=== PATIENT | male | born 1965 | race Caucasian/White ===

== ENCOUNTER 2017-05-07 01:10 | Emergency (ER) | payer BC ==
[2017-05-07 01:22] VITALS: RESP 16
[2017-05-07] MEDS ORDERED: SODIUM CHLORIDE 0.9% 1,000 ML IV STA (01:34)
[2017-05-07] MEDS ORDERED: HYDROmorphone 0.5 MG/0.5 ML SYRINGE IVP STA (01:34)
[2017-05-07] MEDS ORDERED: KETOROLAC 30 MG/ML 1 ML VIAL IVP STA (01:35)
[2017-05-07] MEDS ORDERED: ONDANSETRON 4 MG/2 ML VIAL IVP STA (01:35)
--- NOTE | 2017-05-07 01:43 | ED ---
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 Patient states that the pain started approximately a week ago however has been intermittent since then. He states that this is his third episode. States that it started approximately 4 hours ago. Patient states that the pain will come in waves, states that become so severe that it brings him to the floor. He states that when the pain is at its highest he does become nauseated however has not vomited. CT has been difficulty with urination , states that when he attempts to urinate it increases the pain. He denies any radiation of the pain to his abdomen. He denies any hematuria, dysuria, or urinary urgency. Patient denies any recent rash, fever, chills, shortness breath , chest pain, abdominal pain, diarrhea, constipation, numbness, tingling, dizziness, weakness, hematuria, dysuria, urinary urgency, urinary frequency, headache, visual changes, or any other complaints. He states he does have a chronic smoker's cough, denies any sputum production. - Related Data Previous Rx's Medication Instructions Recorded Hydrocodone/Acetaminophen [[place] 1 tab PO Q6HR PRN #20 tab 05/07/17 5-325] Ibuprofen [Motrin] 600 mg PO Q8HR PRN #30 tab 05/07/17 Tamsulosin HCl [Flomax] 0.4 mg PO DAILY #7 cap 05/07/17 Allergies Allergy/AdvReac Type Severity Reaction Status Date / Time Quinolones AdvReac Confusion Verified 05/07/17 01:23 Review of Systems ROS Statement: Those systems with pertinent positive or pertinent negative responses have been documented in the HPI. ROS Other: All systems not noted in ROS Statement are negative. Past Medical History Past Medical History: No Reported History History of Any Multi-Drug Resistant Organisms: None Reported Past Surgical History: Appendectomy, Heart Catheterization Additional Past Surgical History / Comment(s): pilonidal cyst Past Psychological History: No Psychological Hx Reported Smoking Status: Current every day smoker Past Alcohol Use History: Occasional Past Drug Use History: None Reported General Exam Limitations: no limitations General appearance: alert, in no apparent distress, other (Is a well-developed, well nourished adult male patient in no acute distress. Vital signs upon presentation are temperature 98.1F, pulse 72, respirations 16, blood pressure 129/66, pulse ox 97% on room air.) Eye exam: Present: normal appearance, PERRL, EOMI. Absent: scleral icterus, conjunctival injection, periorbital swelling ENT exam: Present: normal exam, normal oropharynx, mucous membranes moist Respiratory exam: Present: normal lung sounds bilaterally. Absent: respiratory distress, wheezes, rales, rhonchi, stridor Cardiovascular Exam: Present: regular rate, normal rhythm, normal heart sounds. Absent: systolic murmur, diastolic murmur, rubs, gallop, clicks GI/Abdominal exam: Present: soft, normal bowel sounds. Absent: distended, tenderness, guarding, rebound, rigid Back exam: Present: normal inspection, CVA tenderness (L). Absent: CVA tenderness (R) Neurological exam: Present: alert, oriented X3, CN II-XII intact Psychiatric exam: Present: normal affect, normal mood Skin exam: Present: warm, dry, intact, normal color. Absent: rash Course Vital Signs 05/07/17 05/07/17 01:17 02:35 Temperature 98.1 F 98.6 F Pulse Rate 72 63 Respiratory 16 16 Rate Blood Pressure 129/66 112/59 O2 Sat by Pulse 97 95 Oximetry Medical Decision Making - Medical Decision Making 51-year-old male patient presents to emergency department today with complaints of left flank pain. Labs reviewed and did show white blood cell count of 12.0, urinalysis showed trace protein, small amount of blood, 7 red blood cells, and few mucus. KUB x-ray of the abdomen was negative for any acute process. CT of the abdomen and pelvis did show a 5 mm stone in the proximal left ureter, and 8 mm stone in the left kidney. Also did show some left-sided hydronephrosis and proximal hydroureter. There was an incidental finding of a cyst to the liver, patient was informed of this finding and instructed to follow-up for further evaluation with his primary care physician. He was given pain medication IV fluids here in the department and is feeling somewhat better. He will be given prescriptions for Flomax, ibuprofen, and [place] for home. He is instructed to follow-up with urologist for recheck in 1-2 days. He is instructed to return here immediately for any new, worsening, or concerning symptoms. He verbalizes understanding and agrees with this plan. - Lab Data Result diagrams: 05/07/17 01:42 05/07/17 01:42 Lab Results 05/07/17 05/07/17 05/07/17 Range/Units 01:42 01:42 02:31 WBC 12.0 H (3.8-10.6) k/uL RBC 4.76 (4.30-5.90) m/uL Hgb 14.9 (13.0-17.5) gm/dL Hct 46.2 (39.0-53.0) % MCV 97.0 (80.0-100.0) fL MCH 31.2 (25.0-35.0) pg MCHC 32.2 (31.0-37.0) g/dL RDW 15.1 (11.5-15.5) % Plt Count 183 (150-450) k/uL Neutrophils % 67 % Lymphocytes % 17 % Monocytes % 7 % Eosinophils % 6 % Basophils % 1 % Neutrophils # 8.1 H (1.3-7.7) k/uL Lymphocytes # 2.1 (1.0-4.8) k/uL Monocytes # 0.9 (0-1.0) k/uL Eosinophils # 0.7 (0-0.7) k/uL Basophils # 0.1 (0-0.2) k/uL Sodium 138 (137-145) mmol/L Potassium 4.6 (3.5-5.1) mmol/L Chloride 107 (98-107) mmol/L Carbon Dioxide 22 (22-30) mmol/L Anion Gap 9 mmol/L BUN 19 (9-20) mg/dL Creatinine 1.00 (0.66-1.25) mg/dL Est GFR (MDRD) Af Amer >60 (>60 ml/min/1.73 sqM) Est GFR (MDRD) Non-Af >60 (>60 ml/min/1.73 sqM) Glucose 97 (74-99) mg/dL Calcium 9.6 (8.4-10.2) mg/dL Total Bilirubin 0.6 (0.2-1.3) mg/dL AST 23 (17-59) U/L ALT 22 (21-72) U/L Alkaline Phosphatase 78 (38-126) U/L Total Protein 7.1 (6.3-8.2) g/dL Albumin 3.9 (3.5-5.0) g/dL Amylase 63 (30-110) U/L Lipase 163 (23-300) U/L Urine Color Yellow Urine Appearance Clear (Clear) Urine pH 5.5 (5.0-8.0) Ur Specific [place] 1.020 (1.001-1.035) Urine Protein Trace H (Negative) Urine Glucose (UA) Negative (Negative) Urine Ketones Negative (Negative) Urine Blood Small H (Negative) Urine Nitrite Negative (Negative) Urine Bilirubin Negative (Negative) Urine Urobilinogen <2.0 (<2.0) mg/dL Ur Leukocyte Esterase Negative (Negative) Urine RBC 7 H (0-5) /hpf Urine WBC 3 (0-5) /hpf Urine Mucus Few H (None) /hpf - Radiology Data Radiology results: report reviewed, image reviewed CT of the abdomen and pelvis without contrast shows possible 1 cm cyst in the left lobe of the liver. Bile ducts are not dilated. Gallbladder is contracted. Spleen appears normal. There is no sign of a great mass. There is no adrenal mass. There is left-sided hydronephrosis. There is 5 mm cut was in the proximal left ureter. There is an 8 mm cognizant KIDNEY. The right kidney appears normal. There is no retroperitoneal adenopathy. There is no ascites. Bladder distends smoothly. I see no intestinal wall thickening. There are clips apparently from appendectomy. Impression by Dr. Pratt shows calculus in the proximal left ureter with left-sided hydronephrosis and proximal hydroureter. Atherosclerotic vascular disease. Multilevel spondylosis noted in the lumbar spine. There is mild L4 to 5 bony spinal stenosis with large calcified posterior disc herniation. 2 views of the abdomen show no sign of intestinal structure pneumoperitoneum. Fecal pattern is normal. There is spurring of thoracic and lumbar spine. There are no pathologic calcifications over the kidneys. Impression by Dr. Pratt shows nonacute abdomen. Disposition Clinical Impression: Kidney stone on left side Disposition: HOME SELF-CARE Condition: Good Instructions: Kidney Stones (ED), How to Strain Your Urine (ED) Additional Instructions: Increase fluids. Take medications as directed. Follow-up with urology Tuesday. Return here immediately for any new, worsening, or concerning symptoms. Prescriptions: Hydrocodone/Acetaminophen [[place] 5-325] 1 tab PO Q6HR PRN #20 tab PRN Reason: Pain Ibuprofen [Motrin] 600 mg PO Q8HR PRN #30 tab PRN Reason: Pain Tamsulosin HCl [Flomax] 0.4 mg PO DAILY #7 cap Referrals: Tio Sam III, MD [Primary Care Provider] - 1-2 days Stanley Cannon MD [STAFF PHYSICIAN] - 1-2 days Time of Disposition: 02:53
[2017-05-07 01:55] LABS: Basophils # (A) 0.1 k/uL (0-0.2); Basophils % (A) 1 %; CH 32.7; CHCM 33.9; Eosinophils # (A) 0.7 k/uL (0-0.7); Eosinophils % (A) 6 %; HCT 46.2 % (39.0-53.0); HDW 2.41; HGB 14.9 gm/dL (13.0-17.5); Luc # (Auto) 0.13; Luc % (Auto) 1; Lymphocytes # (A) 2.1 k/uL (1.0-4.8); Lymphocytes % (A) 17 %; MCH 31.2 pg (25.0-35.0); MCHC 32.2 g/dL (31.0-37.0); Mean Platelet Volume 9.2; Monocytes # (A) 0.9 k/uL (0-1.0); Monocytes % (A) 7 %; Neutrophils # (A) 8.1 k/uL (1.3-7.7); Neutrophils % (A) 67 %; RBC 4.76 m/uL (4.30-5.90); RDW 15.1 % (11.5-15.5); WBC (Perox) 11.78
--- NOTE | 2017-05-07 02:09 | XR ---
EXAMINATION TYPE: XR KUB DATE OF EXAM: 05/07/2017 COMPARISON: NONE HISTORY: Flank pain TECHNIQUE: 2 views FINDINGS: There is no sign of intestinal obstruction or pneumoperitoneum. Fecal pattern is normal. Th ere is spurring in the thoracic and lumbar spine. There are no pathologic calcifications over the kid neys. IMPRESSION: Nonacute abdomen.
[2017-05-07 02:14] LABS: Amylase 63 U/L (30-110); Anion Gap 9 mmol/L; Calcium 9.6 mg/dL (8.4-10.2); Carbon Dioxide 22 mmol/L (22-30); Chloride 107 mmol/L (98-107); Glucose 97 mg/dL (74-99); Non-African American GFR(MDRD) >60 (>60 ml/min/1.73 sqM); Sodium 138 mmol/L (137-145); Total Bilirubin 0.6 mg/dL (0.2-1.3); Total Protein 7.1 g/dL (6.3-8.2)
[2017-05-07 02:18] LABS: ALT 22 U/L (21-72); AST 23 U/L (17-59); Alkaline Phosphatase 78 U/L (38-126); Blood Urea Nitrogen 19 mg/dL (9-20); Potassium 4.6 mmol/L (3.5-5.1)
--- NOTE | 2017-05-07 02:27 | CT ---
EXAMINATION TYPE: CT abdomen pelvis wo con DATE OF EXAM: 05/07/2017 COMPARISON: NONE HISTORY: left flank pain CT DLP: 898.20 mGycm Automated exposure control for dose reduction was used. TECHNIQUE: Helical acquisition of images was performed from the lung bases through the pelvis. FINDINGS: Lung bases are clear of consolidation. There is no pleural effusion. There is a possible 1 cm cyst in the left lobe of the liver. Bile ducts are not dilated. Gallbladder is contracted. Spleen appears normal. There is no sign of pancreatic mass. There is no adrenal mass. There is left-sided hydronephrosis. There is a 5 mm calculus in the proxima l left ureter. There is a 8 mm calculus in the left kidney. The right kidney appears normal. There is no retroperitoneal adenopathy. There is no ascites. Bladder distends smoothly. I see no inte stinal wall thickening. There are clips apparently from appendectomy. IMPRESSION: CALCULUS IN THE PROXIMAL LEFT URETER WITH LEFT-SIDED HYDRONEPHROSIS AND PROXIMAL HYDROURETER. ATHEROS CLEROTIC VASCULAR DISEASE. MULTILEVEL SPONDYLOSIS NOTED IN THE LUMBAR SPINE. THERE IS MILD L4-5 BONY SPINAL STENOSIS WITH LARGE CALCIFIED POSTERIOR DISC HERNIATION.
[2017-05-07] MEDS ORDERED: TAMSULOSIN 0.4 MG CAP.ER.24H PO STA (02:36)
[2017-05-07 02:48] VITALS: BP 112/59; PULSE 63; TEMP 98.6
[2017-05-07 02:48] LABS: Appearance,Urine Clear (Clear); Bilirubin,Urine Negative (Negative); Glucose,Urine (UA) Negative (Negative); Ketones,Urine Negative (Negative); Leukocyte Esterase,Urine Negative (Negative); Mucus,Urine Few /hpf; Nitrite,Urine Negative (Negative); PH, Urine 5.5 (5.0-8.0); Particle Count 3229; Protein,Urine Trace (Negative); RBC,Urine 7 /hpf (0-5); UA Billing (MACRO vs. MICRO) MICRO; Urobilinogen,Urine <2.0 mg/dL (<2.0); WBC,Urine 3 /hpf (0-5)
[2017-05-07] MEDS ORDERED: ACET/COD 300 MG/30 MG STARTER PACK 6 TAB BTL PO STA (03:05)
== END 2017-05-07 03:08 | disposition home or self-care (01) ==
LOC: EC 01:10
DX: N20.0 Calculus of kidney (principal); N13.30 Unspecified hydronephrosis; F17.200 Nicotine dependence, unspecified, uncomplicated; Z88.1 Allergy status to other antibiotic agents; Z98.890 Other specified postprocedural states
CPT/HCPCS: 99284 ×2; 96374 ×2; 96375 ×2; 36415; 80053; 82150; 83690; 85025; 81001; 74000; 74176; J1885; J1170

== ENCOUNTER → 2017-05-30 | Outpatient (CLI) | payer BC ==
--- NOTE | 2017-05-30 14:13 | XR ---
EXAMINATION TYPE: XR KUB DATE OF EXAM: 05/30/2017 COMPARISON: 05/07/2017 HISTORY: Pain TECHNIQUE: One view abdominal series FINDINGS: The osseous structures are intact. Hypertrophic and degenerative change of the lumbar spine. The bow el gas pattern is nonspecific. Arthropathy of the hips noted. Left kidney: There are approximately 3 calcifications overlying the left kidney lower pole largest me asuring 4 mm. Right kidney: No definite renal calculi identified. Abdomen, pelvis: There is a calcification adjacent to the L3-L4 transverse process on the left measur ing approximate 5 mm and corresponds to the CT abnormality compatible with mid ureteral calculus. IMPRESSION: 1. Adjacent to L3-L4 disc interspace there is a persistent calcification measuring 5 mm. This appears to be in similar position relative to the coronal image CT scan dated 05/07/2017. 2. Left-sided nephrolithiasis as measured above.
== END | disposition home or self-care (01) ==
LOC: RADXRMAIN 13:49
PROVIDERS: ATTEND Urology
DX: N20.0 Calculus of kidney (principal)
CPT/HCPCS: 74000

== ENCOUNTER → 2018-02-18 | Outpatient (CLI) | payer BC ==
--- NOTE | 2018-02-19 14:36 | MR ---
EXAMINATION TYPE: MR cervical spine wo con DATE OF EXAM: 02/18/2018 COMPARISON: None HISTORY: Neck pain, Numbness/Tingling in arms and fingers TECHNIQUE: Multiplanar, multisequence images of the cervical spine were acquired. C2-C3: No evidence for degenerative disc disease. No disc bulge/herniation or protrusion. No Canal stenosis. Foramina are patent bilaterally. C3-C4: Mild central focal bulge is present with anterior thecal sac compression. No AP spinal canal s tenosis present. Neural foramen have mild narrowing due to uncovertebral joint hypertrophy. C4-C5: There is a central focal bulge with moderate anterior thecal sac compression. Cord contact wit hout cord deformity may be present. No spinal canal stenosis is present. Severe right and moderate le ft foraminal stenosis from uncovertebral joint hypertrophy is present. C5-C6: There is a large broad disc herniation. This is greatest in the central and right paracentral region with moderate to severe compression of the thecal sac. There is compression and deformity of t he spinal cord. AP spinal canal stenosis is present with an AP diameter of 4.9 cm. There is signal ch allison within the left aspect of the spinal cord on T2-weighted sequences uncovertebral joint hypertrop hy is present with moderate right and mild left foraminal stenosis. C6-C7: There is a subligamentous central disc herniation with mild anterior thecal sac compression. T his comes in close approximation with spinal cord. Cord contact may be present. No AP spinal canal st enosis present. Bilateral foramen have moderate narrowing due to uncovertebral joint hypertrophy. C7-T1: No evidence for degenerative disc disease. No disc bulge/herniation or protrusion. No Canal stenosis. Foramina are patent bilaterally. Disc heights appear preserved. Disc desiccation is present within the upper to mid thoracic spine. Ve rtebral body heights are preserved. Craniovertebral junction is normal. IMPRESSION: 1. Large broad central disc herniation C5-6 with more focal central and right paracentral bulging cau sing severe anterior thecal sac compression, cord contact and deformity. Signal abnormality is noted in the left aspect of the spinal cord at this level. 2. Multilevel central focal bulge is without cord contact or cord deformity appears greatest at C6-7 or possibly C4-5. A Yellow level critical message alert has been initiated for Tio Sam III, MD via the [employer] Critical Results System on 02/19/2018 2:33 PM. This message alert has been sent to Tio Solorzano II, MD via the preferences provided by the clinician for the receipt of Radiology Critical Findings. Message ID [id number].
== END | disposition home or self-care (01) ==
LOC: RADMRIMAIN 09:57
PROVIDERS: ATTEND Family Medicine
DX: M50.21 Other cervical disc displacement, high cervical region (principal); M43.9 Deforming dorsopathy, unspecified; R93.7 Abnormal findings on diagnostic imaging of other parts of musculoskeletal system
CPT/HCPCS: 72141

== ENCOUNTER → 2018-03-03 | Outpatient (CLI) | payer BC ==
[2018-03-03 17:26] LABS: Basophils # (A) 0.1 k/uL (0-0.2); Basophils % (A) 1 %; Eosinophils # (A) 0.3 k/uL (0-0.7); Eosinophils % (A) 4 %; HGB 14.4 gm/dL (13.0-17.5); Lymphocytes # (A) 2.5 k/uL (1.0-4.8); Lymphocytes % (A) 30 %; MCH 30.8 pg (25.0-35.0); MCHC 34.3 g/dL (31.0-37.0); MCV 89.8 fL (80.0-100.0); Mean Platelet Volume 6.9; Monocytes # (A) 0.6 k/uL (0-1.0); Monocytes % (A) 7 %; Neutrophils # (A) 4.8 k/uL (1.3-7.7); Neutrophils % (A) 56 %; Platelet Count 231 k/uL (150-450); RBC 4.68 m/uL (4.30-5.90); RDW 13.7 % (11.5-15.5); WBC 8.5 k/uL (3.8-10.6)
[2018-03-03 17:32] LABS: Partial Thromboplastin Time 23.5 sec (22.0-30.0); Prothrombin Time 10.2 sec (9.0-12.0)
[2018-03-03 17:46] LABS: Anion Gap 8 mmol/L; Blood Urea Nitrogen 15 mg/dL (9-20); Calcium 9.2 mg/dL (8.4-10.2); Carbon Dioxide 22 mmol/L (22-30); Chloride 109 mmol/L (98-107); Glucose 86 mg/dL (74-99); Sodium 139 mmol/L (137-145)
--- NOTE | 2018-03-03 17:59 | XR ---
EXAMINATION TYPE: XR chest 2V DATE OF EXAM: 03/03/2018 COMPARISON: NONE HISTORY: Chest pain TECHNIQUE: Frontal and lateral views of the chest are obtained. FINDINGS: Heart and mediastinum are normal. Lungs are clear. Diaphragm is normal. There is spurring in the thoracic spine. IMPRESSION: No active cardiopulmonary disease. Normal heart.
[2018-03-03 18:03] LABS: Appearance,Urine Clear (Clear); Bilirubin,Urine Negative (Negative); Blood,Urine Negative (Negative); Color,Urine Yellow; Glucose,Urine (UA) Negative (Negative); Ketones,Urine Negative (Negative); Leukocyte Esterase,Urine Negative (Negative); Nitrite,Urine Negative (Negative); PH, Urine 5.5 (5.0-8.0); Protein,Urine Negative (Negative); Specific Gravity,Urine 1.021 (1.001-1.035); Urobilinogen,Urine <2.0 mg/dL (<2.0)
== END | disposition home or self-care (01) ==
LOC: LABPAT 16:45
PROVIDERS: ATTEND Orthopaedic Surgery Orthopaedic Surgery of the Spine
DX: Z01.818 Encounter for other preprocedural examination (principal); M50.00 Cervical disc disorder with myelopathy, unspecified cervical region
CPT/HCPCS: 36415; 71046; 80048; 81003; 85025; 85610; 85730

== ENCOUNTER 2018-03-15 07:48 | Inpatient (IN) | payer BC ==
[2018-03-08 14:54] VITALS: BMI 29.7
[~2018-03-15 07:48] MED LIST: BACITRACIN 50,000 UNIT, POLYMYXIN B 500,000 UNIT in SODIUM CHLORIDE 0.9% IRRIGATIO 1,00... IRRIGATION ONE; DEXAMETHASONE SOD PHOSPHATE 10 MG/ML 1 ML VIAL IV ONE; LIDOCAINE 1% 20 ML VIAL (10MG/ML) FOR IV START INTRADERMA PRN; MIDAZOLAM 2 MG/2 ML VIAL IV PRN; ONDANSETRON 4 MG/2 ML VIAL IVP ONE; ceFAZolin IN SWFI 2 GM/20 ML SYRINGE IVP ONE; fentaNYL (PF) 50 MCG/ML 2 ML AMP IV PRN; fentaNYL (PF) 50 MCG/ML 2 ML AMP IVP PRN
[2018-03-15] MEDS ORDERED: ONDANSETRON 4 MG/2 ML VIAL ONE (08:13)
[2018-03-15] MEDS: LACTATED RINGERS 1,000 ML IV SCH ×2 (08:24→15:31)
[2018-03-15] MEDS ORDERED: SUCCINYLCHOLINE CHLORIDE 100 MG/5 ML SYR IV ONE (10:25)
[2018-03-15] MEDS ORDERED: MIDAZOLAM 2 MG/2 ML VIAL ONE (10:25)
[2018-03-15] MEDS ORDERED: GLYCOPYRROLATE 0.2 MG/ML 2 ML VIAL ONE (10:25)
[2018-03-15] MEDS ORDERED: LIDOCAINE 0.5%-EPI 1:200,000 50 ML VIAL SQ ONE ×2 (10:25)
[2018-03-15] MEDS ORDERED: fentaNYL (PF) 50 MCG/ML 2 ML AMP ONE (10:25)
[2018-03-15] MEDS ORDERED: LIDOCAINE 1% INJ 10MG/ML (20 ML MDV) ONE (10:25)
[2018-03-15] MEDS ORDERED: THROMBIN (BOVINE) 5,000 UNIT VIAL TOPICAL ONE (10:25)
[2018-03-15] MEDS ORDERED: GELATIN SPONGE,ABSORB (LARGE) 1 EACH SPONGE TOPICAL ONE (10:25)
[2018-03-15] MEDS ORDERED: ROCURONIUM BROMIDE 10 MG/ML 10 ML VIAL IV ONE (10:25)
[2018-03-15] MEDS ORDERED: PROPOFOL 10 MG/ML 20 ML VIAL IV ONE (10:25)
[2018-03-15] MEDS ORDERED: KETAMINE 10 MG/ML 20 ML VIAL ONE (10:25)
[2018-03-15] MEDS ORDERED: DEXAMETHASONE SOD PHOS (MDV) 100 MG/10 ML VIAL ONE (10:25)
[2018-03-15] MEDS ORDERED: NEOSTIGMINE 1 MG/ML 10 ML VIAL ONE (10:25)
[2018-03-15] MEDS ORDERED: LACTATED RINGERS 1,000 ML IV ONE (11:01)
[2018-03-15] MEDS ORDERED: BENZOCAINE/MENTHOL LOZENG 1 EACH LOZENGE MUCOUS MEM PRN (12:49)
[2018-03-15] MEDS ORDERED: MAGNESIUM HYDROXIDE 2,400 MG/10 ML CUP PO PRN (12:49)
[2018-03-15] MEDS ORDERED: ONDANSETRON 4 MG/2 ML VIAL IVP PRN (12:49)
--- NOTE | 2018-03-15 12:56 | P.OP ---
Date of Procedure: 03/15/18 Preoperative Diagnosis: Cervical myelomalacia Cervical myelopathy Severe cervical stenosis C5 6 with cervical stenosis C4 5 and C6 7 Herniated nucleus pulposis C4 5 C5 6 C6 7 Upper extremity radiculopathy with weakness Postoperative Diagnosis: Same Anesthesia: GETA Pathology: none sent Condition: stable Disposition: PACU Description of Procedure: BRIEF OPERATIVE NOTE Preoperative Diagnosis:Cervical myelomalacia Cervical myelopathy Severe cervical stenosis C5 6 with cervical stenosis C4 5 and C6 7 Herniated nucleus pulposis C4 5 C5 6 C6 7 Upper extremity radiculopathy with weakness Postoperative Diagnosis: same Procedure: Anterior cervical decompression discectomy and fusion C4 5 C5 6 C6 7 Placement of interbody graftC4 5 C5 6 C6 7 removal of large anterior cervical osteophyte C4 5 C5 6 and C6 7 Application of anterior cervical plate C4 5 6 and 7 Surgeon: Dr. Mcdonald Director Electrical Engineering: Howie BUSBY who is present throughout the entire the case persistence during positioning, dissection, exposure, visualization, and all crucial elements of the case as well as closure. Anesthesia: General anesthesia per Dr. Rushing Estimated blood loss: approximately 50 mL Complications: None apparent Components implanted:a 2 mL [place] anterior cervical plate system with screws and Vikos interbody allograft bone graft with 1 mL of DBX bone putty Disposition: To recovery room in good stable condition. OPERATIVE INDICATIONS The patient has had long-standing issues in their neck and upper extremities. he was having evidence of cervical myelopathy with some changes in his function is upper extremities and his gait as well. He was having weakness in his left upper extremity. Imaging showed severe cervical stenosis with evidence of myelomalacia which correlated well with his cervical myeloradiculopathy and myelopathy symptoms. The patient has been through conservative treatment. he was having worsening symptoms despite conservative management. We discussed various treatment options including surgery, and the patient wishes to proceed with surgery We discussed the risk, patient's alternatives and benefits of surgery including but not limited to, risk of bleeding risk of infection, risk of need for further surgery, risk of decreased, loss of motion, muscle function , malunion nonunion, hardware failure, nerve damage, paralysis, heart attack, and . OPERATIVE SUMMARY After discussing all the risks, patient alternatives and benefits at length, the patient elected to proceed with surgical intervention, signed informed consent, and presented for their procedure. The patient was seen and examined in the preoperative holding area and the surgical site was marked. The patient was given antibiotics and brought to the operating room. The patient was positioned on the operating room table in a supine position being careful to pad any bony prominences and pressure points. The patient was sedated and intubated by anesthesia in standard fashion. Once the airway and C- spine were stabilized the patient's arms were padded and tucked at her side, with her shoulders gently taped. The head was placed in a donut pad with the neck in good neutral alignment and position. We were careful to maintain the patient's cervical spine and good neutral alignment and position throughout. The patient was prepped and draped in a normal standard fashion. An appropriate timeout and keystone protocol performed. We were able to proceed with the surgery. The local wound area was infiltrated with local anesthetic. An incision was made transversely approximately 2-1/2 cm over the appropriate levels at C5 6 . Dissection was taken down subcutaneously to the level of the platysma which was split in line with its fibers. Dissection was taken with a carotid approach, with the trachea and esophagus medial and the carotid sheath laterally. We dissected down to the anterior surface of the vertebral bodiesfrom C4 to C7 where there were very large anterior cervical osteophytes . Intraoperative x-ray was taken which showed a marker at the appropriate level at C4 5 . With the appropriate level positively confirmed, we were able to proceed with discectomy at the appropriate levels at C4 5 and then at C5 6 and then at C6 7 . All of the operative levels were exposed appropriately. The patient had all their twitches back, and there was no evidence of recurrent laryngeal issue. The wound was copiously irrigated and suctioned dry as had been done periodically throughout the case. I had to remove very large anterior cervical osteophytes at each level of C4 5 C5 6 and C6 7. At the appropriate level/levels, starting at C4 5 and then moving C5 6 and then C6 7 I established an annulotomy with an 11 blade scalpel. A discectomy was performed with a combination of pituitary rongeurs, curettes, a high-speed bur, and Kerrison rongeurs. The posterior longitudinal ligament was taken down as were any posterior osteophytes. there were large disc herniations particularly at C5 6 which had to be removed and excised in order to gain excellent central and bilateral foraminal decompression. This gave good central and bilateral foraminal decompression. There is no evidence of any dural tear or leak. The endplates were prepared with a high-speed bur. With the endplates in good parallel position, I was able to size for the appropriate size interbody graft. The wound was irrigated and suctioned dry the graft was prepared and malleted into position. It had good alignment and position with the anterior surface flush with the anterior surface of the vertebral bodies. This was done similarly the appropriate levels first at C4 5 and C5 6 and then at C6 7. With the grafts intact, I was able to measure and contour and appropriate sized plate. The plate was positioned at the midline over the appropriate levels at C4 5 6 and 7 . Screw holes were established with a hand drill and drill guide. Screws were placed in good alignment and position with excellent bony purchase. They were seated under the locking device. The construct was checked and found to be stable. Intraoperative x-ray was taken which showed good alignment and position of the implants at the appropriate levels. There was no evidence of any dural tear or leak. Good hemostasis was maintained. The wound was copiously irrigated and suctioned dry as had been done periodically throughout the case. The platysma was closed with absorbable suture. The subcutaneous tissue was closed. The subcuticular tissue was closed with absorbable suture. The wound was cleaned and dried and dressed appropriately. A soft cervical collar was placed appropriately. The patient was woken up by anesthesia, extubated, transferred back gently to their hospital bed and brought to the recovery room in good stable condition. The patient will be admitted to the hospital for appropriate postoperative care , medical management and monitoring. We will continue to follow them closely about the postoperative course.
[2018-03-15] MEDS: HYDROmorphone 1 MG/ML 1 ML SYRINGE IVP PRN ×3 (13:12→21:20)
[2018-03-15 13:19] VITALS: RESP 16
[2018-03-15] MEDS ORDERED: HYDROmorphone 1 MG/ML 1 ML SYRINGE IVP ONE (13:33)
[2018-03-15] MEDS ORDERED: diphenhydrAMINE 50 MG/ML 1 ML VIAL IVP ONE (13:49)
--- NOTE | 2018-03-15 15:04 | XR ---
Lateral cervical spine HISTORY: Needle placement Single lateral view of the cervical spine. There is a needle present at the intervertebral disc space C4-5. Multilevel spondylosis is present. E ndotracheal tube noted incidentally, there are overlying leads. IMPRESSION: Orthopedic localization.
--- NOTE | 2018-03-15 15:07 | XR ---
Cervical spine HISTORY: Hardware placement Single lateral view of the cervical spine correlated prior exam 03/15/2018 Patient is status post anterior cervical fusion and discectomy at C4-C7. There is anatomic alignment, intervertebral spacing blocks of been placed. Endotracheal tube is present. IMPRESSION: Orthopedic follow-up.
[2018-03-15] MEDS: ceFAZolin IN SWFI 2 GM/20 ML SYRINGE IVP SCH (18:13)
[2018-03-15] MEDS: SODIUM CHLORIDE 0.9% 1,000 ML IV SCH (18:13)
[2018-03-15] MEDS: HYDROcodone/APAP 5-325MG 1 EACH TAB PO PRN (19:45)
[2018-03-16] MEDS: HYDROcodone/APAP 5-325MG 1 EACH TAB PO PRN ×3 (00:01→08:26)
[2018-03-16] MEDS: ceFAZolin IN SWFI 2 GM/20 ML SYRINGE IVP SCH (00:09)
[2018-03-16] MEDS: HYDROmorphone 1 MG/ML 1 ML SYRINGE IVP PRN ×3 (01:47→10:24)
[2018-03-16] MEDS: SODIUM CHLORIDE 0.9% 1,000 ML IV SCH ×2 (03:04→04:15)
[2018-03-16 06:19] VITALS: BP 107/58; PULSE 73; TEMP 97.6
[2018-03-16] MEDS ORDERED: SENNOSIDES-DOCUSATE SODIUM 1 EACH TAB PO SCH (09:00)
--- NOTE | 2018-03-16 09:29 | P.DS ---
Providers Date of admission: 03/15/18 07:48 Attending physician: Rommel Mcdonald Primary care physician: T[facility] Course: The patient presented on the day of admission as per his operative note. He had severe cervical stenosis with herniated disc and was having myelopathy and evidence of myelomalacia at his cervical spine. He had been having worsening symptoms despite conservative treatment. He presented for his anterior cervical discectomy with decompression and fusion as per his operative note. This morning he says he is feeling pretty good. He feels that his symptoms in his arms have changed somewhat. He has been ambulatory and tolerating a soft diet. Physical Exam The incision site is clean dry and intact. There is no erythema no drainage. There is no purulence no evidence of infection. His neck is soft and supple. There is no active drainage. Abdomen soft and nontender. Chest has good excursion with deep inspiration and expiration. The patient has active and passive range of motion intact at the upper and lower extremities. There is no acute change in neurologic status. He has good motion in his upper extremity his lower extremity. He is ambulatory on his own and stable. Hospital Course Postoperative day #1 status post anterior cervical decompression with discectomy and fusion at C4 5 C5 6 and C6 7 for his severe cervical stenosis with herniated nucleus pulposis and cervical myelopathy and myelomalacia. The patient had 3 level anterior cervical decompression and fusion and I felt that he would need close monitoring and overnight inpatient hospitalization in this regard given the severity of his issues and the multiple levels involved. He has done well postoperatively. The patient has been making good progress postoperatively. They have completed the prophylactic antibiotics without any signs or symptoms of infection. The patient has been able to advance their diet , and is tolerating diet adequately. The pain was initially controlled with IV medications and is now controlled appropriately with oral medications. The patient has been able to increase their mobilization. The patient has progressed appropriately. I think they are in good stable condition for discharge today. They will be sent home with appropriate prescriptions. I answered their questions to the best of my ability in a language that they can understand and they are agreeable with the plan. They will follow up as directed in approximately 2 weeks or sooner for a 70 problems. Patient Condition at Discharge: Good Plan - Discharge Summary Discharge Rx Participant: No New Discharge Prescriptions: New Hydrocodone/Acetaminophen [[place] 7.5-325] 1 tab PO Q4HR PRN 7 Days #42 tab PRN Reason: Severe Pain No Action Ibuprofen [Motrin] 600 mg PO Q8HR PRN #30 tab PRN Reason: Pain Discharge Medication List Ibuprofen [Motrin] 600 mg PO Q8HR PRN #30 tab 05/07/17 [Rx] Hydrocodone/Acetaminophen [[place]alph 7.5-325] 1 tab PO Q4HR PRN 7 Days #42 tab 03/16 [Rx] Patient Instructions/Handouts: *Surgery [facility] - ([facility]) Cervical Surgery Discharge Instructions Activity/Diet/Wound Care/Special Instructions: May ambulate to tolerance Avoid heavy or rigorous activity No overhead work No repetitive bending twisting or lifting Keep dressing clean. May shower with waterproof Tegaderm intact. Do not soak in a tub. On Tuesday May remove dressing and may leave the area uncovered, but leave Steri- Strips intact and allow them to fray off on their own On Tuesday the patient may shower with area uncovered. Discharge Disposition: HOME SELF-CARE
== END 2018-03-16 10:50 | disposition home or self-care (01) | DRG 472 ==
LOC: 2ORMAIN 07:48 → 5MS5E 14:21
PROVIDERS: ADMIT Orthopaedic Surgery Orthopaedic Surgery of the Spine; ATTEND Orthopaedic Surgery Orthopaedic Surgery of the Spine
PROC: 0RT30ZZ Resection of Cervical Vertebral Disc, Open Approach (ICD-10-PCS; 2018-03-15)
PROC: 0RG20K0 Fusion of 2 or more Cervical Vertebral Joints with Nonautologous Tissue Substitute, Anterior Approach, Anterior Column, Open Approach (ICD-10-PCS; principal; 2018-03-15 10:05)
DX: M48.02 Spinal stenosis, cervical region (principal); G95.89 Other specified diseases of spinal cord; M50.122 Cervical disc disorder at C5-C6 level with radiculopathy; M25.78 Osteophyte, vertebrae; R01.1 Cardiac murmur, unspecified; F17.210 Nicotine dependence, cigarettes, uncomplicated; Z88.1 Allergy status to other antibiotic agents
CPT/HCPCS: 72020; 86850; 86900; 86901

== ENCOUNTER → 2019-07-13 | Outpatient (CLI) | payer BC ==
--- NOTE | 2019-07-13 08:55 | US ---
EXAMINATION TYPE: US abdomen complete DATE OF EXAM: 07/13/2019 COMPARISON: CT 05/07/2017 CLINICAL HISTORY: R10.11 RUQ pain. EXAM MEASUREMENTS: Liver Length: 15.2 cm Gallbladder Wall: 0.2 cm CBD: 0.5 cm Spleen: 10.2 cm Right Kidney: 11.8 x 5.4 x 6.0 cm Left Kidney: 11.4 x 6.1 x 5.0 cm Pancreas: Distal body and Tail obscured by overlying bowel gas Liver: wnl Gallbladder: wnl Evidence for sonographic Garcia's sign: No CBD: wnl Spleen: wnl Right Kidney: No hydronephrosis or masses seen Left Kidney: No hydronephrosis or masses seen Upper IVC: wnl Abd Aorta: wnl The liver is homogenous. The intrahepatic portion of the IVC and proximal abdominal aorta are within normal limits. There is no evidence of cholelithiasis. Common bile duct is unremarkable. The visu alized portions of the pancreas are homogenous. The spleen is unremarkable. Kidneys are symmetric a nd free of hydronephrosis. No renal lesions are seen. IMPRESSION: No acute findings are evident. Left-sided nephrolithiasis on 2017 CT not clearly identifi ed on current study lower pole level.
== END | disposition home or self-care (01) ==
LOC: RADUSWWP 06:56
PROVIDERS: ATTEND Family Medicine
DX: R10.11 Right upper quadrant pain (principal)
CPT/HCPCS: 76700

== ENCOUNTER → 2020-10-17 | Outpatient (CLI) | payer BC ==
--- NOTE | 2020-10-17 16:51 | MR ---
EXAMINATION TYPE: MR cervical spine wo/w con DATE OF EXAM: 10/17/2020 COMPARISON: MR cervical spine 02/18/2018 HISTORY: Neck pain/numbness into shoulder, Leg pain TECHNIQUE: Multiplanar, multisequence images of the cervical spine were acquired utilizing 10 mL intravenous Subhash avist gadolinium contrast. Diffusion weighted imaging was performed. C2-C3: Some mild right-sided foraminal encroachment is present due to uncovertebral joint hypertrophy . No evident spinal stenosis or disc herniation. C3-C4: There is a posterior central disc protrusion is a anterior mass effect on the thecal sac. Bila teral foraminal encroachment is present due to uncovertebral joint hypertrophy. Findings are essentia lly stable. C4-C5: Bilateral foraminal encroachment is again noted. No evident disc herniation or spinal stenosis . C5-C6: No evident spinal stenosis or disc herniation. There is bilateral foraminal encroachment right greater than left. Heart disc extends posteriorly causing mild anterior mass effect on the thecal sa c. C6-C7: Right greater than left foraminal encroachment is present. Heart disc is present extending pos teriorly causing mild anterior mass effect on the thecal sac. No significant spinal stenosis. C7-T1: No evidence for degenerative disc disease. No disc bulge/herniation or protrusion. No Canal stenosis. Foramina are patent bilaterally. Patient shows anterior cervical fusion and discectomy change at C4-C7. There is normal alignment. Ce rvical spinal cord is again showing abnormal signal as on prior exam consistent with myelomalacia at C6. Craniovertebral junction relationships are within normal limits. No abnormal enhancement follow ing contrast administration. IMPRESSION: Myelomalacia is noted within the cord, better seen compared to prior exam. Postop changes. Degenerati ve disc disease. Improvement is present due to surgery. Persistent multilevel foraminal encroachment.
== END | disposition home or self-care (01) ==
LOC: RADMRIMAIN 06:03
PROVIDERS: ATTEND Orthopaedic Surgery Orthopaedic Surgery of the Spine
DX: M50.30 Other cervical disc degeneration, unspecified cervical region (principal); G95.89 Other specified diseases of spinal cord; Z98.890 Other specified postprocedural states; R53.1 Weakness; F17.200 Nicotine dependence, unspecified, uncomplicated; Z98.1 Arthrodesis status
CPT/HCPCS: 72156; A9585

== ENCOUNTER → 2021-08-17 | Outpatient (CLI) | payer BC ==
--- NOTE | 2021-08-17 11:50 | MR ---
EXAMINATION TYPE: MR cspine/lspine wo con DATE OF EXAM: 08/17/2021 COMPARISON: Prior cervical spine MRI 10/17/2020 HISTORY: Low back pain, cervicalgia TECHNIQUE: Multiplanar, multisequence imaging of the cervical and lumbar spine is performed without I V contrast. FINDINGS: Cervical spine MRI: Cervical cord signal is abnormal as on prior exam, myelomalacia is present at pao roximately C6 level similar to prior exam. There is no significant spinal stenosis. Anterior fusion c hanges are again noted, susceptibility artifact due to patient's anterior cervical fusion and discect callum change at C4-C7. C3-4 shows a small posterior disc bulge causing anterior mass effect on the thecal sac. Some uncovert ebral joint hypertrophy results in foraminal encroachment bilaterally similar to prior exam. Foramina l encroachment is also present at C4-5, C5-6 similar to prior exam as well as C6-7 right greater than left. Exam is essentially stable. IMPRESSION: Stable postoperative findings, degenerative disc disease, myelomalacia within the cervica l cord. Multilevel foraminal encroachment. No significant spinal stenosis. Lumbar spine MRI: Lumbar vertebral bodies show preserved height and alignment. Is multilevel spondylo sis with endplate discogenic marrow signal change. Loss of disc height signal is present at intervert ebral levels L1-2, L2-3, L3-4 and L4-5. The conus is at L1 shows an unremarkable appearance. No signi ficant spinal stenosis. L5-S1: There is marked facet arthropathy change. No evident disc herniation or foraminal encroachment on the right, circumferential extension endplate disc complex encroaches minimally on the left neura l foramen. L4-5: Facet arthropathy change with hypertrophy ligamentum flavum is noted. Circumferential disc bulg e causes anterior mass effect on the thecal sac and extends laterally to cause bilateral foraminal en croachment. Some increased signal posterior aspect of the disc may be due to annular tear. There is a focal left posterior paracentral disc protrusion which may contact the left L5 nerve root. Hypertrop hic changes of the facets may encroach upon the lateral recesses. L3-4: Differential posterior disc bulge causes anterior mass effect on the thecal sac. No significant foraminal encroachment. There is facet arthropathy change present. L2-3: Right posterior paracentral disc bulge causes anterolateral mass effect on the thecal sac. Reve rsal extension endplate disc complex encroaches upon the right neural foramen. L1-2: Left posterior paracentral disc bulge causes anterolateral mass effect on the thecal sac. There is facet arthropathy change causing some posterior lateral mass effect on the thecal sac from the ri ght. No significant foraminal encroachment. IMPRESSION: Negative MRI of the lumbar spine. Multilevel degenerative disc disease and facet arthrop athy. Multilevel foraminal encroachment.
== END | disposition home or self-care (01) ==
LOC: RADMRIMAIN 06:04
PROVIDERS: ATTEND Orthopaedic Surgery Orthopaedic Surgery of the Spine
DX: M51.36 Other intervertebral disc degeneration, lumbar region (principal); M47.816 Spondylosis without myelopathy or radiculopathy, lumbar region; M50.323 Other cervical disc degeneration at C6-C7 level; G95.89 Other specified diseases of spinal cord
CPT/HCPCS: 72141; 72148

== ENCOUNTER → 2021-08-27 | Outpatient (CLI) | payer BC ==
--- NOTE | 2021-08-27 14:53 | P.CON ---
Consult Note - . Consult date: 08/27/21 Assessment/Plan:: HISTORY OF PRESENT ILLNESS: 55 year old male with at side as a referral from Dr. Mcdonald with lower back pain due to lumbar degenerative disc disease, spondylosis, disc bulges, neural foraminal stenoses, facet arthropathy and left L5 nerve root encroachment presents today for an evaluation. Patient states his lower back pain a 7 out of 10 in intensity, dull achy and sore in character, with radiation of soreness to his hips bilaterally and accompanying weakness in the right lower extremity. Patient states pain is provoked with standing for periods of 15 minutes or more, bending and lifting. Patient states pain is relieved with injections of the lumbar spine that he had at Dr. Mcdonald's office, heat, repositioning and rest. Patient states he has been told he is not a lumbar surgical and chiropractic treatments candidate. Past Medical History: No Reported History Past Surgical History: Appendectomy, Heart Catheterization, Pilonidal cist, Cervical discectomy of C4-C5, C5-C6, C6-C7 with fusion Smoking Status: Current every day smoker, occassional ETOH use, no illicit drug use. All: Ciprofloxacin, Quinolones Meds: See list REVIEW OF ORGAN SYSTEMS: CONSTITUTIONAL: No fevers or chills. No recent weight loss. HEENT: No visual acuity loss, eye pain, difficulties with hearing. No nosebleeds. No difficulty swallowing. RESPIRATORY: Denies any troubles with breathing or dyspnea on exertion. CARDIOVASCULAR: Denies any chest pain, palpitations, or recent heart attacks. GASTROINTESTINAL: Denies fatty food intolerance. Has change in bowel habits and gas bloat. GENITOURINARY: Denies any blood in urine. Has increased urinary frequency. NEUROLOGICAL: + numbness and tingling along the distal extremities. No seizure disorders or headaches. MUSCULOSKELETAL: + back pain SKIN: No skin cancer. No rash. PSYCHIATRIC: Denies current depression or suicidal thoughts. ENDOCRINE: Denies current thyroid disorders. Denies any blood sugar glucose intolerance. HEME/LYMPHATIC: Denies any lumps and bumps around the neck. History of deep venous thrombosis. ALLERGY/IMMUNOLOGY: No immunoglobulin therapy. No immune deficiencies. BREAST: Denies current breast lumps, pain or nipple discharge. Physical Examinations : Constitutional : Cooperative , not in acute distress . HEENT: Neck supple. No Lymphadenopathy. Normal thyroid size . Eyes no ptosis , no icterus, no photophobia . Hearing intact. Normal oropharynx. No Thrush. Respiratory : Chest clear to auscultations bilaterally. No wheezing. No rhonchi. Cardiovascular : Regular rate and rhythm , S1 / S2. No S3 . No S4. Gastrointestinal : Abdomen soft. No tenderness. Bowel sounds x 4. No organomegaly . Genitourinary : Deferred. Neurologic : Cranial nerve II to XII intact. No focal neurological deficits. Psychiatric : alert & oriented x 3. Matching mood & appropriate affect. Judgment & insight intact. Lymphatic No Lymphadenopathy. Musculoskeletal : Cervical Spine Motor strength in the deltoid and biceps: Normal right side. Normal Left side Motor strength biceps and the wrist extensors: Normal right side . Normal left side Motor strength in the triceps muscle: Normal right side. Normal left side Deep tendon reflexes: Normal at the biceps. Normal at Brachioradialis. Normal at triceps Cervical facet loading test: positive bilaterally Spurling test: positive bilaterally Neck distraction test: positive bilaterally Shivam sign: positive bilaterally Lumbar spine Motor strength lower extremities ,thigh and legs 5/5 Right side , 5/5 Left side Deep tendon reflexes : Normal Knee Jerk. Normal Ankle Jerk Moderate vertebral body tenderness to palpation over the L4 and L5 Lumbar facet Loading Test: positive Right / positive Left over the L4 to L5 and L5 to S1 Range of motion of the lumbar spine Flexion 30 degrees, extension 10 degrees Straight Leg Raise test: Left/ Right positive at 30 degrees Vicki test: positive right / positive left. Severe tenderness over the Sacroiliac joint on the Right / Left sides Gaenslen test: positive bilaterally Seated flexion test: positive bilaterally. Imaging: MRI of the lumbar spine 08/17/2021: Multilevel spondylosis , degenerative disc disease, multilevel disc bulges, facet arthropathy and especially a left posterior paracentral disc protrusion which encroaches the left L5 nerve root Assessment/ Plan : Recommendation of LESI of the L4-L5 Discussed repeat procedures to obtain sufficient pain relief Risks, benefits of procedure discussed and patient verbalized understanding Denies aspirin or anticoagulant use I have spent greater than 50 minutes on patient care today. Dr Sanders was available by phone for the evaluation of this patient. The time was used to review the medical records including relevant urine studies and Prescription history (MAPs), review of the available imaging, evaluation and examination of the patient, coordination of care with the medical staff and if applicable referring physicians, as well as creation of the medical record PQRS Measure Charge Sheet PQRS Narrative: Smoking Status Current every day smoker Home Medications: Ambulatory Orders Ibuprofen [Motrin] 600 mg PO Q8HR PRN #30 tab 05/07/17 Hydrocodone/Acetaminophen [[place] 7.5-325] 1 tab PO Q4HR PRN 7 Days #42 tab 03/16/18
[2021-08-27 15:09] VITALS: BP 117/79; PULSE 67; RESP 18; TEMP 98.2
== END ==
LOC: PNWHC3 13:35
PROVIDERS: ATTEND Physician Assistant Medical
DX: M51.36 Other intervertebral disc degeneration, lumbar region (principal); M47.816 Spondylosis without myelopathy or radiculopathy, lumbar region; M48.061 Spinal stenosis, lumbar region without neurogenic claudication; F17.200 Nicotine dependence, unspecified, uncomplicated; Z88.1 Allergy status to other antibiotic agents
CPT/HCPCS: 99211

== ENCOUNTER 2021-09-22 09:50 | Day surgery (SDC) | payer BC ==
[2021-09-21 10:24] VITALS: BMI 31.1
[2021-09-22] MEDS ORDERED: LACTATED RINGERS 1,000 ML IV SCH (10:03)
[2021-09-22] MEDS ORDERED: LIDOCAINE 1% (10MG/ML) FOR IV START INTRADERMA PRN (10:03)
[2021-09-22 10:15] VITALS: TEMP 97.2
[2021-09-22] MEDS ORDERED: TRIAMCINOLONE ACETONIDE 40 MG/ML 1 ML VIAL ONE (10:38)
[2021-09-22] MEDS ORDERED: MIDAZOLAM 2 MG/2 ML VIAL ONE (10:38)
[2021-09-22] MEDS ORDERED: fentaNYL (PF) 50 MCG/ML 2 ML AMP ONE (10:38)
[2021-09-22] MEDS ORDERED: IOPAMIDOL M200 10 ML VIAL ONE (10:38)
[2021-09-22 11:03] VITALS: RESP 18
[2021-09-22] MEDS ORDERED: IV FLUID CONTINUATION 1,000 ML IV ONE (11:12)
[2021-09-22 11:14] VITALS: BP 109/70; PULSE 62
--- NOTE | 2021-09-22 11:44 | FL ---
EXAMINATION TYPE: FL guided pain mgmt statistic DATE OF EXAM: 09/22/2021 CLINICAL HISTORY: LESI TECHNIQUE: Fluoroscopy. COMPARISON: MRI dated 08/17/2021 FINDINGS: Fluoroscopic guidance was provided during procedure performed by Dr. Acuna. A total of 5 seconds of fluoroscopic time was utilized during the procedure and 2 spot images were acquired. IMPRESSION: As Above.
--- NOTE | 2021-09-22 12:07 | P.PCN ---
Date of Procedure: 09/22/21 Description of Procedure: PREOPERATIVE DIAGNOSIS: 1-lumbar radiculopathy 2-Lumbar spondylosis with Facet arthropathy without myelopathy POSTOPERATIVE DIAGNOSIS: Lumbar radiculopathy 2-Lumbar spondylosis with Facet arthropathy without myelopathy PROCEDURE 1. Lumbar epidural steroid injection under fluoroscopic guidance at the L4-L5 level. 2. Lumbar epidurogram. ANESTHESIA: Local with 1% lidocaine 3 ml and IV sedation with Versed 2 mg ,and fentanyl 100 Mcg EBL: Minimal PROCEDURE INDICATION: The patient with low back pain and radiculitis symptoms unresponsive to conservative treatment. Fluoroscopy was used to optimize visualization of the needle placement and to maximize safety. PROCEDURE DESCRIPTION / TECHNIQUE: The patient was seen and identified in the preoperative area. Risks, benefits, complications including but not limited to infections ,bleeding , epidural shayy chris, allergic reaction to the medications ,nerve damage and not complete pain releife , and alternatives were discussed with the patient. The patient agreed to proceed with the procedure and signed the consent. IV was started, and vital signs were stable. Patient was taken to the OR and time out was completed. The patient was placed in the prone position on procedure table and a pillow was placed under the abdomen to reduce lumbar lordosis. The lumbosacral area was prepped and draped in the usual sterile fashion.ere closely monitored during the procedure. Conscious sedation was used during the procedure to decrease patients anxiety. Vital signs was monitored during the entire procedure. Using anterior-posterior fluoroscopy, the L4-L5 nterlaminar space was identified and the skin over this site was marked and then infiltrated with 1% lidocaine subcutaneously. Subsequently, a 20-gauge Tuohy epidural needle was inserted and advanced toward the epidural space using the ``Loss of resistance technique and guided by AP and lateral fluoroscopy. The correct needle position in the epidural space was verified with the injection of 2 mL of the water soluble contrast dye Omnipaque 180 contrast and observing an excellent epidurogram with the epidural spread of the dye, after negative aspiration for blood and CSF and in the absence of paresthesias. Again after negative aspiration, a 6 ml mixture containing 40mg Kenalog and 4 ml of preservative free Normal Saline was injected and a washout of epidurogram was seen. Needle was withdrawn intact, skin was cleansed, and bandages were applied. COMPLICATIONS: None DISPOSITION / PLANS: The patient was placed in a supine position and transferred to the recovery area in a stable condition for observation. There was no evidence of lower extremity motor or sensory deficit after the procedure. Patient was discharged from the recovery room after meeting discharge criteria. Home discharge instructions were given to the patient by the staff. The patient was reexamined prior to discharge. The patient will schedule a follow up in the clinic in 2-4 weeks.
== END 2021-09-22 11:32 | disposition home or self-care (01) ==
LOC: ORPAIN 09:50
PROVIDERS: ATTEND Anesthesiology
DX: M47.26 Other spondylosis with radiculopathy, lumbar region (principal); Z88.1 Allergy status to other antibiotic agents
CPT/HCPCS: 62323; J2250; J3301; J3010; Q9966; 99152

== ENCOUNTER → 2021-10-08 | Outpatient (CLI) | payer BC ==
[2021-10-08 14:16] VITALS: BP 145/83; PULSE 63; RESP 18; TEMP 98
--- NOTE | 2021-10-08 14:59 | P.PN ---
Subjective Progress Note Date: 10/08/21 Principal diagnosis: A 56 yr old male with a history of severe and chronic low back pain secondary to lumbar degenerative disc diseases and lumbar spondylosis with facet arthropathy presents today for evaluation status post LESI L4-L5 #1. Patient states he experienced 70% pain relief for 2 days status post procedure. Pain waxes and wanes in intensity throughout the day but is currently 5 out of 10, dull, achy in the lower aspect of his lumbar spine with radiation of sharp pain down the lower extremities. Pain is provoked by bending or lifting. Pain is alleviated with medications, injections, alternating ice and heat, repositioning, home stretching regimen and rest. Interventional pain procedures completed include LESI L4-5 #1 Patient denies any side effects of the medication(s), denies excessive drowsiness or sleepiness, denies suicidal ideation and reports that the current pain medication is helping to control the pain and improve activities of daily living. Patient denies any motor or sensory deficits. Patient denies any fever or night sweats, denies any change in the bowel movements or urination. Physical Examination: -Constitutional: Cooperative. Not in acute distress . -HEENT: Neck is supple. No lymphadenopathy. No thyromegaly. Normal thyroid size. Eyes: No ptosis , no icterus, no photophobia. ENT: No auditory deficits. Normal oropharynx. No Thrush. - Respiratory: Chest clear to auscultations bilaterally. No wheezing. No rhonchi. - Cardiovascular: Regular rate and rhythm. S1 / S2 , no S3 , no S4. - Gastrointestinal: Abdomen soft no tenderness. Bowel sounds positive in all four quadrants. No organomegaly. - Genitourinary: Deferred. - Neurologic: Cranial nerve II to XII intact. No focal neurological deficits. - Psychatric: Alert & oriented x 3. Matching mood & appropriate affect. Brigid gment and insight intact. - Lymphatic: No Lymphadenopathy. - Musculoskeletal: Cervical spine: Muscle bulk/ tone/ strength in the bilateral upper extremities normal. Facet loading test cervical area positive. Lumbar spine: Motor bulk/ tone/ strength lower extremities , thigh and legs : 5/5 Deep tendon reflexes : Normal Knee Jerk. Normal Ankle Jerk . Vertebral body tenderness to palpation over L4, L5 Lumbar Facet Loading Test positive Straight Leg Raise: positive at 30 degrees right side/ left side Gaenslen's Test positive Sacral spine : Severe tenderness over the Sacroiliac joint: right side / left side Range of motion: Flexion of the lumbar spine <60 degrees Range of motion: Extension of the lumbar spine <20 degrees Gaenslen's Test positive Vicki test: positive right side / left side Assessment and plan: Chronic low back pain secondary to lumbar degenerative disc disease , lumbar spondylosis with facet arthropathy without myelopathy Recommendation of L TFESI L4-L5. Risks, benefits of procedure discussed and pt verbalized understanding. Denies anticoagulant use. Denies medical history of diabetes. Diagnoses, prognosis and treatment options including but not limited to physical therapy, surgical interventions, interventional therapies and medication management including narcotics and adjuvant medication were discussed. All patient questions answered MAPS reviewed and it was appropriate. I have spent 31 minutes on patient care today. Dr Sanders was available by phone for the evaluation of this patient. The time was used to review the medical records including relevant urine studies and Prescription history (MAPs), review of the available imaging, evaluation and examination of the patient, coordination of care with the medical staff and if applicable referring physicians, as well as creation of the medical record Objective - Vital Signs Vital signs: Vital Signs Temp 98.0 F 10/08/21 14:11 Pulse 63 10/08/21 14:11 Resp 18 10/08/21 14:11 BP 145/83 10/08/21 14:11 Pulse Ox 97 10/08/21 14:11 PQRS Measure Charge Sheet Mode of Arrival: Ambulatory - Pain Location Lower Back Non-Pharmacological Interventions: Heat, Home Exercise, Ice, Inactivity, Position/Reposition, Stretching Pharmacological Interventions: Epidural, PRN Medication PQRS Narrative: Smoking Status Current every day smoker Blood Pressure 145/83 Pain Intensity [Lower Back] 8 Scale Used Numeric (1 - 10) Hx Alcohol Use (MH) No Home Medications: Ambulatory Orders Hydrocodone/Acetaminophen [[place] 7.5-325] 1 tab PO Q4HR PRN 7 Days #42 tab 03/16/18
== END ==
LOC: PNWHC3 13:33
PROVIDERS: ATTEND Specialist
DX: M51.36 Other intervertebral disc degeneration, lumbar region (principal); M47.816 Spondylosis without myelopathy or radiculopathy, lumbar region; G89.29 Other chronic pain; Z88.1 Allergy status to other antibiotic agents; Z88.8 Allergy status to other drugs, medicaments and biological substances; F17.200 Nicotine dependence, unspecified, uncomplicated
CPT/HCPCS: 99202

== ENCOUNTER 2021-11-05 10:55 | Day surgery (SDC) | payer BC ==
[2021-11-04 10:44] VITALS: BMI 31.1
[~2021-11-05 10:55] MED LIST changes: -BACITRACIN 50,000 UNIT, POLYMYXIN B 500,000 UNIT in SODIUM CHLORIDE 0.9% IRRIGATIO 1,00... IRRIGATION ONE; -DEXAMETHASONE SOD PHOSPHATE 10 MG/ML 1 ML VIAL IV ONE; +LACTATED RINGERS 1,000 ML IV SCH; +LIDOCAINE 1% (10MG/ML) FOR IV START INTRADERMA PRN; -LIDOCAINE 1% 20 ML VIAL (10MG/ML) FOR IV START INTRADERMA PRN; -MIDAZOLAM 2 MG/2 ML VIAL IV PRN; -ONDANSETRON 4 MG/2 ML VIAL IVP ONE; -ceFAZolin IN SWFI 2 GM/20 ML SYRINGE IVP ONE; -fentaNYL (PF) 50 MCG/ML 2 ML AMP IV PRN; -fentaNYL (PF) 50 MCG/ML 2 ML AMP IVP PRN
[2021-11-05 11:15] VITALS: TEMP 98.2
[2021-11-05] MEDS ORDERED: IOPAMIDOL M200 10 ML VIAL ONE (12:10)
[2021-11-05] MEDS ORDERED: MIDAZOLAM 2 MG/2 ML VIAL ONE (12:10)
[2021-11-05] MEDS ORDERED: fentaNYL (PF) 50 MCG/ML 2 ML AMP ONE (12:10)
[2021-11-05] MEDS ORDERED: methylPREDNISolone ACETATE 40 MG/ML 1 ML VIAL ONE (12:10)
[2021-11-05] MEDS ORDERED: IV FLUID CONTINUATION 950 ML IV ONE (12:34)
--- NOTE | 2021-11-05 12:34 | P.PCN ---
Date of Procedure: 11/05/21 Procedure(s) Performed: PREOPERATIVE DIAGNOSIS:1- Lumbar radiculopathy . 2-lumbar spondylosis with lumbar facet arthropathy. 3-lumbar degenerative disc disease POSTOPERATIVE DIAGNOSIS: Same as preoperative diagnoses. PROCEDURE 1. Transforaminal epidural steroid injection under fluoroscopic guidance at left L3-4 level. (Fluoroscopy images stored on file in the radiology Department ) 2. Lumbar epidurogram . ANESTHESIA: Local with 1% lidocaine 3 ml , moderate sedation with intravenous Versed 2 mg and fentanyle 100 micrograms. EBL: Minimal PROCEDURE INDICATION: The patient with low back pain and radiculopathy symptoms unresponsive to conservative treatment. PROCEDURE DESCRIPTION / TECHNIQUE: The patient was seen and identified in the preoperative area. Risks, benefits, complications, and alternatives were discussed with the patient. The patient agreed to proceed with the procedure and signed the consent. IV was started, and vital signs were stable. Patient was taken to the OR and time out was completed. The patient was placed in the prone position on procedure table and a pillow was placed under the abdomen to reduce lumbar lordosis. The lumbosacral area was prepped and draped in the usual sterile fashion. Critical pause was taken. Vital signs were closely monitored during the procedure. Conscious sedation was used during the procedure to decrease patient s anxiety. Using oblique fluoroscopy, the chin of the ``Prate[place] dog at Left L3-4 level was identified, and the skin and deeper tissues just below was localized with 1% lidocaine. Subsequently, a 22-gauge 5-inch spinal needle was advanced under a tunneled view fluoroscopic guidance just underneath the chin of the ``[place] dog at the left L3-4 Under lateral fluoroscopy, the needle was then advanced to the posterior border of the interforaminal space. After negative aspiration of CSF and blood and with no paresthesias, 1 mL Isovue 200 contrast dye was injected excellent epidurogram and outlining of the nerve root Subsequently, 3 mL of block solution containing 80 mg Depo-Medrol and 2 mL of 0.9% normal saline PF was injected. Needle was removed . At the end of the procedure, skin was cleansed, and bandages were applied. COMPLICATIONS:none DISPOSITION / PLANS: The patient was placed in a supine position and transferred to the recovery area in a stable condition for observation. There was no evidence of lower extremity motor or sensory deficit after the procedure. Patient was discharged from the recovery room after meeting discharge criteria. Home discharge instructions were given to the patient by the staff. The patient was reexamined prior to discharge.
--- NOTE | 2021-11-05 12:46 | FL ---
EXAMINATION TYPE: FL guided pain mgmt statistic DATE OF EXAM: 11/05/2021 HISTORY: Fluoroscopy time 6 seconds of fluoroscopy provided. IMPRESSION: 1. Fluoroscopy time.
[2021-11-05 12:59] VITALS: BP 100/64; PULSE 58; RESP 16
== END 2021-11-05 13:10 | disposition home or self-care (01) ==
LOC: ORPAIN 10:55
PROVIDERS: ATTEND Specialist
DX: M47.26 Other spondylosis with radiculopathy, lumbar region (principal); M51.16 Intervertebral disc disorders with radiculopathy, lumbar region
CPT/HCPCS: 64483; J2250; J1030; J3010; Q9966; 99152

== ENCOUNTER → 2021-12-22 | Outpatient (CLI) | payer BC | END | disposition home or self-care (01) | LOC: LABWHC1 09:44 | PROVIDERS: ATTEND Physician Assistant Medical | DX: Z53.9 Procedure and treatment not carried out, unspecified reason (principal) ==

== ENCOUNTER → 2021-12-22 | Outpatient (CLI) | payer BC ==
--- NOTE | 2021-12-22 10:22 | XR ---
EXAMINATION TYPE: XR chest 2V DATE OF EXAM: 12/22/2021 COMPARISON: 03/03/2018 TECHNIQUE: PA and lateral views submitted. HISTORY: Presurgery FINDINGS: The lungs are clear and there is no pneumothorax, pleural effusion, or focal pneumonia. Postsurgica l changes overlying the cervical spine. Arthropathy of the shoulders. No overt failure. Heart size no rmal. Hypertrophic degenerative changes. IMPRESSION: 1. No acute process. Mild hyperinflation correlate for asthma or COPD.
[2021-12-22 12:15] LABS: INR 0.9 (<1.2); Partial Thromboplastin Time 23.3 sec (22.0-30.0); Prothrombin Time 10.2 sec (9.0-12.0)
[2021-12-22 18:41] LABS: Basophils # (A) 0.12 X 10*3/uL (0.00-0.10); Basophils % (A) 1.4 %; Eosinophils # (A) 0.27 X 10*3/uL (0.04-0.35); Eosinophils % (A) 3.1 %; Immature Grans, Automated 0.3 %; Lymphocytes # (A) 2.05 X 10*3/uL (0.90-5.00); Lymphocytes % (A) 23.6 %; MCH 29.6 pg (27.0-32.0); MCHC 32.6 g/dL (32.0-37.0); MCV 90.9 fL (80.0-97.0); Mean Platelet Volume 10.1 fL (9.5-12.2); Monocytes # (A) 0.91 X 10*3/uL (0.20-1.00); Monocytes % (A) 10.5 %; NRBC Per 100 WBC 0 /100 WBCS (0.0-0.0); Neutrophils # (A) 5.29 X 10*3/uL (1.80-7.70); Neutrophils % (A) 61.1 %; Platelet Count 245 X 10*3/uL (140-440); RBC 5.06 X 10*6/uL (4.40-5.60); RDW 13.9 % (11.5-14.5); WBC 8.67 X 10*3/uL (4.50-10.00)
[2021-12-22 18:44] LABS: LDL Cholesterol,Calculated 135.3 mg/dL (0.0-131.0)
[2021-12-22 19:47] LABS: Appearance,Urine Clear (Clear); Bilirubin,Urine Negative (Negative); Blood,Urine Negative (Negative); Color,Urine Dark Yellow (Yellow); Ketones,Urine Negative (Negative); Nitrite,Urine Negative (Negative); PH, Urine 5.5 (5.0-8.0); Specific Gravity,Urine 1.023 (1.001-1.030); Urobilinogen,Urine 0.2 (0.2,1.0)
== END | disposition home or self-care (01) ==
LOC: LABPAT 09:47
PROVIDERS: ATTEND Orthopaedic Surgery Orthopaedic Surgery of the Spine
DX: Z01.812 Encounter for preprocedural laboratory examination (principal); M48.061 Spinal stenosis, lumbar region without neurogenic claudication; R91.8 Other nonspecific abnormal finding of lung field
CPT/HCPCS: 71046; 80061; 81003; 84153; 85025; 85610; 85730

== ENCOUNTER 2021-12-30 09:24 | Observation (INO) | payer BC ==
[2021-12-25 13:48] VITALS: BMI 30.5
[~2021-12-30 09:24] MED LIST changes: -LACTATED RINGERS 1,000 ML IV SCH; +ONDANSETRON 4 MG/2 ML VIAL IVP ONE; +ceFAZolin 1,000 MG in SODIUM CHLORIDE 0.9% IRRIGATIO 1,000 ML IRRIGATION PRN
[2021-12-30] MEDS: LACTATED RINGERS 1,000 ML IV SCH ×4 (09:50→21:53)
[2021-12-30] MEDS ORDERED: HEPARIN SODIUM,PORCINE 10,000 UNIT/ML 1 ML VIAL ONE (10:18)
[2021-12-30] MEDS ORDERED: SODIUM CHLORIDE 0.9% IRRIG 1,000 ML BTL IRRIGATION ONE (10:18)
[2021-12-30] MEDS ORDERED: fentaNYL (PF) 50 MCG/ML 2 ML AMP ONE (10:18)
[2021-12-30] MEDS ORDERED: GLYCOPYRROLATE 0.2 MG/ML 2 ML VIAL ONE (10:18)
[2021-12-30] MEDS ORDERED: PROPOFOL 10 MG/ML 20 ML VIAL IV ONE (10:18)
[2021-12-30] MEDS ORDERED: NEOSTIGMINE 1 MG/ML 10 ML VIAL ONE (10:18)
[2021-12-30] MEDS ORDERED: HYDROmorphone (PF) 1 MG/ML ONE (10:18)
[2021-12-30] MEDS ORDERED: LIDOCAINE 2% INJ 20 MG/ML (2 ML VIAL) ONE (10:18)
[2021-12-30] MEDS ORDERED: SUCCINYLCHOLINE CHLORIDE VIAL 200 MG/10 ML VIAL IV ONE (10:18)
[2021-12-30] MEDS ORDERED: ROCURONIUM 10 MG/ML (5 ML VIAL) IV ONE (10:18)
[2021-12-30] MEDS ORDERED: MIDAZOLAM 2 MG/2 ML VIAL ONE (10:18)
[2021-12-30] MEDS ORDERED: GELATIN SPONGE,ABSORB (LARGE) 1 EACH SPONGE TOPICAL ONE (10:21)
[2021-12-30] MEDS ORDERED: LIDOCAINE 0.5%-EPI 1:200,000 50 ML VIAL SQ ONE (10:21)
[2021-12-30] MEDS ORDERED: THROMBIN (BOVINE) 5,000 UNIT VIAL TOPICAL ONE (10:21)
[2021-12-30] MEDS ORDERED: LACTATED RINGERS 1,000 ML IV ONE ×2 (12:33→16:05)
[2021-12-30] MEDS ORDERED: ceFAZolin 1,000 MG in SODIUM CHLORIDE 0.9% 1,000 ML IRRIGATION ONE (14:11)
[2021-12-30] MEDS ORDERED: BENZOCAINE/MENTHOL LOZENG 1 EACH LOZENGE MUCOUS MEM PRN (16:13)
[2021-12-30] MEDS ORDERED: MAGNESIUM HYDROXIDE 2,400 MG/10 ML CUP PO PRN (16:13)
[2021-12-30] MEDS ORDERED: HYDROcodone/APAP 5-325MG 1 EACH TAB PO PRN (16:13)
[2021-12-30] MEDS ORDERED: ONDANSETRON 4 MG/2 ML VIAL IVP PRN (16:14)
--- NOTE | 2021-12-30 16:22 | XR ---
EXAMINATION TYPE: XR lumbar spine 2 or 3V, FL guidance operating room DATE OF EXAM: 12/30/2021 COMPARISON: NONE HISTORY: Lumbar fusion Fluoroscopy support supplied to the referring clinician. See dictated report from orthopedic surgery , single intraoperative C-arm image documents the procedure, 40 seconds fluoroscopy time supplied
--- NOTE | 2021-12-30 16:23 | P.OP ---
Date of Procedure: 12/30/21 Preoperative Diagnosis: Spinal stenosis L2-3 and L3 4 L4 5, degenerative disc disease, facet arthrosis, low back pain, lower extremity radiculopathy, lower extremity weakness Postoperative Diagnosis: Same Anesthesia: GETA Pathology: none sent Condition: stable Disposition: PACU Description of Procedure: DESCRIPTION OF PROCEDURE(S): BRIEF OPERATIVE NOTE Preoperative Diagnosis: Spinal stenosis L2-3 and L3 4 L4 5, degenerative disc disease, facet arthrosis, low back pain, lower extremity radiculopathy, lower extremity weakness Postoperative Diagnosis: Same Procedure: Laminectomy and decompression L2-3 and L3 [address] navigation aided Minimally invasive Posterior lateral decompression and facet fusion L2-3 and L3 4 L4 5 Minimally invasive Transforaminal lumbar interbody fusion for a 360 fusion L2-3 L3 4 L4 5 Discectomy for decompression L2-3 L3 4 L4 5 Placement of interbody graft L2-3 and L3 4 L4 5 Use of computer navigation for fusion L2 to L5 Local autogenous bone grafting Aspiration of bone marrow from the vertebral body pedicle at L2 on the right Use of bone graft extenders Surgeon: Dr. Mcdonald [employer] Operator: Howie BUSBY who is present throughout the entire the case persistence during positioning, dissection, exposure, visualization, and all crucial elements of the case as well as closure. Anesthesia: General anesthesia per Dr. Rushing Estimated blood loss: Approximately 600 mL with 266 given back through [employer] Complications: None apparent Components implanted: K2M minimally invasive [place] pedicle screw system withscrews measuring 6.5 mm in diameter two rods, 3 Mora interbody cages with 10 mL of osteo amp bio4 bone graft substitute and 30 mL of the BX bone fibers to supplement the local autogenous bone graft and bone marrow aspirate Disposition: To recovery room in good stable condition. OPERATIVE INDICATIONS The patient has had severe issues at their lower extremity in her lower back over the past several years with significant worsening over the past several months. Over the past few months the patient had pain at their back and their lower extremities. The patient is having severe radicular symptoms at their lower extremity with weakness. The patient is having significant pain in their back. They are unable to obtain any comfort. We did aggressive conservative treatment with medications therapy and interventional pain management however thery were not having any relief. The patient has been through conservative treatment. The patient's images correlated well with his low back and lower extremity symptoms. He had evidence of significant stenosis L2-3 L3 4 and L4 5 with lower extremity radiculopathy. We discussed various treatment options including surgery, and the patient wishes to proceed with surgery We discussed the risk, patient's alternatives and benefits of surgery including but not limited to, risk of bleeding risk of infection, risk of need for further surgery, risk of decreased, loss of motion, muscle function, malunion nonunion, hardware failure, nerve damage, paralysis, heart attack, blindness and . They understood issues with the current pandemic and the possibility of exposure. OPERATIVE SUMMARY After discussing all the risks, patient alternatives and benefits at length, the patient elected to proceed with surgical intervention, signed informed consent, and presented for their procedure. The patient was seen and examined in the preoperative holding area and the surgical site was marked. The patient was given antibiotics and brought to the operating room. The patient was sedated and intubated by anesthesia in standard fashion. The patient was positioned on to the operating room table in a prone position on the appropriate frame which was well-padded and well molded. We were careful to pad any bony prominences and pressure points. We were careful to maintain the patient's cervical spine and good neutral alignment and position throughout. The patient was prepped and draped in a normal standard fashion. An appropriate timeout and keystone protocol performed. We were able to proceed with the surgery. The local wound area was infiltrated with local anesthetic. Over the right iliac crest I was able to make small stab incisions and establish a guidepin screw fixation to the iliac crest 2. I was able place the computer referencing device over the guidepins to establish an appropriate reference point for the Ziem CT navigation. We then were able to place patient in an appropriate drape and do a navigation spin for visualization and 3-D reconstruction of the lumbar spine. I was able utilize C-arm guidance and navigation to establish appropriate position over the pedicles bilaterally at the appropriate levels from L2 to L5. With the appropriate levels confirmed was able to make small incisions over the appropriate pedicle sites bilaterally. Utilizing the computer navigation device I was able to establish bony landmarks at the right iliac crest for a bony reference point for the navigation device. I was able to establish a Jamshidi needle over the lateral aspect of the pedicle and advanced the trocar into the pedicle being careful not to breech superiorly inferiorly medially or laterally using computer navigation device. Position was confirmed regularly with AP and lateral images on C-arm and with the computer navigation device at the appropriate levels bilaterally. I was able to establish the trocar into the pedicle appropriately into the posterior aspect of the vertebral body bilaterally at the appropriate levels at L2 L3 L4 and L5. This was done at each of the pedicle positions and each of the vertebrae. At the superior vertebrae on the right of L2 I was able to take approximately 25 mL of bone aspiration for use later in the case to supplement the allograft and autograft bone. I was able place the guidewire into the trocar and into the vertebral body appropriately under C-arm guidance. Dissection was taken down over the wire to the appropriate starting position for the screw placed. The appropriate length screw was chosen, threaded over the guidewire and screwed appropriately into the pedicle and vertebral body under C-arm guidance in excellent alignment and position with good bony purchase. This is done at each of the screw sites at the appropriate levels from L2 to L5.. With the screws intact I extended the incision to connect the screw hole sites on the most symptomatic side on the left. I dissected down to establish access over the pars and lamina to the base of the spinous process. I was able to exp ose the facet joint. The capsule the facet was taken down and showed some facet arthrosis at the joint. I was able to use a combination of curettes and Kerrison rongeurs and a high-speed drill to take down the facet joint and do a facetectomy. I was able get excellent foraminal decompression and central decompression with undermining across midline to perform a laminectomy centrally and contralaterally. As able get good central decompression. The ligamentum flavum was taken down to further decompress centrally and at bilateral neural foramen. I was able to expose the disc space and visualize the traversing nerve root. Note was made of some disc protrusion and disc herniation that was abutting the traversing nerve root at the level causing further compression of the nerve root. At each level there is also posterior osteophytic spurring causing further compression at the neural foramen which was also taken down. I was able to establish a annulotomy at the appropriate level protecting soft tissue and neural structures. Note was made of some disc desiccation at the disc. I performed a complete discectomy with accommodation of curettes and rasps and scrapers. I was able get good endplate preparation at the disc space. I sized for the appropriate size interbody spacer protecting the soft tissue and neural structures. The wound was copiously irrigated and suctioned dry. There is no evidence of any dural tear or leak. I was able to pack the disc space with local autogenous bone graft as well as a small amount of bone graft which was also placed into the interbody cage itself. Protecting the soft tissue structures and neural structures I was able place the interbody cage in good alignment and good position with good fit and fill at the interbody space. Position was confirmed with C-arm guidance. This was done at each level starting at L4 5 and then moving L3 4 and then L2-3. He had significant disc degeneration and disc loss at each level and good improvement and decompression after the procedure with stabilization with the interbody device. Good hemostasis maintained. There is no evidence of any dural tear or leak. The wound was irrigated and suctioned dry. With the hardware intact, intraoperative C-arm imaging was again taken which showed good alignment and position of the hardware at the appropriate levels. We were then able to measure, contour and place the rods and appropriate hardware bilaterally from L2 to L5. I was able to place capcrews, tighten them down, and torque them with the torque screwdriver appropriately. With this i ntact I was able to place the local autogenous bone graft with additional bone graft enhancer as necessary into the posterior lateral gutters over the decorticated transverse processes and facet joints on the contralateral side. The remainder of the bone graft was placed over the facet joint on the contralateral side after taking down the facet joint capsule. With the bone graft intact, a stable construct, and good decompression at the appropriate levels, we were able to proceed with closure. Good hemostasis was maintained. There is no evidence of dural tear or leak. The fascia was closed for a watertight closure. he subcuticular tissue was closed with absorbable suture. The wound was cleaned and dried and dressed with the appropriate dressing. The drapes were broken down. The patient was gently rolled back onto their hospital bed being careful to maintain their cervical spine and good neutral alignment and position. They were woken up by anesthesia, extubated, and brought to the recovery room in good stable condition. The patient will be admitted to the hospital for appropriate postoperative care, medical management and monitoring. We will continue to follow them closely about the postoperative course.
[2021-12-30] MEDS: HYDROmorphone 0.5 MG/0.5 ML SYRINGE IVP PRN ×4 (16:49→23:34)
[2021-12-30] MEDS: SODIUM CHLORIDE 0.9% 1,000 ML IV SCH (18:04)
[2021-12-30] MEDS: HYDROmorphone 1 MG/ML 1 ML SYRINGE IVP PRN (19:21)
[2021-12-30] MEDS: diazePAM 5 MG TAB PO PRN (23:34)
[2021-12-31] MEDS: HYDROcodone/APAP 7.5-325MG 1 EACH TAB PO PRN ×2 (01:06→04:36)
[2021-12-31] MEDS: CYCLOBENZAPRINE 10 MG TAB PO PRN ×3 (02:39→23:38)
[2021-12-31] MEDS: HYDROmorphone 0.5 MG/0.5 ML SYRINGE IVP PRN (03:05)
[2021-12-31] MEDS: SODIUM CHLORIDE 0.9% 1,000 ML IV SCH ×2 (04:11→18:16)
[2021-12-31] MEDS: diazePAM 5 MG TAB PO PRN ×3 (04:36→19:38)
[2021-12-31] MEDS ORDERED: traMADol 50 MG TAB PO PRN (05:47)
[2021-12-31] MEDS: HYDROmorphone 1 MG/ML 1 ML SYRINGE IVP PRN (07:12)
[2021-12-31] MEDS ORDERED: HYDROmorphone 1 MG/ML 1 ML SYRINGE IVP PRN (08:22)
--- NOTE | 2021-12-31 08:25 | P.PN ---
Progress Note - Text Progress Note Date: 12/31/21 Postoperative day #1 Patient is seen and examined today at bedside. The patient had a rough night with controlling of his pain. He is cemented spasmus is low back. He is not having any new numbness tingling his lower extremities and says that his legs feel better than they did but his back pain is significant. He has been able to eat and drink a little bit he has been voiding freely he has been up out of bed already. He denies any chest pain or shortness of breath Physical Exam Afebrile with stable vital signs Abdomen is soft nontender. Chest has good excursion deep and space expiration The incision site is clean dry and intact. No erythema there is no purulence. There is some small spotting on the dressing but it appears to be stable and clean Extremities have not had neurologic change from prior to surgery. He has sustained dorsal flexion plantarflexion and EHL intact. Calves and thighs were soft nontender without evidence of DVT. Assessment/Plan Postoperative day #1 status post minimally invasive decompression fusion L2-3 L3 4 L4 5 for his spinal stenosis with disc degeneration and lower extremity radiculopathy Patient is progressing a bit slowly from the surgery in terms of his initial pain control. He is not having a neurologic deficits or functional changes. He is voiding freely. His main issue is his pain control and I think there is significant spasm in his low back as well. I think this will resolve this the days pass with appropriate conservative care and pain management. We will continue to increase the patient's mobilization with therapy. We will continue pain control with oral or IV medications. We'll continue to follow patient closely.
[2021-12-31] MEDS: SENNOSIDES-DOCUSATE SODIUM 1 EACH TAB PO SCH (08:32)
[2021-12-31] MEDS: HYDROcodone/APAP 10-325MG 1 EACH TAB PO PRN ×4 (08:56→23:38)
[2021-12-31 10:20] LABS: Basophils # (A) 0.1 k/uL (0-0.2); Basophils % (A) 0 %; Eosinophils # (A) 0.1 k/uL (0-0.7); Eosinophils % (A) 0 %; HCT 41.9 % (39.0-53.0); HGB 13.7 gm/dL (13.0-17.5); Lymphocytes # (A) 1.2 k/uL (1.0-4.8); Lymphocytes % (A) 9 %; MCH 30.2 pg (25.0-35.0); MCHC 32.7 g/dL (31.0-37.0); MCV 92.6 fL (80.0-100.0); Mean Platelet Volume 7.6; Monocytes # (A) 0.9 k/uL (0-1.0); Monocytes % (A) 7 %; Neutrophils # (A) 11.3 k/uL (1.3-7.7); Neutrophils % (A) 83 %; Platelet Count 197 k/uL (150-450); RBC 4.53 m/uL (4.30-5.90); RDW 13.4 % (11.5-15.5); WBC 13.6 k/uL (3.8-10.6)
[2021-12-31 10:31] LABS: African American GFR (CKD) >90 (>60 ml/min/1.73 sqM); Anion Gap 9 mmol/L; Blood Urea Nitrogen 11 mg/dL (9-20); Calcium 8.4 mg/dL (8.4-10.2); Carbon Dioxide 24 mmol/L (22-30); Chloride 101 mmol/L (98-107); Glucose 103 mg/dL (74-99); Non-African American GFR(CKD) 88 (>60 ml/min/1.73 sqM); Potassium 4.3 mmol/L (3.5-5.1); Sodium 134 mmol/L (137-145)
[2022-01-01] MEDS: diazePAM 5 MG TAB PO PRN ×2 (03:43→12:02)
[2022-01-01] MEDS: HYDROcodone/APAP 10-325MG 1 EACH TAB PO PRN ×3 (03:43→12:02)
[2022-01-01 04:47] VITALS: BP 112/68; PULSE 84; RESP 18; TEMP 98.4
[2022-01-01] MEDS: CYCLOBENZAPRINE 10 MG TAB PO PRN (08:03)
[2022-01-01] MEDS: SENNOSIDES-DOCUSATE SODIUM 1 EACH TAB PO SCH (08:03)
[2022-01-01] MEDS: SODIUM CHLORIDE 0.9% 1,000 ML IV SCH (08:21)
--- NOTE | 2022-01-01 09:11 | P.DS ---
Providers Date of admission: 12/31/21 05:07 Expected date of discharge: 01/01/22 Attending physician: Rommel Mcdonald Primary care physician: Suzanne Go - Discharge Diagnosis(es) (1) Lumbar stenosis with neurogenic claudication Current Visit: Yes Status: Acute (2) Lumbar degenerative disc disease Current Visit: Yes Status: Acute (3) Lumbar facet arthropathy Current Visit: Yes Status: Acute (4) Lumbar back pain with radiculopathy affecting lower extremity Current Visit: Yes Status: Acute (5) Lower extremity weakness Current Visit: Yes Status: Acute (6) Status post lumbar spinal fusion Current Visit: Yes Status: Acute (7) Nervousness Current Visit: Yes Status: Acute (8) Unsteady gait Current Visit: Yes Status: Acute (9) History of cervical spinal arthrodesis Current Visit: Yes Status: Acute (10) Cervical myelopathy Current Visit: No Status: Acute Hospital Course: This is a pleasant 56-year-old male who presented with L2-L3, L3-4, and L4-5 spinal stenosis, degenerative disc disease, and facet arthrosis with low back pain with left lower extremity weakness and radiculopathy who failed outpatient conservative therapy. He was admitted for an L2-L3, L3-4, and L4-5 minimally invasive posterior lateral decompression and fusion with transforaminal lumbar interbody fusion. Initially he was having significant difficulty with pain control postoperatively. They felt this was due to the Dilaudid. His oral medications have been adjusted with oral Lockwood 10 mg/325 mg, Valium 5 mg, and cyclobenzaprine 10 mg and the patient's pain has been much better controlled since that time. He is no longer receiving IV medications. He has continued to improve since yesterday. He has been able to ambulate to the restroom with assistance and independently with the assistance of a walker. Patient states he does have a walker at home. He also has an elevated toilet seat and a bed with rails. Patient feels he has improved and his pain is well enough controlled he is ready for discharge today. Condition on day of discharge stable. Patient will be discharged home. Patient was cleared preoperatively for surgery by Dr. Suzanne Go. Patient currently denies any nausea, vomiting, fever, or chills. Patient is eating and voiding freely without difficulty. Patient will shower this morning with dressings intact. Patient's dressings will be removed with nonstick Telfa and Tegaderm reapplied prior to discharge home. Patient may shower with Tegaderm dressings intact. Patient may remove Tegaderm dressing in 3 days and may shower without a dressing intact at that time. Patient should refrain from driving until at least after their first follow-up appointment in the office. Patient should avoid excessive bending, lifting, and twisting; no lifting greater than 10 pounds. Patient has not had a bowel movement since his admission to the hospital but he is not experiencing any abdominal pain. His abdomen soft nontender with palpation. He is not having abdominal distention. He does admit to some heartburn which has been well-controlled with Pepcid. MAPS has been reviewed today, 01/01/2022, with an Overall Overdose Risk Score of 200. An "Opiod Start Talking" Form has been signed and placed in the patient's chart. A prescription has been written for [place] 10 mg/325 mg 1 tab every 4 hours as needed for pain, dispense #42. We did discuss he should discontinue other previously prescribed narcotic medications while taking Lockwood 10 mg/25 mg. He should avoid anti-inflammatory medications over the next 6 weeks postoperatively. He is also given prescriptions for Valium 5 mg 1 tab 4 times a day, as needed muscle spasm, dispensed #60, cyclobenzaprine 10 mg 1 tab 3 times a day as needed for muscle spasm, dispensed #60, Senokot 1 tab twice a day as needed for constipation, dispensed #60, and Pepcid 20 mg 1 tab twice a day, dispensed #24. Patient's other medical diagnoses include to cervical myelopathy, history of anterior cervical decompression and fusion, unsteady gait and nervousness. Physical Exam on day of discharge: Patient is awake, alert, and oriented 3 Vital signs stable Good chest excursion with deep inspiration and expiration Abdomen soft nontender No signs or symptoms of DVT; no calf pain Extensor hallucis longus, plantarflexion, and dorsiflexion positive sustained bilateral lower extremities Incision is dry and intact; no erythema, purulence, or signs of infection Optifoam dressing intact with some dried blood over the lumbar incision site Patient is able to roll over in bed independently Procedures: L2-L3, L3-4, and L4-5 minimally invasive posterior lateral decompression and fusion with transforaminal lumbar interbody fusion Patient Condition at Discharge: Stable Plan - Discharge Summary Discharge Rx Participant: No New Discharge Prescriptions: New HYDROcodone/APAP 10-325MG [Lockwood 10] 1 each PO Q4H PRN #42 tab PRN Reason: Pain Cyclobenzaprine [Flexeril] 10 mg PO TID PRN #60 tab PRN Reason: Muscle Spasm Famotidine [Pepcid] 20 mg PO BID #24 tablet Sennosides-Docusate Sodium [Senokot-S] 1 tab PO BID PRN #60 tablet PRN Reason: Constipation diazePAM [Valium] 5 mg PO QID PRN #60 tab PRN Reason: Muscle Spasm No Action Hydrocodone/Acetaminophen [Lockwood 7.5-325] 1 tab PO Q4HR PRN 7 Days #42 tab PRN Reason: Severe Pain Ibuprofen 200 mg PO Q8H PRN PRN Reason: Mild Pain Discharge Medication List Hydrocodone/Acetaminophen [Lockwood 7.5-325] 1 tab PO Q4HR PRN 7 Days #42 tab 03/16/18 [Rx] Ibuprofen 200 mg PO Q8H PRN 12/30/21 [History] Cyclobenzaprine [Flexeril] 10 mg PO TID PRN #60 tab 01/01/22 [Rx] Famotidine [Pepcid] 20 mg PO BID #24 tablet 01/01/22 [Rx] HYDROcodone/APAP 10-325MG [Lockwood 10] 1 each PO Q4H PRN #42 tab 01/01/22 [Rx] Sennosides-Docusate Sodium [Senokot-S] 1 tab PO BID PRN #60 tablet 01/01/22 [Rx] diazePAM [Valium] 5 mg PO QID PRN #60 tab 01/01/22 [Rx] Follow up Appointment(s)/Referral(s): Howie Orr, JELENA [PHYSICIAN PLUG W[employer]ER] - 2 Weeks (Patient may follow-up with Howie Orr PA-C or Dr. Dane Mcdonald at [facility] in 2-3 weeks following discharge. ) Activity/Diet/Wound Care/Special Instructions: 1. Patient may shower with Tegaderm dressing intact. 2. Patient may remove Tegaderm dressing in 3 days and shower without a dressing at that time. 3. Patient should refrain from driving until at least after their first follow- up appointment in the office. 4. Patient should avoid excessive bending, twisting, lifting; avoid overhead lifting; no lifting greater than 10 pounds 5. Take medications as prescribed 6. Patient should avoid anti-inflammatory medications over the next 6 weeks postoperatively 7. Patient is encouraged to utilize a walker to aid in ambulation as needed 8. Do not soak in tub Discharge Disposition: HOME SELF-CARE
== END 2022-01-01 12:15 | disposition home or self-care (01) ==
LOC: OR 09:24 → 5NMEDONC 17:11 → OR 12-31 05:07 → 5NMEDONC 12-31 05:07
PROVIDERS: ADMIT Orthopaedic Surgery Orthopaedic Surgery of the Spine; ATTEND Orthopaedic Surgery Orthopaedic Surgery of the Spine
DX: M48.062 Spinal stenosis, lumbar region with neurogenic claudication (principal); M51.16 Intervertebral disc disorders with radiculopathy, lumbar region; M47.26 Other spondylosis with radiculopathy, lumbar region; R45.0 Nervousness; R26.81 Unsteadiness on feet; Z98.1 Arthrodesis status; F17.210 Nicotine dependence, cigarettes, uncomplicated; Z79.891 Long term (current) use of opiate analgesic; Z98.890 Other specified postprocedural states; Z88.1 Allergy status to other antibiotic agents
CPT/HCPCS: 97163; 86891; 86900; 86901; 80048; 85025; 86850; 72100; 22612; 22614 ×2; 63047; 63048 ×2; 20937; G0378 ×2; P9022; C1713; C1762; J2250; J0330; J1644; J2710; J0690 ×3; J2405 ×2; J3010; J1170 ×4; J2704; J2001

== ENCOUNTER → 2022-05-18 | Outpatient (CLI) | payer BC ==
--- NOTE | 2022-05-19 08:48 | US ---
EXAMINATION TYPE: US arterial LE single level DATE OF EXAM: 05/18/2022 10:56 AM CLINICAL HISTORY: M79.671 pain in R foot, M79.672 pain in L foot. Bilateral feet pain. Smoker. No HT N. Not diabetic. Doppler Waveforms: Right: Monophasic to multiphasic Left: Biphasic to multiphasic Ankle-Brachial Indices: Right: 1.0 Left: 1.0 Toe Brachial Indices: Right: 0.9 Left: 0.9 IMPRESSION: Normal FAYE and TBI values.
== END | disposition home or self-care (01) ==
LOC: RADUSWWP 10:18
PROVIDERS: ATTEND Family Medicine
DX: M79.671 Pain in right foot (principal); M79.672 Pain in left foot
CPT/HCPCS: 93922

== ENCOUNTER → 2022-12-20 | Outpatient (CLI) | payer BC ==
--- NOTE | 2022-12-20 20:46 | MR ---
EXAMINATION TYPE: MR lumbar spine wo/w con DATE OF EXAM: 12/20/2022 7:50 PM COMPARISON: 08/17/2021. CLINICAL INDICATION: Male, 57 years old with history of M54.50,M54.16; PHH, Low back pain that radiat es into left and right buttocks. History of surgery. TECHNIQUE: Multi planar, multi sequence imaging was performed utilizing: T1-weighted, T2-weighted, a nd turbo inversion recovery imaging of the lumbar spine. IV Contrast: 11.5 cc Gadavist. FINDINGS: Limited evaluation secondary to metallic susceptibility artifact from L2 to L5. Alignment: The lumbar vertebral bodies have preserved heights and alignment. Cord: The conus medullaris and the distal spinal cord appear unremarkable with regards to their signa l intensity and morphology. Limited postcontrast imaging does not demonstrate evidence for abnormal enhancement. Bones/Discs: Postsurgical changes extending from L2 to L5 which limits evaluation secondary to suscep tibility artifact. Discectomy changes at L2-L3 L3-L4 and L4-L5. No abnormal postcontrast enhancement. Limited postcontrast imaging does not demonstrate evidence for abnormal enhancement. T12-L1: No evidence of significant spinal canal stenosis or neural foraminal stenosis. Limited evaluation at this level level secondary to metallic susceptibility artifact. L1-L2: Limited evaluation at this level level secondary to metallic susceptibility artifact.Disc bulg e and facet joint arthropathy result in moderate spinal canal and mild bilateral neural foraminal hoda nosis. L2-L3: Limited evaluation at this level level secondary to metallic susceptibility artifact. No evide nce of significant spinal canal stenosis. Facet joint arthropathy mild bilateral neural foraminal hoda nosis. L3-L4: Limited evaluation at this level level secondary to metallic susceptibility artifact. No evide nce of significant spinal canal stenosis. Facet joint arthropathy mild to moderate bilateral neural f oraminal stenosis. L4-L5: Limited evaluation at this level level secondary to metallic susceptibility artifact. Disc bul ge and facet joint arthropathy result in moderate spinal canal and moderate to severe bilateral neura l foraminal stenosis. L5-S1: The disc is rounded posterior morphology without significant spinal canal stenosis. Facet join t arthropathy with mild right and moderate left neural foraminal stenosis. No significant spinal canal or neural foraminal stenosis in the remainder of the visualized levels. Other findings: None. IMPRESSION: 1. Postsurgical changes with patent spinal canal there is moderate spinal canal stenosis at L4-L5. 2. There is neural foraminal stenosis worse at L3-L4 and L4-L5 bilaterally with at least moderate to severe L4-L5 bilaterally which is similar to prior 08/17/2021.
== END | disposition home or self-care (01) ==
LOC: RADMRIMAIN 18:32
PROVIDERS: ATTEND Orthopaedic Surgery Orthopaedic Surgery of the Spine
DX: M48.061 Spinal stenosis, lumbar region without neurogenic claudication (principal); M51.16 Intervertebral disc disorders with radiculopathy, lumbar region; E66.9 Obesity, unspecified; F17.218 Nicotine dependence, cigarettes, with other nicotine-induced disorders; R53.1 Weakness; Z68.29 Body mass index [BMI] 29.0-29.9, adult
CPT/HCPCS: 72158; A9585

== ENCOUNTER → 2023-01-06 | Outpatient (CLI) | payer BC ==
[2023-01-06 07:57] VITALS: BP 153/90; PULSE 74; RESP 15; TEMP 97.9
--- NOTE | 2023-01-06 14:58 | P.PAINPG ---
PQRS Measure Charge Sheet Comment: A 57 yr old male with a history of severe and chronic LBP secondary to lumbar DDD and spondylosis with facet arthropathy without myelopathy presents today for evaluation s/p BL hip pain, L> R. Pain level is provoked at 8/10 in intensity, constant, localized in the lumbar spine, dull in character w shooting towards the BL hips. Pain is provoked by walking for periods of 15 min or more, or sleeping. Pain is alleviated with PT semi weekly since lumbar fusion 1 1/2 yrs ago, use of a cane for ambulatory assistance, heat, medications, topical, reclining, repositioning and rest. Interventional pain procedures completed include BRODERICK L3-L4, x1, L4-L5 x1 Patient is currently on [place], Ibu, Flexeril Patient denies any side effects of the medication(s), denies excessive drowsiness or sleepiness, denies suicidal ideation and reports that the current pain medication is helping to control the pain and improve activities of daily living. Patient denies any motor or sensory deficits. Patient denies any fever or night sweats, denies any change in the bowel movements or urination. Physical Examination: -Constitutional: Cooperative. Not in acute distress . - Neurologic: Cranial nerve II to XII intact. No focal neurological deficits. - Psychatric: Alert & oriented x 3. Matching mood & appropriate affect. Judgment and insight intact. - Musculoskeletal: Cervical spine: Muscle bulk/ tone/ strength in the bilateral upper extremities normal Vertebral body tenderness to palpation over Spurling test positive Distraction test positive Facet loading test positive TTP Thoracic spine Muscle bulk / tone/ strength in the bilateral paraspinal muscles normal Vertebral body tender to palpation over Facet loading test positive TTP Lumbar spine: Motor bulk/ tone/ strength lower extremities , thigh and legs : 5/5 Deep tendon reflexes : Normal Knee Jerk. Normal Ankle Jerk . Vertebral body tenderness to palpation over L5 Day Test positive Lumbar Facet Loading Test positive Straight Leg Raise: positive at 30 degrees right side/ left side Gaenslen's Test positive Sacral spine : Severe tenderness over the Sacroiliac joint: right side / left side Range of motion: Flexion of the lumbar spine <60 degrees Range of motion: Extension of the lumbar spine <20 degrees Gaenslen's Test positive right side / left side Vicki test: positive right side / left side Thigh Thrust Test positive right side / left side Sacral Thrust Test positive right side / left side Assessment and plan: Chronic LBP secondary to lumbar DDD, spondylosis with facet arthropathy without myelopathy Recommendation of Caudal BRODERICK w Lysis. May need a series of injections for optimal pain relief. Risks, benefits of procedure discussed and pt verbalized understanding. Admits to anticoagulant use or medical history of diabetes. Protocol for discontinuation/ continuation of medications hannah procedure discussed. Minimal anesthesia provided, if clinically indicated, consisting of Versed and Fentanyl. All questions answered. I have spent less than 30 minutes on patient care today. Dr Sanders was available by phone for the evaluation of this patient. The time was used to review the medical records including relevant urine studies and Prescription history (MAPs), review of the available imaging, evaluation and examination of the patient, coordination of care with the medical staff and if applicable referring physicians, as well as creation of the medical record PQRS Narrative: Smoking Status Current every day smoker Hx Alcohol Use (MH) No Home Medications: Ambulatory Orders Hydrocodone/Acetaminophen [[place] 7.5-325] 1 tab PO Q4HR PRN 7 Days #42 tab 03/16/18 Ibuprofen 200 mg PO Q8H PRN 12/30/21 Cyclobenzaprine [Flexeril] 10 mg PO TID PRN #60 tab 01/01/22 Famotidine [Pepcid] 20 mg PO BID #24 tablet 01/01/22 HYDROcodone/APAP 10-325MG [[place] 10] 1 each PO Q4H PRN #42 tab 01/01/22 Sennosides-Docusate Sodium [Senokot-S] 1 tab PO BID PRN #60 tablet 01/01/22 diazePAM [Valium] 5 mg PO QID PRN #60 tab 01/01/22 Controlled Substance Measures - Controlled Substance Measures Is patient prescribed a controlled substance at discharge?: No
== END ==
LOC: PNWHC3 07:26
PROVIDERS: ATTEND Specialist
DX: M51.36 Other intervertebral disc degeneration, lumbar region (principal); M47.816 Spondylosis without myelopathy or radiculopathy, lumbar region; M48.061 Spinal stenosis, lumbar region without neurogenic claudication; G89.29 Other chronic pain; F17.200 Nicotine dependence, unspecified, uncomplicated; Z88.1 Allergy status to other antibiotic agents; Z88.8 Allergy status to other drugs, medicaments and biological substances
CPT/HCPCS: 99211

== ENCOUNTER 2023-01-25 11:11 | Day surgery (SDC) | payer BC ==
[2023-01-19 15:54] VITALS: BMI 33.9
[~2023-01-25 11:11] MED LIST changes: +LACTATED RINGERS 1,000 ML IV SCH; -LIDOCAINE 1% (10MG/ML) FOR IV START INTRADERMA PRN; -ONDANSETRON 4 MG/2 ML VIAL IVP ONE; -ceFAZolin 1,000 MG in SODIUM CHLORIDE 0.9% IRRIGATIO 1,000 ML IRRIGATION PRN
[2023-01-25 11:55] VITALS: TEMP 96.6
[2023-01-25] MEDS ORDERED: TRIAMCINOLONE ACETONIDE 40 MG/ML 1 ML VIAL ONE (12:11)
[2023-01-25] MEDS ORDERED: IOPAMIDOL M200 10 ML VIAL ONE (12:11)
[2023-01-25] MEDS ORDERED: ROPIVACAINE 5 MG/ML 20 ML AMPULE ONE (12:11)
--- NOTE | 2023-01-25 12:22 | P.PCN ---
Date of Procedure: 01/25/23 Surgeon: Savanna Guillen Pathology: none sent Condition: stable Disposition: PACU Description of Procedure: PREOP DIAGNOSIS: Lumbar postlaminectomy syndrome. POSTOP DIAGNOSIS: Lumbar postlaminectomy syndrome. PROCEDURE: Caudal epidural steroid injection with epidurolysis and epidurogram under fluoroscopic guidance ANESTHESIA: Local only with 1% lidocaine EBL: Minimal. PROCEDURE INDICATION: The patient with post-laminectomy syndrome with low back pain and radiculopathy radiating down in both legs, here for a caudal epidural steroid injection with epidurolysis. PROCEDURE DESCRIPTION: The patient was seen in the preoperative holding area consent was obtained then he was brought into the procedure room and placed in prone position. Skin was prepped with ChloraPrep and draped in a sterile dell r. Lidocaine 1% was used to numb the skin up at the target point that was chosen as follows: The lateral view of fluoroscopy was used to identify the sacral hiatus and then after localizing the skin with lidocaine 1% I used 18- gauge epidural needle with a plastic sheath to go through the sacral hiatus and into the sacral canal and then injected 1 mL of Omnipaque for verification of needle tip position. After that the metal core of the needle was taken out and the plastic sheath was kept in the sacral canal. Then Racz catheter was introduced through the plastic sheath and into the epidural space at the sacral canal using the AP view of fluoroscopy up to L5-S1 level then I injected 2 MLS of Omnipaque which showed spread in the epidural space and after few back and forth movements of the Racz catheter I injected 40 mg of Kenalog +2 MLS of Ropivacaine 0.5% +5 MLS of preservative-free normal saline to a total volume of 8 MLS in the epidural space. Patient tolerated procedure well. A copy of the needle placement x-ray was saved to the C-arm machine. COMPLICATIONS: None. DISPOSITION / PLANS: The patient was placed in a supine position and transferred to the recovery area in a stable condition for observation and was discharged from the recovery room after meeting discharge criteria. Home discharge instructions given to the patient by the staff. The patient was reexamined prior to discharge. The patient will schedule a follow up in the clinic in 2-4 weeks.
[2023-01-25 12:46] VITALS: BP 133/81; PULSE 65; RESP 20
--- NOTE | 2023-01-25 13:17 | FL ---
EXAMINATION TYPE: FL guided pain mgmt statistic DATE OF EXAM: 01/25/2023 HISTORY: Fluoroscopy time Total dose area product (DAP) in uGy*m?, mGy*cm? (or similar): 0.14420. IMPRESSION: 1. Fluoroscopy time.
== END 2023-01-25 13:00 ==
LOC: ORPAIN 11:11
PROVIDERS: ATTEND Anesthesiology
DX: M96.1 Postlaminectomy syndrome, not elsewhere classified (principal); M54.16 Radiculopathy, lumbar region; Z79.1 Long term (current) use of non-steroidal anti-inflammatories (NSAID)
CPT/HCPCS: 62264; J3301; Q9966; J2795

== ENCOUNTER → 2023-02-16 | Outpatient (CLI) | payer BC ==
[2023-02-16 08:05] VITALS: BP 114/77; PULSE 86; RESP 15; TEMP 98.2
--- NOTE | 2023-02-16 14:19 | P.PAINPG ---
PQRS Measure Charge Sheet Comment: A 57 yr old male with a history of severe and chronic LBP secondary to lumbar DDD and spondylosis with facet arthropathy without myelopathy presents today for evaluation s/p Caudal BRODERICK w Lysis. Pt states he experienced 80 % pain relief x 2-3 wks s/p procedure. Pain level is provoked at 8/10 in intensity, constant, localized in the lumbar spine, dull in character w shooting towards the LLE. Pain is provoked by walking for periods of 15 min or more, or sleeping. Pain is alleviated with PT semi weekly since lumbar fusion 1 1/2 yrs ago, use of a cane for ambulatory assistance, heat, medications, topical, reclining, repositioning and rest. Oswestry axial pain score of 33. Interventional pain procedures completed include BRODERICK L3-L4, x1, L4-L5 x1, Caudal BRODERICK w Lysis x1 Patient is currently on [place], Ibu, Flexeril Patient denies any side effects of the medication(s), denies excessive drowsiness or sleepiness, denies suicidal ideation and reports that the current pain medication is helping to control the pain and improve activities of daily living. Patient denies any motor or sensory deficits. Patient denies any fever or night sweats, denies any change in the bowel movements or urination. Physical Examination: -Constitutional: Cooperative. Not in acute distress . - Neurologic: Cranial nerve II to XII intact. No focal neurological deficits. - Psychatric: Alert & oriented x 3. Matching mood & appropriate affect. Judgment and insight intact. - Musculoskeletal: Cervical spine: Muscle bulk/ tone/ strength in the bilateral upper extremities normal Vertebral body tenderness to palpation over Spurling test positive Distraction test positive Facet loading test positive TTP Thoracic spine Muscle bulk / tone/ strength in the bilateral paraspinal muscles normal Vertebral body tender to palpation over Facet loading test positive TTP Lumbar spine: Motor bulk/ tone/ strength lower extremities , thigh and legs : 5/5 Deep tendon reflexes : Normal Knee Jerk. Normal Ankle Jerk . Vertebral body tenderness to palpation Taut bands w twitch response over BL L1-S1 Day Test positive Lumbar Facet Loading Test positive Straight Leg Raise: positive at 30 degrees right side/ left side Gaenslen's Test positive Sacral spine : Severe tenderness over the Sacroiliac joint: right side / left side Range of motion: Flexion of the lumbar spine <60 degrees Range of motion: Extension of the lumbar spine <20 degrees Gaenslen's Test positive right side / left side Vicki test: positive right side / left side Thigh Thrust Test positive right side / left side Sacral Thrust Test positive right side / left side Assessment and plan: Chronic LBP secondary to lumbar DDD, spondylosis with facet arthropathy without myelopathy Recommendation of Lumbar TPIs L1-S1 BL. May need a series of injections for optimal pain relief. Risks, benefits of procedure discussed and pt verbalized understanding. Admits to anticoagulant use or medical history of diabetes. Protocol for discontinuation/ continuation of medications hannah procedure discussed. Minimal anesthesia provided, if clinically indicated, consisting of Versed and Fentanyl. All questions answered. I have spent less than 30 minutes on patient care today. Dr Sanders was available by phone for the evaluation of this patient. The time was used to rev iew the medical records including relevant urine studies and Prescription history (MAPs), review of the available imaging, evaluation and examination of the patient, coordination of care with the medical staff and if applicable referring physicians, as well as creation of the medical record PQRS Narrative: Smoking Status Current every day smoker Hx Alcohol Use (MH) No Home Medications: Ambulatory Orders Famotidine [Pepcid] 20 mg PO BID #24 tablet 01/01/22 Sennosides-Docusate Sodium [Senokot-S] 1 tab PO BID PRN #60 tablet 01/01/22 Cyclobenzaprine [Flexeril] 10 mg PO BID 01/19/23 HYDROcodone/APAP 10-325MG [[place] 10] 1 each PO TID 01/19/23 Ibuprofen [Motrin] 600 mg PO DIRECTED PRN 01/19/23 Multivit-Min/FA/Lycopen/Lutein [Centrum Silver Men Tablet] 1 each PO DAILY 01/19/23 diazePAM [Valium] 5 mg PO BID 01/19/23 Controlled Substance Measures - Controlled Substance Measures Is patient prescribed a controlled substance at discharge?: No
== END ==
LOC: PNWHC3 07:38
PROVIDERS: ATTEND Specialist
DX: M51.37 Other intervertebral disc degeneration, lumbosacral region (principal); M47.817 Spondylosis without myelopathy or radiculopathy, lumbosacral region; G89.29 Other chronic pain; F17.200 Nicotine dependence, unspecified, uncomplicated; Z88.8 Allergy status to other drugs, medicaments and biological substances; Z88.1 Allergy status to other antibiotic agents
CPT/HCPCS: 99211

== ENCOUNTER 2023-03-08 09:15 | Day surgery (SDC) | payer BC ==
[2023-03-08 10:43] VITALS: TEMP 97
[2023-03-08] MEDS ORDERED: ROPIVACAINE 5 MG/ML 20 ML AMPULE ONE (11:04)
[2023-03-08] MEDS ORDERED: TRIAMCINOLONE ACETONIDE 40 MG/ML 1 ML VIAL ONE (11:04)
--- NOTE | 2023-03-08 11:11 | P.PCN ---
Date of Procedure: 03/08/23 Description of Procedure: Pre and postop diagnosis: Myofascial pain syndrome Procedure: Trigger point injections X 6 Muscle group X Bilateral lumbar paraspinal muscles, and iliocostal lumborum muscle, and left side gluteus moe. Surgeon: Dania Estrada Anesthesia: None Complications: None Estimated blood loss: None Specimen removed: None Procedure indications: Patient had a history of myofascial pain syndrome. Patient tried conservative therapy. Came here for intervention procedure for better pain relief. Procedure description: Patient was seen and identified in the holding area risk benefits competitions alternative discussed with the patient. Patient agreed to proceed for the procedure signed the consent. Patient taken to the procedure area. Timeout was completed. A total number of 6-trigger point area was marked with a sterile marker. After ChloraPrep used to clean the area. Critical pause was taken. Using 25-gauge 1-1/2 inch needle entered in each market site 2 mL of block solution injected at each level. The block solution containing 12 ml of 0.5% preservative-free ropivacaine with Kenlog 40 MG. Needle removed intact skin cleaned and Band-Aid applied. Patient tolerated the procedure well. Disposition: Patient discharge home after meeting the discharge criteria from the recovery. Patient scheduled to follow up with the pain clinic in 4 weeks for follow-up visit.
[2023-03-08 11:25] VITALS: BP 114/71; PULSE 67; RESP 17
== END 2023-03-08 11:41 | disposition home or self-care (01) ==
LOC: ORPAIN 09:15
DX: M79.18 Myalgia, other site (principal); F17.210 Nicotine dependence, cigarettes, uncomplicated; Z98.1 Arthrodesis status; Z90.49 Acquired absence of other specified parts of digestive tract; Z98.890 Other specified postprocedural states; Z79.899 Other long term (current) drug therapy
CPT/HCPCS: 20553; J3301; J2795

== ENCOUNTER → 2023-03-31 | Outpatient (CLI) | payer BC ==
[2023-03-31 16:04] VITALS: BP 121/72; PULSE 78; RESP 16
--- NOTE | 2023-03-31 16:06 | P.PAINPG ---
PQRS Measure Charge Sheet Comment: A 57 yr old male with a history of severe and chronic LBP secondary to lumbar DDD and spondylosis with facet arthropathy without myelopathy presents today for evaluation s/p Lumbar TPIs. Pt states he experienced 50 % pain relief x 1 wks s/p procedure. Pain level is provoked at 9/10 in intensity, constant, localized in the lumbar spine, dull in character w shooting towards the LLE. Pain is provoked by walking for periods of 15 min or more, or sleeping. Pain is alleviated with PT semi weekly since lumbar fusion 1 1/2 yrs ago, use of a cane for ambulatory assistance, heat, medications, topical, reclining, repositioning and rest. Oswestry axial pain score of 30. Interventional pain procedures completed include BRODERICK L3-L4, x1, L4-L5 x1, Caudal BRODERICK w Lysis x1, Lumbar TPIs Patient is currently on Valium , [place], Ibu, Flexeril Patient denies any side effects of the medication(s), denies excessive drows iness or sleepiness, denies suicidal ideation and reports that the current pain medication is helping to control the pain and improve activities of daily living. Patient denies any motor or sensory deficits. Patient denies any fever or night sweats, denies any change in the bowel movements or urination. Physical Examination: -Constitutional: Cooperative. Not in acute distress . - Neurologic: Cranial nerve II to XII intact. No focal neurological deficits. - Psychatric: Alert & oriented x 3. Matching mood & appropriate affect. Judgment and insight intact. - Musculoskeletal: Cervical spine: Muscle bulk/ tone/ strength in the bilateral upper extremities normal Vertebral body tenderness to palpation over Spurling test positive Distraction test positive Facet loading test positive TTP Thoracic spine Muscle bulk / tone/ strength in the bilateral paraspinal muscles normal Vertebral body tender to palpation over Facet loading test positive TTP Lumbar spine: Motor bulk/ tone/ strength lower extremities , thigh and legs : 5/5 Deep tendon reflexes : Normal Knee Jerk. Normal Ankle Jerk . Vertebral body tenderness to palpation L5 Taut bands w twitch response Day Test positive Lumbar Facet Loading Test positive Straight Leg Raise: positive at 30 degrees right side> left side Gaenslen's Test positive Sacral spine : Severe tenderness over the Sacroiliac joint: right side / left side Range of motion: Flexion of the lumbar spine <60 degrees Range of motion: Extension of the lumbar spine <20 degrees Gaenslen's Test positive right side / left side Vicki test: positive right side / left side Thigh Thrust Test positive right side / left side Sacral Thrust Test positive right side / left side Assessment and plan: Chronic LBP secondary to lumbar DDD, spondylosis with facet arthropathy without myelopathy Recommendation of BL TFESI L5-S1. May need a series of injections for optimal pain relief. Risks, benefits of procedure discussed and pt verbalized understanding. Admits to anticoagulant use or medical history of diabetes. Protocol for discontinuation/ continuation of medications hannah procedure discussed. Minimal anesthesia provided, if clinically indicated, consisting of Versed and Fentanyl. All questions answered. I have spent less than 30 minutes on patient care today. Dr Sanders was available by phone for the evaluation of this patient. The time was used to review the medical records including relevant urine studies and Prescription history (MAPs), review of the available imaging, evaluation and examination of the patient, coordination of care with the medical staff and if applicable referring physicians, as well as creation of the medical record PQRS Narrative: Smoking Status Current every day smoker Hx Alcohol Use (MH) No Home Medications: Ambulatory Orders Famotidine [Pepcid] 20 mg PO BID #24 tablet 01/01/22 Sennosides-Docusate Sodium [Senokot-S] 1 tab PO BID PRN #60 tablet 01/01/22 Cyclobenzaprine [Flexeril] 10 mg PO BID 01/19/23 HYDROcodone/APAP 10-325MG [[place] 10] 1 each PO TID 01/19/23 Ibuprofen [Motrin] 600 mg PO DIRECTED PRN 01/19/23 Multivit-Min/FA/Lycopen/Lutein [Centrum Silver Men Tablet] 1 each PO DAILY 01/19/23 diazePAM [Valium] 5 mg PO BID 01/19/23 Controlled Substance Measures - Controlled Substance Measures Is patient prescribed a controlled substance at discharge?: No
== END ==
LOC: PNWHC3 10:57
PROVIDERS: ATTEND Specialist
DX: M51.36 Other intervertebral disc degeneration, lumbar region (principal); M47.816 Spondylosis without myelopathy or radiculopathy, lumbar region; G89.29 Other chronic pain; F17.200 Nicotine dependence, unspecified, uncomplicated; Z88.1 Allergy status to other antibiotic agents; Z88.8 Allergy status to other drugs, medicaments and biological substances
CPT/HCPCS: 99211

== ENCOUNTER → 2023-05-11 | Outpatient (CLI) | payer BC ==
[2023-05-11 11:44] VITALS: BP 115/77; PULSE 69; RESP 16; TEMP 98
--- NOTE | 2023-05-11 15:18 | P.PAINPG ---
PQRS Measure Charge Sheet Comment: A 57 yr old male with a history of severe and chronic LBP secondary to lumbar DDD and spondylosis with facet arthropathy without myelopathy presents today for evaluation. Pt states he experienced 80 % pain relief x 2 mo s/p BL Lumbar TPIs procedure from Feb 2023. Pain level is provoked at 9/10 in intensity, constant, localized in the lumbar spine, dull in character w shooting towards the LLE. Pain is provoked by walking for periods of 15 min or more (whereas he could walk for 30min while having pain relief from Caudal BRODERICK w lysis), or sleeping. Pain is alleviated with PT semi weekly since lumbar fusion 1 1/2 yrs ago, use of a cane for ambulatory assistance, heat, medications, topical, reclining, re positioning and rest. Oswestry axial pain score of 33. Interventional pain procedures completed include BRODERICK L3-L4, x1, L4-L5 x1, Caudal BRODERICK w Lysis x1 (Jan 2023), Lumbar TPIs Patient is currently on Valium , [place], Ibu, Flexeril Patient denies any side effects of the medication(s), denies excessive drowsiness or sleepiness, denies suicidal ideation and reports that the current pain medication is helping to control the pain and improve activities of daily living. Patient denies any motor or sensory deficits. Patient denies any fever or night sweats, denies any change in the bowel movements or urination. Physical Examination: -Constitutional: Cooperative. Not in acute distress . - Neurologic: Cranial nerve II to XII intact. No focal neurological deficits. - Psychatric: Alert & oriented x 3. Matching mood & appropriate affect. Judgment and insight intact. - Musculoskeletal: Cervical spine: Muscle bulk/ tone/ strength in the bilateral upper extremities normal Vertebral body tenderness to palpation over Spurling test positive Distraction test positive Facet loading test positive TTP Thoracic spine Muscle bulk / tone/ strength in the bilateral paraspinal muscles normal Vertebral body tender to palpation over Facet loading test positive TTP Lumbar spine: Motor bulk/ tone/ strength lower extremities , thigh and legs : 5/5 Deep tendon reflexes : Normal Knee Jerk. Normal Ankle Jerk . Vertebral body tenderness to palpation L5 Taut bands w twitch response over BL L1-S1 Day Test positive Lumbar Facet Loading Test positive Straight Leg Raise: positive at 30 degrees right side> left side Gaenslen's Test positive Sacral spine : Severe tenderness over the Sacroiliac joint: right side / left side Range of motion: Flexion of the lumbar spine <60 degrees Range of motion: Extension of the lumbar spine <20 degrees Gaenslen's Test positive right side / left side Vicki test: positive right side / left side Thigh Thrust Test positive right side / left side Sacral Thrust Test positive right side / left side Assessment and plan: Chronic LBP secondary to lumbar DDD, spondylosis with facet arthropathy without myelopathy Recommendation of BL TPIs L1-S1. May need a series of injections for optimal pain relief. Risks, benefits of procedure discussed and pt verbalized understanding. Admits to anticoagulant use or medical history of diabetes. Protocol for discontinuation/ continuation of medications hannah procedure discussed. Minimal anesthesia provided, if clinically indicated, consisting of Versed and Fentanyl. All questions answered. I have spent less than 30 minutes on patient care today. Dr Sanders was available by phone for the evaluation of this patient. The time was used to review the medical records including relevant urine studies and Prescription history (MAPs), review of the available imaging, evaluation and examination of the patient, coordination of care with the medical staff and if applicable referring physicians, as well as creation of the medical record PQRS Narrative: Smoking Status Current every day smoker Hx Alcohol Use (MH) No Home Medications: Ambulatory Orders Famotidine [Pepcid] 20 mg PO BID #24 tablet 01/01/22 Sennosides-Docusate Sodium [Senokot-S] 1 tab PO BID PRN #60 tablet 01/01/22 Cyclobenzaprine [Flexeril] 10 mg PO BID 01/19/23 HYDROcodone/APAP 10-325MG [[place] 10] 1 each PO TID 01/19/23 Ibuprofen [Motrin] 600 mg PO DIRECTED PRN 01/19/23 Mv-Min/Folic/K1/Lycopen/Lutein [Centrum Silver Men Tablet] 1 each PO DAILY 01/19/23 diazePAM [Valium] 5 mg PO BID 01/19/23 Controlled Substance Measures - Controlled Substance Measures Is patient prescribed a controlled substance at discharge?: No
== END ==
LOC: PNWHC3 10:08
PROVIDERS: ATTEND Specialist
DX: M51.37 Other intervertebral disc degeneration, lumbosacral region (principal); M47.817 Spondylosis without myelopathy or radiculopathy, lumbosacral region; G89.29 Other chronic pain; F17.200 Nicotine dependence, unspecified, uncomplicated; Z88.1 Allergy status to other antibiotic agents; Z88.8 Allergy status to other drugs, medicaments and biological substances
CPT/HCPCS: 99211

== ENCOUNTER 2023-05-26 11:34 | Day surgery (SDC) | payer BC ==
[2023-05-26 12:00] VITALS: TEMP 96.4
[2023-05-26] MEDS ORDERED: ROPIVACAINE 5MG/ML 20ML VIAL ONE (12:17)
[2023-05-26] MEDS ORDERED: methylPREDNISolone ACETATE 40 MG/ML 1 ML VIAL ONE (12:17)
--- NOTE | 2023-05-26 12:26 | P.PCN ---
Date of Procedure: 05/26/23 Procedure(s) Performed: Procedure= trigger point injections lumbar paraspinal muscles bilaterally , 3 on the right side from L1 to S1, and 4 on the left side from L1 to S1 Preoperative diagnosis= 1-myofascial pain syndrome lumbar paraspinal muscles 2-lumbar degenerative disc disease 3-lumbar facet arthropathy Postoperative diagnosis=Same as preop Diagnosis . Complication = none Condition= stable Anesthesia=none Indication for the procedure= patient complaining of low back pain , examination was positive for multiple trigger point in the lumbar paraspinal muscles bilaterally and patient diagnosed with myofascial pain syndrome and is here to have trigger point injections Description of the procedure= procedure risk and benefits discussed with the patient, including but not limited, risk of infection and bleeding, and ALLERGIC reaction to the medication and not complete pain relief and patient agreed with the preceding patient taken to the operating room, placed in sitting position or standard monitors applied to the patient then after induction of anesthesia back prepped with chlorhexidine 3 times , then under sterile technique each of the trigger point that was marked in the preop holding area 3 on the right side lumbar paraspinal muscles and 4 on the left side lumbar paraspinal muscles each one of them injected with the 2 mL of the mixture of ropivacaine 0.5% 14 ML mixed with 40 mg of Depo-Medrol and 2 mL of the mixture injected at each trigger point after negative aspiration, using 25-gauge needle, injection done after negative aspiration under was no paresthesia during the injection patient tolerated the procedure well without any complications and he will follow up in the pain clinic in a few weeks
[2023-05-26 13:12] VITALS: BP 114/78; PULSE 77; RESP 20
== END 2023-05-26 12:40 | disposition home or self-care (01) ==
LOC: ORPAIN 11:34
PROVIDERS: ATTEND Specialist
DX: M51.36 Other intervertebral disc degeneration, lumbar region (principal); M79.18 Myalgia, other site; M47.816 Spondylosis without myelopathy or radiculopathy, lumbar region; Z88.1 Allergy status to other antibiotic agents
CPT/HCPCS: 20553; J1030; J2795

== ENCOUNTER → 2023-06-22 | Outpatient (CLI) | payer BC ==
--- NOTE | 2023-06-22 08:05 | P.PAINPG ---
PQRS Measure Charge Sheet Comment: A 57 yr old male with a history of severe and chronic LBP secondary to lumbar DDD and spondylosis with facet arthropathy without myelopathy presents today for evaluation s/p BL TPIs L1-S1. Pt states he experienced 75 % pain relief x 1 wk s/p BL Lumbar TPIs procedure. Pain level is provoked at 6/10 in intensity, constant, localized in the lumbar spine, predominantly axial, dull in character w occasional shooting towards the BL hips. Pain is provoked by walking for periods of 15 min or more (whereas he could walk for 30min while having pain relief from Caudal BRODERICK w lysis), or sleeping. Pain is alleviated with PT semi weekly since lumbar fusion 1 1/2 yrs ago, use of a cane for ambulatory assistance, heat, medications, topical, reclining, repositioning and rest. Oswestry axial pain score of 32. Interventional pain procedures completed include BRODERICK L3-L4, x1, L4-L5 x1, Caudal BRODERICK w Lysis x1 (Jan 2023), Lumbar TPIs x2 Patient is currently on Valium , [place], Ibu, Flexeril Patient denies any side effects of the medication(s), denies excessive drowsiness or sleepiness, denies suicidal ideation and reports that the current pain medication is helping to control the pain and improve activities of daily living. Patient denies any motor or sensory deficits. Patient denies any fever or night sweats, denies any change in the bowel movements or urination. Physical Examination: -Constitutional: Cooperative. Not in acute distress . - Neurologic: Cranial nerve II to XII intact. No focal neurological de ficits. - Psychatric: Alert & oriented x 3. Matching mood & appropriate affect. Judgment and insight intact. - Musculoskeletal: Cervical spine: Muscle bulk/ tone/ strength in the bilateral upper extremities normal Vertebral body tenderness to palpation over Spurling test positive Distraction test positive Facet loading test positive TTP Thoracic spine Muscle bulk / tone/ strength in the bilateral paraspinal muscles normal Vertebral body tender to palpation over Facet loading test positive TTP Lumbar spine: Motor bulk/ tone/ strength lower extremities , thigh and legs : 5/5 Deep tendon reflexes : Normal Knee Jerk. Normal Ankle Jerk . Vertebral body tenderness to palpation L5 Taut bands w twitch response Day Test positive Lumbar Facet Loading Test positive Straight Leg Raise: positive at 30 degrees right side> left side Gaenslen's Test positive Sacral spine : Severe tenderness over the Sacroiliac joint: right side / left side Range of motion: Flexion of the lumbar spine <60 degrees Range of motion: Extension of the lumbar spine <20 degrees Gaenslen's Test positive right side / left side Vicki test: positive right side < left side Thigh Thrust Test positive right side / left side Sacral Thrust Test positive right side / left side Assessment and plan: Chronic LBP secondary to lumbar DDD, spondylosis with facet arthropathy without myelopathy, BL Sacroiliitis Recommendation of BL SI injection. May need a series of injections for optimal pain relief. Risks, benefits of procedure discussed and pt verbalized understanding. Admits to anticoagulant use or medical history of diabetes. Protocol for discontinuation/ continuation of medications hannah procedure discussed. Minimal anesthesia provided, if clinically indicated, consisting of Versed and Fentanyl. All questions answered. I have spent less than 30 minutes on patient care today. Dr Sanders was available by phone for the evaluation of this patient. The time was used to review the medical records including relevant urine studies and Prescription history (MAPs), review of the available imaging, evaluation and examination of the patient, coordination of care with the medical staff and if applicable referring physicians, as well as creation of the medical record PQRS Narrative: Smoking Status Current every day smoker Hx Alcohol Use (MH) No Home Medications: Ambulatory Orders Sennosides-Docusate Sodium [Senokot-S] 1 tab PO BID PRN #60 tablet 01/01/22 Cyclobenzaprine [Flexeril] 10 mg PO BID 01/19/23 Ibuprofen [Motrin] 600 mg PO DIRECTED PRN 01/19/23 Mv-Min/Folic/K1/Lycopen/Lutein [Centrum Silver Men Tablet] 1 each PO QAM 01/19/23 diazePAM [Valium] 5 mg PO BID 01/19/23 Famotidine [Pepcid] 20 mg PO HS 05/24/23 HYDROcodone/APAP 5-325MG [[place] 5-325] 2 tab PO TID 05/24/23 Omeprazole [PriLOSEC] 40 mg PO QAM 05/24/23 Controlled Substance Measures - Controlled Substance Measures Is patient prescribed a controlled substance at discharge?: No
[2023-06-22 08:20] VITALS: BP 132/72; PULSE 72; RESP 15; TEMP 98.5
== END ==
LOC: PNWHC3 07:34
PROVIDERS: ATTEND Specialist
DX: M47.816 Spondylosis without myelopathy or radiculopathy, lumbar region (principal); M51.36 Other intervertebral disc degeneration, lumbar region; F17.200 Nicotine dependence, unspecified, uncomplicated; Z88.5 Allergy status to narcotic agent; Z91.018 Allergy to other foods; Z88.3 Allergy status to other anti-infective agents
CPT/HCPCS: 99211

== ENCOUNTER 2023-06-30 12:15 | Day surgery (SDC) | payer BC ==
[2023-06-30 13:01] VITALS: TEMP 97
[2023-06-30] MEDS ORDERED: methylPREDNISolone ACETATE 80 MG/ML 1 ML VIAL ONE (13:16)
[2023-06-30] MEDS ORDERED: ROPIVACAINE 5MG/ML 20ML VIAL ONE (13:16)
[2023-06-30] MEDS ORDERED: IOPAMIDOL M200 10 ML VIAL ONE (13:16)
--- NOTE | 2023-06-30 13:25 | P.PCN ---
Date of Procedure: 06/30/23 Procedure(s) Performed: Procedure= bilateral sacroiliac joints steroid injection under fluoroscopy guidance (fluoroscopy image stored on file in the radiology Department ) Preoperative diagnosis= 1-sacroiliitis 2-lumbar degenerative disc disease 3- lumbar facet arthropathy Postoperative diagnosis=Same as preop Diagnosis . Complication = none Condition= stable Anesthesia= local anesthesia with ropivacaine 0.5% 4 ml only Indication for the procedure= patient complaining of low back pain , examination was positive for severe tenderness over the sacroiliac joints bilaterally and patient diagnosed with sacroiliitis, for this reason he was good candidate for sacroiliac joint steroid injection. Description of the procedure= procedure risk and benefits discussed with the patient, including but not limited, risk of infection and bleeding, and ALLERGIC reaction to the medication and not complete pain relief and patient agreed with the preceding patient taken to the operating room, placed in prone position or standard monitors applied to the patient then after induction of anesthesia back prepped with chlorhexidine 3 times , Then under strict sterile technique, first I did the right sacroiliac joint the which was identified under fluoroscopy guidance been local infiltration of the skin and subcu interstitial with lidocaine 1% then 22-gauge Quincke Needle advanced slowly under fluoroscopy and placed in the right sacroiliac joint needle placement confirmed with AP and oblique and lateral view, then after that Isovue 200 one mL injected which confirmed the correct needle placement with the appropriate arthrogram of the sacroiliac joint, and after appropriate needle placement confirmed and after negative aspiration, or heme , then Ropivacaine 0.5% 2 mL, and 40 mg of Depo-Medrol mixed together and injected in the right sacroiliac joint after negative aspiration patient tolerated the procedure well without any complication. Then the left sacroiliac joint steroid injection done under strict sterile technique local infiltration of the skin and subcu interstitial at the location of the left sacroiliac joint then a 22-gauge Quincke Needle advanced slowly under fluoroscopy time placed in the left sacroiliac joint, needle placement confirmed with AP and oblique and lateral view then after appropriate needle placement confirmed, with the AP and oblique and lateral then after negative aspiration Isovue 200 1 mL injected showed arthropathy of the left sacroiliac joint, and after negative aspiration 0.5% Ropivacaine 2 mL and 40 mg of Depo- Medrol injected in the left sacroiliac joint after negative aspiration patient tolerated the procedure well that any complications and she will follow up in clinic 3 weeks
[2023-06-30 13:52] VITALS: BP 147/92; PULSE 65; RESP 15
--- NOTE | 2023-06-30 13:52 | FL ---
Intraoperative/procedural fluoroscopic services were provided. Total fluoroscopy time is 18.4 seconds with a total of 5 submitted images to PACS. Please see the operative/procedural note for further det ails. DAP: 0.00734 mGym2
== END 2023-06-30 13:50 | disposition home or self-care (01) ==
LOC: ORPAIN 12:15
PROVIDERS: ATTEND Specialist
DX: M51.36 Other intervertebral disc degeneration, lumbar region (principal); M46.1 Sacroiliitis, not elsewhere classified; Z79.1 Long term (current) use of non-steroidal anti-inflammatories (NSAID); Z88.1 Allergy status to other antibiotic agents; Z88.6 Allergy status to analgesic agent
CPT/HCPCS: 27096; J1040; Q9966; J2795

== ENCOUNTER → 2023-08-29 | Outpatient (CLI) | payer BC ==
[2023-08-29 11:01] LABS: Partial Thromboplastin Time 23.9 sec (22.0-30.0); Prothrombin Time 10.9 sec (10.0-12.5)
[2023-08-29 16:10] LABS: HCT 48.4 % (39.6-50.0); HGB 16.1 g/dL (13.0-17.0); MCH 29.2 pg (27.0-32.0); MCHC 33.3 g/dL (32.0-37.0); MCV 87.7 FL (80.0-97.0); Mean Platelet Volume 10.3 FL (9.5-12.2); NRBC Per 100 WBC 0 X 10*3/uL (0.00-0.01); Platelet Count 303 X 10*3/uL (140-440); RBC 5.52 X 10*6/uL (4.40-5.60); RDW 13.6 % (11.5-14.5); WBC 10.31 X 10*3/uL (4.50-10.00)
[2023-08-29 16:16] LABS: ALT 21 U/L (10-49); AST 14 U/L (14-35); Albumin 4.6 g/dL (3.8-4.9); Albumin/Globulin Ratio 1.39 Ratio (1.60-3.17); Alkaline Phosphatase 113 U/L (41-126); BUN/Creat Ratio 12.67 Ratio (12.00-20.00); Blood Urea Nitrogen 11.4 mg/dL (9.0-27.0); Calcium 9.8 mg/dL (8.7-10.3); Carbon Dioxide 21.4 mmol/L (21.6-31.8); Chloride 104 mmol/L (96-109); Globulin 3.3 g/dL (1.6-3.3); Glucose 113 mg/dL (70-110); Potassium 4.2 mmol/L (3.5-5.5); Sodium 139 mmol/L (135-145); Total Bilirubin 0.5 mg/dL (0.3-1.2); Total Protein 7.9 g/dL (6.2-8.2)
== END | disposition home or self-care (01) ==
LOC: LABPAT 09:50
PROVIDERS: ATTEND Orthopaedic Surgery
DX: Z01.812 Encounter for preprocedural laboratory examination (principal); Z22.322 Carrier or suspected carrier of Methicillin resistant Staphylococcus aureus; M16.11 Unilateral primary osteoarthritis, right hip; I49.8 Other specified cardiac arrhythmias; R94.31 Abnormal electrocardiogram [ECG] [EKG]
CPT/HCPCS: 36415; 80053; 85027; 85610; 85730; 86850; 86900; 86901; 87070; 93005

== ENCOUNTER 2023-09-06 05:34 | Day surgery (SDC) | payer BC ==
[~2023-09-06 05:34] MED LIST changes: -LACTATED RINGERS 1,000 ML IV SCH; +TRANEXAMIC 1,000 MG/100ML-NACL 1,000 MG in SALINE 1 100ML.BAG IVPB PRN
[2023-09-06] MEDS ORDERED: LIDOCAINE 1% (10MG/ML) FOR IV START INTRADERMA PRN (05:44)
[2023-09-06] MEDS: ACETAMINOPHEN TAB 500 MG TAB PO PRN (06:39)
[2023-09-06] MEDS: GABAPENTIN 300 MG CAP PO PRN (06:39)
[2023-09-06] MEDS: ONDANSETRON 4 MG/2 ML VIAL IVP ONE (06:39)
[2023-09-06] MEDS: LACTATED RINGERS 1,000 ML IV SCH (06:39)
[2023-09-06] MEDS: DEXAMETHASONE SOD PHOSPHATE 4 MG/ML 1 ML VIAL IV ONE (06:40)
[2023-09-06] MEDS: MELOXICAM 7.5 MG TAB PO PRN (06:40)
[2023-09-06] MEDS: MIDAZOLAM 2 MG/2 ML VIAL IVP ONE (06:55)
[2023-09-06] MEDS: fentaNYL (PF) 50 MCG/ML 2 ML AMP IVP ONE (06:55)
[2023-09-06] MEDS ORDERED: MIDAZOLAM 2 MG/2 ML VIAL ONE (06:59)
[2023-09-06] MEDS ORDERED: LIDOCAINE 1% INJ 10MG/ML (20 ML MDV) ONE (06:59)
[2023-09-06] MEDS ORDERED: ROPIVACAINE 5 MG/ML 30 ML VIAL ONE (06:59)
[2023-09-06] MEDS ORDERED: TRANEXAMIC 1,000 MG/100ML-NACL PREMIX BAG ONE (06:59)
[2023-09-06] MEDS ORDERED: PROPOFOL 10 MG/ML 20 ML VIAL IV ONE (06:59)
[2023-09-06] MEDS ORDERED: PHENYLEPHRINE 10 MG/ML VIAL ONE (06:59)
[2023-09-06] MEDS: ceFAZolin 1,000 MG in SODIUM CHLORIDE 0.9% 1,000 ML IRRIGATION ONE (07:04)
[2023-09-06] MEDS: ROPIVACAINE 5 MG/ML 30 ML VIAL MISCELLANE ONE ×3 (07:06→08:14)
--- NOTE | 2023-09-06 08:15 | P.OP ---
Date of Procedure: 09/06/23 Preoperative Diagnosis: Severe osteoarthritis right hip Postoperative Diagnosis: Severe osteoarthritis right hip Procedure(s) Performed: Right total hip arthroplasty with a direct anterior approach Implants: [employer] Polarstem standard size 5 with a collar [employer] R3, 3 hole hemispherical acetabular shell, 56 mm [employer] Reflection 6.5 mm cancellus screw, 20 mm, 25mm [employer] R3, XLPE 20 acetabular liner [employer] Oxinium femoral head 36 mm, +8 All components were press-fit. The articulation is Oxinium on polyethylene. Anesthesia: spinal Surgeon: Obdulio Biswas Cable Armorer #1: Celestina Vargas Estimated Blood Loss (ml): 300 Pathology: none sent Condition: stable Disposition: PACU Indications for Procedure: After failure of conservative treatment we discussed the surgical and no nsurgical treatment options at length. Patient wishes to proceed with a total hip arthroplasty with a direct anterior approach. Complications specific to this procedure were discussed at length, including but not limited to infection, leg length discrepancy, dislocation, nerve injury, and fracture. Covid-19 was also discussed at length with the patient, and they are aware of the current policies and procedures. The patient was given the option of delaying surgery, but they elect to proceed knowing these risks. Patient is aware of all these complications and informed consent was obtained Operative Findings: The operative findings are consistent with severe osteoarthritis of the right hip Description of Procedure: The patient was seen and evaluated in the preoperative area and the consent was reviewed. The operative site was marked with a skin marker. The patient verified the procedure and operative site. A CHRISTINE block was placed by anesthesia in the preoperative area. The patient was then brought to the operating room and given preoperative antibiotics intravenously. 1 g of Tranexamic acid was also given intravenously. A spinal anesthetic was administered by the anesthesia department. The patient was then placed on the [place] table with the bony prominences well-padded. The hip area was then prepped with a ChloraPrep solution and draped in the usual sterile fashion. A universal timeout was then performed, which confirmed the patient's name, surgical site, ALLERGIES, and procedure being performed on the consent. Next the incision site was located at 1 cm distal and 4 cm lateral to the anterior superior iliac spine. The skin and subcutaneous tissues were sharply incised. Incision was carefully dissected down to the fascia overlying the tensor fascia abraham muscle. This fascia was then incised in line with the muscle fibers. Care was taken to stay laterally in order to avoid injuring the lateral femoral cutaneous nerve. Next, using blunt finger dissection, the tensor fascia abraham muscle was dissected off its investing fascia. The muscle was then carefully retracted laterally with a cobra retractor over the lateral neck of the femur. Next, the circumflex vessels were identified and cauterized using the Aquamantis device. The anterior hip capsule was then exposed. The capsule was then opened and an inverted T fashion. The retractors were then placed intracapsularly. The retractors were maintained intracapsular throughout the procedure. The proximal femur was then visualized. Fluoroscopic x-rays were then taken in order to evaluate the preoperative leg lengths. A small amount of traction was placed on the leg. The femoral neck was then osteotomized at the appropriate level above the lesser trochanter. A small wedge of bone was then removed from the remaining femoral head. Next, using a corkscrew the femoral head was removed from the acetabulum. On gross visual inspection, the femoral head had complete loss of articular cartilage and multiple periarticular osteophytes. The femoral head was then measured. Attention was then turned to the acetabulum. The acetabulum was exposed and any remaining labrum was excised. Sequential reaming of the acetabulum was performed using fluoroscopic guidance until there was a good bed of bleeding cancellus bone. When the appropriate size was reached, a trial was then placed. The position and fit of the trial was checked with fluoroscopy. The trial was then removed. Then, using fluoroscopic guidance, the final implant was impacted at 20 of anteversion and 40 of abduction, and fully seated in the acetabulum. 2 screws were then placed in the acetabulum. Again fluoroscopy was used to check position of the screws. Next, the liner was then impacted, with a 20 elevated liner located in the anterior superior quadrant. Component locking was confirmed. Attention was then directed to the femur. With the aid of the [place] table, the femur was externally rotated to approximately 130, extended, and adducted under the opposite leg. A side hook was then placed under the proximal femur, and the side hook elevator was used to elevate the proximal femur while releasing the capsule. Retractors were then placed. A capsular release was performed, as well as a release of the conjoined tendon, which afforded excellent visualization of the proximal femur. Next, a box osteotome was used to lateralize the proximal femur. A hand leather trimmer was then used to locate the femoral canal. Sequential broaching was then performed with appropriate size which afforded excellent fixation in the proximal femur. A trial was then placed with appropriate head and neck, and the hip was gently reduced with the aid of the [place] table. Fluoroscopy was then used to check position of the components, as well as to evaluate the leg lengths and offset. The leg lengths and offset were measured as closely as possible to ensure stability of the hip. The hip was then gently dislocated and the trials were then removed. Final implants were then impacted and the hip was again reduced. Final fluoroscopic x-rays confirmed that the components were in anatomic position. The leg lengths and offset were measured and were found to coincide with the trial measurements. The hip was also taken through range of motion, and found to be stable. The hip was then copiously irrigated with antibiotic solution with pulsatile lavage. The hip was then irrigated with Irrisept solution. The soft tissues were then injected with a ropivacaine solution. A second dose of 1 g of Tranexamic acid was also given intravenously. The fascia was then closed with 2-0 strata fix suture. The subcutaneous tissue was closed with 3-0 Vicryl. The subcuticular tissue was closed with 3-0 strata fix suture. The skin was then closed with Exofin skin glue. After the glue and dried, and Optifoam silver impregnated dressing was applied. The patient was then transferred to the recovery room in stable condition. The social worker assistant QI Norris was required due to the complexity of surgery, and the need for skilled surgical supply assistant for positioning, draping, exposure, retraction, and closure of the wound.
[2023-09-06] MEDS: LACTATED RINGERS 1,000 ML IV ONE (08:22)
[2023-09-06] MEDS ORDERED: HYDROmorphone 0.5 MG/0.5 ML SYRINGE IVP PRN (08:40)
[2023-09-06] MEDS ORDERED: ONDANSETRON 4 MG/2 ML VIAL IVP PRN (08:40)
[2023-09-06] MEDS ORDERED: MAGNESIUM HYDROXIDE 2,400 MG/30 ML CUP PO PRN (08:40)
[2023-09-06] MEDS ORDERED: NALOXONE 0.4 MG/ML 1 ML VIAL IV PRN (08:40)
[2023-09-06] MEDS ORDERED: HYDROcodone/APAP 7.5-325MG 1 EACH TAB PO PRN ×2 (08:41)
--- NOTE | 2023-09-06 08:42 | XR ---
EXAMINATION TYPE: XR Hip Limited RT DATE OF EXAM: 09/06/2023 COMPARISON: NONE HISTORY: Right hip surgery TECHNIQUE: 5 views submitted. FINDINGS: There is postsurgical change compatible hip replacement surgery. IMPRESSION: 1. Postoperative change.
--- NOTE | 2023-09-06 08:42 | FL ---
EXAMINATION TYPE: FL guidance operating room DATE OF EXAM: 09/06/2023 HISTORY: Fluoroscopy time Total dose area product (DAP) in uGy*m?, mGy*cm? (or similar): 3.0208 IMPRESSION: 1. Fluoroscopy time.
[2023-09-06] MEDS ORDERED: HYDROcodone/APAP 5-325MG 1 EACH TAB PO PRN (08:45)
[2023-09-06] MEDS: HYDROmorphone 0.5 MG/0.5 ML SYRINGE IVP PRN ×2 (08:55→16:33)
--- NOTE | 2023-09-06 09:27 | XR ---
EXAMINATION TYPE: XR Hip Limited RT DATE OF EXAM: 09/06/2023 COMPARISON: NONE HISTORY: post op hip Right TECHNIQUE: One view submitted. FINDINGS: There is postsurgical change compatible hip replacement surgery. IMPRESSION: 1. Postoperative change.
--- NOTE | 2023-09-06 12:00 | P.ANPRN ---
Procedure Note - Anesthesia - Nerve Block Performed Right Kal Single Time Out Performed: Yes ([id number]) Date of Procedure: 09/06/23 Procedure Start Time: 06:55 Procedure Stop Time: 06:59 Location of Patient: PreOp Indication: Acute Post-Operative Pain, Requested by Surgeon Specifically requested for management of pain by DrJulio: Obdulio Biswas Sedation Type: Sedate with meaningful contact maintained Preparation: Sterile Prep Position: Supine Catheter: None Needle Types: Pajunk Needle Gauge: 21 Ultrasound used to visualize needle placement: Yes Ultrasound used to observe medication spread: Yes Injectate: 0.5% Ropivacaine (see comment for volume) (30cc) Blood Aspirated: No Pain Paresthesia on Injection Noted: No Resistance on Injection: Normal Image Stored and Saved: Yes Events: Uneventful and Well Tolerated
[2023-09-06] MEDS: HYDROcodone/APAP 5-325MG 1 EACH TAB PO PRN (13:52)
[2023-09-06] MEDS: droPERidol 5 MG/2 ML VIAL IVP ONE (13:55)
[2023-09-06] MEDS: SODIUM CHLORIDE 0.9% 1,000 ML IV SCH (13:56)
[2023-09-06] MEDS: SENNOSIDES-DOCUSATE SODIUM 1 EACH TAB PO SCH (20:07)
[2023-09-06] MEDS: ASPIRIN 325 MG TAB PO SCH (20:07)
[2023-09-06] MEDS: HYDROmorphone 1 MG/ML 1 ML SYRINGE IVP PRN (22:21)
--- NOTE | 2023-09-07 00:02 | P.CONS ---
History of Present Illness - Reason for Consult Consult date: 09/06/23 Medical management - Chief Complaint Right total hip arthroplasty - History of Present Illness Patient is a 58-year-old male with known history of GERD, osteoarthritis, history of renal stones, chronic back pain and neck pain, history of multiple orthopedic procedures, anxiety and currently everyday smoker and occasional marijuana use was admitted to hospital for elective right total hip arthr oplasty. Patient does have severe osteoarthritis and failed outpatient conservative treatments. Currently denies any complaints of nausea or vomiting. No headache or dizziness or lightheadedness. No fever no chills. No chest pain or shortness of breath. No leg swelling. On admission blood pressure was 140/79 pulse 77 respiration 16 and pulse ox 96% on room air. Laboratory data is not available at this time. Review of Systems Constitutional: Patient denies any fever or chills . no Generalized weakness. Abdomen: Patient denied any nausea or vomiting or abd. pain Cardiovascular: Patient denies any chest pain or short of breath no palpitations. Respiratory: patient denied any cough . no sputum production. No shortness of breath Neurologic: Patient denied any numbness or tingling or headache. Musculoskeletal: Patient denies any complaints of joint swelling or deformity. Skin: Negative Psychiatric: Negative Endocrine: No heat or cold intolerance. No recent weight gain. Genitourinary: No dysuria or hematuria. All other 14 point ROS negative except the above Past Medical History Past Medical History: GERD/Reflux, Osteoarthritis (OA), Pneumonia Additional Past Medical History / Comment(s): HEART MURMUR. , SEIZURES R/T ABX- 2007. , HX KIDNEY STONES,. 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 , BACK & NECK PAIN, pneumonia Nov2022 History of Any Multi-Drug Resistant Organisms: None Reported Past Surgical History: Appendectomy, Back Surgery, Heart Catheterization Additional Past Surgical History / Comment(s): Pain clinic procedures, pilonidal cyst, Laminectomy with decompression lumbar fusion with hardware (12/2021)., 2018 anterior cervical fusion with dissection., lithotripsy Past Anesthesia/Blood Transfusion Reactions: Previous Problems w/ Anesthesia Additional Past Anesthesia/Blood Transfusion Reaction / Comm: combative when he wakes up Past Psychological History: Anxiety Additional Psychological History / Comment(s): valium is effective Smoking Status: Current every day smoker Past Alcohol Use History: None Reported Additional Past Alcohol Use History / Comment(s): smokes 1 ppd, started smoking age 19. Past Drug Use History: Marijuana Additional Drug Use History / Comment(s): Occasional edible marijuana for sleep. - Past Family History Father Family Medical History: Cancer, GERD/Reflux Medications and Allergies Home Medications Medication Instructions Recorded Confirmed Type Cyclobenzaprine [Flexeril] 10 mg PO HS PRN 01/19/23 09/06/23 History Ibuprofen [Motrin] 600 mg PO DIRECTED PRN 01/19/23 09/06/23 History Mv-Min/Folic/K1/Lycopen/Lutein 1 each PO QAM 01/19/23 09/06/23 History [Centrum Silver Men Tablet] diazePAM [Valium] 5 mg PO BID PRN 01/19/23 09/06/23 History Famotidine [Pepcid] 20 mg PO HS 05/24/23 09/06/23 History HYDROcodone/APAP 5-325MG [[place] 1 - 2 tab PO Q6H PRN 05/24/23 09/06/23 History 5-325] Omeprazole [PriLOSEC] 40 mg PO QAM 05/24/23 09/06/23 History Aspirin 325 mg PO BID #60 tab 09/06/23 Rx Sennosides [Senokot] 2 tab PO DAILY PRN #60 tablet 09/06/23 Rx Allergies Allergy/AdvReac Type Severity Reaction Status Date / Time ciprofloxacin [From Cipro] Allergy Severe BRAIN STEM Verified 09/06/23 06:02 SEIZURES Quinolones Allergy Severe Seizures Verified 09/06/23 06:02 moxifloxacin [From Avelox] AdvReac Severe Seizures Verified 09/06/23 06:02 fluoroquinolones Allergy Severe seizures Uncoded 09/06/23 06:02 Physical Exam Vitals: Vital Signs Temp Pulse Resp BP Pulse Ox 09/06/23 20:01 97.9 F 81 16 115/77 94 L 09/06/23 13:12 97.3 F L 74 17 127/82 96 09/06/23 12:44 97.3 F L 74 18 127/82 96 09/06/23 12:40 74 16 139/76 96 09/06/23 11:58 75 16 126/78 96 09/06/23 11:28 73 16 136/70 98 09/06/23 10:58 72 18 139/72 98 09/06/23 10:28 68 16 124/75 97 09/06/23 09:58 64 16 132/71 99 09/06/23 09:38 66 16 119/70 99 09/06/23 09:08 68 16 119/73 99 09/06/23 08:48 67 18 105/66 94 L 09/06/23 08:33 97.4 F L 67 18 130/74 97 09/06/23 06:59 78 16 130/74 97 09/06/23 06:30 97.0 F L 77 16 140/79 96 Intake and Output 09/06/23 09/06/23 09/06/23 06:59 14:59 22:59 Intake Total 100 1601 Output Total 300 Balance 100 1301 Intake: IV 100 1601 Output: Estimated Blood Loss 300 Other: # Voids 1 Weight 99.79 kg 99.79 kg PHYSICAL EXAMINATION: Patient is lying in the bed comfortably, no acute distress, awake alert and oriented.. HEENT: Normocephalic. Neck is supple. Pupils reactive. Nostrils clear. Oral cavity is moist. Neck reveals no JVD, carotid bruits, or thyromegaly. CHEST EXAMINATION: Trachea is central. Symmetrical expansion. Lung connelly clear to auscultation and percussion. CARDIAC: Normal S1, S2 with no gallops. No murmurs ABDOMEN: Soft. Bowel sounds present. Nontender. No organomegaly. No abdominal bruits. Extremities: reveal no edema. No clubbing or cyanosis Neurologically awake, alert, oriented x3 with well-coordinated movements. No focal deficits noted Skin: No rash or skin lesions. Psychiatric: Coperative. Nonsuicidal, Musculoskeletal: No joint swelling or deformity. Right hip surgical site intact.. Assessment and Plan Assessment: Status post right total hip arthroplasty with direct anterior approach. Postoperative day 0 Evaded blood pressure likely due to pain controlled now. Osteoarthritis Chronic neck pain and back pain and prior history of multiple orthopedic procedures. Anxiety Current everyday smoker Occasional marijuana use History of renal stones GI and DVT prophylaxis as per primary team Plan: Patient will be continued on current pain management, bowel regimen and en courage incentive spirometry. Will continue to monitor blood pressure. Follow-up CBC and BMP tomorrow. Smoking patient has been counseled. Continue with home medications and further recommendations based on the clinical course. Thank you for your consult. Time with Patient: Greater than 30
[2023-09-07 07:48] VITALS: BP 99/67; PULSE 78; RESP 18; TEMP 98.8
--- NOTE | 2023-09-07 10:13 | P.DS ---
Providers Expected date of discharge: 09/07/23 Attending physician: Obduloi Biswas Consults: 09/06/23 08:40 Consult Physician Routine Consulting Provider: Mahad Belle Consult Reason/Comments: medical management Do you want consulting provider notified?: Yes Primary care physician: Suzanne Go - Discharge Diagnosis(es) (1) Osteoarthritis of right hip Current Visit: Yes Status: Acute (2) S/P total right hip arthroplasty Current Visit: Yes Status: Acute Hospital Course: This is a 58-year-old male with known history of degenerative arthritis of the right hip. The patient presented for evaluation as an outpatient. After discussion and consideration patient elects to proceed with total hip arthroplasty. The patient is seen preoperatively by Dr. Biswas and medically cleared for surgery by their primary care physician. Patient is admitted to [facility] on 09/06/2023 for total hip arthroplasty. The procedure is performed without complication or sequelae. The patient is doing well postoperatively. Labs and vital signs are stable on day of discharge. On day of discharge patient's hip incision is healing well. There is minimal erythema. There is no drainage noted at this time. There is minimal soft tissue swelling to the hip and thigh. Patient has full foot and ankle motion without difficulty or pain. Calf is soft and nontender to palpation. Neurovascular status to the right lower extremity is intact. Patient is discha rged home in good condition. Patient receives pain medication from a different physician and will use this for postoperative pain management. Please see med rec for accurate list of home medications. Plan - Discharge Summary Discharge Rx Participant: Yes New Discharge Prescriptions: New Aspirin 325 mg PO BID #60 tab Sennosides [Senokot] 2 tab PO DAILY PRN #60 tablet PRN Reason: Constipation Ketorolac [Toradol] 10 mg PO Q6HR #12 tab No Action diazePAM [Valium] 5 mg PO BID PRN PRN Reason: Anxiety Omeprazole [PriLOSEC] 40 mg PO QAM Famotidine [Pepcid] 20 mg PO HS Cyclobenzaprine [Flexeril] 10 mg PO HS PRN PRN Reason: Muscle Spasm Ibuprofen [Motrin] 600 mg PO DIRECTED PRN PRN Reason: Pain Mv-Min/Folic/K1/Lycopen/Lutein [Centrum Silver Men Tablet] 1 each PO QAM HYDROcodone/APAP 5-325MG [[place] 5-325] 1 - 2 tab PO Q6H PRN PRN Reason: Pain Discharge Medication List Cyclobenzaprine [Flexeril] 10 mg PO HS PRN 01/19/23 [History] Ibuprofen [Motrin] 600 mg PO DIRECTED PRN 01/19/23 [History] Mv-Min/Folic/K1/Lycopen/Lutein [Centrum Silver Men Tablet] 1 each PO QAM 01/19/23 [History] diazePAM [Valium] 5 mg PO BID PRN 01/19/23 [History] Famotidine [Pepcid] 20 mg PO HS 05/24/23 [History] HYDROcodone/APAP 5-325MG [[place] 5-325] 1 - 2 tab PO Q6H PRN 05/24/23 [History] Omeprazole [PriLOSEC] 40 mg PO QAM 05/24/23 [History] Aspirin 325 mg PO BID #60 tab 09/06/23 [Rx] Sennosides [Senokot] 2 tab PO DAILY PRN #60 tablet 09/06/23 [Rx] Ketorolac [Toradol] 10 mg PO Q6HR #12 tab 09/07/23 [Rx] Follow up Appointment(s)/Referral(s): Suzanne Go MD [Primary Care Provider] - 09/12/23 2:00 pm [facility] [[facility]STA[facility]] - 1-2 Days ([facility] will call you to schedule your in home physical therapy visits. ) Obdulio Biswas DO [Doctor of Osteopathic Medicine] - 09/19/23 2:15 pm (With [facility]) Activity/Diet/Wound Care/Special Instructions: Weightbearing as tolerated with walker. Leave dressing intact. Dressing may be removed by home care nurse or by patient in 7 days. Then change dressing twice daily until follow up. May shower with initial dressing intact and after removal. If dressing become saturated, please remove. Please take aspirin 325mg twice daily for 30 days to prevent blood clots. Recommend use of compression stockings daily until follow up to help prevent swelling and blood clots. May remove at night before sleeping. Please follow-up with [facility] in 2 weeks and call with any questions or concerns, . Discharge Disposition: HOME WITH HOME HEALTH SERVICES
[2023-09-07] MEDS: KETOROLAC 15 MG/ML 1 ML VIAL IVP PRN (10:37)
[2023-09-07 11:00] LABS: Basophils # (A) 0.09 X 10*3/uL (0.00-0.10); Basophils % (A) 0.7 %; Eosinophils # (A) 0.17 X 10*3/uL (0.04-0.35); Eosinophils % (A) 1.3 %; HCT 39.1 % (39.6-50.0); HGB 13.1 g/dL (13.0-17.0); Lymphocytes # (A) 3.48 X 10*3/uL (0.90-5.00); Lymphocytes % (A) 27.6 %; MCH 29.4 pg (27.0-32.0); MCHC 33.5 g/dL (32.0-37.0); MCV 87.7 FL (80.0-97.0); Monocytes # (A) 1.28 X 10*3/uL (0.20-1.00); Monocytes % (A) 10.2 %; NRBC Per 100 WBC 0 X 10*3/uL (0.00-0.01); Neutrophils # (A) 7.55 X 10*3/uL (1.80-7.70); Neutrophils % (A) 59.9 %; Platelet Count 259 X 10*3/uL (140-440); RBC 4.46 X 10*6/uL (4.40-5.60); RDW 13.6 % (11.5-14.5); WBC 12.61 X 10*3/uL (4.50-10.00)
[2023-09-07 11:21] LABS: BUN/Creat Ratio 10.62 Ratio (12.00-20.00); Blood Urea Nitrogen 8.5 mg/dL (9.0-27.0); Carbon Dioxide 22.5 mmol/L (21.6-31.8); Chloride 101 mmol/L (96-109); Glucose 105 mg/dL (70-110); Potassium 3.8 mmol/L (3.5-5.5); Sodium 136 mmol/L (135-145)
--- NOTE | 2023-09-07 21:59 | P.PN ---
Subjective Progress Note Date: 09/07/23 Patient is a 58-year-old male with known history of GERD, osteoarthritis, history of renal stones, chronic back pain and neck pain, history of multiple orthopedic procedures, anxiety and currently everyday smoker and occasional marijuana use was admitted to hospital for elective right total hip arthroplas ty. Patient does have severe osteoarthritis and failed outpatient conservative treatments. Currently denies any complaints of nausea or vomiting. No headache or dizziness or lightheadedness. No fever no chills. No chest pain or shortness of breath. No leg swelling. On admission blood pressure was 140/79 pulse 77 respiration 16 and pulse ox 96% on room air. Laboratory data is not available at this time. 09/07/2023 Patient is resting in the bed. Awake alert and oriented x 3. Currently on room air. Right hip pain is controlled with medications. No complaints of headache or dizziness. No fever no chills. No other acute overnight issues. Laboratory data WBC 12.6 hemoglobin 13.1 and platelets 259 BUN 8.5 and creatinine 0.89 calcium 9.0. Patient is being discharged home today. Discharge medication reconciliation was done. Current medications reviewed. Objective - Vital Signs Vital signs: Vital Signs Temp 98.8 F 09/07/23 07:08 Pulse 78 09/07/23 07:08 Resp 18 09/07/23 07:08 BP 99/67 09/07/23 07:08 Pulse Ox 94 L 09/07/23 07:08 FiO2 Intake & Output 09/07/23 09/07/23 09/08/23 06:59 18:59 06:59 Other: Voiding Method Toilet # Voids 4 - Exam PHYSICAL EXAMINATION: Patient is lying in the bed comfortably, no acute distress, awake alert and oriented.. HEENT: Normocephalic. Neck is supple. Pupils reactive. Nostrils clear. Oral cavity is moist. Neck reveals no JVD, carotid bruits, or thyromegaly. CHEST EXAMINATION: Trachea is central. Symmetrical expansion. Lung connelly clear to auscultation and percussion. CARDIAC: Normal S1, S2 with no gallops. No murmurs ABDOMEN: Soft. Bowel sounds present. Nontender. No organomegaly. No abdominal bruits. Extremities: reveal no edema. No clubbing or cyanosis Neurologically awake, alert, oriented x3 with well-coordinated movements. No focal deficits noted Skin: No rash or skin lesions. Psychiatric: Coperative. Nonsuicidal, Musculoskeletal: No joint swelling or deformity. Right hip surgical site intact.. - Labs CBC & Chem 7: 09/07/23 05:33 09/07/23 05:33 Labs: Abnormal Lab Results - Last 24 Hours (Table) 09/07/23 09/07/23 Range/Units 05:33 05:33 WBC 12.61 H (4.50-10.00) X 10*3/uL Hct 39.1 L (39.6-50.0) % Monocytes # 1.28 H (0.20-1.00) X 10*3/uL Anion Gap 12.50 H (4.00-12.00) mmol/L BUN 8.5 L (9.0-27.0) mg/dL BUN/Creatinine Ratio 10.62 L (12.00-20.00) Ratio Assessment and Plan Assessment: Status post right total hip arthroplasty with direct anterior approach. Postoperative day 1 Evaded blood pressure likely due to pain controlled now. Osteoarthritis Chronic neck pain and back pain and prior history of multiple orthopedic procedures. Anxiety Current everyday smoker Occasional marijuana use History of renal stones GI and DVT prophylaxis as per primary team Plan: Patient will be continued on pain medications as per orthopedic surgery recommendations. Anticoagulation with aspirin twice daily. Continued on home medications and PPI. Patient was advised to follow-up with primary care physician next 3 to 5 days and orthopedic surgery. Patient is being discharged home today. Discharge medication reconciliation was done.
== END 2023-09-07 12:07 | disposition home health service (06) ==
LOC: OR 05:34 → 4SSUR 08:33 → EDSTATUS 09:10 → OR 09-07 12:07
PROVIDERS: ATTEND Orthopaedic Surgery
DX: M16.11 Unilateral primary osteoarthritis, right hip (principal); G89.18 Other acute postprocedural pain; F32.A Depression, unspecified; E78.5 Hyperlipidemia, unspecified; K30 Functional dyspepsia; F17.290 Nicotine dependence, other tobacco product, uncomplicated; F10.90 Alcohol use, unspecified, uncomplicated; Z88.1 Allergy status to other antibiotic agents; Z88.8 Allergy status to other drugs, medicaments and biological substances; Z91.048 Other nonmedicinal substance allergy status; Z83.3 Family history of diabetes mellitus; Z79.899 Other long term (current) drug therapy; Z98.890 Other specified postprocedural states
CPT/HCPCS: 97161; 97166; 64447; 80048; 85025; 73501; 27130; C1776; J2250; J1100; J0690 ×2; J2405; J3010; J1170 ×3; J2795; J1885

== ENCOUNTER 2023-10-29 20:15 | Inpatient (IN) | payer BC ==
--- NOTE | 2023-10-29 20:51 | ED ---
General Adult HPI - General Source: patient, RN notes reviewed Mode of arrival: wheelchair Limitations: no limitations <Sloane Mann - Last Filed: 10/29/23 20:49> <Ze Salazar - Last Filed: 10/30/23 00:38> - General Chief complaint: Weakness Stated complaint: post op complications fever Time Seen by Provider: 10/29/23 20:28 - History of Present Illness Initial comments: Quick notethis is a 58-year-old male presents emergency department chief complaint of weakness and possible right hip infection. Patient states that he went to his primary care provider earlier this week where he was given steroids outpatient due to possible infection from total hip replacement that was completed in August. And is reporting generalized weakness and fatigue. (Sloane Mann) Dictation was produced using [employer] dictation software. please excuse any grammatical, word or spelling errors. Chief Complaint: 58-year-old male with past medical history of appendectomy back surgery heart cath GERD pneumonia presents emergency department for several days of fevers History of Present Illness: Patient is a 58-year-old male presents to the emergency department for few days of fever. He had his hip replaced approximately a month and a half ago. He was seen by his general practitioner for 5 days ago and was put on Augmentin for concerns of possible wound infection. Patient Nuys any hip pain. Denies any pain whatsoever. Denies any cough sore throat. Family member at the bedside states that his voice sounds a little different. He has been having temperatures of 102 at home. Last had some Motrin approximately 2:30 PM. Denies any diarrhea. No burning on urination. No cough no chest pain. The ROS documented in this emergency department record has been reviewed and confirmed by me. Those systems with pertinent positive or negative responses have been documented in the HPI. All other systems are other negative and/or noncontributory. (Ze Salazar) - Related Data Home Medications Medication Instructions Recorded Confirmed Cyclobenzaprine [Flexeril] 10 mg PO HS PRN 01/19/23 09/06/23 Mv-Min/Folic/K1/Lycopen/Lutein 1 each PO QAM 01/19/23 09/06/23 [Centrum Silver Men Tablet] diazePAM [Valium] 5 mg PO BID PRN 01/19/23 09/06/23 Famotidine [Pepcid] 20 mg PO HS 05/24/23 09/06/23 HYDROcodone/APAP 5-325MG [[place] 1 - 2 tab PO Q6H PRN 05/24/23 09/06/23 5-325] Omeprazole [PriLOSEC] 40 mg PO QAM 05/24/23 09/06/23 Previous Rx's Medication Instructions Recorded Aspirin 325 mg PO BID #60 tab 09/06/23 Sennosides [Senokot] 2 tab PO DAILY PRN #60 tablet 09/06/23 Ketorolac [Toradol] 10 mg PO Q6HR #12 tab 09/07/23 Allergies Allergy/AdvReac Type Severity Reaction Status Date / Time ciprofloxacin [From Cipro] Allergy Severe BRAIN STEM Verified 10/29/23 20:40 SEIZURES Quinolones Allergy Severe Seizures Verified 10/29/23 20:40 moxifloxacin [From Avelox] AdvReac Severe Seizures Verified 10/29/23 20:40 fluoroquinolones Allergy Severe seizures Uncoded 10/29/23 20:40 Review of Systems ROS Other: All systems not noted in ROS Statement are negative. <Sloane Mann - Last Filed: 10/29/23 20:49> ROS Other: All systems not noted in ROS Statement are negative. <Ze Salazar - Last Filed: 10/30/23 00:38> ROS Statement: Those systems with pertinent positive or pertinent negative responses have been documented in the HPI. Past Medical History Past Medical History: GERD/Reflux, Pneumonia Additional Past Medical History / Comment(s): HEART MURMUR. , SEIZURES R/T ABX- 2007. , HX KIDNEY STONES,. NUMBNESS/TINGLING ARMS, HANDS COLD., CONSTIPATION. , BACK & NECK PAIN. History of Any Multi-Drug Resistant Organisms: None Reported Past Surgical History: Appendectomy, Back Surgery, Heart Catheterization, Orthopedic Surgery Additional Past Surgical History / Comment(s): Pain clinic procedures, pilonidal cyst, Laminectomy with decompression lumbar fusion with hardware (12/2021)., 2018 anterior cervical fusion with dissection., lithotripsy, total hip Past Anesthesia/Blood Transfusion Reactions: Previous Problems w/ Anesthesia Additional Past Anesthesia/Blood Transfusion Reaction / Comment(s): combative when he wakes up Past Psychological History: Anxiety Smoking Status: Current every day smoker Past Alcohol Use History: None Reported Past Drug Use History: Marijuana - Past Family History Father Family Medical History: Cancer, GERD/Reflux <Sloane Mann - Last Filed: 10/29/23 20:49> General Exam Limitations: no limitations <Sloane Mann - Last Filed: 10/29/23 20:49> <Ze Salazar - Last Filed: 10/30/23 00:38> - General Exam Comments Initial Comments: Visual Physical Exam Vital signs reviewed General: Well-appearing, nontoxic, no acute distress. Head: Normocephalic, atraumatic Eyes: PERRLA, EOMI ENT: Airway patent Chest: Nonlabored breathing Skin: No visual rash, normal skin tone Neuro: Alert and oriented 3 Musculoskeletal: No gross abnormalities (Sloane Mann) PHYSICAL EXAM: General Impression: Alert and oriented x3, not in acute distress HEENT: Normocephalic atraumatic, extra-ocular movements intact, pupils equal and reactive to light bilaterally, dry mucous membranes. Cardiovascular: Heart regular rate and rhythm Chest: Able to complete full sentences, no retractions, no tachypnea Abdomen: abdomen soft, non-tender, non-distended, no organomegaly Musculoskeletal: Pulses present and equal in all extremities, no peripheral edema Motor: no focal deficits noted Neurological: CN II-XII grossly intact, no focal motor or sensory deficits noted Skin: Intact with no visualized rashes Psych: Normal affect and mood (Ze Salazar) Course Vital Signs 10/29/23 10/29/23 10/30/23 20:32 22:48 00:07 Temperature 97.9 F Pulse Rate 88 83 88 Respiratory 18 18 18 Rate Blood Pressure 99/67 111/70 115/74 O2 Sat by Pulse 94 L 93 L 95 Oximetry EKG Findings - EKG Comments: EKG Findings:: My EKG interpretation: Ventricular rate 84, sinus rhythm,. 146, cures 95, QTc 425. No DC prolongation, no QTC prolongation, no ST or T-wave changes noted. Overall, this EKG is unremarkable <Ze Salazar - Last Filed: 10/30/23 00:38> Medical Decision Making <Sloane Mann - Last Filed: 10/29/23 20:49> - Lab Data Result diagrams: 10/29/23 21:55 10/29/23 21:55 <Ze Salazar - Last Filed: 10/30/23 00:38> - Medical Decision Making I completed the quick note portion of this chart signed Sloane Mann PA-C (Sloane Mann) Was pt. sent in by a medical professional or institution ([facility], APPEALS SPECIALIST, urgent care, hospital, or fdc...) When possible be specific @ -No Did you speak to anyone other than the patient for history (EMS, parent, family, police, friend...)? What history was obtained from this source @ -No Did you review nursing and triage notes (agree or disagree)? Why? @ -I reviewed and agree with nursing and triage notes Were old charts reviewed (outside hosp., previous admission, EMS record, old EKG, old radiological studies, urgent care reports/EKG's, fdc records)? Report findings @ -No old charts were reviewed Differential Diagnosis (chest pain, altered mental status, abdominal pain women, abdominal pain men, vaginal bleeding, musculoskeletal, weakness, fever, dyspnea, syncope, headache, dizziness, GI bleed, back pain, seizure, CVA, palpatations, mental health)? @ -Differential Fever: Pneumonia, viral URI, endocarditis, myocarditis, pericarditis, otitis, sinusitis , peritonsillar Abscess, retropharyngeal Abscess, epiglottitis, peritonitis, appendicitis, Shell cystitis, diverticulitis, hepatitis, colitis, UTI, PID, TOA, pyelonephritis, prostatitis, epididymitis, meningitis, encephalitis, pulmonary embolism, CVA, thyroid storm, pancreatitis, adrenal crisis, cavernous sinus thrombosis, this is not meant to be an all-inclusive list. EKG interpreted by me (3pts min.). @ -See above X-rays interpreted by me (1pt min.). @ -Hip x-ray is nonacute CT interpreted by me (1pt min.). @ -None done U/S interpreted by me (1pt. min.). @ -None done What testing was considered but not performed or refused? (CT, X-rays, U/S, labs)? Why? @ -None What meds were considered but not given or refused? Why? @ -None Did you discuss the management of the patient with other professionals (professionals i.e. , PA, APPEALS SPECIALIST, lab, RT, psych nurse, social media content specialist, rn medical inpatient services, teacher, state highway police officer, medical case worker)? Give summary @ -Case discussed with hospitalist for admission Was smoking cessation discussed for >3mins.? @ -No Was critical care preformed (if so, how long)? @ -No Were there social determinants of health that impacted care today? How? (Homelessness, low income, unemployed, alcoholism, drug addiction, transportation, low edu. Level, literacy, decrease access to med. care, detention, rehab)? @ -No Was there de-escalation of care discussed even if they declined (Discuss DNR or withdrawal of care, Hospice)? DNR status @ -No What co-morbidities impacted this encounter? (DM, HTN, Smoking, COPD, CAD, Cancer, CVA, ARF, Chemo, Hep., AIDS, mental health diagnosis, sleep apnea, morbid obesity)? @ -None Was patient admitted / discharged? Hospital course, mention meds given and route, prescriptions, significant lab abnormalities, going to OR and other pertinent info. @ -58-year-old male presents emergency department with fever and lethargy. Vital signs upon arrival shows borderline blood pressure of 99/67. Vital signs otherwise unremarkable. Patient given IV fluids with improvement of his blood pressure. Laboratory evaluation obtained. No thrombocytopenia at 85. Coag panel is negative. Acute kidney injury with creatinine 2.9 and BUN of 70. Elevated renal markers and elevated total bilirubin. Viral testing negative. CT of the abdomen pelvis shows new lymphadenopathy of the abdomen, periaortic iliac chain and inguinal nodes. Pending blood cultures. Patient be admitted with consultation to nephrology and hematology. Undiagnosed new problem with uncertain prognosis? @ -No Drug Therapy requiring intensive monitoring for toxicity (Heparin, Nitro, Insulin, Cardizem)? @ -No Were any procedures done? @ -No Diagnosis/symptom? Acute, or Chronic, or Acute on Chronic? Uncomplicated (without systemic symptoms) or Complicated (systemic symptoms)? @ -Fever Side effects of treatment? @ -No Exacerbation, Progression, or Severe Exacerbation? @ -No Poses a threat to life or bodily function? How? (Chest pain, [place], [place], pneumonia, PE, COPD, DKA, ARF, appy, cholecystitis, CVA, Diverticulitis, Homicidal, Suicidal, threat to staff... and all critical care pts) @ -yes (Ze Salazar) - Lab Data Lab Results 10/29/23 10/29/23 10/29/23 Range/Units 20:22 21:55 21:55 WBC 5.0 (3.8-10.6) k/uL RBC 4.93 (4.30-5.90) m/uL Hgb 14.1 (13.0-17.5) gm/dL Hct 43.3 (39.0-53.0) % MCV 87.9 (80.0-100.0) fL MCH 28.6 (25.0-35.0) pg MCHC 32.5 (31.0-37.0) g/dL RDW 14.9 (11.5-15.5) % Plt Count 85 L (150-450) k/uL MPV 9.6 Neutrophils % (Manual) 85 % Lymphocytes % (Manual) 11 % Monocytes % (Manual) 4 % Neutrophils # (Manual) 4.25 (1.3-7.7) k/uL Lymphocytes # (Manual) 0.55 L (1.0-4.8) k/uL Monocytes # (Manual) 0.20 (0-1.0) k/uL Metamyelocytes # (Man) (0) k/uL Nucleated RBCs 0 (0-0) /100 WBC Manual Slide Review Performed Poikilocytosis (manual Present PT 11.0 (10.0-12.5) sec INR 1.0 (<1.2) APTT 30.9 H (22.0-30.0) sec Sodium (137-145) mmol/L Potassium (3.5-5.1) mmol/L Chloride (98-107) mmol/L Carbon Dioxide (22-30) mmol/L Anion Gap mmol/L BUN (9-20) mg/dL Creatinine (0.66-1.25) mg/dL Est GFR (CKD-EPI)AfAm (>60 ml/min/1.73 sqM) Est GFR (CKD-EPI)NonAf (>60 ml/min/1.73 sqM) Glucose (74-99) mg/dL Plasma Lactic Acid Tom (0.7-2.0) mmol/L Calcium (8.4-10.2) mg/dL Magnesium (1.6-2.3) mg/dL Total Bilirubin (0.2-1.3) mg/dL AST (17-59) U/L ALT (4-49) U/L Alkaline Phosphatase (38-126) U/L Troponin I (0.000-0.034) ng/mL Total Protein (6.3-8.2) g/dL Albumin (3.5-5.0) g/dL Influenza Type A (PCR) Not Detected (Not Detectd) Influenza Type B (PCR) Not Detected (Not Detectd) RSV (PCR) Not Detected (Not Detectd) SARS-CoV-2 (PCR) Not Detected (Not Detectd) 10/29/23 10/29/23 10/29/23 Range/Units 21:55 21:55 21:55 WBC (3.8-10.6) k/uL RBC (4.30-5.90) m/uL Hgb (13.0-17.5) gm/dL Hct (39.0-53.0) % MCV (80.0-100.0) fL MCH (25.0-35.0) pg MCHC (31.0-37.0) g/dL RDW (11.5-15.5) % Plt Count (150-450) k/uL MPV Neutrophils % (Manual) % Lymphocytes % (Manual) % Monocytes % (Manual) % Neutrophils # (Manual) (1.3-7.7) k/uL Lymphocytes # (Manual) (1.0-4.8) k/uL Monocytes # (Manual) (0-1.0) k/uL Metamyelocytes # (Man) (0) k/uL Nucleated RBCs (0-0) /100 WBC Manual Slide Review Poikilocytosis (manual PT (10.0-12.5) sec INR (<1.2) APTT (22.0-30.0) sec Sodium 135 L (137-145) mmol/L Potassium 4.6 (3.5-5.1) mmol/L Chloride 107 (98-107) mmol/L Carbon Dioxide 16 L (22-30) mmol/L Anion Gap 12 mmol/L BUN 70 H (9-20) mg/dL Creatinine 2.90 H (0.66-1.25) mg/dL Est GFR (CKD-EPI)AfAm 26 (>60 ml/min/1.73 sqM) Est GFR (CKD-EPI)NonAf 23 (>60 ml/min/1.73 sqM) Glucose 111 H (74-99) mg/dL Plasma Lactic Acid Tom 1.9 (0.7-2.0) mmol/L Calcium 7.0 L (8.4-10.2) mg/dL Magnesium 2.0 (1.6-2.3) mg/dL Total Bilirubin 4.2 H (0.2-1.3) mg/dL AST 393 H (17-59) U/L ALT 146 H (4-49) U/L Alkaline Phosphatase 563 H (38-126) U/L Troponin I 0.022 (0.000-0.034) ng/mL Total Protein 7.2 (6.3-8.2) g/dL Albumin 3.2 L (3.5-5.0) g/dL Influenza Type A (PCR) (Not Detectd) Influenza Type B (PCR) (Not Detectd) RSV (PCR) (Not Detectd) SARS-CoV-2 (PCR) (Not Detectd) Disposition <Sloane Mann - Last Filed: 10/29/23 20:49> Decision Time: 00:38 <Ze Salazar - Last Filed: 10/30/23 00:38> Clinical Impression: Fever Disposition: ADMITTED IP TO THIS HOSP Condition: Fair Referrals: Suzanne Go MD [Primary Care Provider] - 1-2 days
--- NOTE | 2023-10-29 21:39 | XR ---
EXAMINATION TYPE: XR Hip Complete RT DATE OF EXAM: 10/29/2023 9:03 PM CLINICAL INDICATION:Male, 58 years old with history of replacement, purulence around incision site, p ain; [facility] COMPARISON: 09/06/2023. TECHNIQUE: XR Hip Complete RT; hip was examined in the frontal and lateral projections and a AP pelvi s. FINDINGS: Post arthroplasty changes, hardware is intact, alignment is appropriate. No evidence of fra cture. No subcutaneous cutaneous gas visualized. No evidence for osseous erosion. No evidence of any acute osseous pathology or joint dislocation. IMPRESSION: Hip arthroplasty with hardware intact and in appropriate alignment. No acute fracture. No evidence fo r osseous erosion.
[2023-10-29 22:43] LABS: Partial Thromboplastin Time 30.9 sec (22.0-30.0)
[2023-10-29] MEDS: SODIUM CHLORIDE 0.9% 1,000 ML IV STA (22:47)
[2023-10-29 22:49] LABS: HCT 43.3 % (39.0-53.0); HGB 14.1 gm/dL (13.0-17.5); MCH 28.6 pg (25.0-35.0); MCHC 32.5 g/dL (31.0-37.0); MCV 87.9 fL (80.0-100.0); Mean Platelet Volume 9.6; RBC 4.93 m/uL (4.30-5.90); RDW 14.9 % (11.5-15.5)
[2023-10-29 22:59] LABS: ALT 146 U/L (4-49); AST 393 U/L (17-59); African American GFR (CKD) 26 (>60 ml/min/1.73 sqM); Albumin 3.2 g/dL (3.5-5.0); Alkaline Phosphatase 563 U/L (38-126); Anion Gap 12 mmol/L; Blood Urea Nitrogen 70 mg/dL (9-20); Carbon Dioxide 16 mmol/L (22-30); Chloride 107 mmol/L (98-107); Glucose 111 mg/dL (74-99); Non-African American GFR(CKD) 23 (>60 ml/min/1.73 sqM); Potassium 4.6 mmol/L (3.5-5.1); Sodium 135 mmol/L (137-145); Total Bilirubin 4.2 mg/dL (0.2-1.3); Total Protein 7.2 g/dL (6.3-8.2)
[2023-10-29 23:33] LABS: Lymphocytes # (M) 0.55 k/uL (1.0-4.8); Neutrophils # (M) 4.25 k/uL (1.3-7.7); Neutrophils % (M) 85 %; Nucleated Red Blood Cells 0 /100 WBC (0-0); Poikilocytosis (M) Present; Total Cells Counted 100
[2023-10-29 23:34] LABS: Platelet Count 85 k/uL (150-450)
[2023-10-30] MEDS ORDERED: NALOXONE 0.4 MG/ML 1 ML VIAL IV PRN (00:30)
[2023-10-30] MEDS ORDERED: ACETAMINOPHEN TAB 325 MG TAB PO PRN (00:30)
--- NOTE | 2023-10-30 00:31 | CT ---
EXAM: CT Abdomen and Pelvis Without Intravenous Contrast CLINICAL HISTORY: fever, elevated liver enzymes TECHNIQUE: Axial computed tomography images of the abdomen and pelvis without intravenous contrast. CTDI is 14.9 mGy and DLP is 978.7 mGy-cm. This CT exam was performed using one or more of the following dose reduction techniques: automated exposure control, adjustment of the mA and/or kV according to patient size, and/or use of iterative reconstruction technique. COMPARISON: May 07, 2017. FINDINGS: ABDOMEN: Liver: Unremarkable. Gallbladder and bile ducts: Unremarkable. No calcified stones. No ductal dilation. Pancreas: Unremarkable. No ductal dilation. Spleen: New splenomegaly with spleen measuring up to 14.5 cm in length. Adrenals: Unremarkable. No mass. Kidneys and ureters: Unremarkable. No obstructing stones. No hydronephrosis. Stomach and bowel: Unremarkable. No obstruction. No mucosal thickening. PELVIS: Appendix: No findings to suggest acute appendicitis. Bladder: Unremarkable. No stones. ABDOMEN and PELVIS: Intraperitoneal space: Unremarkable. No free air. No significant fluid collection. Bones/joints: No acute findings. Soft tissues: Unremarkable. Vasculature: Unremarkable. No abdominal aortic aneurysm. Lymph nodes: Numerous mildly prominent upper abdominal and periaortic lymph nodes. Newly enlarged external iliac lymph nodes, the largest measuring up to 2.4 cm in diameter. Mildly enlarged bilateral inguinal lymph nodes. IMPRESSION: New splenomegaly. New mild upper abdominal, periaortic, iliac chain and inguinal lymphadenopathy.
[2023-10-30] MEDS: SODIUM CHLORIDE 0.9% 1,000 ML IV SCH (01:03)
[2023-10-30 01:50] LABS: Amorphous Sediment,Urine Rare /hpf; Appearance,Urine Turbid (Clear); Bacteria,Urine Moderate /hpf; Bilirubin,Urine 1+ (Negative); Blood,Urine Small (Negative); Color,Urine Dark Yellow; Glucose,Urine (UA) Negative (Negative); Granular Casts,Urine 22 /lpf (0); Hyaline Casts,Urine 2 /lpf (0-2); Ketones,Urine Negative (Negative); Leukocyte Esterase,Urine Negative (Negative); Mucus,Urine Rare /hpf; Nitrite,Urine Negative (Negative); PH, Urine 5.5 (5.0-8.0); Protein,Urine 1+ (Negative); RBC,Urine 2 /hpf (0-5); Specific Gravity,Urine 1.023 (1.001-1.035); WBC,Urine 16 /hpf (0-5)
[2023-10-30] MEDS: cefTRIAXone IN SWFI 1,000 MG/10 ML SYRINGE IVP STA (04:28)
--- NOTE | 2023-10-30 05:32 | CT ---
EXAM: CT Head Without Intravenous Contrast CLINICAL HISTORY: Altered mental status. TECHNIQUE: Axial computed tomography images of the head/brain without intravenous contrast. CTDI is 49.2 mGy and DLP is 1242.4 mGy-cm. This CT exam was performed using one or more of the following dose reduction techniques: automated exposure control, adjustment of the mA and/or kV according to patient size, and/or use of iterative reconstruction technique. COMPARISON: No relevant prior studies available. FINDINGS: Brain: Unremarkable. No acute intracranial hemorrhage, edema or abnormal mass-effect. Ventricles: Unremarkable. No ventriculomegaly. Bones/joints: Unremarkable. No acute fracture. Soft tissues: Unremarkable. Sinuses: Unremarkable as visualized. No acute sinusitis. Mastoid air cells: Unremarkable as visualized. No mastoid effusion. IMPRESSION: Negative and bilateral head/brain CT.
[2023-10-30 09:31] LABS: African American GFR (CKD) 33 (>60 ml/min/1.73 sqM); Anion Gap 14 mmol/L; Blood Urea Nitrogen 63 mg/dL (9-20); Carbon Dioxide 15 mmol/L (22-30); Chloride 107 mmol/L (98-107); Glucose 83 mg/dL (74-99); Magnesium 2.1 mg/dL (1.6-2.3); Non-African American GFR(CKD) 29 (>60 ml/min/1.73 sqM); Potassium 4.2 mmol/L (3.5-5.1); Sodium 136 mmol/L (137-145)
[2023-10-30 09:56] LABS: Calcium 6.4 mg/dL (8.4-10.2)
--- NOTE | 2023-10-30 10:45 | P.NPCON ---
History of Present Illness - Reason for Consult acute renal failure - History of Present Illness Reason for consultation: Acute kidney injury History of present illness: Patient is a 58-year-old male seen in renal consultation for acute kidney injury. Patient was seen and examined in the emergency room. Patient's creatinine on admission was 2.9 and is down to 2.41 today. Patient states he had right hip surgery done August 2023. Patient came to the hospital due to generalized weakness and concern for infection at the right hip surgery site. Patient was recently given antibiotics outpatient for the hip infection. Patient denies any pain. No fever or chills. Denies vomiting or diarrhea. Or al intake has been fair. Patient states he has been taking nonsteroidals for the last 2 to 3 months almost on a daily basis for pain. He denies history of diabetes. Denies history of coronary artery disease. Denies family history of renal disease. No hydronephrosis noted on CAT scan. He is currently receiving IV fluids. Denies gross hematuria or dysuria. Vital signs are stable. General: No acute distress. HEENT: Head exam is unremarkable. LUNGS: No audible rhonchi or wheezes. HEART: Rate and Rhythm are regular. ABDOMEN: Nontender. EXTREMITITES: No edema. Past Medical History Past Medical History: GERD/Reflux, Pneumonia Additional Past Medical History / Comment(s): HEART MURMUR. , SEIZURES R/T ABX- 2007. , HX KIDNEY STONES,. NUMBNESS/TINGLING ARMS, HANDS COLD., CONSTIPATION. , BACK & NECK PAIN. History of Any Multi-Drug Resistant Organisms: None Reported Past Surgical History: Appendectomy, Back Surgery, Heart Catheterization, Orthopedic Surgery Additional Past Surgical History / Comment(s): Pain clinic procedures, pilonidal cyst, Laminectomy with decompression lumbar fusion with hardware (12/2021)., 2018 anterior cervical fusion with dissection., lithotripsy, total hip Past Anesthesia/Blood Transfusion Reactions: Previous Problems w/ Anesthesia Additional Past Anesthesia/Blood Transfusion Reaction / Comment(s): combative when he wakes up Past Psychological History: Anxiety Smoking Status: Current every day smoker Past Alcohol Use History: None Reported Past Drug Use History: Marijuana - Past Family History Father Family Medical History: Cancer, GERD/Reflux Medications and Allergies Home Medications Medication Instructions Recorded Confirmed Type Cyclobenzaprine [Flexeril] 10 mg PO HS PRN 01/19/23 09/06/23 History Mv-Min/Folic/K1/Lycopen/Lutein 1 each PO QAM 01/19/23 09/06/23 History [Centrum Silver Men Tablet] diazePAM [Valium] 5 mg PO BID PRN 01/19/23 09/06/23 History Famotidine [Pepcid] 20 mg PO HS 05/24/23 09/06/23 History HYDROcodone/APAP 5-325MG [[place] 1 - 2 tab PO Q6H PRN 05/24/23 09/06/23 History 5-325] Omeprazole [PriLOSEC] 40 mg PO QAM 05/24/23 09/06/23 History Aspirin 325 mg PO BID #60 tab 09/06/23 Rx Sennosides [Senokot] 2 tab PO DAILY PRN #60 tablet 09/06/23 Rx Ketorolac [Toradol] 10 mg PO Q6HR #12 tab 09/07/23 Rx Allergies Allergy/AdvReac Type Severity Reaction Status Date / Time ciprofloxacin [From Cipro] Allergy Severe BRAIN STEM Verified 10/29/23 20:40 SEIZURES Quinolones Allergy Severe Seizures Verified 10/29/23 20:40 moxifloxacin [From Avelox] AdvReac Severe Seizures Verified 10/29/23 20:40 fluoroquinolones Allergy Severe seizures Uncoded 10/29/23 20:40 Physical Exam Vitals: Vital Signs Temp Pulse Resp BP Pulse Ox 10/30/23 07:57 89 18 106/75 93 L 10/30/23 06:13 86 18 125/76 99 10/30/23 04:20 79 18 101/75 94 L 10/30/23 02:19 88 20 117/81 94 L 10/30/23 00:07 88 18 115/74 95 10/29/23 22:48 83 18 111/70 93 L 10/29/23 20:32 97.9 F 88 18 99/67 94 L Intake and Output 10/29/23 10/30/23 10/30/23 22:59 06:59 14:59 Other: Weight 99.79 kg Results - Lab Results Most recent lab results Calcium 6.4 mg/dL (8.4-10.2) L* 10/30/23 07:57 Magnesium 2.1 mg/dL (1.6-2.3) 10/30/23 07:57 10/29/23 21:55 10/30/23 07:57 Assessment and Plan Plan: Assessment: 1. Acute kidney injury secondary to ATN secondary to hypovolemia and nonsteroidals. Creatinine 2.9 on admission and is 2.41 today. Baseline creatinine near 0.8 dated September 07, 2023. No hydronephrosis noted on CAT scan. 2. Lymphadenopathy noted on CAT scan. Oncology consulted. 3. Metabolic acidosis secondary to acute kidney injury and IV fluids. 4. Hypocalcemia secondary to acute kidney injury. 5. Status post right hip arthroplasty August 2023 with concern for infection at the surgical site. Plan: Change IV fluids to isotonic sodium bicarb drip to be run at 100 cc an hour. Avoid nephrotoxins. Continue to monitor renal function and urine output. Encouraged oral intake. Follow-up cultures. Replace calcium. Check PTH and vitamin D level. Thank you for the consultation. I will continue to follow the patient with you during his hospital stay.
[2023-10-30] MEDS: CALCIUM GLUCONATE IN NACL 2 GM in SALINE 1 100ML.BAG IVPB ONE (11:14)
[2023-10-30 11:35] LABS: Glucose,Whole Blood 88 mg/dL (70-110)
[2023-10-30] MEDS: DEXTROSE 5% IN WATER 1,000 ML with SODIUM BICARB (1 MEQ/ML) 150 ML IV SCH (12:14)
[2023-10-30] MEDS: SODIUM CHLORIDE 0.9% 500 ML 500 ML IV ONE (14:38)
[2023-10-30] MEDS: DEXAMETHASONE SOD PHOSPHATE 10 MG/ML 1 ML VIAL IVP STA (14:38)
[2023-10-30] MEDS: diphenhydrAMINE 25 MG CAP PO STA (14:39)
[2023-10-30] MEDS: AMPICILLIN-SULBACTAM 3 GM in SODIUM CHLORIDE 0.9% 100 ML IVPB SCH (19:02)
[2023-10-30] MEDS: FAMOTIDINE 20 MG TAB PO SCH (21:54)
--- NOTE | 2023-10-30 22:01 | P.HPIM ---
History of Present Illness H&P Date: 10/30/23 Chief Complaint: Fever Patient is a 58-year-old male with a past medical history of patient right total hip arthroplasty on 09/06/2023, chronic neck pain and back pain with prior history of multiple orthopedic procedures, osteoarthritis, currently everyday smoker and occasional marijuana use and prior history of renal stones presents to ER with complaints of fever. Patient has been having fever for the past 1 week as per his at bedside. Patient is somewhat poor historian. Patient was seen by his physician about 5 days ago and was started on antibiotics for possible right hip surgical wound infection due to redness and scab. No purulent drainage was noted. Patient continues to have fevers at home. Denies any cough or sputum production. No sore throat. No nausea or vomiting. Denies any abdominal pain otherwise. He has been having fevers went up to 102 F at home. He has been taking Dailey 2 tablets 4 times daily and also Tylenol 650 mg every 6 hourly. Patient is also taking Motrin at home. Denies any dysuria or hematuria. X-ray of the hip showed hip arthroplasty with hardware intact and in appropriate alignment. No acute fracture. No osseous erosion noted. EKG showed sinus rhythm. CT of the abdomen pelvis was done due to fever and elevated liver enzymes. Showed new splenomegaly. New mild upper abdominal, periaortic, iliac chain and inguinal lymphadenopathy. Gallbladder and bile ducts unremarkable. No calcified stones. No ductal dilation. CT head showed negative study. Laboratory data showed WBC 5.0 hemoglobin 14.1 and platelets 85 Sodium 135 potassium 4.6 chloride 107 bicarb is 16 BUN 17 creatinine 2.9 and blood sugar 111 and calcium 7.0 total bili 4.2, AST 393, ALT 146, alk phos 563 and albumin 3.2 Urinalysis showed 1+ protein small blood negative nitrite negative leukocyte esterase and WBC 16. Influenza A, B, RSV and COVID-19 PCR not detected. Patient was given a dose of ceftriaxone in the ER. Patient developed a rash over his legs and lower abdomen today afternoon and was given a dose of IV dexamethasone and Benadryl. Patient also developed hypotension. He was transferred to telemetry unit. Review of Systems Constitutional: Patient was complaining of fever and chills at home. General ized weakness and fatigue. Abdomen: Complains of nausea no vomiting vomiting. Denies any abdominal pain. No diarrhea. Cardiovascular: Patient denies any chest pain or short of breath no palpitatio ns. Respiratory: patient denied any cough is from production. No shortness of breath Neurologic: Patient denied any numbness or tingling headache. Musculoskeletal: Patient denies any complaints of joint swelling or deformity. Denied hip pain or worsening back pain Complete review of systems could not be obtained from the patient except as above. Past Medical History Past Medical History: GERD/Reflux, Pneumonia Additional Past Medical History / Comment(s): HEART MURMUR. , SEIZURES R/T ABX- 2007. , HX KIDNEY STONES,. NUMBNESS/TINGLING ARMS, HANDS COLD., CONSTIPATION. , BACK & NECK PAIN. History of Any Multi-Drug Resistant Organisms: None Reported Past Surgical History: Appendectomy, Back Surgery, Heart Catheterization, Orthopedic Surgery Additional Past Surgical History / Comment(s): Pain clinic procedures, pilonidal cyst, Laminectomy with decompression lumbar fusion with hardware (12/2021)., 2018 anterior cervical fusion with dissection., lithotripsy, total hip Past Anesthesia/Blood Transfusion Reactions: Previous Problems w/ Anesthesia Additional Past Anesthesia/Blood Transfusion Reaction / Comment(s): combative when he wakes up Past Psychological History: Anxiety Smoking Status: Current every day smoker Past Alcohol Use History: None Reported Past Drug Use History: Marijuana - Past Family History Father Family Medical History: Cancer, GERD/Reflux Medications and Allergies Home Medications Medication Instructions Recorded Confirmed Type Cyclobenzaprine [Flexeril] 10 mg PO HS 01/19/23 10/30/23 History diazePAM [Valium] 10 mg PO HS 01/19/23 10/30/23 History Famotidine [Pepcid] 20 mg PO HS 05/24/23 10/30/23 History HYDROcodone/APAP 5-325MG [Dailey 2 tab PO QID 05/24/23 10/30/23 History 5-325] Omeprazole [PriLOSEC] 40 mg PO DAILY 05/24/23 10/30/23 History Amoxic-Pot Clav 500-125 mg 1 tab PO Q12HR 10/30/23 10/30/23 History [Augmentin 500-125 mg] Ibuprofen [Motrin] 600 mg PO TID PRN 10/30/23 10/30/23 History Sennosides [Senokot] 17.2 tab PO BID 10/30/23 10/30/23 History predniSONE See Taper PO DIRECTED 10/30/23 10/30/23 History Allergies Allergy/AdvReac Type Severity Reaction Status Date / Time ciprofloxacin [From Cipro] Allergy Severe BRAIN STEM Verified 10/30/23 10:53 SEIZURES Quinolones Allergy Severe Seizures Verified 10/30/23 10:53 moxifloxacin [From Avelox] AdvReac Severe Seizures Verified 10/30/23 10:53 fluoroquinolones Allergy Severe seizures Uncoded 10/29/23 20:40 Physical Exam Vitals: Vital Signs Temp Pulse Pulse Resp BP BP Pulse Ox 10/30/23 13:43 98.4 F 85 18 77/46 94 L 10/30/23 11:10 98.8 F 18 110/75 95 10/30/23 10:56 97.6 F 93 16 142/94 95 10/30/23 07:57 89 18 106/75 93 L 10/30/23 06:13 86 18 125/76 99 10/30/23 04:20 79 18 101/75 94 L 10/30/23 02:19 88 20 117/81 94 L 10/30/23 00:07 88 18 115/74 95 10/29/23 22:48 83 18 111/70 93 L 10/29/23 20:32 97.9 F 88 18 99/67 94 L Intake and Output 10/29/23 10/30/23 10/30/23 22:59 06:59 14:59 Other: Weight 99.79 kg 99.79 kg PHYSICAL EXAMINATION: Patient is lying in the bed, no acute distress, patient is lethargic and drowsy and weak... HEENT: Normocephalic. Neck is supple. Pupils reactive. Nostrils clear. Oral cavity is moist. Neck reveals no JVD, carotid bruits, or thyromegaly. CHEST EXAMINATION: Trachea is central. Symmetrical expansion. Bibasilar diminished sounds. No wheezing or rhonchi.. CARDIAC: Normal S1, S2 with no gallops. No murmurs ABDOMEN: Soft. Bowel sounds present. Right upper quadrant tenderness. No guarding or rigidity. No organomegaly. No abdominal bruits. Extremities: reveal no edema. No clubbing or cyanosis Neurologically awake, alert, oriented x 2-3 able to move all extremities. No gross focal deficits noted Skin: No rash or skin lesions. Right hip surgical site intact and healing well. No drainage noted. Psychiatric: Coperative. Nonsuicidal, anxious. Musculoskeletal: No joint swelling or deformity. Normal range of motion. Results CBC & Chem 7: 10/29/23 21:55 10/30/23 07:57 Labs: Abnormal Lab Results - Last 24 Hours (Table) 10/29/23 10/29/23 10/29/23 Range/Units 21:55 21:55 21:55 Plt Count 85 L (150-450) k/uL Lymphocytes # (Manual) 0.55 L (1.0-4.8) k/uL APTT 30.9 H (22.0-30.0) sec Sodium 135 L (137-145) mmol/L Carbon Dioxide 16 L (22-30) mmol/L BUN 70 H (9-20) mg/dL Creatinine 2.90 H (0.66-1.25) mg/dL Glucose 111 H (74-99) mg/dL Calcium 7.0 L (8.4-10.2) mg/dL Total Bilirubin 4.2 H (0.2-1.3) mg/dL AST 393 H (17-59) U/L ALT 146 H (4-49) U/L Alkaline Phosphatase 563 H (38-126) U/L Albumin 3.2 L (3.5-5.0) g/dL Urine Protein (Negative) Urine Blood (Negative) Urine Bilirubin (Negative) Urine WBC (0-5) /hpf Amorphous Sediment (None) /hpf Urine Bacteria (None) /hpf Urine Mucus (None) /hpf 10/30/23 10/30/23 Range/Units 00:17 07:57 Plt Count (150-450) k/uL Lymphocytes # (Manual) (1.0-4.8) k/uL APTT (22.0-30.0) sec Sodium 136 L (137-145) mmol/L Carbon Dioxide 15 L (22-30) mmol/L BUN 63 H (9-20) mg/dL Creatinine 2.41 H (0.66-1.25) mg/dL Glucose (74-99) mg/dL Calcium 6.4 L* (8.4-10.2) mg/dL Total Bilirubin (0.2-1.3) mg/dL AST (17-59) U/L ALT (4-49) U/L Alkaline Phosphatase (38-126) U/L Albumin (3.5-5.0) g/dL Urine Protein 1+ H (Negative) Urine Blood Small H (Negative) Urine Bilirubin 1+ H (Negative) Urine WBC 16 H (0-5) /hpf Amorphous Sediment Rare H (None) /hpf Urine Bacteria Moderate H (None) /hpf Urine Mucus Rare H (None) /hpf Thrombosis Risk Factor Assmnt - DVT/VTE Prophylaxis DVT/VTE Prophylaxis: Mechanical Prophylaxis ordered Assessment and Plan Assessment: Fever exact etiology unknown at this time. Patient was recently started on Augmentin for right hip surgical site infection. Also right upper quadrant tenderness with elevated bilirubin level and fever. Acute cholangitis is also in consideration. Elevated liver enzymes and hyperbilirubinemia. Acetaminophen overdose and rule out obstructive etiology. New onset splenomegaly Acute kidney injury secondary to ATN due to hypovolemia and NSAID use. Creatinine 2.9 on admission. Baseline 0.8 Upper abdominal, periaortic and iliac chain and inguinal lymphadenopathy as per CT abdomen pelvis. Likely reactive. Non-anion gap metabolic acidosis secondary to CANDE Hypocalcemia Metabolic encephalopathy History of recent right total hip arthroplasty on 09/06/2023 GERD History of renal stones Chronic back pain and neck pain with multiple orthopedic surgeries in the past Anxiety Currently everyday smoker Occasional marijuana use DVT prophylax with SCDs due to thrombocytopenia GI prophylaxis with PPI Plan: Patient will be continued on bicarb drip and follow-up renal function closely. Continue with antibiotics Unasyn and follow-up blood cultures. Patient was given a dose of IV dexamethasone and Benadryl due to lower extremity rash. Also given IV fluid bolus. Continue to monitor blood pressure closely. Patient will be transferred to telemetry unit Follow-up CBC and CMP tomorrow. Acetaminophen level hepatitis panel, ultrasound right upper quadrant and UDS was ordered. Follow-up urine cultures. Nephrology and oncology is on board. ID was consulted as well. Continue to follow closely. Prognosis guarded. Discussed with his at bedside in detail. Time with Patient: Greater than 30
--- NOTE | 2023-10-31 00:29 | P.CONS ---
History of Present Illness - Reason for Consult Consult date: 10/30/23 Lymphadenopathy, low platelets - History of Present Illness The patient is a 58-year-old white male, admitted to the hospital with generalized weakness and malaise over the past few days. The patient has also been having fevers at home, up to 102. He has a history of right hip replacement done in 09/10. Apparently he was placed on Augmentin a few days ago by his PCP due to concerns for infection related to the prosthesis. On admission his creatinine was 2.91, with baseline being normal. Platelets were 85 with baseline also being normal. During this admission the patient was noted to have some confusion. CT of the head was negative. CT abdomen pelvis showed new adenopathy in the upper abdomen, retroperitoneum, and iliac lesions, largest around 2.4 cm. There was also splenomegaly noted although size of the spleen has not been mentioned. This is compared to a previous CT scan done in 2017. Consult was therefore placed for further evaluation and recommendations. The pt was still lethargic with diminshed recall at the time of exam. A significant amount of history was provided by a family member present at the bedside There is a h/o significant ETOH use previously, but the pt quit about 2 yrs ago. He is a current smoker Review of Systems Constitutional: Reports fatigue, Reports malaise, Reports weakness Eyes: denies blurred vision, denies pain Ears: deny: decreased hearing, ear discharge, earache, tinnitus Ears, nose, mouth and throat: Denies headache, Denies sore throat Cardiovascular: Denies chest pain, Denies shortness of breath Respiratory: Denies cough Gastrointestinal: Denies abdominal pain, Denies diarrhea, Denies nausea, Denies vomiting Genitourinary: Reports as per HPI Musculoskeletal: Reports as per HPI, Reports low back pain Musculoskeletal: right: hip stiffness Integumentary: Denies pruritus, Denies rash Neurological: Reports confusion Psychiatric: Reports confusion Endocrine: Reports fatigue Hematologic/Lymphatic: Reports as per HPI Past Medical History Past Medical History: GERD/Reflux, Pneumonia Additional Past Medical History / Comment(s): HEART MURMUR. , SEIZURES R/T ABX- 2007. , HX KIDNEY STONES,. NUMBNESS/TINGLING ARMS, HANDS COLD., CONSTIPATION. , BACK & NECK PAIN. History of Any Multi-Drug Resistant Organisms: None Reported Past Surgical History: Appendectomy, Back Surgery, Heart Catheterization, Orthopedic Surgery Additional Past Surgical History / Comment(s): Pain clinic procedures, pilonidal cyst, Laminectomy with decompression lumbar fusion with hardware (12/2021)., 2018 anterior cervical fusion with dissection., lithotripsy, total hip Past Anesthesia/Blood Transfusion Reactions: Previous Problems w/ Anesthesia Additional Past Anesthesia/Blood Transfusion Reaction / Comm: combative when he wakes up Past Psychological History: Anxiety Smoking Status: Current every day smoker Past Alcohol Use History: None Reported Past Drug Use History: Marijuana - Past Family History Father Family Medical History: Cancer, GERD/Reflux Medications and Allergies Home Medications Medication Instructions Recorded Confirmed Type Cyclobenzaprine [Flexeril] 10 mg PO HS 01/19/23 10/30/23 History diazePAM [Valium] 10 mg PO HS 01/19/23 10/30/23 History Famotidine [Pepcid] 20 mg PO HS 05/24/23 10/30/23 History HYDROcodone/APAP 5-325MG [[place] 2 tab PO QID 05/24/23 10/30/23 History 5-325] Omeprazole [PriLOSEC] 40 mg PO DAILY 05/24/23 10/30/23 History Amoxic-Pot Clav 500-125 mg 1 tab PO Q12HR 10/30/23 10/30/23 History [Augmentin 500-125 mg] Ibuprofen [Motrin] 600 mg PO TID PRN 10/30/23 10/30/23 History Sennosides [Senokot] 17.2 tab PO BID 10/30/23 10/30/23 History predniSONE See Taper PO DIRECTED 10/30/23 10/30/23 History Allergies Allergy/AdvReac Type Severity Reaction Status Date / Time ciprofloxacin [From Cipro] Allergy Severe BRAIN STEM Verified 10/30/23 10:53 SEIZURES Quinolones Allergy Severe Seizures Verified 10/30/23 10:53 moxifloxacin [From Avelox] AdvReac Severe Seizures Verified 10/30/23 10:53 fluoroquinolones Allergy Severe seizures Uncoded 10/29/23 20:40 Physical Exam Vitals: Vital Signs Temp Pulse Resp BP Pulse Ox 10/30/23 11:10 98.8 F 18 110/75 95 10/30/23 10:56 97.6 F 93 16 142/94 95 10/30/23 07:57 89 18 106/75 93 L 10/30/23 06:13 86 18 125/76 99 10/30/23 04:20 79 18 101/75 94 L 10/30/23 02:19 88 20 117/81 94 L 10/30/23 00:07 88 18 115/74 95 10/29/23 22:48 83 18 111/70 93 L 10/29/23 20:32 97.9 F 88 18 99/67 94 L Intake and Output 10/29/23 10/30/23 10/30/23 22:59 06:59 14:59 Other: Weight 99.79 kg - Constitutional General appearance: no acute distress - EENT Eyes: EOMI, PERRLA ENT: hearing grossly normal, normal oropharynx - Neck Neck: no lymphadenopathy Thyroid: bilateral: normal size - Respiratory Respiratory: bilateral: CTA - Cardiovascular Rhythm: regular Heart sounds: normal: S1, S2 - Gastrointestinal General gastrointestinal: normal bowel sounds, soft - Integumentary Integumentary: normal - Neurologic Neurologic: CNII-XII intact - Musculoskeletal Musculoskeletal: generalized weakness, strength equal bilaterally - Psychiatric lethargic, recall decreased , affect and comprehension slow Psychiatric: A&O x's 3 Results CBC & Chem 7: 10/29/23 21:55 10/30/23 07:57 Labs: Abnormal Lab Results - Last 24 Hours (Table) 10/29/23 10/29/23 10/29/23 Range/Units 21:55 21:55 21:55 Plt Count 85 L (150-450) k/uL Lymphocytes # (Manual) 0.55 L (1.0-4.8) k/uL APTT 30.9 H (22.0-30.0) sec Sodium 135 L (137-145) mmol/L Carbon Dioxide 16 L (22-30) mmol/L BUN 70 H (9-20) mg/dL Creatinine 2.90 H (0.66-1.25) mg/dL Glucose 111 H (74-99) mg/dL Calcium 7.0 L (8.4-10.2) mg/dL Total Bilirubin 4.2 H (0.2-1.3) mg/dL AST 393 H (17-59) U/L ALT 146 H (4-49) U/L Alkaline Phosphatase 563 H (38-126) U/L Albumin 3.2 L (3.5-5.0) g/dL Urine Protein (Negative) Urine Blood (Negative) Urine Bilirubin (Negative) Urine WBC (0-5) /hpf Amorphous Sediment (None) /hpf Urine Bacteria (None) /hpf Urine Mucus (None) /hpf 10/30/23 10/30/23 Range/Units 00:17 07:57 Plt Count (150-450) k/uL Lymphocytes # (Manual) (1.0-4.8) k/uL APTT (22.0-30.0) sec Sodium 136 L (137-145) mmol/L Carbon Dioxide 15 L (22-30) mmol/L BUN 63 H (9-20) mg/dL Creatinine 2.41 H (0.66-1.25) mg/dL Glucose (74-99) mg/dL Calcium 6.4 L* (8.4-10.2) mg/dL Total Bilirubin (0.2-1.3) mg/dL AST (17-59) U/L ALT (4-49) U/L Alkaline Phosphatase (38-126) U/L Albumin (3.5-5.0) g/dL Urine Protein 1+ H (Negative) Urine Blood Small H (Negative) Urine Bilirubin 1+ H (Negative) Urine WBC 16 H (0-5) /hpf Amorphous Sediment Rare H (None) /hpf Urine Bacteria Moderate H (None) /hpf Urine Mucus Rare H (None) /hpf Comments: EKG - image reviewed Xray rt hip report reviewed CT scan - abdomen: report reviewed CT Scan - head: report reviewed CT scan - pelvis: report reviewed Assessment and Plan (1) Fever Narrative/Plan: Etiology is not clear, with infection being probably the primary differential. Pt on antibiotics, with infection w/u in progress Current Visit: Yes Status: Acute Code(s): R50.9 - FEVER, UNSPECIFIED SNOMED Code(s): 858439429 (2) Lymphadenopathy Narrative/Plan: The appearance as described on non contrast CT is not very specific. He has no palpable nodes. I would recommend repeat imaging, i.e CT CAP with contrast, once Cr is improved. If the contrast scan confirms definite, suspicious adenopathy, appropriate biospy can be planned. Check lab w/u in the meantime ( AI markers, PEP) Current Visit: Yes Status: Acute Code(s): R59.1 - GENERALIZED ENLARGED LYMPH NODES SNOMED Code(s): 13554384 (3) Thrombocytopenia Narrative/Plan: Most likely mild consumption due to acute illness. In view of CANDE, fever, and some MS alteration, I reviewed his peripheral smear personally. This showed no significant schistocytosis. Few acanthocytes and helmet cells seen , c/w CANDE. Few giant plt forms were seen - Check coags, fibrinogen to eval for any DIC Case d/w with Nephrology in detail Current Visit: Yes Status: Acute Code(s): D69.6 - THROMBOCYTOPENIA, UNSPECIFIED SNOMED Code(s): 244949724
[2023-10-31] MEDS: PANTOPRAZOLE 40 MG TABLET PO SCH (06:53)
[2023-10-31 07:11] LABS: HCT 36.2 % (39.0-53.0); HGB 11.7 gm/dL (13.0-17.5); MCH 28.3 pg (25.0-35.0); MCHC 32.4 g/dL (31.0-37.0); MCV 87.6 fL (80.0-100.0); Mean Platelet Volume 9.8; RBC 4.14 m/uL (4.30-5.90); RDW 15.1 % (11.5-15.5); WBC 5.3 k/uL (3.8-10.6)
[2023-10-31 07:18] LABS: Partial Thromboplastin Time 30.8 sec (22.0-30.0); Prothrombin Time 11.1 sec (10.0-12.5)
[2023-10-31 07:48] LABS: Platelet Count 76 k/uL (150-450)
--- NOTE | 2023-10-31 07:55 | US ---
EXAMINATION TYPE: US liver DATE OF EXAM: 10/31/2023 COMPARISON: CT 10/29/2023, US 2019 CLINICAL INDICATION: Male, 58 years old with history of Elevated liver enzymes; Elevated liver enzyme s. TECHNIQUE: Multiple sonographic images of the right upper quadrant are obtained. FINDINGS: EXAM MEASUREMENTS: Liver Length: 18.7 cm Gallbladder Wall: 0.28 cm CBD: 0.44 cm Right Kidney: 12.5 x 5.4 x 5.4 cm LEGAL SERVICES PROFESSIONAL NOTES: Limited due to gas. Pancreas: Not well visualized. Liver: Appears enlarged with increased echogenicity. Coarse in echotexture. Gallbladder: *Echogenic material seen within: 2.9 x 1.3 x 1.9 cm. *Anechoic area seen adjacent to G B wall, question fluid measuring 1.5 x 1.9 x 0.5 cm. Evidence for sonographic Garcia's sign: No CBD: Appears wnl Right Kidney: No hydronephrosis or masses seen IMPRESSION: 1. Hepatomegaly. 2. Sludge within the gallbladder. Small amount of fluid may be adjacent to the gallbladder. Gallbladd er [place] of the upper limits of normal. Clinical correlation for acute cholecystitis.
[2023-10-31 08:15] LABS: ALT 104 U/L (4-49); AST 274 U/L (17-59); African American GFR (CKD) 73 (>60 ml/min/1.73 sqM); Albumin 2.7 g/dL (3.5-5.0); Alkaline Phosphatase 589 U/L (38-126); Anion Gap 8 mmol/L; Blood Urea Nitrogen 34 mg/dL (9-20); Calcium 7.1 mg/dL (8.4-10.2); Carbon Dioxide 21 mmol/L (22-30); Chloride 107 mmol/L (98-107); Glucose 137 mg/dL (74-99); Magnesium 2.2 mg/dL (1.6-2.3); Non-African American GFR(CKD) 64 (>60 ml/min/1.73 sqM); Potassium 4.1 mmol/L (3.5-5.1); Sodium 136 mmol/L (137-145); Total Bilirubin 2.1 mg/dL (0.2-1.3); Total Protein 6.4 g/dL (6.3-8.2)
[2023-10-31 08:52] LABS: LDH 2534 U/L (120-246)
--- NOTE | 2023-10-31 11:30 | P.PN ---
Subjective patient is seen for follow-up for acute kidney injury. Renal function has improved. serum creatinine down to 1.2 from 2.9 on admission. Patient is maintained on IV fluids. Overall feeling better. Objective - Vital Signs Vital signs: Vital Signs Temp 97.8 F 10/31/23 08:00 Pulse 70 10/31/23 08:00 Resp 16 10/31/23 08:00 BP 115/75 10/31/23 08:00 Pulse Ox 97 10/31/23 08:00 FiO2 Intake & Output 10/30/23 10/31/23 10/31/23 18:59 06:59 18:59 Output Total 1175 Balance -1175 Output: Urine 1175 Other: Voiding Method Urinal Urinal # Voids 4 - Exam patient is awake, comfortable, no acute distress Examination of the heart S1 and S2 Examination the lungs decreased breath sounds at the bases Abdomen is soft distended nontender Examination lower extremity shows no edema [employer] TRIM exam grossly intact - Labs CBC & Chem 7: 10/31/23 06:17 10/31/23 06:17 Labs: Abnormal Lab Results - Last 24 Hours (Table) 10/31/23 10/31/23 10/31/23 Range/Units 06:17 06:17 06:17 RBC 4.14 L (4.30-5.90) m/uL Hgb 11.7 L (13.0-17.5) gm/dL Hct 36.2 L (39.0-53.0) % Plt Count 76 L (150-450) k/uL APTT 30.8 H (22.0-30.0) sec Fibrinogen 192 L (200-500) mg/dL Sodium 136 L (137-145) mmol/L Carbon Dioxide 21 L (22-30) mmol/L BUN 34 H (9-20) mg/dL Glucose 137 H (74-99) mg/dL Calcium 7.1 L (8.4-10.2) mg/dL Total Bilirubin 2.1 H (0.2-1.3) mg/dL AST 274 H (17-59) U/L ALT 104 H (4-49) U/L Alkaline Phosphatase 589 H (38-126) U/L Lactate Dehydrogenase 2534 H (120-246) U/L Albumin 2.7 L (3.5-5.0) g/dL Microbiology - Last 24 Hours (Table) 10/30/23 00:17 Urine Culture - Final Urine,Voided Assessment and Plan Assessment: 1. Acute kidney injury secondary to ATN secondary to hypovolemia and nonsteroidals. Creatinine 2.9 on admission and is 1.2 today. Baseline creatinine near 0.8 dated September 07, 2023. No hydronephrosis noted on CAT scan. 2. Lymphadenopathy noted on CAT scan. Oncology consulted. 3. Metabolic acidosis secondary to acute kidney injury and IV fluids. 4. Hypocalcemia secondary to acute kidney injury. 5. Status post right hip arthroplasty August 2023 with concern for infection at the surgical site. Plan: continue IV fluids, continue with IV bicarb Repeat labs in a.m. Continue to avoid nephrotoxic agents. I would hold off on IV contrast for another 24 hours.
[2023-10-31 12:02] LABS: Hepatitis A Antibody IgM Nonreactive (Nonreactive); Hepatitis B Core IgM Nonreactive (Nonreactive); Hepatitis B Surface Antigen Nonreactive (Nonreactive); Hepatitis C IgG Antibody Nonreactive (Nonreactive)
[2023-10-31 12:24] LABS: Nucleated Red Blood Cells 0 /100 WBC (0-0); Total Cells Counted 100
[2023-10-31 12:27] LABS: RBC Morphology Normal
[2023-10-31 13:49] LABS: Band Neutrophils % 3 %; Lymphocytes # (M) 2.86 k/uL (1.0-4.8); Monocytes # (M) 0.32 k/uL (0-1.0); Neutrophils % (M) 37 %
[2023-10-31 13:54] LABS: Reactive Lymphocytes Present
--- NOTE | 2023-10-31 14:04 | P.PN ---
Subjective Progress Note Date: 10/31/23 Patient is a 58-year-old male with a past medical history of patient right total hip arthroplasty on 09/06/2023, chronic neck pain and back pain with prior history of multiple orthopedic procedures, osteoarthritis, currently everyday smoker and occasional marijuana use and prior history of renal stones presents to ER with complaints of fever. Patient has been having fever for the past 1 week as per his at bedside. Patient is somewhat poor historian. Patient was seen by his physician about 5 days ago and was started on antibiotics for possible right hip surgical wound infection due to redness and scab. No purulent drainage was noted. Patient continues to have fevers at home. Denies any cough or sputum production. No sore throat. No nausea or vomiting. Denies any abdominal pain otherwise. He has been having fevers went up to 102 F at home. He has been taking [place] 2 tablets 4 times daily and also Tylenol 650 mg every 6 hourly. Patient is also taking Motrin at home. Denies any dysuria or hematuria. X-ray of the hip showed hip arthroplasty with hardware intact and in appropriate alignment. No acute fracture. No osseous erosion noted. EKG showed sinus rhythm. CT of the abdomen pelvis was done due to fever and elevated liver enzymes. Showed new splenomegaly. New mild upper abdominal, periaortic, iliac chain and inguinal lymphadenopathy. Gallbladder and bile ducts unremarkable. No calcified stones. No ductal dilation. CT head showed negative study. Laboratory data showed WBC 5.0 hemoglobin 14.1 and platelets 85 Sodium 135 potassium 4.6 chloride 107 bicarb is 16 BUN 17 creatinine 2.9 and blood sugar 111 and calcium 7.0 total bili 4.2, AST 393, ALT 146, alk phos 563 and albumin 3.2 Urinalysis showed 1+ protein small blood negative nitrite negative leukocyte esterase and WBC 16. Influenza A, B, RSV and COVID-19 PCR not detected. Patient was given a dose of ceftriaxone in the ER. Patient developed a rash over his legs and lower abdomen today afternoon and was given a dose of IV dexamethasone and Benadryl. Patient also developed hypotension. He was transferred to telemetry unit. 10/30. Patient seen and examined. Blood work done this morning showed WBC 5.3, hemoglobin 11.7, platelet count 76, fibrinogen 192, sodium 136, potassium 4.1, BUN 34, creatinine 1.25, bilirubin is 2.1, AST 74, ALT 104. Still having abdominal pain. REVIEW OF SYSTEMS: CONSTITUTIONAL: No fever, no malaise,. CARDIOVASCULAR: No chest pain, no palpitations, no syncope. PULMONARY: No shortness of breath, no cough, GASTROINTESTINAL: No diarrhea, no nausea, no vomiting NEUROLOGICAL: No headaches, no weakness, PHYSICAL EXAMINATION: GENERAL: The patient is alert and oriented x3, not in any acute distress. Ill looking HEENT: Pupils are round and equally reacting to light. EOMI. positive for scleral icterus. No conjunctival pallor. Normocephalic, atraumatic. No pharynge al erythema. No thyromegaly. CARDIOVASCULAR: S1 and S2 present. No murmurs, rubs, or gallops. PULMONARY: Chest is clear to auscultation, no wheezing or crackles. ABDOMEN: Soft, tender in the right upper quadrant, nondistended, normoactive bowel sounds. No palpable organomegaly. MUSCULOSKELETAL: No joint swelling or deformity. EXTREMITIES: No cyanosis, clubbing, or pedal edema. NEUROLOGICAL: Gross neurological examination did not reveal any focal deficits. SKIN: No rashes. Assessment and plan Fever exact etiology unknown at this time. Patient was recently started on Augmentin for right hip surgical site infection. Also right upper quadrant tenderness with elevated bilirubin level and fever. Acute cholangitis is also in consideration. Elevated liver enzymes and hyperbilirubinemia. Acetaminophen overdose and rule out obstructive etiology. New onset splenomegaly Acute kidney injury secondary to ATN due to hypovolemia and NSAID use. Creatinine 2.9 on admission. Baseline 0.8 Upper abdominal, periaortic and iliac chain and inguinal lymphadenopathy as per CT abdomen pelvis. Likely reactive. Non-anion gap metabolic acidosis secondary to CANDE Hypocalcemia Metabolic encephalopathy History of recent right total hip arthroplasty on 09/06/2023 GERD History of renal stones Chronic back pain and neck pain with multiple orthopedic surgeries in the past Anxiety Currently everyday smoker Occasional marijuana use Monitor vital signs Monitor CBC Monitor CMP Continue telemetry monitoring Avoid nephrotoxic agent Continue IV fluids Continue IV Unasyn Nephrology following Hematology oncology following ID consulted Labs and medication were reviewed.. Continue same treatment. Continue with symptomatic treatment. Resume home medication. Monitor labs and vitals. DVT and GI prophylaxis. Further recommendations as per clinical course of the patient Dictation was produced using Liv[employer] dictation software. please excuse any grammatical, word or spelling errors. Objective - Vital Signs Vital signs: Vital Signs Temp 97.8 F 10/31/23 08:00 Pulse 70 10/31/23 08:00 Resp 16 10/31/23 08:00 BP 115/75 10/31/23 08:00 Pulse Ox 97 10/31/23 08:00 FiO2 Intake & Output 10/30/23 10/31/23 10/31/23 18:59 06:59 18:59 Output Total 1175 Balance -1175 Output: Urine 1175 Other: Voiding Method Urinal # Voids 4 - Labs CBC & Chem 7: 10/31/23 06:17 10/31/23 06:17 Labs: Abnormal Lab Results - Last 24 Hours (Table) 10/31/23 10/31/23 10/31/23 Range/Units 06:17 06:17 06:17 RBC 4.14 L (4.30-5.90) m/uL Hgb 11.7 L (13.0-17.5) gm/dL Hct 36.2 L (39.0-53.0) % Plt Count 76 L (150-450) k/uL APTT 30.8 H (22.0-30.0) sec Fibrinogen 192 L (200-500) mg/dL Sodium 136 L (137-145) mmol/L Carbon Dioxide 21 L (22-30) mmol/L BUN 34 H (9-20) mg/dL Glucose 137 H (74-99) mg/dL Calcium 7.1 L (8.4-10.2) mg/dL Total Bilirubin 2.1 H (0.2-1.3) mg/dL AST 274 H (17-59) U/L ALT 104 H (4-49) U/L Alkaline Phosphatase 589 H (38-126) U/L Lactate Dehydrogenase 2534 H (120-246) U/L Albumin 2.7 L (3.5-5.0) g/dL Microbiology - Last 24 Hours (Table) 10/30/23 00:17 Urine Culture - Final Urine,Voided
--- NOTE | 2023-10-31 15:43 | P.GSCN ---
History of Present Illness Consult date: 10/31/23 History of present illness: CHIEF COMPLAINT: Fever and altered mental status HISTORY OF PRESENT ILLNESS: This is a 58-year-old male who presented with altered mental status and fevers. He was having fever of 1 hide is 102 at home. He had recent left total hip replacement in August. There were concerns of infection at the incision site. He had been on Augmentin at home. But continued to have fevers over the last 3 days. is concerned due to the worsening mentation. And he was lethargic. Patient also has been having epigastric right upper quadrant abdominal pain. He has been nauseous and having acid reflux. Patient had increase in reflux after eating a cheeseburger from [employer] today. Patient with elevated liver enzymes and total bilirubin. Abdominal ultrasound had been ordered. Results had revealed sludge within the gallbladder and small amount of fluid may be adjacent to the gallbladder. Gallbladder wall is upper limit of normal. Clinical correlation for acute cholecystitis. Past surgical history includes appendectomy. Patient denies being on any blood thinners. PAST MEDICAL HISTORY: See below PAST SURGICAL HISTORY: See below MEDICATIONS: See below ALLERGIES: See below SOCIAL HISTORY: No illicit drug use. REVIEW OF SYSTEMS: CONSTITUTIONAL: Denies fever or chills. HEENT: Denies blurred vision, vision changes, or eye pain. Denies hemoptysis CARDIOVASCULAR: Denies chest pain or pressure. RESPIRATORY: No shortness of breath. GASTROINTESTINAL: See HPI for pertinent findings HEMATOLOGIC: Denies bleeding disorders. GENITOURINARY: Denies any blood in urine or increased urinary frequency. SKIN: Denies pruitis. Denies rash. PHYSICAL EXAM: VITAL SIGNS: Reviewed GENERAL: Well-developed in no acute distress. HEENT: Scleral icterus present. Extraocular movements grossly intact. Moist buccal mucosa. Head is atraumatic, normocephalic. No nasal drainage. ABDOMEN: Soft. Nondistended. Tenderness with palpation right upper quadrant and epigastric area NEUROLOGIC: Confused with hallucinations LABORATORY DATA: WBC 5.3 Hgb down from 14-11.7 platelets 76 Sodium is 136 potassium 4.1 creatinine 2.9 down to 1.25 Lactic acid 1.9 Total bilirubin 4.2 down to 2.1 elevated LFTs Hepatitis panel nonreactive Influenza, RSV and COVID-19 not detected Urine culture negative IMAGING: CT scan abdomen and pelvis new splenomegaly. New mild upper abdominal, periaortic, iliac chain and inguinal lymphadenopathy Liver ultrasound hepatomegaly. Sludge within the gallbladder's. Small amount of fluid may be adjacent to the gallbladder. Gallbladder wall is upper limit of normal. Clinical correlation for acute cholecystitis. ASSESSMENT: 1. Right upper quadrant and epigastric abdominal pain. Gallbladder ultrasound with sludge, small amount of fluid adjacent to gallbladder and gallbladder wall upper limit of normal 2. Elevated LFTs and total bilirubin 3. Altered mental status 4. Recent right hip replacement with surgical site infection had been on antibiotics 5. Acute kidney injury 6. Lymphadenopathy noted on abdominal CT scan PLAN: -Repeat LFTs and total bilirubin in a.m. -Follow-up on MRCP results to rule out common bile duct stone -Continue antibiotics -Add low-fat diet -Further recommendations forthcoming per surgeon Physician Telecommunications Analyst note has been reviewed by physician. Signing provider agrees with the documented findings, assessment, and plan of care. Past Medical History Past Medical History: GERD/Reflux, Pneumonia Additional Past Medical History / Comment(s): HEART MURMUR. , SEIZURES R/T ABX- 2007. , HX KIDNEY STONES,. NUMBNESS/TINGLING ARMS, HANDS COLD., CONSTIPATION. , BACK & NECK PAIN. History of Any Multi-Drug Resistant Organisms: None Reported Past Surgical History: Appendectomy, Back Surgery, Heart Catheterization, Orthopedic Surgery Additional Past Surgical History / Comment(s): Pain clinic procedures, pilonidal cyst, Laminectomy with decompression lumbar fusion with hardware (12/2021)., 2018 anterior cervical fusion with dissection., lithotripsy, total hip Past Anesthesia/Blood Transfusion Reactions: Previous Problems w/ Anesthesia Additional Past Anesthesia/Blood Transfusion Reaction / Comm: combative when he wakes up Past Psychological History: Anxiety Smoking Status: Current every day smoker Past Alcohol Use History: None Reported Past Drug Use History: Marijuana - Past Family History Father Family Medical History: Cancer, GERD/Reflux Medications and Allergies Home Medications Medication Instructions Recorded Confirmed Type Cyclobenzaprine [Flexeril] 10 mg PO HS 01/19/23 10/30/23 History diazePAM [Valium] 10 mg PO HS 01/19/23 10/30/23 History Famotidine [Pepcid] 20 mg PO HS 05/24/23 10/30/23 History HYDROcodone/APAP 5-325MG [[place] 2 tab PO QID 05/24/23 10/30/23 History 5-325] Omeprazole [PriLOSEC] 40 mg PO DAILY 05/24/23 10/30/23 History Amoxic-Pot Clav 500-125 mg 1 tab PO Q12HR 10/30/23 10/30/23 History [Augmentin 500-125 mg] Ibuprofen [Motrin] 600 mg PO TID PRN 10/30/23 10/30/23 History Sennosides [Senokot] 17.2 tab PO BID 10/30/23 10/30/23 History predniSONE See Taper PO DIRECTED 10/30/23 10/30/23 History Allergies Allergy/AdvReac Type Severity Reaction Status Date / Time ciprofloxacin [From Cipro] Allergy Severe BRAIN STEM Verified 10/30/23 10:53 SEIZURES Quinolones Allergy Severe Seizures Verified 10/30/23 10:53 moxifloxacin [From Avelox] AdvReac Severe Seizures Verified 10/30/23 10:53 fluoroquinolones Allergy Severe seizures Uncoded 10/29/23 20:40 Surgical - Exam Vital Signs Temp Pulse Resp BP Pulse Ox 97.9 F 88 18 99/67 94 L 10/29/23 20:32 10/29/23 20:32 10/29/23 20:32 10/29/23 20:32 10/29/23 20:32 Results - Labs 10/31/23 06:17 10/31/23 06:17 Abnormal Lab Results - Last 24 Hours (Table) 10/30/23 10/31/23 10/31/23 Range/Units 10:55 06:17 06:17 RBC 4.14 L (4.30-5.90) m/uL Hgb 11.7 L (13.0-17.5) gm/dL Hct 36.2 L (39.0-53.0) % Plt Count 76 L (150-450) k/uL APTT (22.0-30.0) sec Fibrinogen (200-500) mg/dL Sodium 136 L (137-145) mmol/L Carbon Dioxide 21 L (22-30) mmol/L BUN 34 H (9-20) mg/dL Glucose 137 H (74-99) mg/dL Calcium 7.1 L (8.4-10.2) mg/dL Total Bilirubin 2.1 H (0.2-1.3) mg/dL AST 274 H (17-59) U/L ALT 104 H (4-49) U/L Alkaline Phosphatase 589 H (38-126) U/L Lactate Dehydrogenase 2534 H (120-246) U/L Albumin 2.7 L (3.5-5.0) g/dL Vitamin D 25-Hydroxy 18.1 L (30.0-100.0) ng/mL 10/31/23 Range/Units 06:17 RBC (4.30-5.90) m/uL Hgb (13.0-17.5) gm/dL Hct (39.0-53.0) % Plt Count (150-450) k/uL APTT 30.8 H (22.0-30.0) sec Fibrinogen 192 L (200-500) mg/dL Sodium (137-145) mmol/L Carbon Dioxide (22-30) mmol/L BUN (9-20) mg/dL Glucose (74-99) mg/dL Calcium (8.4-10.2) mg/dL Total Bilirubin (0.2-1.3) mg/dL AST (17-59) U/L ALT (4-49) U/L Alkaline Phosphatase (38-126) U/L Lactate Dehydrogenase (120-246) U/L Albumin (3.5-5.0) g/dL Vitamin D 25-Hydroxy (30.0-100.0) ng/mL Microbiology - Last 24 Hours (Table) 10/29/23 22:00 Blood Culture - Preliminary Blood 10/30/23 00:17 Urine Culture - Final Urine,Voided Diabetes panel 10/31/23 Range/Units 06:17 Sodium 136 L (137-145) mmol/L Potassium 4.1 (3.5-5.1) mmol/L Chloride 107 (98-107) mmol/L Carbon Dioxide 21 L (22-30) mmol/L BUN 34 H (9-20) mg/dL Creatinine 1.25 (0.66-1.25) mg/dL Glucose 137 H (74-99) mg/dL Calcium 7.1 L (8.4-10.2) mg/dL AST 274 H (17-59) U/L ALT 104 H (4-49) U/L Alkaline Phosphatase 589 H (38-126) U/L Total Protein 6.4 (6.3-8.2) g/dL Albumin 2.7 L (3.5-5.0) g/dL Calcium panel 10/31/23 Range/Units 06:17 Calcium 7.1 L (8.4-10.2) mg/dL Albumin 2.7 L (3.5-5.0) g/dL Pituitary panel 10/31/23 Range/Units 06:17 Sodium 136 L (137-145) mmol/L Potassium 4.1 (3.5-5.1) mmol/L Chloride 107 (98-107) mmol/L Carbon Dioxide 21 L (22-30) mmol/L BUN 34 H (9-20) mg/dL Creatinine 1.25 (0.66-1.25) mg/dL Glucose 137 H (74-99) mg/dL Calcium 7.1 L (8.4-10.2) mg/dL Adrenal panel 10/31/23 Range/Units 06:17 Sodium 136 L (137-145) mmol/L Potassium 4.1 (3.5-5.1) mmol/L Chloride 107 (98-107) mmol/L Carbon Dioxide 21 L (22-30) mmol/L BUN 34 H (9-20) mg/dL Creatinine 1.25 (0.66-1.25) mg/dL Glucose 137 H (74-99) mg/dL Calcium 7.1 L (8.4-10.2) mg/dL Total Bilirubin 2.1 H (0.2-1.3) mg/dL AST 274 H (17-59) U/L ALT 104 H (4-49) U/L Alkaline Phosphatase 589 H (38-126) U/L Total Protein 6.4 (6.3-8.2) g/dL Albumin 2.7 L (3.5-5.0) g/dL
[2023-10-31 16:12] LABS: % Iron Saturation 46.82 (15.00-50.00)
--- NOTE | 2023-10-31 16:20 | P.CONS ---
History of Present Illness - Reason for Consult Consult date: 10/31/23 Elevated LFTs Requesting physician: Shakir Munguia - Chief Complaint Fever, confusion - History of Present Illness This is a pleasant 58-year-old male who presented to the emergency department for fever, chills, and confusion. Patient has a recent history of right hip surgery and apparently there was an area that was found that they were concerned possible infection and patient was started on Augmentin from his primary care provider last week Tuesday and has been on for 4 days with the last dose being Tuesday. Apparently on Tuesday patient started becoming very weak, confused, with fevers. He has a past medical history including heart murmur, seizures, kidney stones patient came in for further evaluation. Patient was noted to have elevated liver enzymes on admission. He had a CT of the abdomen and pelvis which reported new splenomegaly, new mild upper abdominal, periaortic and iliac chain and inguinal lymphadenopathy. He also had a liver ultrasound that reported hepatomegaly. Sludge within the gallbladder. Small amount of fluid may be adjacent to the gallbladder. Gallbladder [place] the upper limits of normal. Clinical correlation for acute cholecystitis. Patient denied any abdominal pain on admission. States he may have some mild discomfort but that is all. He had some nausea but no vomiting. No previous history of liver disease. No history of alcoholism. Hepatitis panel nonreactive. Admitting LFTs total bilirubin 4.2 AST 393 ALT 146 alkaline phosphatase 563. WBC 5.3 hemoglobin 11.7 hematocrit 36 platelet count 76,000 INR 1.0 sodium 136 potassium 4.1 BUN 34 creatinine 1.25 total bilirubin 2.1 AST 274 ALT 104 alkaline phosphatase 589 STEFF negative Review of Systems REVIEW OF SYSTEMS: CARDIOPULMONARY: No chest pain or shortness of breath. Gastrointestinal: No abdominal pain. Nausea with no vomiting. No hematemesis, coffee-ground emesis. No rectal bleeding, or melena. GENITOURINARY: No dysuria or hematuria. MUSCULOSKELETAL: Reports normal range of motion. Joint pain. SKIN: No rashes. No jaundice. ENDOCRINE: No chills, fevers. No excessive weight gain or loss. No polydipsia or polyuria. PSYCHIATRIC: Unremarkable. NEUROLOGY: Confusion and delirium. Denies dizziness, headache. ENT: Vision unremarkable. CONSTITUTIONAL: No recent weight loss. Reported fever, chills and confusion. Past Medical History Past Medical History: GERD/Reflux, Pneumonia Additional Past Medical History / Comment(s): HEART MURMUR. , SEIZURES R/T ABX- 2008. , HX KIDNEY STONES,. NUMBNESS/TINGLING ARMS, HANDS COLD., CONSTIPATION. , BACK & NECK PAIN. History of Any Multi-Drug Resistant Organisms: None Reported Past Surgical History: Appendectomy, Back Surgery, Heart Catheterization, Ortho pedic Surgery Additional Past Surgical History / Comment(s): Pain clinic procedures, pilonidal cyst, Laminectomy with decompression lumbar fusion with hardware (12/2021)., 2018 anterior cervical fusion with dissection., lithotripsy, total hip Past Anesthesia/Blood Transfusion Reactions: Previous Problems w/ Anesthesia Additional Past Anesthesia/Blood Transfusion Reaction / Comm: combative when he wakes up Past Psychological History: Anxiety Smoking Status: Current every day smoker Past Alcohol Use History: None Reported Past Drug Use History: Marijuana - Past Family History Father Family Medical History: Cancer, GERD/Reflux Medications and Allergies Home Medications Medication Instructions Recorded Confirmed Type Cyclobenzaprine [Flexeril] 10 mg PO HS 01/19/23 10/30/23 History diazePAM [Valium] 10 mg PO HS 01/19/23 10/30/23 History Famotidine [Pepcid] 20 mg PO HS 05/24/23 10/30/23 History HYDROcodone/APAP 5-325MG [[place] 2 tab PO QID 05/24/23 10/30/23 History 5-325] Omeprazole [PriLOSEC] 40 mg PO DAILY 05/24/23 10/30/23 History Amoxic-Pot Clav 500-125 mg 1 tab PO Q12HR 10/30/23 10/30/23 History [Augmentin 500-125 mg] Ibuprofen [Motrin] 600 mg PO TID PRN 10/30/23 10/30/23 History Sennosides [Senokot] 17.2 tab PO BID 10/30/23 10/30/23 History predniSONE See Taper PO DIRECTED 10/30/23 10/30/23 History Allergies Allergy/AdvReac Type Severity Reaction Status Date / Time ciprofloxacin [From Cipro] Allergy Severe BRAIN STEM Verified 10/30/23 10:53 SEIZURES Quinolones Allergy Severe Seizures Verified 10/30/23 10:53 moxifloxacin [From Avelox] AdvReac Severe Seizures Verified 10/30/23 10:53 fluoroquinolones Allergy Severe seizures Uncoded 10/29/23 20:40 Physical Exam Vitals: Vital Signs Temp Pulse Pulse Resp BP Pulse Ox 10/31/23 12:00 98.3 F 70 16 110/71 99 10/31/23 08:00 97.8 F 70 16 115/75 97 10/31/23 02:00 98.1 F 62 16 137/72 98 10/30/23 20:00 98.3 F 81 16 102/68 95 10/30/23 16:32 96 110/72 10/30/23 15:34 97.7 F 108/71 Intake and Output 10/30/23 10/31/23 10/31/23 22:59 06:59 14:59 Output Total 1175 Balance -1175 Output: Urine 1175 Other: Voiding Method Urinal Urinal # Voids 4 General appearance: The patient is alert, oriented, appears in no acute distress. HET: Head is normocephalic and atraumatic. Conjunctiva pink. Sclera anicteric. Neck: Supple without lymphadenopathy. Trachea midline. Heart: Regular. Lungs: Equal expansion, normal respiratory effort. Abdomen: Soft, obese, nontender, nondistended. No guarding or rigidity. Skin: No rashes. No jaundice. Extremities: Normal skin color and turgor. No pedal edema. Neurological: No focal deficits. Alert and oriented x3. Results CBC & Chem 7: 10/31/23 06:17 10/31/23 06:17 Labs: Abnormal Lab Results - Last 24 Hours (Table) 10/30/23 10/31/23 10/31/23 Range/Units 10:55 06:17 06:17 RBC 4.14 L (4.30-5.90) m/uL Hgb 11.7 L (13.0-17.5) gm/dL Hct 36.2 L (39.0-53.0) % Plt Count 76 L (150-450) k/uL APTT (22.0-30.0) sec Fibrinogen (200-500) mg/dL Sodium 136 L (137-145) mmol/L Carbon Dioxide 21 L (22-30) mmol/L BUN 34 H (9-20) mg/dL Glucose 137 H (74-99) mg/dL Calcium 7.1 L (8.4-10.2) mg/dL Total Bilirubin 2.1 H (0.2-1.3) mg/dL AST 274 H (17-59) U/L ALT 104 H (4-49) U/L Alkaline Phosphatase 589 H (38-126) U/L Lactate Dehydrogenase 2534 H (120-246) U/L Albumin 2.7 L (3.5-5.0) g/dL Vitamin D 25-Hydroxy 18.1 L (30.0-100.0) ng/mL 10/31/23 Range/Units 06:17 RBC (4.30-5.90) m/uL Hgb (13.0-17.5) gm/dL Hct (39.0-53.0) % Plt Count (150-450) k/uL APTT 30.8 H (22.0-30.0) sec Fibrinogen 192 L (200-500) mg/dL Sodium (137-145) mmol/L Carbon Dioxide (22-30) mmol/L BUN (9-20) mg/dL Glucose (74-99) mg/dL Calcium (8.4-10.2) mg/dL Total Bilirubin (0.2-1.3) mg/dL AST (17-59) U/L ALT (4-49) U/L Alkaline Phosphatase (38-126) U/L Lactate Dehydrogenase (120-246) U/L Albumin (3.5-5.0) g/dL Vitamin D 25-Hydroxy (30.0-100.0) ng/mL Microbiology - Last 24 Hours (Table) 10/29/23 22:00 Blood Culture - Preliminary Blood 10/30/23 00:17 Urine Culture - Final Urine,Voided Comments: CT of the abdomen and pelvis which reported new splenomegaly, new mild upper abdominal, periaortic and iliac chain and inguinal lymphadenopathy. liver ultrasound that reported hepatomegaly. Sludge within the gallbladder. Small amount of fluid may be adjacent to the gallbladder. Gallbladder [place] the upper limits of normal. Clinical correlation for acute cholecystitis Assessment and Plan (1) Elevated LFTs Narrative/Plan: 58-year-old male presenting to the emergency department with fever chill, and altered mental status changes. Concerns for infection possibly related to urinary tract infection versus previous right hip repair infection. Patient was started on Augmentin last week Tuesday and was on it for 4 days duration prior to symptoms starting. Patient presented with elevated liver enzymes with no previous history of liver disease. Likely we are dealing with medication induced cholestasis however we need to consider possibility of choledocholithiasis. Will order MRCP. Consider possible general surgery consultation for gallbladder sludge and cholecystitis. Current Visit: Yes Status: Acute Code(s): R79.89 - OTHER SPECIFIED ABNORMAL FINDINGS OF BLOOD CHEMISTRY SNOMED Code(s): 503705190 (2) Obesity Current Visit: Yes Status: Acute Code(s): E66.9 - OBESITY, UNSPECIFIED SNOMED Code(s): 993486394 (3) Fever Current Visit: Yes Status: Acute Code(s): R50.9 - FEVER, UNSPECIFIED SNOMED Code(s): 544503471 (4) Lymphadenopathy Current Visit: Yes Status: Acute Code(s): R59.1 - GENERALIZED ENLARGED LYMPH NODES SNOMED Code(s): 82619412 Plan: 1. Continue symptomatic and supportive care 2. MRCP ordered 3. Avoid hepatotoxic medications 4. Daily CMP 5. Elevated liver function test likely secondary to Augmentin. However will order MRCP to rule out biliary obstruction. Thank you for this consultation, we will continue to follow. Dr. Marnie Sarmiento I agree with the dictator's note, documented as a scribe by Rachael Morrison.
[2023-10-31 16:40] LABS: Free Kappa Lt Chain Qnt, Serum 18.08 mg/dL (0.33-1.94); Free Lambda Lt Chain Qnt, Seru 24.67 mg/dL (0.57-2.63)
[2023-10-31 17:07] LABS: Glucose,Whole Blood 140 mg/dL (70-110)
--- NOTE | 2023-10-31 18:19 | P.PN ---
Subjective Progress Note Date: 10/31/23 Principal diagnosis: Anemia In f/u today pt has no new c/o since admit, awaiting results of work up do find out what caused pt acute renal failure, transaminitis and low plt. Objective - Vital Signs Vital signs: Vital Signs Temp 97.8 F 10/31/23 08:00 Pulse 70 10/31/23 08:00 Resp 16 10/31/23 08:00 BP 115/75 10/31/23 08:00 Pulse Ox 97 10/31/23 08:00 FiO2 Intake & Output 10/30/23 10/31/23 10/31/23 18:59 06:59 18:59 Output Total 1175 Balance -1175 Output: Urine 1175 Other: Voiding Method Urinal Urinal # Voids 4 - Constitutional General appearance: Present: average body habitus, cooperative, no acute distress - EENT Eyes: Present: anicteric sclerae, EOMI ENT: Present: hearing grossly normal - Respiratory Respiratory: bilateral: CTA - Cardiovascular Rhythm: regular Heart sounds: normal: S1, S2 Abnormal Heart Sounds: Absent: systolic murmur, diastolic murmur, rub, S3 Gallop, S4 Gallop, click, other - Peripheral edema leg Peripheral Edema: bilateral: None - Gastrointestinal Localized gastrointestinal: tender: LUQ, epigastric periumbilical - Integumentary Integumentary: Present: normal - Neurologic Neurologic: Present: CNII-XII intact - Musculoskeletal Musculoskeletal: Present: generalized weakness, strength equal bilaterally - Psychiatric Psychiatric: Present: A&O x's 3, appropriate affect, intact judgment & insight - Labs CBC & Chem 7: 10/31/23 06:17 10/31/23 06:17 Labs: Abnormal Lab Results - Last 24 Hours (Table) 10/31/23 10/31/23 10/31/23 Range/Units 06:17 06:17 06:17 RBC 4.14 L (4.30-5.90) m/uL Hgb 11.7 L (13.0-17.5) gm/dL Hct 36.2 L (39.0-53.0) % Plt Count 76 L (150-450) k/uL APTT 30.8 H (22.0-30.0) sec Fibrinogen 192 L (200-500) mg/dL Sodium 136 L (137-145) mmol/L Carbon Dioxide 21 L (22-30) mmol/L BUN 34 H (9-20) mg/dL Glucose 137 H (74-99) mg/dL Calcium 7.1 L (8.4-10.2) mg/dL Total Bilirubin 2.1 H (0.2-1.3) mg/dL AST 274 H (17-59) U/L ALT 104 H (4-49) U/L Alkaline Phosphatase 589 H (38-126) U/L Lactate Dehydrogenase 2534 H (120-246) U/L Albumin 2.7 L (3.5-5.0) g/dL Microbiology - Last 24 Hours (Table) 10/30/23 00:17 Urine Culture - Final Urine,Voided Assessment and Plan (1) Fever Current Visit: Yes Status: Acute Priority: High Code(s): R50.9 - FEVER, UNSPECIFIED SNOMED Code(s): 507848483 (2) Lymphadenopathy Current Visit: Yes Status: Acute Priority: Medium Code(s): R59.1 - GENERALIZED ENLARGED LYMPH NODES SNOMED Code(s): 18210528 (3) Thrombocytopenia Current Visit: Yes Status: Acute Priority: Medium Code(s): D69.6 - THROMBOCYTOPENIA, UNSPECIFIED SNOMED Code(s): 467672573 Plan: Fever -Etiology is not clear, suspect infection. Pt cont on antibiotics, infection w/u in progress -Ultrasound of the liver is reporting hepatomegaly 18.7 cm some sludge within the gallbladder small amount of fluid adjacent to the gallbladder, correlate for acute cholecystitis, surgery consulted -LFTs are improving since admission. Renal function also improving Lymphadenopathy -Noncontrast CT lymphadenopathy not specific. No palpable nodes. -Recommendation is for CT CAP with contrast once improved creatinine. If suspicious adenopathy, biopsy can be planned at that time. Patient and family verbalized understanding the plan in regards to lymphadenopathy -Autoimmune markers reported so far are negative -Paraproteinemia workup showing elevated kappa and lambda light chains with a normal ratio. Further results still pending Thrombocytopenia -[place] to be consumption because of acute illness as well as acute kidney injury -Coags within normal limits, fibrinogen just under 200, no evidence of overt DIC -Continue to monitor platelets for recovery as patient improves. Platelets stable today at 76,000 Anemia, normocytic, normochromic -Since admission patient's hemoglobin is drifted down -Basic anemia workup has been ordered Doctor attests: I performed a history and physical examination of this patient, developed impression and plan of care. Discussed with dictator. I agree with dictators note, documented as a scribe.
[2023-10-31] MEDS: METOPROLOL TARTRATE 25 MG TAB PO SCH (18:24)
[2023-10-31 18:43] LABS: Urine Alcohol Negative (Negative); Urine Barbiturate Negative (Negative); Urine Cocaine Negative (Negative); Urine Methadone Negative (Negative); Urine Opiates Positive (Negative); Urine Phencyclidine Negative (Negative)
[2023-10-31 20:28] LABS: Glucose,Whole Blood 145 mg/dL (70-110)
--- NOTE | 2023-10-31 21:41 | P.CONS ---
History of Present Illness - Reason for Consult Consult date: 10/31/23 - History of Present Illness Patient is a 58-year-old male with a past medical history significant for reflux pneumonia recently did have right hip replacement presenting to the hospital 2 days ago for evaluation of weakness and concern for possible right hip infection patient apparently has been complaining of fever off and on that has been going on for more than a week and a half and has been evaluated in the outpatient setting by his primary care physician and was concern for possible right hip surgical site infection for the patient will be treated with Augmentin therapy for possible infection however the patient remains to be febrile at home with a temperature of 102 F patient was complaining of some headache, no other URI symptoms denies any chest pain or shortness of breath occasional cough did have some nausea but no vomiting some epigastric area abdominal pain no diarrhea or constipation patient on presentation to the hospital was afebrile and no fever have been recorded subsequently patient was not tachycardic hypotensive or hypoxic patient did have a white count of 5.0 BUN and creatinine has been elevated and also have elevated liver enzymes for trending down urine was positive hepatitis panel negative influenza RSV COVID testing negative urine was positive for opiates and cannabis patient did have abdominal pelvis CT mild upper abdominal periaortic and bilateral neuropathy did not mention abnormality to the liver gallbladder area patient also have a liver ultrasound which did shows echogenic material seen within the gallbladder and adjacent to the gallbladder wall concerning for gallbladder wall thickening and question of cholecystitis patient has been treated with the Unasyn infectious disease was consulted for further management Past Medical History Past Medical History: GERD/Reflux, Pneumonia Additional Past Medical History / Comment(s): HEART MURMUR. , SEIZURES R/T ABX- 2007. , HX KIDNEY STONES,. NUMBNESS/TINGLING ARMS, HANDS COLD., CONSTIPATION. , BACK & NECK PAIN. History of Any Multi-Drug Resistant Organisms: None Reported Past Surgical History: Appendectomy, Back Surgery, Heart Catheterization, Orthopedic Surgery Additional Past Surgical History / Comment(s): Pain clinic procedures, pilonidal cyst, Laminectomy with decompression lumbar fusion with hardware (12/2021)., 2018 anterior cervical fusion with dissection., lithotripsy, total hip Past Anesthesia/Blood Transfusion Reactions: Previous Problems w/ Anesthesia Additional Past Anesthesia/Blood Transfusion Reaction / Comm: combative when he wakes up Past Psychological History: Anxiety Smoking Status: Current every day smoker Past Alcohol Use History: None Reported Past Drug Use History: Marijuana - Past Family History Father Family Medical History: Cancer, GERD/Reflux Medications and Allergies Home Medications Medication Instructions Recorded Confirmed Type Cyclobenzaprine [Flexeril] 10 mg PO HS 01/19/23 10/30/23 History diazePAM [Valium] 10 mg PO HS 01/19/23 10/30/23 History Famotidine [Pepcid] 20 mg PO HS 05/24/23 10/30/23 History HYDROcodone/APAP 5-325MG [[place] 2 tab PO QID 05/24/23 10/30/23 History 5-325] Omeprazole [PriLOSEC] 40 mg PO DAILY 05/24/23 10/30/23 History Amoxic-Pot Clav 500-125 mg 1 tab PO Q12HR 10/30/23 10/30/23 History [Augmentin 500-125 mg] Ibuprofen [Motrin] 600 mg PO TID PRN 10/30/23 10/30/23 History Sennosides [Senokot] 17.2 tab PO BID 10/30/23 10/30/23 History predniSONE See Taper PO DIRECTED 10/30/23 10/30/23 History Allergies Allergy/AdvReac Type Severity Reaction Status Date / Time ciprofloxacin [From Cipro] Allergy Severe BRAIN STEM Verified 10/30/23 10:53 SEIZURES Quinolones Allergy Severe Seizures Verified 10/30/23 10:53 moxifloxacin [From Avelox] AdvReac Severe Seizures Verified 10/30/23 10:53 fluoroquinolones Allergy Severe seizures Uncoded 10/29/23 20:40 Physical Exam Vitals: Vital Signs Temp Pulse Pulse Resp BP Pulse Ox 10/31/23 08:00 97.8 F 70 16 115/75 97 10/31/23 02:00 98.1 F 62 16 137/72 98 10/30/23 20:00 98.3 F 81 16 102/68 95 10/30/23 16:32 96 110/72 10/30/23 15:34 97.7 F 108/71 10/30/23 13:43 98.4 F 85 18 77/46 94 L Intake and Output 10/30/23 10/31/23 10/31/23 22:59 06:59 14:59 Output Total 1175 Balance -1175 Output: Urine 1175 Other: Voiding Method Urinal # Voids 4 Results CBC & Chem 7: 10/31/23 06:17 10/31/23 06:17 Labs: Abnormal Lab Results - Last 24 Hours (Table) 10/31/23 10/31/23 10/31/23 Range/Units 06:17 06:17 06:17 RBC 4.14 L (4.30-5.90) m/uL Hgb 11.7 L (13.0-17.5) gm/dL Hct 36.2 L (39.0-53.0) % Plt Count 76 L (150-450) k/uL APTT 30.8 H (22.0-30.0) sec Fibrinogen 192 L (200-500) mg/dL Sodium 136 L (137-145) mmol/L Carbon Dioxide 21 L (22-30) mmol/L BUN 34 H (9-20) mg/dL Glucose 137 H (74-99) mg/dL Calcium 7.1 L (8.4-10.2) mg/dL Total Bilirubin 2.1 H (0.2-1.3) mg/dL AST 274 H (17-59) U/L ALT 104 H (4-49) U/L Alkaline Phosphatase 589 H (38-126) U/L Lactate Dehydrogenase 2534 H (120-246) U/L Albumin 2.7 L (3.5-5.0) g/dL Microbiology - Last 24 Hours (Table) 10/30/23 00:17 Urine Culture - Final Urine,Voided Assessment and Plan Plan: 1patient presented to hospital with fever and weakness in this patient who did have evidence of jaundice abdominal ultrasound concerning for possible cholecystitis and choledocholithiasis and we will need to cover for the enteric gram-negative with the likely pathogen 2-patient did have Cipro/moxifloxacin allergy and apparently seem to have some problem with the Rocephin limited number of antibiotics safe to use 3-patient benefit from GI evaluation possible ERCP/HIDA scan 4-Unasyn 3 g every 6 hours should provide adequate antibiotic coverage at this point at the bedside multiple question concern answered We will follow on clinical condition and cultures to further adjust medication if needed Thank you for this consultation we will follow the patient along with you Dictation was produced using [employer] dictation software. please excuse any grammatical, word or spelling errors. Time with Patient: Greater than 30
[2023-11-01 08:11] LABS: Protein, Total 6.3 g/dL (6.2-8.2)
[2023-11-01 09:28] LABS: Glucose,Whole Blood 97 mg/dL (70-110)
[2023-11-01 10:23] LABS: HCT 38.4 % (39.0-53.0); HGB 12.4 gm/dL (13.0-17.5); MCH 28.5 pg (25.0-35.0); MCHC 32.4 g/dL (31.0-37.0); Mean Platelet Volume 10.5; RBC 4.36 m/uL (4.30-5.90); WBC 8.8 k/uL (3.8-10.6)
[2023-11-01 10:28] LABS: Platelet Count 76 k/uL (150-450)
[2023-11-01] MEDS: LORazepam 2 MG/ML INJ IV ONE (10:29)
[2023-11-01 10:33] LABS: ALT 88 U/L (4-49); AST 183 U/L (17-59); African American GFR (CKD) >90 (>60 ml/min/1.73 sqM); Albumin 2.7 g/dL (3.5-5.0); Alkaline Phosphatase 556 U/L (38-126); Anion Gap 1 mmol/L; Blood Urea Nitrogen 18 mg/dL (9-20); Calcium 7.6 mg/dL (8.4-10.2); Carbon Dioxide 32 mmol/L (22-30); Chloride 105 mmol/L (98-107); Glucose 104 mg/dL (74-99); Non-African American GFR(CKD) >90 (>60 ml/min/1.73 sqM); Potassium 3.5 mmol/L (3.5-5.1); Sodium 138 mmol/L (137-145); Total Bilirubin 1.4 mg/dL (0.2-1.3); Total Protein 6.4 g/dL (6.3-8.2)
[2023-11-01 11:24] LABS: Eosinophils # (M) 0.09 k/uL (0-0.7); Lymphocytes # (M) 5.28 k/uL (1.0-4.8); Monocytes # (M) 1.06 k/uL (0-1.0); Neutrophils # (M) 2.55 k/uL (1.3-7.7); Neutrophils % (M) 29 %; Nucleated Red Blood Cells 0 /100 WBC (0-0); Total Cells Counted 200
[2023-11-01] MEDS: LOPERAMIDE 2 MG CAP PO PRN (12:01)
[2023-11-01] MEDS: ZINC OXIDE PASTE (Z-GUARD) 1 APPLIC TOPICAL PRN (12:01)
[2023-11-01] MEDS: HYDROmorphone 0.5 MG/0.5 ML SYRINGE IVP PRN (12:01)
[2023-11-01] MEDS: ONDANSETRON 4 MG/2 ML VIAL IVP PRN (12:02)
--- NOTE | 2023-11-01 12:17 | MR ---
EXAMINATION TYPE: MR MRCP DATE OF EXAM: 11/01/2023 11:06 AM CLINICAL INDICATION:Male, 58 years old with history of elevated LFTS; Elevated LFT's, R/O bile duct o bstruction COMPARISON: CT 10/29/2023 TECHNIQUE: Multi planar, T2-weighted imaging with and without fat saturation and chemical shift imag ing was performed of the abdomen. Then, heavily T2 weighted imaging (half-Fourier acquisition single- shot turbo spin-echo) was utilized in order to study the biliary system. Maximum intensity projectio n images were reconstructed from the original data of the biliary tree. 3D images were created on [employer] work station. No Gadolinium given. FINDINGS: Lower Thorax: No evidence for acute process. MRCP: * The intrahepatic ducts have a normal appearance. * The common bile duct at the level of the pancreatic head measures 5 mm in size. * The common hepatic duct measures 4 mm in size. * The pancreatic duct is normal. * The gallbladder appears nondistended however there is high T2 signal around the gallbladder fossa. Abdomen: Liver: Unremarkable. Pancreas: Unremarkable. Spleen: Unremarkable. Adrenal glands: Unremarkable. Kidneys: Unremarkable. Stomach and Bowel: Unremarkable as visualized. Peritoneum: No evidence of pneumoperitoneum. Trace free fluid around the liver. Vasculature: Unremarkable. No aortic aneurysm. Musculoskeletal: The osseous structures appear intact. Postsurgical changes to the lumbar spine with hardware at L2-L5. Lymph Nodes: No gross evidence for lymphadenopathy. Abdominal wall: Unremarkable. IMPRESSION: 1. No evidence for bile duct obstruction. 2. Nondistended gallbladder with fluid surrounding the gallbladder fossa. Correlate for signs and sy mptoms of cholecystitis. 3. No evidence to suggest ductal stricture, choledocholithiasis, or biliary ductal dilatation.
--- NOTE | 2023-11-01 12:53 | P.PN ---
Subjective Progress Note Date: 11/01/23 CHIEF COMPLAINT: Fever and altered mental status HISTORY OF PRESENT ILLNESS: Patient lying in bed comfortably. He has been having right upper quadrant abdominal pain and epigastric pain. Denies any nausea or vomiting. Tachycardia improved patient has been afebrile during his hospitalization. WBC 8.8 Hgb 12.4 total bilirubin and LFTs trending downwards. Patient had MRCP today. No evidence for bile duct obstruction. Nondistended gallbladder with fluid surrounding the gallbladder fossa correlate for signs and symptoms of cholecystitis. No evidence to suggest ductal stricture, choledocholithiasis or biliary ductal dilatation. Patient had atrial fibrillation. Cardiology is now on consult. An oncology service has ordered a CT scan of the abdomen and pelvis and neck for evaluation of lymphadenopathy. PHYSICAL EXAM: VITAL SIGNS: Reviewed GENERAL: Well-developed in no acute distress. HEENT: No sclera icterus. Extraocular movements grossly intact. Moist buccal mucosa. Head is atraumatic, normocephalic. Hears conversational speech. No nasal drainage. NECK: Supple without lymphadenopathy. CHEST: Non-labored respirations and equal bilateral excursions. CARDIOVASCULAR: Palpable 2+ radial pulses. ABDOMEN: Soft. Nondistended. MUSCULOSKELETAL: No clubbing or cyanosis. NEUROLOGIC: No focal or lateralizing signs. Cranial nerves II through XII grossly intact. PSYCH: Appropriate affect. Alert and oriented to person, place and time. SKIN: Well perfused. Good skin turgor. ASSESSMENT: 1. Acute cholecystitis 2. Right upper quadrant and epigastric abdominal pain. Gallbladder ultrasound with sludge, small amount of fluid adjacent to gallbladder and gallbladder wall upper limit of normal 3. Elevated LFTs and total bilirubin. No choledocholithiasis on MRCP 4. Altered mental status 5. Recent right hip replacement with surgical site infection had been on antibiotics 6. Acute kidney injury 7. Lymphadenopathy noted on abdominal CT scan 8. Afib PLAN: -Patient scheduled for Robotic cholecystectomy on , 11/03/[address] Patel -Continue low-fat diet -Await cardiac risk assessment for surgery -Continue antibiotics -Repeat labs in a.m. Physician [employer] Laborer note has been reviewed by physician. Signing provider agrees with the documented findings, assessment, and plan of care. Objective - Vital Signs Vital signs: Vital Signs Temp 97.6 F 11/01/23 07:42 Pulse 83 11/01/23 07:42 Resp 18 11/01/23 07:42 BP 100/68 11/01/23 07:42 Pulse Ox 97 11/01/23 07:42 FiO2 Intake & Output 10/31/23 11/01/23 11/01/23 18:59 06:59 18:59 Intake Total 970 Output Total 975 1100 Balance -5 -1100 Intake: IV 10 Invasive Line 1 10 Oral 960 Output: Urine 975 1100 Other: Voiding Method Urinal Urinal # Voids 2 2 # Bowel Movements 3 1 - Labs CBC & Chem 7: 11/01/23 10:07 11/01/23 10:07 Labs: Abnormal Lab Results - Last 24 Hours (Table) 10/30/23 10/31/23 10/31/23 Range/Units 10:55 06:17 08:51 POC Glucose (mg/dL) (70-110) mg/dL TIBC 220 L (228-460) UG/DL Transferrin 157.0 L (204.0-354.0) mg/dL Ferritin 4870.0 H (22.0-322.0) ng/mL Vitamin B12 1000.0 H (200.0-944.0) pg/mL Vitamin D 25-Hydroxy 18.1 L (30.0-100.0) ng/mL Urine Opiates Screen (Negative) U Cannabinoids Screen (Negative) Free [place] LC, Quant 18.08 H (0.33-1.94) mg/dL Free Lambda LC, Quant 24.67 H (0.57-2.63) mg/dL 10/31/23 10/31/23 10/31/23 Range/Units 10:30 17:06 20:26 POC Glucose (mg/dL) 140 H 145 H (70-110) mg/dL TIBC (228-460) UG/DL Transferrin (204.0-354.0) mg/dL Ferritin (22.0-322.0) ng/mL Vitamin B12 (200.0-944.0) pg/mL Vitamin D 25-Hydroxy (30.0-100.0) ng/mL Urine Opiates Screen Positive A (Negative) U Cannabinoids Screen Positive A (Negative) Free [place] LC, Quant (0.33-1.94) mg/dL Free Lambda LC, Quant (0.57-2.63) mg/dL Microbiology - Last 24 Hours (Table) 10/29/23 21:45 Blood Culture - Preliminary Blood 10/29/23 22:00 Blood Culture - Preliminary Blood 10/30/23 00:17 Urine Culture - Final Urine,Voided
--- NOTE | 2023-11-01 12:59 | P.CRDCN ---
History of Present Illness History of present illness: HISTORY OF PRESENT ILLNESS: This is a 58-year-old male with a past medical history significant for chronic back pain, GERD, anxiety, nicotine dependence, and marijuana use. Patient does n ot follow with a ice handler. We have been asked to see the patient in consultation for atrial fibrillation. Patient examined at the bedside. Patient initially presented to the hospital due to weakness, fever, and possible hip infection. Patient went into afib with RVR yesterday. He was started on metoprolol per primary medicine. He remains in atrial fibrillation with controlled ventricular rates. He denies chest pain or pressure. Denies SOB. Blood stable stable. DIAGNOSTICS: - EKG on admission reveals sinus mechanism. Repeat EKG reveals atrial fibrillation. - Laboratory data: WBC 8.8. Hemoglobin 12.4. Platelet count 76. Sodium 138. Potassium 3.5. BUN 18. Creatinine 0.84. TSH 3.610. - Current home cardiac medications include none. REVIEW OF SYSTEMS: At the time of my exam: CONSTITUTIONAL: Denies fever or chills. HEENT: Denies blurred vision, vision changes, or eye pain. Denies hemoptysis CARDIOVASCULAR: Denies chest pain. Denies orthopnea. Denies PND. Denies palpitations RESPIRATORY: Denies shortness of breath. GASTROINTESTINAL: Denies abdominal pain. Denies nausea or vomiting. HEMATOLOGIC: Denies bleeding disorders. GENITOURINARY: Denies any blood in urine. SKIN: Denies pruitis. Denies rash. PHYSICAL EXAM: VITAL SIGNS: Reviewed. GENERAL: Well-developed in no acute distress. HEENT: Head is normocephalic. Pupils are equal, round. Sclerae anicteric. Mucous membranes of the mouth are moist. Neck supple. No JVD or thyromegaly LUNGS: Respirations even and unlabored. Lungs essentially clear to auscultation bilaterally. HEART: Irregular rate and rhythm. S1 and S2 heard. ABDOMEN: Soft. Nondistended. Nontender. EXTREMITIES: Normal range of motion. No clubbing or cyanosis. Peripheral pulses intact. No lower extremity edema NEUROLOGIC: Awake and alert. Oriented x 3. ASSESSMENT: Febrile illness Recent right hip replacement with hip surgical site infection Transaminitis Hyperbilirubinemia Acute kidney injury New onset paroxysmal atrial fibrillation Chronic back pain GERD Anxiety Nicotine dependence Marijuana use Thrombocytopenia PLAN: Obtain 2D echo to assess cardiac structure and function Continue current dose of metoprolol Patient does not require anticoagulation as his [id number] score is 0 Patient scheduled for robotic cholecystectomy on 11/03/2023 with general surgery Further recommendations pending patient course Nurse practitioner note has been reviewed by physician. Signing provider agrees with the documented findings, assessment, and plan of care documented by JACKAROO as a scribe. Past Medical History Past Medical History: GERD/Reflux, Pneumonia Additional Past Medical History / Comment(s): HEART MURMUR. , SEIZURES R/T ABX- 2007. , HX KIDNEY STONES,. NUMBNESS/TINGLING ARMS, HANDS COLD., CONSTIPATION. , BACK & NECK PAIN. History of Any Multi-Drug Resistant Organisms: None Reported Past Surgical History: Appendectomy, Back Surgery, Heart Catheterization, Orthopedic Surgery Additional Past Surgical History / Comment(s): Pain clinic procedures, pilonidal cyst, Laminectomy with decompression lumbar fusion with hardware (12/2021)., 2018 anterior cervical fusion with dissection., lithotripsy, total hip Past Anesthesia/Blood Transfusion Reactions: Previous Problems w/ Anesthesia Additional Past Anesthesia/Blood Transfusion Reaction / Comment(s): combative when he wakes up Past Psychological History: Anxiety Smoking Status: Current every day smoker Past Alcohol Use History: None Reported Past Drug Use History: Marijuana - Past Family History Father Family Medical History: Cancer, GERD/Reflux Medications and Allergies Home Medications Medication Instructions Recorded Confirmed Type Cyclobenzaprine [Flexeril] 10 mg PO HS 01/19/23 10/30/23 History diazePAM [Valium] 10 mg PO HS 01/19/23 10/30/23 History Famotidine [Pepcid] 20 mg PO HS 05/24/23 10/30/23 History HYDROcodone/APAP 5-325MG [[place] 2 tab PO QID 05/24/23 10/30/23 History 5-325] Omeprazole [PriLOSEC] 40 mg PO DAILY 05/24/23 10/30/23 History Amoxic-Pot Clav 500-125 mg 1 tab PO Q12HR 10/30/23 10/30/23 History [Augmentin 500-125 mg] Ibuprofen [Motrin] 600 mg PO TID PRN 10/30/23 10/30/23 History Sennosides [Senokot] 17.2 tab PO BID 10/30/23 10/30/23 History predniSONE See Taper PO DIRECTED 10/30/23 10/30/23 History Allergies Allergy/AdvReac Type Severity Reaction Status Date / Time ciprofloxacin [From Cipro] Allergy Severe BRAIN STEM Verified 10/30/23 10:53 SEIZURES Quinolones Allergy Severe Seizures Verified 10/30/23 10:53 moxifloxacin [From Avelox] AdvReac Severe Seizures Verified 10/30/23 10:53 fluoroquinolones Allergy Severe seizures Uncoded 10/29/23 20:40 Physical Exam Vitals: Vital Signs Temp Pulse Pulse Resp BP Pulse Ox 11/01/23 11:31 97.5 F L 94 20 118/72 96 11/01/23 07:42 97.6 F 83 18 100/68 97 11/01/23 02:00 97.3 F L 68 16 100/68 95 10/31/23 20:00 97.4 F L 92 62 16 106/68 95 10/31/23 16:59 97.7 F 121 H 18 117/79 95 10/31/23 12:00 98.3 F 70 16 110/71 99 Intake and Output 10/31/23 11/01/23 11/01/23 22:59 06:59 14:59 Intake Total 360 Output Total 500 600 Balance -140 -600 Intake: Oral 360 Output: Urine 500 600 Other: Voiding Method Urinal Urinal # Voids 2 2 # Bowel Movements 3 1 Results 11/01/23 10:07 11/01/23 10:07 Cardiac Enzymes 11/01/23 Range/Units 10:07 AST 183 H (17-59) U/L CBC 11/01/23 Range/Units 10:07 WBC 8.8 (3.8-10.6) k/uL RBC 4.36 (4.30-5.90) m/uL Hgb 12.4 L (13.0-17.5) gm/dL Hct 38.4 L (39.0-53.0) % Plt Count 76 L (150-450) k/uL Comprehensive Metabolic Panel 11/01/23 Range/Units 10:07 Sodium 138 (137-145) mmol/L Potassium 3.5 (3.5-5.1) mmol/L Chloride 105 (98-107) mmol/L Carbon Dioxide 32 H (22-30) mmol/L BUN 18 (9-20) mg/dL Creatinine 0.84 (0.66-1.25) mg/dL Glucose 104 H (74-99) mg/dL Calcium 7.6 L (8.4-10.2) mg/dL AST 183 H (17-59) U/L ALT 88 H (4-49) U/L Alkaline Phosphatase 556 H (38-126) U/L Total Protein 6.4 (6.3-8.2) g/dL Albumin 2.7 L (3.5-5.0) g/dL Current Medications Generic Name Dose Route Start Last Admin Trade Name Freq PRN Reason Stop Dose Admin Acetaminophen 650 mg 10/30/23 00:30 Acetaminophen Tab 325 Mg Tab PO Q6HR PRN Mild Pain or Fever > 100.5 Famotidine 20 mg 10/30/23 21:30 10/31/23 21:52 Famotidine 20 Mg Tab PO 20 mg HS ADONIS Administration Hydromorphone HCl 0.5 mg 11/01/23 11:33 Hydromorphone 0.5 Mg/0.5 Ml Syringe IVP Q4HR PRN Pain Sodium Bicarbonate 150 ml/ 1,150 mls @ 100 mls/hr 10/30/23 11:30 11/01/23 03:00 Dextrose/Water IV 100 mls/hr .[id number] ADONIS Administration Ampicillin Sodium/Sulbactam 100 mls @ 200 mls/hr 10/30/23 18:00 11/01/23 06:13 Sodium 3 gm/ Sodium Chloride IVPB 200 mls/hr Q6HR ADONIS Administration Protocol Metoprolol Tartrate 25 mg 10/31/23 18:15 11/01/23 10:02 Metoprolol Tartrate 25 Mg Tab PO 25 mg BID ADONIS Administration Naloxone HCl 0.2 mg 10/30/23 00:30 Naloxone 0.4 Mg/Ml 1 Ml Vial IV Q2M PRN Opioid Reversal Ondansetron HCl 4 mg 10/30/23 00:30 Ondansetron 4 Mg/2 Ml Vial IVP Q8HR PRN Nausea And Vomiting Pantoprazole Sodium 40 mg 10/31/23 07:30 11/01/23 06:14 Pantoprazole 40 Mg Tablet PO 40 mg [id number] ADONIS Administration Petrolatum 1 applic 11/01/23 11:34 Zinc Oxide Paste (Z-Guard) 1 Applic TOPICAL Q2HR PRN Wound Healing Protocol Intake and Output 10/31/23 11/01/23 11/01/23 22:59 06:59 14:59 Intake Total 360 Output Total 500 600 Balance -140 -600 Intake: Oral 360 Output: Urine 500 600 Other: Voiding Method Urinal Urinal # Voids 2 2 # Bowel Movements 3 1 11/01/23 10:07 11/01/23 10:07
--- NOTE | 2023-11-01 13:35 | P.PN ---
Subjective Progress Note Date: 11/01/23 Patient is a 58-year-old male with a past medical history of patient right total hip arthroplasty on 09/06/2023, chronic neck pain and back pain with prior history of multiple orthopedic procedures, osteoarthritis, currently everyday smoker and occasional marijuana use and prior history of renal stones presents to ER with complaints of fever. Patient has been having fever for the past 1 week as per his at bedside. Patient is somewhat poor historian. Patient was seen by his physician about 5 days ago and was started on antibiotics for possible right hip surgical wound infection due to redness and scab. No purulent drainage was noted. Patient continues to have fevers at home. Denies any cough or sputum production. No sore throat. No nausea or vomiting. Denies any abdominal pain otherwise. He has been having fevers went up to 102 F at home. He has been taking Clarence 2 tablets 4 times daily and also Tylenol 650 mg every 6 hourly. Patient is also taking Motrin at home. Denies any dysuria or hematuria. X-ray of the hip showed hip arthroplasty with hardware intact and in appropriate alignment. No acute fracture. No osseous erosion noted. EKG showed sinus rhythm. CT of the abdomen pelvis was done due to fever and elevated liver enzymes. Showed new splenomegaly. New mild upper abdominal, periaortic, iliac chain and inguinal lymphadenopathy. Gallbladder and bile ducts unremarkable. No calcified stones. No ductal dilation. CT head showed negative study. Laboratory data showed WBC 5.0 hemoglobin 14.1 and platelets 85 Sodium 135 potassium 4.6 chloride 107 bicarb is 16 BUN 17 creatinine 2.9 and blood sugar 111 and calcium 7.0 total bili 4.2, AST 393, ALT 146, alk phos 563 and albumin 3.2 Urinalysis showed 1+ protein small blood negative nitrite negative leukocyte esterase and WBC 16. Influenza A, B, RSV and COVID-19 PCR not detected. Patient was given a dose of ceftriaxone in the ER. Patient developed a rash over his legs and lower abdomen today afternoon and was given a dose of IV dexamethasone and Benadryl. Patient also developed hypotension. He was transferred to telemetry unit. 10/30. Patient seen and examined. Blood work done this morning showed WBC 5.3, hemoglobin 11.7, platelet count 76, fibrinogen 192, sodium 136, potassium 4.1, BUN 34, creatinine 1.25, bilirubin is 2.1, AST 74, ALT 104. Still having abdominal pain. 10/31. Patient seen and examined.Blood work done this morning showed WBC 8.8, hemoglobin 4, sodium 130, potassium 3.5, BUN 18, creatinine 0.84, bilirubin 1.4, AST 183, ALT 88. MRCP ordered. Complaining of right upper quadrant abdominal pain. Also having diarrhea. Patient went into A-fib overnight, currently rate controlled. REVIEW OF SYSTEMS: CONSTITUTIONAL: No fever, no malaise,. CARDIOVASCULAR: No chest pain, no palpitations, no syncope. PULMONARY: No shortness of breath, no cough, GASTROINTESTINAL: no nausea, no vomiting NEUROLOGICAL: No headaches, no weakness, PHYSICAL EXAMINATION: GENERAL: The patient is alert and oriented x3, not in any acute distress. Ill looking HEENT: Pupils are round and equally reacting to light. EOMI. positive for scleral icterus. No conjunctival pallor. Normocephalic, atraumatic. No pharyngeal erythema. No thyromegaly. CARDIOVASCULAR: S1 and S2 present. No murmurs, rubs, or gallops. PULMONARY: Chest is clear to auscultation, no wheezing or crackles. ABDOMEN: Soft, tender in the right upper quadrant, nondistended, normoactive bowel sounds. No palpable organomegaly. MUSCULOSKELETAL: No joint swelling or deformity. EXTREMITIES: No cyanosis, clubbing, or pedal edema. NEUROLOGICAL: Gross neurological examination did not reveal any focal deficits. SKIN: No rashes. Assessment and plan Acute cholecystitis Elevated LFTs New onset splenomegaly Atrial fibrillation Acute kidney injury secondary to ATN due to hypovolemia and NSAID use. Creati nine 2.9 on admission. Baseline 0.8 Upper abdominal, periaortic and iliac chain and inguinal lymphadenopathy as per CT abdomen pelvis. Likely reactive. Non-anion gap metabolic acidosis secondary to CANDE Hypocalcemia Metabolic encephalopathy History of recent right total hip arthroplasty on 09/06/2023 GERD History of renal stones Chronic back pain and neck pain with multiple orthopedic surgeries in the past Anxiety Currently everyday smoker Occasional marijuana use Monitor vital signs Monitor CBC Monitor CMP Continue telemetry monitoring Avoid nephrotoxic agent Continue IV fluids Continue IV Unasyn Echo ordered MRCP ordered Nephrology following Hematology oncology following ID following Cardiology consulted for new onset A-fib, does not require anticoagulation as patient Delvis Vasc score is 0 Labs and medication were reviewed.. Continue same treatment. Continue with symptomatic treatment. Resume home medication. Monitor labs and vitals. DVT and GI prophylaxis. Further recommendations as per clinical course of the patient Dictation was produced using [employer] dictation software. please excuse any grammatical, word or spelling errors. Objective - Vital Signs Vital signs: Vital Signs Temp 97.6 F 11/01/23 07:42 Pulse 83 11/01/23 07:42 Resp 18 11/01/23 07:42 BP 100/68 11/01/23 07:42 Pulse Ox 97 11/01/23 07:42 FiO2 Intake & Output 10/31/23 11/01/23 11/01/23 18:59 06:59 18:59 Intake Total 970 Output Total 975 1100 Balance -5 -1100 Intake: IV 10 Invasive Line 1 10 Oral 960 Output: Urine 975 1100 Other: Voiding Method Urinal Urinal Urinal # Voids 2 2 # Bowel Movements 3 1 - Labs CBC & Chem 7: 11/01/23 10:07 11/01/23 10:07 Labs: Abnormal Lab Results - Last 24 Hours (Table) 10/30/23 10/31/23 10/31/23 Range/Units 10:55 06:17 08:51 Hgb (13.0-17.5) gm/dL Hct (39.0-53.0) % Plt Count (150-450) k/uL Carbon Dioxide (22-30) mmol/L Glucose (74-99) mg/dL POC Glucose (mg/dL) (70-110) mg/dL Calcium (8.4-10.2) mg/dL TIBC 220 L (228-460) UG/DL Transferrin 157.0 L (204.0-354.0) mg/dL Ferritin 4870.0 H (22.0-322.0) ng/mL Total Bilirubin (0.2-1.3) mg/dL AST (17-59) U/L ALT (4-49) U/L Alkaline Phosphatase (38-126) U/L Albumin (3.5-5.0) g/dL Vitamin B12 1000.0 H (200.0-944.0) pg/mL Vitamin D 25-Hydroxy 18.1 L (30.0-100.0) ng/mL Urine Opiates Screen (Negative) U Cannabinoids Screen (Negative) Free [place] LC, Quant 18.08 H (0.33-1.94) mg/dL Free Lambda LC, Quant 24.67 H (0.57-2.63) mg/dL 10/31/23 10/31/23 10/31/23 Range/Units 10:30 17:06 20:26 Hgb (13.0-17.5) gm/dL Hct (39.0-53.0) % Plt Count (150-450) k/uL Carbon Dioxide (22-30) mmol/L Glucose (74-99) mg/dL POC Glucose (mg/dL) 140 H 145 H (70-110) mg/dL Calcium (8.4-10.2) mg/dL TIBC (228-460) UG/DL Transferrin (204.0-354.0) mg/dL Ferritin (22.0-322.0) ng/mL Total Bilirubin (0.2-1.3) mg/dL AST (17-59) U/L ALT (4-49) U/L Alkaline Phosphatase (38-126) U/L Albumin (3.5-5.0) g/dL Vitamin B12 (200.0-944.0) pg/mL Vitamin D 25-Hydroxy (30.0-100.0) ng/mL Urine Opiates Screen Positive A (Negative) U Cannabinoids Screen Positive A (Negative) Free [place] LC, Quant (0.33-1.94) mg/dL Free Lambda LC, Quant (0.57-2.63) mg/dL 11/01/23 11/01/23 Range/Units 10:07 10:07 Hgb 12.4 L (13.0-17.5) gm/dL Hct 38.4 L (39.0-53.0) % Plt Count 76 L (150-450) k/uL Carbon Dioxide 32 H (22-30) mmol/L Glucose 104 H (74-99) mg/dL POC Glucose (mg/dL) (70-110) mg/dL Calcium 7.6 L (8.4-10.2) mg/dL TIBC (228-460) UG/DL Transferrin (204.0-354.0) mg/dL Ferritin (22.0-322.0) ng/mL Total Bilirubin 1.4 H (0.2-1.3) mg/dL AST 183 H (17-59) U/L ALT 88 H (4-49) U/L Alkaline Phosphatase 556 H (38-126) U/L Albumin 2.7 L (3.5-5.0) g/dL Vitamin B12 (200.0-944.0) pg/mL Vitamin D 25-Hydroxy (30.0-100.0) ng/mL Urine Opiates Screen (Negative) U Cannabinoids Screen (Negative) Free [place] LC, Quant (0.33-1.94) mg/dL Free Lambda LC, Quant (0.57-2.63) mg/dL Microbiology - Last 24 Hours (Table) 10/29/23 21:45 Blood Culture - Preliminary Blood 10/29/23 22:00 Blood Culture - Preliminary Blood 10/30/23 00:17 Urine Culture - Final Urine,Voided
[2023-11-01] MEDS: IOPAMIDOL CONTRAST (ORAL USE) VIAL PO PRN (13:42)
--- NOTE | 2023-11-01 14:27 | P.PN ---
Subjective Progress Note Date: 11/01/23 Principal diagnosis: Elevated LFTs This is a pleasant 58-year-old male who presented to the emergency department for fever, chills, and confusion. Patient has a recent history of right hip surgery and apparently there was an area that was found that they were concerned possible infection and patient was started on Augmentin from his primary care provider last week Tuesday and has been on for 4 days with the last dose being Tuesday. Apparently on Tuesday patient started becoming very weak, confused, with fevers. He has a past medical history including heart murmur, seizures, kidney stones patient came in for further evaluation. Patient was noted to have elevated liver enzymes on admission. He had a CT of the abdomen and pelvis which reported new splenomegaly, new mild upper abdominal, periaortic and iliac chain and inguinal lymphadenopathy. He also had a liver ultrasound that reported hepatomegaly. Sludge within the gallbladder. Small amount of fluid may be adjacent to the gallbladder. Gallbladder [place] the upper limits of normal. Clinical correlation for acute cholecystitis. Patient denied any abdominal pain on admission. States he may have some mild discomfort but that is all. He had some nausea but no vomiting. No previous history of liver disease. No history of alcoholism. Hepatitis panel nonreactive. Admitting LFTs total bilirubin 4.2 AST 393 ALT 146 alkaline phosphatase 563. WBC 5.3 hemoglobin 11.7 hematocrit 36 platelet count 76,000 INR 1.0 sodium 136 potassium 4.1 BUN 34 creatinine 1.25 total bilirubin 2.1 AST 274 ALT 104 alkaline phosphatase 589 STEFF negative 11/01/2023 Patient seen and examined today as a follow-up. He states he is having abdominal pain in the right upper quadrant and the lower abdomen. Patient also having diarrhea this morning. Scheduled for MRCP which reported no evidence for bile duct obstruction. Nondistended gallbladder with fluid surrounding the gallbladder fossa. Correlate for signs and symptoms of cholecystitis. No evidence to suggest ductal stricture, choledocholithiasis or biliary ductal dilation. Liver tests improving. Total bilirubin 1.4 AST 183 ALT 88 alkaline phosphatase 556. Patient has been afebrile. Objective - Vital Signs Vital signs: Vital Signs Temp 97.6 F 11/01/23 07:42 Pulse 83 11/01/23 07:42 Resp 18 11/01/23 07:42 BP 100/68 11/01/23 07:42 Pulse Ox 97 11/01/23 07:42 FiO2 Intake & Output 10/31/23 11/01/23 11/01/23 18:59 06:59 18:59 Intake Total 970 Output Total 975 1100 Balance -5 -1100 Intake: IV 10 Invasive Line 1 10 Oral 960 Output: Urine 975 1100 Other: Voiding Method Urinal Urinal # Voids 2 2 # Bowel Movements 3 1 - Exam General appearance: The patient is alert, oriented, appears in no acute distress. Obese. HET: Head is normocephalic and atraumatic. Conjunctiva pink. Sclera anicteric. Neck: Supple without lymphadenopathy. Abdomen: Soft, right upper quadrant tenderness, nondistended. Extremities: Normal skin color and turgor. No pedal edema Skin: No rashes, no jaundice Neurological: No focal deficits. Alert and oriented. - Labs CBC & Chem 7: 11/01/23 10:07 11/01/23 10:07 Labs: Abnormal Lab Results - Last 24 Hours (Table) 10/30/23 10/31/23 10/31/23 Range/Units 10:55 06:17 08:51 POC Glucose (mg/dL) (70-110) mg/dL TIBC 220 L (228-460) UG/DL Transferrin 157.0 L (204.0-354.0) mg/dL Ferritin 4870.0 H (22.0-322.0) ng/mL Vitamin B12 1000.0 H (200.0-944.0) pg/mL Vitamin D 25-Hydroxy 18.1 L (30.0-100.0) ng/mL Urine Opiates Screen (Negative) U Cannabinoids Screen (Negative) Free [place] LC, Quant 18.08 H (0.33-1.94) mg/dL Free Lambda LC, Quant 24.67 H (0.57-2.63) mg/dL 10/31/23 10/31/23 10/31/23 Range/Units 10:30 17:06 20:26 POC Glucose (mg/dL) 140 H 145 H (70-110) mg/dL TIBC (228-460) UG/DL Transferrin (204.0-354.0) mg/dL Ferritin (22.0-322.0) ng/mL Vitamin B12 (200.0-944.0) pg/mL Vitamin D 25-Hydroxy (30.0-100.0) ng/mL Urine Opiates Screen Positive A (Negative) U Cannabinoids Screen Positive A (Negative) Free [place] LC, Quant (0.33-1.94) mg/dL Free Lambda LC, Quant (0.57-2.63) mg/dL Microbiology - Last 24 Hours (Table) 10/29/23 21:45 Blood Culture - Preliminary Blood 10/29/23 22:00 Blood Culture - Preliminary Blood 10/30/23 00:17 Urine Culture - Final Urine,Voided Assessment and Plan (1) Elevated LFTs Narrative/Plan: 58-year-old male presenting to the emergency department with fever chill, and altered mental status changes. Concerns for infection possibly related to urinary tract infection versus previous right hip repair infection. Patient was started on Augmentin last week Tuesday and was on it for 4 days duration prior to symptoms starting. Patient presented with elevated liver enzymes with no previous history of liver disease. Likely we are dealing with medication induced cholestasis however we need to consider possibility of choledocholithiasis. LFTs continue to improve. MRCP with no evidence choledocholithiasis, cold CBD obstruction. Possible patient had a biliary stone that passed. General surgery following and plan cholecystectomy on for cholecystitis. No further workup indicated by gastroenterology. Current Visit: Yes Status: Acute Code(s): R79.89 - OTHER SPECIFIED ABNORMAL FINDINGS OF BLOOD CHEMISTRY SNOMED Code(s): 638570560 (2) Obesity Current Visit: Yes Status: Acute Code(s): E66.9 - OBESITY, UNSPECIFIED SN OMED Code(s): 361174324 (3) Fever Current Visit: Yes Status: Acute Priority: High Code(s): R50.9 - FEVER, UNSPECIFIED SNOMED Code(s): 221841480 (4) Lymphadenopathy Current Visit: Yes Status: Acute Priority: Medium Code(s): R59.1 - GENERALIZED ENLARGED LYMPH NODES SNOMED Code(s): 91361840 Plan: 1. Continue symptomatic and supportive care 2. MRCP ordered and reviewed 3. Avoid hepatotoxic medications 4. Daily CMP 5. Elevated liver function test likely secondary to Augmentin, possible passing of biliary stone. Patient also with cholecystitis 6. Continue with recommendations from general surgery 7. No further workup or intervention indicated by gastroenterology Thank you for this consultation, we will continue to follow. Dr. Marnie Sarmiento I agree with the dictator's note, documented as a scribe by Rachael Morrison.
--- NOTE | 2023-11-01 16:59 | CA ---
Transthoracic Echo Report Name: Tate Ovalles Age: 58 Gender: M : 1965 Exam Date: 11/01/2023 11:53 Exam Location: [place] [facility] Ht (in): 72 Wt (lb): 220 Ordering Physician: Deborah Baker Attending/Referring Phys: [id number], Olivia Software Testing Specialist Lola Bullock, MERLYN Procedure CPT: Indications: LV function Cardiac Hx: Technical Quality: Technically difficult study Contrast 1: Definity Total Dose (mL): 2 Contrast 2: Total Dose (mL): MEASUREMENTS (Male / Female) Normal Values 2D ECHO LV Diastolic Diameter PLAX 4.8 cm 4.2 - 5.9 / 3.9 - 5.3 cm LV Systolic Diameter PLAX 3.1 cm IVS Diastolic Thickness 1.1 cm 0.6 - 1.0 / 0.6 - 0.9 cm LVPW Diastolic Thickness 1.1 cm 0.6 - 1.0 / 0.6 - 0.9 cm LV Relative Wall Thickness 0.5 RV Internal Dim ED PLAX 3.4 cm LA Systolic Diameter LX 3.4 cm 3.0 - 4.0 / 2.7 - 3.8 cm LA Volume 46.7 cm??? 18 - 58 / 22 - 52 cm??? LA Volume Index 20.5 cm???/m??? 16 - 28 cm???/m??? M-MODE Aortic Root Diameter MM 3.8 cm MV E Point Septal Separation 0.9 cm AV Cusp Separation MM 2.5 cm DOPPLER AV Peak Velocity 87.0 cm/s AV Peak Gradient 3.0 mmHg MV Area PHT 3.5 cm??? MV Deceleration Time 252.6 ms TR Peak Velocity 238.0 cm/s TR Peak Gradient 22.7 mmHg Right Ventricular Systolic Press 27.7 mmHg FINDINGS Left Ventricle Left ventricular ejection fraction is estimated at 40-45 %. Left ventricular cavity size normal. Mildly increased septal wall thickness. Mildly reduced global left ventricular systolic function. Right Ventricle Mild right ventricular dilatation. Right ventricular systolic pressure within normal limits. Right Atrium Right atrium not well visualized. Left Atrium Normal left atrial size. Mitral Valve Structurally normal mitral valve. No mitral stenosis, regurgitation or prolapse. Aortic Valve Trileaflet aortic valve. Trace to mild aortic regurgitation. Tricuspid Valve Structurally normal tricuspid valve. Mild tricuspid regurgitation. Pulmonic Valve Structurally normal pulmonic valve. No pulmonic regurgitation. Pericardium No pericardial effusion. Aorta Mild aortic dilatation at the level of the sinuses of valsalva 38 mm CONCLUSIONS Mild to moderate LV systolic dysfunction with an ejection fraction of 45% Technically suboptimal study secondary to poor echo windows Previewed by: Dr. Quinn Sarmiento MD (Electronically Signed) Final Date: 01 November 2023 16:58
[2023-11-01 17:07] LABS: Glucose,Whole Blood 101 mg/dL (70-110)
[2023-11-01 17:12] LABS: Albumin 2.75 g/dL (3.80-4.90); Gamma Globulin 1.63 g/dL (0.70-1.50)
[2023-11-01 20:25] LABS: Glucose,Whole Blood 113 mg/dL (70-110)
--- NOTE | 2023-11-01 21:26 | CT ---
EXAMINATION TYPE: CT neck chest w con DATE OF EXAM: 11/01/2023 COMPARISON: None HISTORY: lymphadenopathy CT DLP: 3754.3 mGycm CONTRAST: Patient injected with 100 ml mL of Isovue 300. TECHNIQUE: Axial images at 3 mm thick sections. Reconstructed images in the coronal plane and sagitt al plane are reviewed. FINDINGS: Limited CT sections are obtained the lung apices. The lung apices appear clear. CT neck: The torus tubarius and fossa of Rosenmuller are normal. Back Sizer spaces are normal. Para nasal sinuses and mastoid air cells are clear. Parotid glands appear normal and symmetrical. Submandibular glands, are normal. Parapharyngeal spac es are normal. Multiple bilateral small lymph nodes are present. There is a 1.1 cm left supraclavicular lymph node m ultiple small supraclavicular lymph nodes are present bilaterally. There is an enlarged right supracl avicular lymph node measuring 1.2 cm. A 1.6 cm lymph nodes in the right supraclavicular region, serie s 201 image 54 The hypopharynx appears within normal limits. Vocal cord level appear symmetrical. Thyroid as visualized is normal. Osseous structures are normal. IMPRESSION: 1. Multiple small lymph nodes present bilaterally. 2. There is an enlarged lymphadenopathy in the supraclavicular regions. EXAMINATION TYPE: CT neck chest w con DATE OF EXAM: 11/01/2023 COMPARISON: None HISTORY: lymphadenopathy CT DLP: 3754.3 mGycm, Automated exposure control for dose reduction was used. CONTRAST: Performed injected with 100 ml mL of Isovue 300. TECHNIQUE: Axial images were obtained at 5 mm thick sections. Reconstructed images are reviewed on [employer] computer in the coronal plane. FINDINGS: Portion of the thyroid visualized is normal. No suspicious lung nodules or focal infiltrates are present. There are multiple large lymph nodes within the mediastinum. Largest measures 2.6 cm in the right pa ratracheal region. Multiple enlarged lymph nodes are adjacent to the main pulmonary artery and in the superior mediastinum. There is a 1.6 cm pretracheal lymph node. Subcarinal lymph node measures 1.7 c m. A 1.7 cm right suprahilar lymph node is present a 1.4 cm posterior left hilar lymph node is presen t subcarinal adenopathy is present. The ascending aorta diameter at the level of the main pulmonary artery is cm. The main pulmonary art chloe diameter at the bifurcation is cm. CT abdomen pelvis is performed separately. IMPRESSION: 1. Multiple enlarged mediastinal and hilar lymph nodes. Supraclavicular adenopathy is present. 2. Additional workup for lymphoma is recommended consider PET/CT.
--- NOTE | 2023-11-01 21:33 | CT ---
EXAMINATION TYPE: CT abdomen pelvis w con DATE OF EXAM: 11/01/2023 COMPARISON: None INDICATION: lymphadenopathy DLP: 3754.3 mGycm, Automated exposure control for dose reduction was used. CONTRAST: 100 ml mL of Isovue 300. Study performed without Oral Contrast TECHNIQUE: Axial images were obtained from above the diaphragm to the pubic rami in the axial plane a t 5 mm thick sections. Reconstructed images are reviewed on the computer in the coronal plane. FINDINGS: CT neck and chest performed separately. CT ABDOMEN: Liver: Normal Spleen: Normal Pancreas: Normal Adrenal glands: The adrenal glands are normal. Gallbladder: Normal Kidneys: No masses are evident. No hydronephrosis is present. No cysts are present. Delayed images were obtained through the kidneys, which remain unremarkable. Aorta: Vascular calcification is within the aorta. Inferior vena cava: Normal. CT PELVIS: Loops of bowel within the abdomen and pelvis are normal. There are loops of bowel which are incom pletely distended or lack oral contrast limiting their evaluation. Appendix: Not identified. Some inflammatory changes are in the right paracolic gutter. Clinical manag ement of any suspected appendicitis is recommended Urinary bladder: Normal. Genitourinary structures: Prostate is prominent Osseous structures: No suspicious lytic or sclerotic lesions. Lymphadenopathy: Aortic adenopathy is present. Some small retrocaval lymph nodes are present. There i s an enlarged right periaortic lymph node measuring 1.2 cm. Small lymph nodes are in the iliac chains . There is a prominent lymph node in the left inguinal region measuring 1.3 cm. IMPRESSION: 1. Multiple lymph nodes including enlarged periaortic and inguinal lymph nodes. Additional workup is recommended. PET/CT is recommended to evaluate for lymphoma. 2. Inflammatory changes near the cecum and in the right paracolic gutter. Clinical management of any suspected appendicitis is recommended.
--- NOTE | 2023-11-01 22:55 | P.PN ---
Subjective Progress Note Date: 11/01/23 Principal diagnosis: Reason for follow-up is fever possible cholecystitis Patient is a 58-year-old male with multiple comorbidities presented to the hospital with weakness and fever did have elevated liver enzymes and concerning for possible cholecystitis. On today's evaluation that is 11/01/2023, the patient continues to be afebrile, the patient is on room air and breathing comfortably, the Pt denies having any chest pain or cough, the patient still complaining of pain to the right upper quadrant with some nausea but no vomiting and no diarrhea. Patient white count is 8.8, creatinine 0.84 liver enzymes elevated patient did have a MRCP no evidence for bile duct obstruction nondistended gallbladder with surrounding fluid in the gallbladder fossa concerning for cholecystitis Objective - Vital Signs Vital signs: Vital Signs Temp 97.6 F 11/01/23 07:42 Pulse 83 11/01/23 07:42 Resp 18 11/01/23 07:42 BP 100/68 11/01/23 07:42 Pulse Ox 97 11/01/23 07:42 FiO2 Intake & Output 10/31/23 11/01/23 11/01/23 18:59 06:59 18:59 Intake Total 970 Output Total 975 1100 Balance -5 -1100 Intake: IV 10 Invasive Line 1 10 Oral 960 Output: Urine 975 1100 Other: Voiding Method Urinal Urinal # Voids 2 2 # Bowel Movements 3 1 - Exam GENERAL DESCRIPTION: Middle-age male lying in bed in no distress RESPIRATORY SYSTEM: Unlabored breathing , decreased breath sounds at bases HEART: S1 S2 regular rate and rhythm , ABDOMEN: Soft , mild right-sided tenderness EXTREMITIES: No edema feet - Labs CBC & Chem 7: 11/01/23 10:07 11/01/23 10:07 Labs: Abnormal Lab Results - Last 24 Hours (Table) 10/30/23 10/31/23 10/31/23 Range/Units 10:55 06:17 08:51 POC Glucose (mg/dL) (70-110) mg/dL TIBC 220 L (228-460) UG/DL Transferrin 157.0 L (204.0-354.0) mg/dL Ferritin 4870.0 H (22.0-322.0) ng/mL Vitamin B12 1000.0 H (200.0-944.0) pg/mL Vitamin D 25-Hydroxy 18.1 L (30.0-100.0) ng/mL Urine Opiates Screen (Negative) U Cannabinoids Screen (Negative) Free [place] LC, Quant 18.08 H (0.33-1.94) mg/dL Free Lambda LC, Quant 24.67 H (0.57-2.63) mg/dL 10/31/23 10/31/23 10/31/23 Range/Units 10:30 17:06 20:26 POC Glucose (mg/dL) 140 H 145 H (70-110) mg/dL TIBC (228-460) UG/DL Transferrin (204.0-354.0) mg/dL Ferritin (22.0-322.0) ng/mL Vitamin B12 (200.0-944.0) pg/mL Vitamin D 25-Hydroxy (30.0-100.0) ng/mL Urine Opiates Screen Positive A (Negative) U Cannabinoids Screen Positive A (Negative) Free [place] LC, Quant (0.33-1.94) mg/dL Free Lambda LC, Quant (0.57-2.63) mg/dL Microbiology - Last 24 Hours (Table) 10/29/23 21:45 Blood Culture - Preliminary Blood 10/29/23 22:00 Blood Culture - Preliminary Blood 10/30/23 00:17 Urine Culture - Final Urine,Voided Assessment and Plan (1) Cholecystitis Current Visit: Yes Status: Acute Code(s): K81.9 - CHOLECYSTITIS, UNSPECIFIED SNOMED Code(s): 82424620 (2) Allergy to fluoroquinolone Current Visit: Yes Status: Acute Code(s): Z88.1 - ALLERGY STATUS TO OTHER ANTIBIOTIC AGENTS SNOMED Code(s): 328662800 Plan: 1patient presented to hospital with fever and weakness in this patient who did have evidence of jaundice abdominal ultrasound concerning for possible cholecystitis and choledocholithiasis and we will need to cover for the enteric gram-negative with the likely pathogen 2-patient did have Cipro/moxifloxacin allergy and apparently seem to have some problem with the Rocephin limited number of antibiotics safe to use 3-patient did have MRCP suspicious for cholecystitis General surgery will increase 4-we will continue patient on Unasyn 3 g every 6 hours and monitor clinical course closely Dictation was produced using dragon dictation software. please excuse any grammatical, word or spelling errors. Time with Patient: Less than 30
[2023-11-02 06:23] LABS: Glucose,Whole Blood 101 mg/dL (70-110)
[2023-11-02] MEDS: ASPIRIN 81 MG PO SCH (11:22)
--- NOTE | 2023-11-02 11:24 | P.PN ---
Subjective patient is seen for follow-up for acute kidney injury. Renal function has improved. serum creatinine down to 0.8 from 2.9 on admission. Patient is maintained on IV fluids. Overall feeling better. MRCP did not show any major abnormal findings. Objective - Vital Signs Vital signs: Vital Signs Temp 97.8 F 11/02/23 08:45 Pulse 101 H 11/02/23 11:22 Resp 16 11/02/23 11:22 BP 106/72 11/02/23 11:22 Pulse Ox 97 11/02/23 11:22 FiO2 Intake & Output 11/01/23 11/02/23 11/02/23 18:59 06:59 18:59 Intake Total 100 118 Output Total 300 400 Balance -200 -400 118 Intake: Intake, IV Titration 100 Amount Ampicillin-Sulbactam 3 gm 100 In Sodium Chloride 0.9% 100 ml @ 200 mls/hr IVPB Q6HR [facility] Rx#:[id number] Oral 118 Output: Urine 300 400 Other: Voiding Method Urinal Bedside Commode Bedside Commode - Exam patient is awake, comfortable, no acute distress Examination of the heart S1 and S2 Examination the lungs decreased breath sounds at the bases Abdomen is soft distended nontender Examination lower extremity shows no edema [employer] exam grossly intact - Labs CBC & Chem 7: 11/01/23 10:07 11/01/23 10:07 Labs: Abnormal Lab Results - Last 24 Hours (Table) 10/31/23 11/01/23 11/01/23 Range/Units 06:17 10:07 20:23 Lymphocytes # (Manual) 5.28 H (1.0-4.8) k/uL Monocytes # (Manual) 1.06 H (0-1.0) k/uL POC Glucose (mg/dL) 113 H (70-110) mg/dL Albumin (PEP) 2.75 L (3.80-4.90) g/dL Mlrhu-6-Quviaujsk 0.42 H (0.10-0.40) g/dL Gamma Globulins 1.63 H (0.70-1.50) g/dL Microbiology - Last 24 Hours (Table) 10/29/23 21:45 Blood Culture - Preliminary Blood 10/29/23 22:00 Blood Culture - Preliminary Blood Assessment and Plan Assessment: 1. Acute kidney injury secondary to ATN secondary to hypovolemia and nonsteroidals. Creatinine 2.9 on admission and is 0.8 today. Baseline creatinine near 0.8 dated September 07, 2023. No hydronephrosis noted on CAT scan. 2. Lymphadenopathy noted on CAT scan. Oncology consulted. 3. Metabolic acidosis secondary to acute kidney injury and IV fluids. 4. elevated liver enzymes, currently improving 5. Status post right hip arthroplasty August 2023 with concern for infection at the surgical site. Plan: DC IV bicarb Switch to normal saline at 50 mL an hour Continue to avoid nephrotoxic agents.
[2023-11-02] MEDS: SODIUM CHLORIDE 0.9% 1,000 ML IV SCH (11:27)
[2023-11-02 11:29] LABS: Glucose,Whole Blood 108 mg/dL (70-110)
[2023-11-02 11:43] LABS: ALT 66 U/L (4-49); AST 99 U/L (17-59); African American GFR (CKD) >90 (>60 ml/min/1.73 sqM); Albumin 2.8 g/dL (3.5-5.0); Alkaline Phosphatase 445 U/L (38-126); Anion Gap 3 mmol/L; Blood Urea Nitrogen 14 mg/dL (9-20); Calcium 7.5 mg/dL (8.4-10.2); Carbon Dioxide 34 mmol/L (22-30); Chloride 100 mmol/L (98-107); Glucose 121 mg/dL (74-99); Non-African American GFR(CKD) >90 (>60 ml/min/1.73 sqM); Potassium 3.6 mmol/L (3.5-5.1); Sodium 137 mmol/L (137-145); Total Protein 6.6 g/dL (6.3-8.2)
[2023-11-02 11:44] LABS: Methylmalonic Acid 0.37 umol/L (<0.40)
--- NOTE | 2023-11-02 12:00 | P.PN ---
Subjective HISTORY OF PRESENT ILLNESS: This is a 58-year-old male with a past medical history significant for chronic back pain, GERD, anxiety, nicotine dependence, and marijuana use. 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 We have been asked to see the patient in consultation for atrial fibrillation. Patient examined at the bedside. Patient initially presented to the hospital due to weakness, fever, and possible hip infection. Patient went into afib with RVR yesterday. He was started on metoprolol per primary medicine. He remains in atrial fibrillation with controlled ventricular rates. He denies chest pain or pressure. Denies SOB. Blood stable stable. DIAGNOSTICS: - EKG on admission reveals sinus mechanism. Repeat EKG reveals atrial fib rillation. - Laboratory data: WBC 8.8. Hemoglobin 12.4. Platelet count 76. Sodium 138. Potassium 3.5. BUN 18. Creatinine 0.84. TSH 3.610. - Current home cardiac medications include none. 11/02/2023 Patient examined this morning. He is sitting up in the chair. Patient denies chest pain or pressure. He denies shortness of breath. He remains in atrial fibrillation with controlled ventricular rate. Echocardiogram completed revealing ejection fraction 40 to 45%, mild TR, trace to mild AR. PHYSICAL EXAM: VITAL SIGNS: Reviewed. GENERAL: Well-developed in no acute distress. HEENT: Head is normocephalic. Pupils are equal, round. Sclerae anicteric. Mucous membranes of the mouth are moist. Neck supple. No JVD or thyromegaly LUNGS: Respirations even and unlabored. Lungs essentially clear to auscultation bilaterally. HEART: Irregular rate and rhythm. S1 and S2 heard. ABDOMEN: Soft. Nondistended. Nontender. EXTREMITIES: Normal range of motion. No clubbing or cyanosis. Peripheral pu lses intact. No lower extremity edema NEUROLOGIC: Awake and alert. Oriented x 3. ASSESSMENT: Febrile illness Acute cholecystitis Recent right hip replacement with hip surgical site infection Transaminitis Hyperbilirubinemia Acute kidney injury, resolved New onset paroxysmal atrial fibrillation, currently rate controlled New onset cardiomyopathy, ischemic versus nonischemic, EF 40-45% Chronic back pain GERD Anxiety Nicotine dependence Marijuana use Thrombocytopenia PLAN: Continue current cardiac medications Add aspirin 81mg daily Will consider low dose HANS/ARB in the next 24-48 hours pending blood pressure trends Patient does not require anticoagulation as his [id number] score is 1 Patient scheduled for robotic cholecystectomy on 11/03/2023 with general surgery. There are no absolute contraindications for patient to undergo surgery from a cardiac standpoint. Will plan for cardiac cath on Tuesday with Dr. Cullen due to new onset cardiomyopathy Further recommendations pending patient course Nurse practitioner note has been reviewed by physician. Signing provider agrees with the documented findings, assessment, and plan of care documented by HEEL COMPRESSOR as a scribe. Objective - Vital Signs Vital signs: Vital Signs Temp 97.8 F 11/02/23 08:45 Pulse 101 H 11/02/23 11:22 Resp 16 11/02/23 11:22 BP 106/72 11/02/23 11:22 Pulse Ox 97 11/02/23 11:22 FiO2 Intake & Output 11/01/23 11/02/23 11/02/23 18:59 06:59 18:59 Intake Total 100 118 Output Total 300 400 Balance -200 -400 118 Intake: Intake, IV Titration 100 Amount Ampicillin-Sulbactam 3 gm 100 In Sodium Chloride 0.9% 100 ml @ 200 mls/hr IVPB Q6HR [facility] Rx#:[id number] Oral 118 Output: Urine 300 400 Other: Voiding Method Urinal Bedside Commode Bedside Commode # Bowel Movements 3 - Labs CBC & Chem 7: 11/02/23 10:02 11/02/23 10:02 Labs: Abnormal Lab Results - Last 24 Hours (Table) 10/31/23 11/01/23 11/02/23 Range/Units 06:17 20:23 10:02 Carbon Dioxide 34 H (22-30) mmol/L Glucose 121 H (74-99) mg/dL POC Glucose (mg/dL) 113 H (70-110) mg/dL Calcium 7.5 L (8.4-10.2) mg/dL AST 99 H (17-59) U/L ALT 66 H (4-49) U/L Alkaline Phosphatase 445 H (38-126) U/L Albumin 2.8 L (3.5-5.0) g/dL Albumin (PEP) 2.75 L (3.80-4.90) g/dL Titck-0-Awvcfmlvm 0.42 H (0.10-0.40) g/dL Gamma Globulins 1.63 H (0.70-1.50) g/dL Microbiology - Last 24 Hours (Table) 10/29/23 21:45 Blood Culture - Preliminary Blood 10/29/23 22:00 Blood Culture - Preliminary Blood
[2023-11-02 12:03] LABS: HCT 39.1 % (39.0-53.0); HGB 12.6 gm/dL (13.0-17.5); MCH 28.8 pg (25.0-35.0); MCHC 32.2 g/dL (31.0-37.0); MCV 89.3 fL (80.0-100.0); Mean Platelet Volume 14.1; RBC 4.38 m/uL (4.30-5.90); RDW 14.9 % (11.5-15.5); WBC 6.8 k/uL (3.8-10.6)
[2023-11-02 12:05] LABS: Platelet Count 46 k/uL (150-450)
[2023-11-02 12:38] LABS: Lymphocytes # (M) 3.33 k/uL (1.0-4.8); Monocytes # (M) 0.41 k/uL (0-1.0); Neutrophils # (M) 3.06 k/uL (1.3-7.7); Neutrophils % (M) 45 %; Nucleated Red Blood Cells 0 /100 WBC (0-0); Total Cells Counted 100
--- NOTE | 2023-11-02 12:40 | P.PN ---
Subjective Progress Note Date: 11/02/23 Principal diagnosis: Elevated LFTs This is a pleasant 58-year-old male who presented to the emergency department for fever, chills, and confusion. Patient has a recent history of right hip surgery and apparently there was an area that was found that they were concerned possible infection and patient was started on Augmentin from his primary care provider last week Tuesday and has been on for 4 days with the last dose being Tuesday. Apparently on Tuesday patient started becoming very weak, confused, with fevers. He has a past medical history including heart murmur, seizures, kidney stones patient came in for further evaluation. Patient was noted to have elevated liver enzymes on admission. He had a CT of the abdomen and pelvis which reported new splenomegaly, new mild upper abdominal, periaortic and iliac chain and inguinal lymphadenopathy. He also had a liver ultrasound that reported hepatomegaly. Sludge within the gallbladder. Small amount of fluid may be adjacent to the gallbladder. Gallbladder [place] the upper limits of normal. Clinical correlation for acute cholecystitis. Patient denied any abdominal pain on admission. States he may have some mild discomfort but that is all. He had some nausea but no vomiting. No previous history of liver disease. No history of alcoholism. Hepatitis panel nonreactive. Admitting LFTs total bilirubin 4.2 AST 393 ALT 146 alkaline phosphatase 563. WBC 5.3 hemoglobin 11.7 hematocrit 36 platelet count 76,000 INR 1.0 sodium 136 potassium 4.1 BUN 34 creatinine 1.25 total bilirubin 2.1 AST 274 ALT 104 alkaline phosphatase 589 STEFF negative 11/01/2023 Patient seen and examined today as a follow-up. He states he is having abdominal pain in the right upper quadrant and the lower abdomen. Patient also having diarrhea this morning. Scheduled for MRCP which reported no evidence for bile duct obstruction. Nondistended gallbladder with fluid surrounding the gallbladder fossa. Correlate for signs and symptoms of cholecystitis. No evidence to suggest ductal stricture, choledocholithiasis or biliary ductal dilation. Liver tests improving. Total bilirubin 1.4 AST 183 ALT 88 alkaline phosphatase 556. Patient has been afebrile. 11/02/2023 Patient seen and examined resting in bed comfortably. is at his bedside. No reported acute changes through the night reported. Patient has been afebr ile. Yesterday he underwent CT of the neck and chest with contrast. Multiple enlarged mediastinal and hilar lymph nodes. Supraclavicular adenopathy present. Additional workup for lymphoma as recommended consider PET/CT. Stupid thing he also underwent repeat CT of the abdomen pelvis with contrast reporting multiple lymph nodes including enlarged periaortic and inguinal lymph nodes. Additional workup is recommended. PET/CT is recommended to evaluate for lymphoma. Inflammatory changes near the cecum and in the pericolic gutter. Clinical management of any suspected appendicitis is recommended. Objective - Vital Signs Vital signs: Vital Signs Temp 97.4 F L 11/02/23 04:00 Pulse 76 11/02/23 04:00 Resp 17 11/02/23 04:00 BP 112/79 11/02/23 04:00 Pulse Ox 96 11/02/23 04:00 FiO2 Intake & Output 11/01/23 11/02/23 11/02/23 18:59 06:59 18:59 Intake Total 100 Output Total 300 400 Balance -200 -400 Intake: Intake, IV Titration 100 Amount Ampicillin-Sulbactam 3 gm 100 In Sodium Chloride 0.9% 100 ml @ 200 mls/hr IVPB Q6HR [facility] Rx#:[id number] Output: Urine 300 400 Other: Voiding Method Urinal Bedside Commode - Exam General appearance: The patient is sleeping appears in no acute distress. Obese. HET: Head is normocephalic and atraumatic. Conjunctiva pink. Sclera anicteric. Neck: Supple without lymphadenopathy. Abdomen: Soft, nondistended. Extremities: Normal skin color and turgor. No pedal edema Skin: No rashes, no jaundice Neurological: Alert and oriented. - Labs CBC & Chem 7: 11/02/23 10:02 11/02/23 10:02 Labs: Abnormal Lab Results - Last 24 Hours (Table) 10/31/23 11/01/23 11/01/23 Range/Units 06:17 10:07 10:07 Hgb 12.4 L (13.0-17.5) gm/dL Hct 38.4 L (39.0-53.0) % Plt Count 76 L (150-450) k/uL Lymphocytes # (Manual) 5.28 H (1.0-4.8) k/uL Monocytes # (Manual) 1.06 H (0-1.0) k/uL Carbon Dioxide 32 H (22-30) mmol/L Glucose 104 H (74-99) mg/dL POC Glucose (mg/dL) (70-110) mg/dL Calcium 7.6 L (8.4-10.2) mg/dL Total Bilirubin 1.4 H (0.2-1.3) mg/dL AST 183 H (17-59) U/L ALT 88 H (4-49) U/L Alkaline Phosphatase 556 H (38-126) U/L Albumin 2.7 L (3.5-5.0) g/dL Albumin (PEP) 2.75 L (3.80-4.90) g/dL Qsgtu-0-Hkzoqfaxm 0.42 H (0.10-0.40) g/dL Gamma Globulins 1.63 H (0.70-1.50) g/dL 11/01/23 Range/Units 20:23 Hgb (13.0-17.5) gm/dL Hct (39.0-53.0) % Plt Count (150-450) k/uL Lymphocytes # (Manual) (1.0-4.8) k/uL Monocytes # (Manual) (0-1.0) k/uL Carbon Dioxide (22-30) mmol/L Glucose (74-99) mg/dL POC Glucose (mg/dL) 113 H (70-110) mg/dL Calcium (8.4-10.2) mg/dL Total Bilirubin (0.2-1.3) mg/dL AST (17-59) U/L ALT (4-49) U/L Alkaline Phosphatase (38-126) U/L Albumin (3.5-5.0) g/dL Albumin (PEP) (3.80-4.90) g/dL Ausiq-5-Jyryenbba (0.10-0.40) g/dL Gamma Globulins (0.70-1.50) g/dL Microbiology - Last 24 Hours (Table) 10/29/23 21:45 Blood Culture - Preliminary Blood 10/29/23 22:00 Blood Culture - Preliminary Blood Assessment and Plan (1) Elevated LFTs Narrative/Plan: 58-year-old male presenting to the emergency department with fever chill, and altered mental status changes. Concerns for infection possibly related to urinary tract infection versus previous right hip repair infection. Patient was started on Augmentin last week Tuesday and was on it for 4 days duration prior to symptoms starting. Patient presented with elevated liver enzymes with no previous history of liver disease. Likely we are dealing with medication induced cholestasis however we need to consider possibility of choledocholithiasis. LFTs continue to improve. MRCP with no evidence choledocholithiasis, cold CBD obstruction. Possible patient had a biliary stone that passed. General surgery following and plan cholecystectomy on for cholecystitis. No further workup indicated by gastroenterology. Current Visit: Yes Status: Acute Code(s): R79.89 - OTHER SPECIFIED ABNORMAL FINDINGS OF BLOOD CHEMISTRY SNOMED Code(s): 550234598 (2) Obesity Current Visit: Yes Status: Acute Code(s): E66.9 - OBESITY, UNSPECIFIED SNOMED Code(s): 269930260 (3) Fever Current Visit: Yes Status: Acute Priority: High Code(s): R50.9 - FEVER, UNSPECIFIED SNOMED Code(s): 173732490 (4) Lymphadenopathy Current Visit: Yes Status: Acute Priority: Medium Code(s): R59.1 - GENERALIZED ENLARGED LYMPH NODES SNOMED Code(s): 60442439 Plan: 1. Continue symptomatic and supportive care 2. MRCP ordered and reviewed 3. Avoid hepatotoxic medications 4. Daily CMP 5. Elevated liver function test likely secondary to Augmentin, possible passing of biliary stone. LFTs continue to trend down 6. Continue with recommendations from general surgery 7. No further workup or intervention indicated by gastroenterology Thank you for this consultation, we will sign off at this time. Dr. Marnie Sarmiento I agree with the dictator's note, documented as a scribe by Rachael Morrison.
--- NOTE | 2023-11-02 12:41 | P.PN ---
Subjective Progress Note Date: 11/02/23 Patient is a 58-year-old male with a past medical history of patient right total hip arthroplasty on 09/06/2023, chronic neck pain and back pain with prior history of multiple orthopedic procedures, osteoarthritis, currently everyday smoker and occasional marijuana use and prior history of renal stones presents to ER with complaints of fever. Patient has been having fever for the past 1 week as per his at bedside. Patient is somewhat poor historian. Patient was seen by his physician about 5 days ago and was started on antibiotics for possible right hip surgical wound infection due to redness and scab. No purulent drainage was noted. Patient continues to have fevers at home. Denies any cough or sputum production. No sore throat. No nausea or vomiting. Denies any abdominal pain otherwise. He has been having fevers went up to 102 F at home. He has been taking [place] 2 tablets 4 times daily and also Tylenol 650 mg every 6 hourly. Patient is also taking Motrin at home. Denies any dysuria or hematuria. X-ray of the hip showed hip arthroplasty with hardware intact and in appropriate alignment. No acute fracture. No osseous erosion noted. EKG showed sinus rhythm. CT of the abdomen pelvis was done due to fever and elevated liver enzymes. Showed new splenomegaly. New mild upper abdominal, periaortic, iliac chain and inguinal lymphadenopathy. Gallbladder and bile ducts unremarkable. No calcified stones. No ductal dilation. CT head showed negative study. Laboratory data showed WBC 5.0 hemoglobin 14.1 and platelets 85 Sodium 135 potassium 4.6 chloride 107 bicarb is 16 BUN 17 creatinine 2.9 and blood sugar 111 and calcium 7.0 total bili 4.2, AST 393, ALT 146, alk phos 563 and albumin 3.2 Urinalysis showed 1+ protein small blood negative nitrite negative leukocyte esterase and WBC 16. Influenza A, B, RSV and COVID-19 PCR not detected. Patient was given a dose of ceftriaxone in the ER. Patient developed a rash over his legs and lower abdomen today afternoon and was given a dose of IV dexamethasone and Benadryl. Patient also developed hypotension. He was transferred to telemetry unit. 10/30. Patient seen and examined. Blood work done this morning showed WBC 5.3, hemoglobin 11.7, platelet count 76, fibrinogen 192, sodium 136, potassium 4.1, BUN 34, creatinine 1.25, bilirubin is 2.1, AST 74, ALT 104. Still having abdominal pain. 10/31. Patient seen and examined.Blood work done this morning showed WBC 8.8, hemoglobin 4, sodium 130, potassium 3.5, BUN 18, creatinine 0.84, bilirubin 1.4, AST 183, ALT 88. MRCP ordered. Complaining of right upper quadrant abdominal pain. Also having diarrhea. Patient went into A-fib overnight, currently rate controlled. 11/01. Patient seen and examined. CT chest and neck done showed multiple enlarged mediastinal and hilar lymph nodes, supraclavicular lymphadenopathy present. CT abdominal pelvis done showed multiple lymph nodes including enlarged periaortic and inguinal lymph nodes. Complaining of rash over his lower extremities. REVIEW OF SYSTEMS: CONSTITUTIONAL: No fever, no malaise,. CARDIOVASCULAR: No chest pain, no palpitations, no syncope. PULMONARY: No shortness of breath, no cough, GASTROINTESTINAL: no nausea, no vomiting NEUROLOGICAL: No headaches, no weakness, PHYSICAL EXAMINATION: GENERAL: The patient is alert and oriented x3, not in any acute distress. Ill looking HEENT: Pupils are round and equally reacting to light. EOMI. positive for scleral icterus. No conjunctival pallor. Normocephalic, atraumatic. No pharyngeal erythema. No thyromegaly. CARDIOVASCULAR: S1 and S2 present. No murmurs, rubs, or gallops. PULMONARY: Chest is clear to auscultation, no wheezing or crackles. ABDOMEN: Soft, tender in the right upper quadrant, nondistended, normoactive bowel sounds. No palpable organomegaly. MUSCULOSKELETAL: No joint swelling or deformity. EXTREMITIES: No cyanosis, clubbing, or pedal edema. NEUROLOGICAL: Gross neurological examination did not reveal any focal deficits. SKIN: Maculopapular rash seen on lower extremities Assessment and plan Acute cholecystitis Elevated LFTs New onset splenomegaly Atrial fibrillation Acute kidney injury secondary to ATN due to hypovolemia and NSAID use. Creatinine 2.9 on admission. Baseline 0.8 Upper abdominal, periaortic and iliac chain and inguinal lymphadenopathy as per CT abdomen pelvis. Likely reactive. Non-anion gap metabolic acidosis secondary to CANDE Hypocalcemia Metabolic encephalopathy History of recent right total hip arthroplasty on 09/06/2023 GERD History of renal stones Chronic back pain and neck pain with multiple orthopedic surgeries in the past Anxiety Currently everyday smoker Occasional marijuana use Monitor vital signs Monitor CBC Monitor CMP Continue telemetry monitoring Avoid nephrotoxic agent CT chest and neck done showed multiple enlarged mediastinal and hilar lymph nodes, supraclavicular lymphadenopathy present. CT abdominal pelvis done showed multiple lymph nodes including enlarged periaortic and inguinal lymph nodes. Continue IV fluids DC Unasyn, will talk to ID regarding changing antibiotics secondary to rash Echo done showed mild to moderate LV systolic dysfunction with an EF of 45%. MRCP showed no evidence of biliary duct obstruction Nephrology following Hematology oncology following ID following Cardiology consulted for new onset A-fib, does not require anticoagulation as patient Delvis Vasc score is 0 Surgery following, planning lap cholecystectomy Labs and medication were reviewed.. Continue same treatment. Continue with sy mptomatic treatment. Resume home medication. Monitor labs and vitals. DVT and GI prophylaxis. Further recommendations as per clinical course of the patient Dictation was produced using [employer] dictation software. please excuse any grammatical, word or spelling errors. Objective - Vital Signs Vital signs: Vital Signs Temp 97.8 F 11/02/23 08:45 Pulse 97 11/02/23 08:45 Resp 16 11/02/23 08:45 BP 97/60 11/02/23 08:45 Pulse Ox 95 11/02/23 08:45 FiO2 Intake & Output 11/01/23 11/02/23 11/02/23 18:59 06:59 18:59 Intake Total 100 118 Output Total 300 400 Balance -200 -400 118 Intake: Intake, IV Titration 100 Amount Ampicillin-Sulbactam 3 gm 100 In Sodium Chloride 0.9% 100 ml @ 200 mls/hr IVPB Q6HR [facility] Rx#:[id number] Oral 118 Output: Urine 300 400 Other: Voiding Method Urinal Bedside Commode Bedside Commode - Labs CBC & Chem 7: 11/02/23 10:02 11/02/23 10:02 Labs: Abnormal Lab Results - Last 24 Hours (Table) 10/31/23 11/01/23 11/01/23 Range/Units 06:17 10:07 10:07 Hgb 12.4 L (13.0-17.5) gm/dL Hct 38.4 L (39.0-53.0) % Plt Count 76 L (150-450) k/uL Lymphocytes # (Manual) 5.28 H (1.0-4.8) k/uL Monocytes # (Manual) 1.06 H (0-1.0) k/uL Carbon Dioxide 32 H (22-30) mmol/L Glucose 104 H (74-99) mg/dL POC Glucose (mg/dL) (70-110) mg/dL Calcium 7.6 L (8.4-10.2) mg/dL Total Bilirubin 1.4 H (0.2-1.3) mg/dL AST 183 H (17-59) U/L ALT 88 H (4-49) U/L Alkaline Phosphatase 556 H (38-126) U/L Albumin 2.7 L (3.5-5.0) g/dL Albumin (PEP) 2.75 L (3.80-4.90) g/dL Urhix-0-Ppxixtuah 0.42 H (0.10-0.40) g/dL Gamma Globulins 1.63 H (0.70-1.50) g/dL 11/01/23 Range/Units 20:23 Hgb (13.0-17.5) gm/dL Hct (39.0-53.0) % Plt Count (150-450) k/uL Lymphocytes # (Manual) (1.0-4.8) k/uL Monocytes # (Manual) (0-1.0) k/uL Carbon Dioxide (22-30) mmol/L Glucose (74-99) mg/dL POC Glucose (mg/dL) 113 H (70-110) mg/dL Calcium (8.4-10.2) mg/dL Total Bilirubin (0.2-1.3) mg/dL AST (17-59) U/L ALT (4-49) U/L Alkaline Phosphatase (38-126) U/L Albumin (3.5-5.0) g/dL Albumin (PEP) (3.80-4.90) g/dL Tbxpn-7-Qwxxcisdh (0.10-0.40) g/dL Gamma Globulins (0.70-1.50) g/dL Microbiology - Last 24 Hours (Table) 10/29/23 21:45 Blood Culture - Preliminary Blood 10/29/23 22:00 Blood Culture - Preliminary Blood
--- NOTE | 2023-11-02 13:52 | P.PN ---
Subjective Progress Note Date: 11/02/23 CHIEF COMPLAINT: Fever and altered mental status HISTORY OF PRESENT ILLNESS: Patient sitting in bedside chair. He has tolerated diet. No nausea or vomiting. He reports improvement in his abdominal pain. Mild discomfort right upper quadrant. Afebrile. LFTs are trending downwards and total bilirubin normalized at 1.0. MRCP results report no evidence for bile duct obstruction. Nondistended gallbladder with fluid surrounding the gallbladder fossa correlate for signs and symptoms of cholecystitis. No evidence to suggest ductal stricture, choledocholithiasis or biliary ductal dilatation. CT scan of abdomen and pelvis report multiple lymph nodes including a large periaortic and inguinal lymph nodes. Inflammatory changes near the cecum and in the right pericolic gutter. CT scan of the neck and chest report multiple small lymph nodes in the neck large lymphadenopathy in the supraclavicular regions. Multiple enlarged mediastinal and hilar lymph nodes. Additional workup for lymphoma recommended. Patient with history of appendectomy. Echo with EF of 40 to 45%. Cardiology has patient scheduled for heart cath on Tuesday. Discussed case with cardiology nurse practitioner. Cardiology cleared patient from cardiac standpoint for bladder surgery tomorrow. PHYSICAL EXAM: VITAL SIGNS: Reviewed GENERAL: Well-developed in no acute distress. HEENT: No sclera icterus. Extraocular movements grossly intact. Moist buccal mucosa. Head is atraumatic, normocephalic. Hears conversational speech. No nasal drainage. NECK: Supple without lymphadenopathy. CHEST: Non-labored respirations and equal bilateral excursions. CARDIOVASCULAR: Palpable 2+ radial pulses. ABDOMEN: Soft. Nondistended. Mild tenderness to palpation right upper quadrant. MUSCULOSKELETAL: No clubbing or cyanosis. NEUROLOGIC: No focal or lateralizing signs. Cranial nerves II through XII grossly intact. PSYCH: Appropriate affect. Alert and oriented to person, place and time. SKIN: Well perfused. Good skin turgor. ASSESSMENT: 1. Acute cholecystitis 2. Right upper quadrant and epigastric abdominal pain. Gallbladder ultrasound with sludge, small amount of fluid adjacent to gallbladder and gallbladder wall upper limit of normal 3. Elevated LFTs and total bilirubin. No choledocholithiasis on MRCP 4. Altered mental status 5. Recent right hip replacement with surgical site infection had been on antibiotics 6. Acute kidney injury 7. Lymphadenopathy noted on abdominal CT scan 8. Afib seen by cardiology 9. Thrombocytopenia PLAN: -Patient scheduled for Robotic cholecystectomy tomorrow 11/03/[address] Patel -N.p.o. after midnight -Continue low-fat diet -Continue antibiotics -Repeat labs in a.m. Physician [employer] Pinion Adjuster note has been reviewed by physician. Signing provider agrees with the documented findings, assessment, and plan of care. Objective - Vital Signs Vital signs: Vital Signs Temp 97.8 F 11/02/23 08:45 Pulse 101 H 11/02/23 11:22 Resp 16 11/02/23 11:22 BP 106/72 11/02/23 11:22 Pulse Ox 97 11/02/23 11:22 FiO2 Intake & Output 11/01/23 11/02/23 11/02/23 18:59 06:59 18:59 Intake Total 100 118 Output Total 300 400 Balance -200 -400 118 Intake: Intake, IV Titration 100 Amount Ampicillin-Sulbactam 3 gm 100 In Sodium Chloride 0.9% 100 ml @ 200 mls/hr IVPB Q6HR [facility] Rx#:[id number] Oral 118 Output: Urine 300 400 Other: Voiding Method Urinal Bedside Commode Bedside Commode # Bowel Movements 3 - Labs CBC & Chem 7: 11/02/23 10:02 11/02/23 10:02 Labs: Abnormal Lab Results - Last 24 Hours (Table) 10/31/23 11/01/23 11/02/23 Range/Units 06:17 20:23 10:02 Hgb (13.0-17.5) gm/dL Plt Count (150-450) k/uL Carbon Dioxide 34 H (22-30) mmol/L Glucose 121 H (74-99) mg/dL POC Glucose (mg/dL) 113 H (70-110) mg/dL Calcium 7.5 L (8.4-10.2) mg/dL AST 99 H (17-59) U/L ALT 66 H (4-49) U/L Alkaline Phosphatase 445 H (38-126) U/L Albumin 2.8 L (3.5-5.0) g/dL Albumin (PEP) 2.75 L (3.80-4.90) g/dL Oeduu-4-Tupjtskme 0.42 H (0.10-0.40) g/dL Gamma Globulins 1.63 H (0.70-1.50) g/dL 11/02/23 Range/Units 10:02 Hgb 12.6 L (13.0-17.5) gm/dL Plt Count 46 L (150-450) k/uL Carbon Dioxide (22-30) mmol/L Glucose (74-99) mg/dL POC Glucose (mg/dL) (70-110) mg/dL Calcium (8.4-10.2) mg/dL AST (17-59) U/L ALT (4-49) U/L Alkaline Phosphatase (38-126) U/L Albumin (3.5-5.0) g/dL Albumin (PEP) (3.80-4.90) g/dL Acofx-7-Jzrugtryo (0.10-0.40) g/dL Gamma Globulins (0.70-1.50) g/dL Microbiology - Last 24 Hours (Table) 10/29/23 22:00 Blood Culture - Preliminary Blood 10/29/23 21:45 Blood Culture - Preliminary Blood
[2023-11-02] MEDS: AZTREONAM 2 GM in SODIUM CHLORIDE 0.9% 100 ML IVPB SCH (15:32)
[2023-11-02 16:51] LABS: Glucose,Whole Blood 103 mg/dL (70-110)
--- NOTE | 2023-11-02 17:37 | P.PN ---
Subjective Progress Note Date: 11/02/23 Principal diagnosis: Anemia In f/u today pt reporting that he did not sleep well last night. He still is feeling really weak. Abdominal discomfort is persistent but not progressive at this time. His was at the bedside. There are plans for cholecystectomy tomorrow. Objective - Vital Signs Vital signs: Vital Signs Temp 97.8 F 11/02/23 08:45 Pulse 99 11/02/23 16:28 Resp 18 11/02/23 16:28 BP 110/52 11/02/23 16:28 Pulse Ox 98 11/02/23 16:28 FiO2 Intake & Output 11/01/23 11/02/23 11/02/23 18:59 06:59 18:59 Intake Total 100 358 Output Total 300 400 250 Balance -200 -400 108 Intake: Intake, IV Titration 100 Amount Ampicillin-Sulbactam 3 gm 100 In Sodium Chloride 0.9% 100 ml @ 200 mls/hr IVPB Q6HR [facility] Rx#:[id number] Oral 358 Output: Urine 300 400 250 Other: Voiding Method Urinal Bedside Commode Bedside Commode # Bowel Movements 3 - Constitutional General appearance: Present: average body habitus, cooperative, no acute distres s - EENT Eyes: Present: anicteric sclerae, EOMI ENT: Present: hearing grossly normal - Respiratory Details: Respirations even and unlabored at rest - Cardiovascular Details: Skin warm and dry to the touch - Peripheral edema leg Peripheral Edema: bilateral: None - Integumentary Integumentary: Present: normal - Neurologic Neurologic: Present: CNII-XII intact - Musculoskeletal Musculoskeletal: Present: generalized weakness, strength equal bilaterally - Psychiatric Psychiatric: Absent: A&O x's 3, appropriate affect, intact judgment & insight - Labs CBC & Chem 7: 11/02/23 10:02 11/02/23 10:02 Labs: Abnormal Lab Results - Last 24 Hours (Table) 11/01/23 11/02/23 11/02/23 Range/Units 20:23 10:02 10:02 Hgb 12.6 L (13.0-17.5) gm/dL Plt Count 46 L (150-450) k/uL Carbon Dioxide 34 H (22-30) mmol/L Glucose 121 H (74-99) mg/dL POC Glucose (mg/dL) 113 H (70-110) mg/dL Calcium 7.5 L (8.4-10.2) mg/dL AST 99 H (17-59) U/L ALT 66 H (4-49) U/L Alkaline Phosphatase 445 H (38-126) U/L Albumin 2.8 L (3.5-5.0) g/dL Microbiology - Last 24 Hours (Table) 10/29/23 22:00 Blood Culture - Preliminary Blood 10/29/23 21:45 Blood Culture - Preliminary Blood - Imaging and Cardiology CT scan - abdomen: report reviewed CT scan - chest: report reviewed CT scan - pelvis: report reviewed Assessment and Plan (1) Fever Current Visit: Yes Status: Acute Priority: High Code(s): R50.9 - FEVER, UNSPECIFIED SNOMED Code(s): 437352579 (2) Lymphadenopathy Current Visit: Yes Status: Acute Priority: Medium Code(s): R59.1 - GENERALIZED ENLARGED LYMPH NODES SNOMED Code(s): 36121230 (3) Thrombocytopenia Current Visit: Yes Status: Acute Priority: Medium Code(s): D69.6 - THROMBOCYTOPENIA, UNSPECIFIED SNOMED Code(s): 013268491 Plan: Fever -Etiology is not clear, suspect infection. Pt cont on antibiotics, infection w/u in progress. Infectious diseases following. No recent fevers. -Ultrasound of the liver is reporting hepatomegaly 18.7 cm some sludge within the gallbladder small amount of fluid adjacent to the gallbladder, correlate for acute cholecystitis, surgery consulted, plans for cholecystectomy tomorrow. -LFTs continue to improve. Renal function normal at this time. Lymphadenopathy -Noncontrast CT lymphadenopathy not specific. No palpable nodes. -CT CAP with contrast is reporting lymphadenopathy in the hilar, supraclavicular, periaortic and inguinal areas. There is inflammation near the cecum and right paracolic gutter. Reviewed with patient and his possibilities for lymphadenopathy including infection as well as malignant process such as lymphoma. Diagnosis requires pathological evaluation of a lymph node. Patient and agree with plan as discussed with surgical PA below. -Case was discussed with surgical PA. Surgeon is going to assess for any suspicious looking lymph nodes during cholecystectomy and remove 1 if able. If none are visualized then have asked for a possible lymph node excision, possibly of the supraclavicular lymph node. Will know more tomorrow after surgery. -Autoimmune markers reported so far are negative -Paraproteinemia workup showing elevated kappa and lambda light chains with a normal ratio, no monoclonal paraproteinemia. Thrombocytopenia -[place] to be consumption because of acute illness as well as acute kidney injury -Coags within normal limits, fibrinogen just under 200, no evidence of overt DIC -Continue to monitor platelets for recovery as patient improves. Platelets down to 46,000 today. Will recheck fibrinogen Anemia, normocytic, normochromic -Since admission patient's hemoglobin is drifted down -Basic anemia workup most consistent with anemia of inflammation Doctor attests: I performed a history and physical examination of this patient, developed impression and plan of care. Discussed with dictator. I agree with dictators note, documented as a scribe.
[2023-11-02 19:57] LABS: Chol/HDL Ratio 9.21 Ratio; HDL Cholesterol 15.1 mg/dL (40.00-60.00); VLDL Calculation 109.6 mg/dL (5.00-40.00)
[2023-11-02 20:04] LABS: Glucose,Whole Blood 102 mg/dL (70-110)
[2023-11-02 20:14] LABS: LDL Cholesterol,Direct Reflex 41.8 mg/dL (0.00-129.00)
[2023-11-02] MEDS: LACTATED RINGERS 1,000 ML IV SCH (21:38)
[2023-11-03 06:22] LABS: Glucose,Whole Blood 105 mg/dL (70-110)
[2023-11-03] MEDS ORDERED: HYDROmorphone 0.5 MG/0.5 ML SYRINGE IVP PRN (07:00)
--- NOTE | 2023-11-03 09:02 | P.PN ---
Subjective Progress Note Date: 11/02/23 Principal diagnosis: Reason for follow-up is fever possible cholecystitis Patient is a 58-year-old male with multiple comorbidities presented to the hospital with weakness and fever did have elevated liver enzymes and concerning for possible cholecystitis. On today's evaluation that is 11/02/2023, Patient is afebrile patient is currently on room air however was complaining of some shortness of breath patient is also developed rash and Unasyn has been put on hold by admitting team some nausea but no vomiting denies any worsening abdominal pain the or diarrhea no joint swelling. The patient white count 6.8, creatinine 0.84 liver enzymes have improved blood cultures are currently pending, patient did have repeat CT abdominal pelvis with multiple lymph nodes inflammatory changes near the cecum and the right paracolic gutter Objective - Vital Signs Vital signs: Vital Signs Temp 97.8 F 11/02/23 08:45 Pulse 101 H 11/02/23 11:22 Resp 16 11/02/23 11:22 BP 106/72 11/02/23 11:22 Pulse Ox 97 11/02/23 11:22 FiO2 Intake & Output 11/01/23 11/02/23 11/02/23 18:59 06:59 18:59 Intake Total 100 118 Output Total 300 400 Balance -200 -400 118 Intake: Intake, IV Titration 100 Amount Ampicillin-Sulbactam 3 gm 100 In Sodium Chloride 0.9% 100 ml @ 200 mls/hr IVPB Q6HR [facility] Rx#:[id number] Oral 118 Output: Urine 300 400 Other: Voiding Method Urinal Bedside Commode Bedside Commode # Bowel Movements 3 - Exam GENERAL DESCRIPTION: Middle-age male lying in bed in no distress RESPIRATORY SYSTEM: Unlabored breathing , decreased breath sounds at bases HEART: S1 S2 regular rate and rhythm , ABDOMEN: Soft , mild right-sided tenderness EXTREMITIES: No edema feet - Labs CBC & Chem 7: 11/02/23 10:02 11/02/23 10:02 Labs: Abnormal Lab Results - Last 24 Hours (Table) 10/31/23 11/01/23 11/02/23 Range/Units 06:17 20:23 10:02 Hgb (13.0-17.5) gm/dL Plt Count (150-450) k/uL Carbon Dioxide 34 H (22-30) mmol/L Glucose 121 H (74-99) mg/dL POC Glucose (mg/dL) 113 H (70-110) mg/dL Calcium 7.5 L (8.4-10.2) mg/dL AST 99 H (17-59) U/L ALT 66 H (4-49) U/L Alkaline Phosphatase 445 H (38-126) U/L Albumin 2.8 L (3.5-5.0) g/dL Albumin (PEP) 2.75 L (3.80-4.90) g/dL Gpvmi-4-Vfzpcvgxh 0.42 H (0.10-0.40) g/dL Gamma Globulins 1.63 H (0.70-1.50) g/dL 11/02/23 Range/Units 10:02 Hgb 12.6 L (13.0-17.5) gm/dL Plt Count 46 L (150-450) k/uL Carbon Dioxide (22-30) mmol/L Glucose (74-99) mg/dL POC Glucose (mg/dL) (70-110) mg/dL Calcium (8.4-10.2) mg/dL AST (17-59) U/L ALT (4-49) U/L Alkaline Phosphatase (38-126) U/L Albumin (3.5-5.0) g/dL Albumin (PEP) (3.80-4.90) g/dL Sklhc-1-Gjsrdrjnq (0.10-0.40) g/dL Gamma Globulins (0.70-1.50) g/dL Microbiology - Last 24 Hours (Table) 10/29/23 21:45 Blood Culture - Preliminary Blood 10/29/23 22:00 Blood Culture - Preliminary Blood Assessment and Plan (1) Cholecystitis Current Visit: Yes Status: Acute Code(s): K81.9 - CHOLECYSTITIS, UNSPECIFIED SNOMED Code(s): 37259803 (2) Allergy to fluoroquinolone Current Visit: Yes Status: Acute Code(s): Z88.1 - ALLERGY STATUS TO OTHER ANTIBIOTIC AGENTS SNOMED Code(s): 106449799 (3) Drug rash Current Visit: Yes Status: Acute Code(s): L27.0 - GEN SKIN ERUPTION DUE TO DRUGS AND MEDS TAKEN INTERNALLY SNOMED Code(s): 25671772 Plan: 1patient presented to hospital with fever and weakness in this patient who did have evidence of jaundice abdominal ultrasound concerning for possible c holecystitis and choledocholithiasis and we will need to cover for the enteric gram-negative with the likely pathogen 2-patient did have Cipro/moxifloxacin allergy and apparently seem to have some problem with the Rocephin and has developed a rash to the Unasyn that we will significantly limit the number of antibiotics that can be safely used 3-patient did have MRCP suspicious for cholecystitis, plan is for cholecystectomy in the a.m. 4-we will discontinue Unasyn start the patient on Azactam and monitor his clinical course closely Question concern answered Dictation was produced using [employer] dictation software. please excuse any grammatical, word or spelling errors. Time with Patient: Greater than 30
[2023-11-03 11:21] LABS: HCT 35.1 % (39.0-53.0); HGB 10.9 gm/dL (13.0-17.5); MCH 27.7 pg (25.0-35.0); MCHC 31.1 g/dL (31.0-37.0); MCV 88.9 fL (80.0-100.0); RBC 3.95 m/uL (4.30-5.90); WBC 5.8 k/uL (3.8-10.6)
[2023-11-03 11:25] LABS: Platelet Count 89 k/uL (150-450)
[2023-11-03 11:45] LABS: Glucose,Whole Blood 95 mg/dL (70-110)
[2023-11-03 12:05] LABS: ALT 49 U/L (4-49); AST 62 U/L (17-59); African American GFR (CKD) >90 (>60 ml/min/1.73 sqM); Albumin 2.6 g/dL (3.5-5.0); Alkaline Phosphatase 346 U/L (38-126); Anion Gap 0 mmol/L; Blood Urea Nitrogen 11 mg/dL (9-20); Calcium 7.7 mg/dL (8.4-10.2); Carbon Dioxide 29 mmol/L (22-30); Chloride 107 mmol/L (98-107); Glucose 94 mg/dL (74-99); Non-African American GFR(CKD) >90 (>60 ml/min/1.73 sqM); Potassium 3.6 mmol/L (3.5-5.1); Sodium 136 mmol/L (137-145); Total Protein 6.5 g/dL (6.3-8.2)
[2023-11-03] MEDS ORDERED: NITROGLYCERIN SL TABS 0.4 MG TAB SUBLINGUAL PRN (13:01)
[2023-11-03] MEDS ORDERED: ALPRAZolam 0.25 MG TAB PO PRN (13:01)
--- NOTE | 2023-11-03 13:09 | P.PN ---
Subjective Progress Note Date: 11/03/23 Patient is a 58-year-old male with a past medical history of patient right total hip arthroplasty on 09/06/2023, chronic neck pain and back pain with prior history of multiple orthopedic procedures, osteoarthritis, currently everyday smoker and occasional marijuana use and prior history of renal stones presents to ER with complaints of fever. Patient has been having fever for the past 1 week as per his at bedside. Patient is somewhat poor historian. Patient was seen by his physician about 5 days ago and was started on antibiotics for possible right hip surgical wound infection due to redness and scab. No purulent drainage was noted. Patient continues to have fevers at home. Denies any cough or sputum production. No sore throat. No nausea or vomiting. Denies any abdominal pain otherwise. He has been having fevers went up to 102 F at home. He has been taking [place] 2 tablets 4 times daily and also Tylenol 650 mg every 6 hourly. Patient is also taking Motrin at home. Denies any dysuria or hematuria. X-ray of the hip showed hip arthroplasty with hardware intact and in appropriate alignment. No acute fracture. No osseous erosion noted. EKG showed sinus rhythm. CT of the abdomen pelvis was done due to fever and elevated liver enzymes. Showed new splenomegaly. New mild upper abdominal, periaortic, iliac chain and inguinal lymphadenopathy. Gallbladder and bile ducts unremarkable. No calcified stones. No ductal dilation. CT head showed negative study. Laboratory data showed WBC 5.0 hemoglobin 14.1 and platelets 85 Sodium 135 potassium 4.6 chloride 107 bicarb is 16 BUN 17 creatinine 2.9 and blood sugar 111 and calcium 7.0 total bili 4.2, AST 393, ALT 146, alk phos 563 and albumin 3.2 Urinalysis showed 1+ protein small blood negative nitrite negative leukocyte esterase and WBC 16. Influenza A, B, RSV and COVID-19 PCR not detected. Patient was given a dose of ceftriaxone in the ER. Patient developed a rash over his legs and lower abdomen today afternoon and was given a dose of IV dexamethasone and Benadryl. Patient also developed hypotension. He was transferred to telemetry unit. 10/30. Patient seen and examined. Blood work done this morning showed WBC 5.3, hemoglobin 11.7, platelet count 76, fibrinogen 192, sodium 136, potassium 4.1, BUN 34, creatinine 1.25, bilirubin is 2.1, AST 74, ALT 104. Still having abdominal pain. 10/31. Patient seen and examined.Blood work done this morning showed WBC 8.8, hemoglobin 4, sodium 130, potassium 3.5, BUN 18, creatinine 0.84, bilirubin 1.4, AST 183, ALT 88. MRCP ordered. Complaining of right upper quadrant abdominal pain. Also having diarrhea. Patient went into A-fib overnight, currently rate controlled. 11/01. Patient seen and examined. CT chest and neck done showed multiple enlarged mediastinal and hilar lymph nodes, supraclavicular lymphadenopathy present. CT abdominal pelvis done showed multiple lymph nodes including enlarged periaortic and inguinal lymph nodes. Complaining of rash over his lower extremities. 11/02. Patient seen and examined. Still having abdominal pain. Patient scheduled for laparoscopic cholecystectomy today REVIEW OF SYSTEMS: CONSTITUTIONAL: No fever, no malaise,. CARDIOVASCULAR: No chest pain, no palpitations, no syncope. PULMONARY: No shortness of breath, no cough, GASTROINTESTINAL: no nausea, no vomiting NEUROLOGICAL: No headaches, no weakness, PHYSICAL EXAMINATION: GENERAL: The patient is alert and oriented x3, not in any acute distress. Ill looking HEENT: Pupils are round and equally reacting to light. EOMI. positive for scleral icterus. No conjunctival pallor. Normocephalic, atraumatic. No pharyngeal erythema. No thyromegaly. CARDIOVASCULAR: S1 and S2 present. No murmurs, rubs, or gallops. PULMONARY: Chest is clear to auscultation, no wheezing or crackles. ABDOMEN: Soft, tender in the right upper quadrant, nondistended, normoactive bowel sounds. No palpable organomegaly. MUSCULOSKELETAL: No joint swelling or deformity. EXTREMITIES: No cyanosis, clubbing, or pedal edema. NEUROLOGICAL: Gross neurological examination did not reveal any focal deficits. SKIN: Maculopapular rash seen on lower extremities is improving Assessment and plan Acute cholecystitis Elevated LFTs New onset splenomegaly Atrial fibrillation Acute kidney injury secondary to ATN due to hypovolemia and NSAID use. Creatinine 2.9 on admission. Baseline 0.8 Upper abdominal, periaortic and iliac chain and inguinal lymphadenopathy as per CT abdomen pelvis. Likely reactive. Non-anion gap metabolic acidosis secondary to CANDE Hypocalcemia Metabolic encephalopathy History of recent right total hip arthroplasty on 09/06/2023 GERD History of renal stones Chronic back pain and neck pain with multiple orthopedic surgeries in the past Anxiety Currently everyday smoker Occasional marijuana use Monitor vital signs Monitor CBC Monitor CMP Continue telemetry monitoring Avoid nephrotoxic agent CT chest and neck done showed multiple enlarged mediastinal and hilar lymph nodes, supraclavicular lymphadenopathy present. CT abdominal pelvis done showed multiple lymph nodes including enlarged periaortic and inguinal lymph nodes. Continue IV fluids Continue aztreonam Echo done showed mild to moderate LV systolic dysfunction with an EF of 45%. MRCP showed no evidence of biliary duct obstruction Nephrology following Hematology oncology following ID following Cardiology following, planning cardiac cath tomorrow Surgery following, planning lap cholecystectomy today Labs and medication were reviewed.. Continue same treatment. Continue with symptomatic treatment. Resume home medication. Monitor labs and vitals. DVT and GI prophylaxis. Further recommendations as per clinical course of the patient Dictation was produced using [employer] dictation software. please excuse any grammatical, word or spelling errors. Objective - Vital Signs Vital signs: Vital Signs Temp 97.6 F 11/03/23 12:00 Pulse 73 11/03/23 12:00 Resp 18 11/03/23 12:00 BP 104/70 11/03/23 12:00 Pulse Ox 94 L 11/03/23 12:00 FiO2 Intake & Output 11/02/23 11/03/23 11/03/23 18:59 06:59 18:59 Intake Total 358 10 Output Total 250 1580 Balance 108 -1570 Intake: IV 10 Invasive Line 2 10 Oral 358 Output: Urine 250 1580 Other: Voiding Method Bedside Commode Bedside Commode Bedside Commode # Voids 1 # Bowel Movements 3 - Labs CBC & Chem 7: 11/03/23 10:32 11/03/23 10:32 Labs: Abnormal Lab Results - Last 24 Hours (Table) 11/02/23 11/03/23 11/03/23 Range/Units 10:02 10:32 10:32 RBC 3.95 L (4.30-5.90) m/uL Hgb 10.9 L (13.0-17.5) gm/dL Hct 35.1 L (39.0-53.0) % Plt Count 89 L D (150-450) k/uL Sodium 136 L (137-145) mmol/L Calcium 7.7 L (8.4-10.2) mg/dL AST 62 H (17-59) U/L Alkaline Phosphatase 346 H (38-126) U/L Albumin 2.6 L (3.5-5.0) g/dL Triglycerides 548.00 H (0.00-149.00) mg/dL VLDL Cholesterol, Calc 109.60 H (5.00-40.00) mg/dL HDL Cholesterol 15.10 L (40.00-60.00) mg/dL Microbiology - Last 24 Hours (Table) 10/29/23 21:45 Blood Culture - Preliminary Blood 10/29/23 22:00 Blood Culture - Preliminary Blood
--- NOTE | 2023-11-03 13:11 | P.PN ---
Subjective HISTORY OF PRESENT ILLNESS: This is a 58-year-old male with a past medical history significant for chronic back pain, GERD, anxiety, nicotine dependence, and marijuana use. Patient does not follow with a printer's devil. We have been asked to see the patient in consultation for atrial fibrillation. Patient examined at the bedside. Patient initially presented to the hospital due to weakness, fever, and possible hip infection. Patient went into afib with RVR yesterday. He was started on metoprolol per primary medicine. He remains in atrial fibrillation with controlled ventricular rates. He denies chest pain or pressure. Denies SOB. Blood stable stable. DIAGNOSTICS: - EKG on admission reveals sinus mechanism. Repeat EKG reveals atrial fib rillation. - Laboratory data: WBC 8.8. Hemoglobin 12.4. Platelet count 76. Sodium 138. Potassium 3.5. BUN 18. Creatinine 0.84. TSH 3.610. - Current home cardiac medications include none. 11/02/2023 Patient examined this morning. He is sitting up in the chair. Patient denies chest pain or pressure. He denies shortness of breath. He remains in atrial fibrillation with controlled ventricular rate. Echocardiogram completed revealing ejection fraction 40 to 45%, mild TR, trace to mild AR. 11/03/2023 Patient examined this morning at the bedside. Patient is a little forgetful today. He is scheduled to undergo cholecystectomy today with Dr. Patel. He denies chest pain or pressure. Denies SOB. Vital signs are stable. Telemetry reveals sinus mechanism PHYSICAL EXAM: VITAL SIGNS: Reviewed. GENERAL: Well-developed in no acute distress. HEENT: Head is normocephalic. Pupils are equal, round. Sclerae anicteric. Mucous membranes of the mouth are moist. Neck supple. No JVD or thyromegaly LUNGS: Respirations even and unlabored. Lungs essentially clear to auscultation bilaterally. HEART: Regular rate and rhythm. S1 and S2 heard. ABDOMEN: Soft. Nondistended. Nontender. EXTREMITIES: Normal range of motion. No clubbing or cyanosis. Peripheral pulses intact. No lower extremity edema NEUROLOGIC: Awake and alert. Oriented x 3. ASSESSMENT: Febrile illness Acute cholecystitis Recent right hip replacement with hip surgical site infection Transaminitis Hyperbilirubinemia Acute kidney injury, resolved New onset paroxysmal atrial fibrillation, currently rate controlled New onset cardiomyopathy, ischemic versus nonischemic, EF 40-45% Chronic back pain GERD Anxiety Nicotine dependence Marijuana use Thrombocytopenia PLAN: Continue current cardiac medications Will consider low dose HANS/ARB in the next 24-48 hours pending blood pressure trends Patient does not require anticoagulation as his [id number] score is 1 Patient scheduled for robotic cholecystectomy today with general surgery. There are no absolute contraindications for patient to undergo surgery from a cardiac standpoint. Will plan for cardiac cath on Tuesday with Dr. Cullen due to new onset cardiomyopathy Further recommendations pending patient course Nurse practitioner note has been reviewed by physician. Signing provider agrees with the documented findings, assessment, and plan of care documented by FINISH PAINTER as a scribe. Objective - Vital Signs Vital signs: Vital Signs Temp 97.6 F 11/03/23 12:00 Pulse 73 11/03/23 12:00 Resp 18 11/03/23 12:00 BP 104/70 11/03/23 12:00 Pulse Ox 94 L 11/03/23 12:00 FiO2 Intake & Output 11/02/23 11/03/23 11/03/23 18:59 06:59 18:59 Intake Total 358 10 Output Total 250 1580 Balance 108 -1570 Intake: IV 10 Invasive Line 2 10 Oral 358 Output: Urine 250 1580 Other: Voiding Method Bedside Commode Bedside Commode Bedside Commode # Voids 1 # Bowel Movements 3 - Labs CBC & Chem 7: 11/03/23 10:32 11/03/23 10:32 Labs: Abnormal Lab Results - Last 24 Hours (Table) 11/02/23 11/03/23 11/03/23 Range/Units 10:02 10:32 10:32 RBC 3.95 L (4.30-5.90) m/uL Hgb 10.9 L (13.0-17.5) gm/dL Hct 35.1 L (39.0-53.0) % Plt Count 89 L D (150-450) k/uL Sodium 136 L (137-145) mmol/L Calcium 7.7 L (8.4-10.2) mg/dL AST 62 H (17-59) U/L Alkaline Phosphatase 346 H (38-126) U/L Albumin 2.6 L (3.5-5.0) g/dL Triglycerides 548.00 H (0.00-149.00) mg/dL VLDL Cholesterol, Calc 109.60 H (5.00-40.00) mg/dL HDL Cholesterol 15.10 L (40.00-60.00) mg/dL Microbiology - Last 24 Hours (Table) 10/29/23 21:45 Blood Culture - Preliminary Blood 10/29/23 22:00 Blood Culture - Preliminary Blood
[2023-11-03] MEDS: IV FLUID CONTINUATION 1,000 ML IV ONE (14:54)
--- NOTE | 2023-11-03 15:04 | P.PN ---
Subjective Progress Note Date: 11/03/23 Principal diagnosis: Reason for follow-up is fever possible cholecystitis Patient is a 58-year-old male with multiple comorbidities presented to the hospital with weakness and fever did have elevated liver enzymes and concerning for possible cholecystitis. On today's evaluation that is 11/03/2023, patient has been afebrile, patient is breathing comfortably and is currently on room air, patient denies having any significant cough no chest pain shortness of breath, patient denies nausea vomiting abdominal epigastric pain is about the same no worsening no diarrhea. No new rash. Patient white count is 5.8, creatinine 0.79 blood culture has been negative Objective - Vital Signs Vital signs: Vital Signs Temp 97.6 F 11/03/23 12:00 Pulse 74 11/03/23 14:58 Resp 16 11/03/23 14:58 BP 124/74 11/03/23 14:59 Pulse Ox 96 11/03/23 14:58 FiO2 Intake & Output 11/02/23 11/03/23 11/03/23 18:59 06:59 18:59 Intake Total 358 10 0 Output Total 250 1580 Balance 108 -1570 0 Intake: IV 10 0 Invasive Line 2 10 Oral 358 Output: Urine 250 1580 Other: Voiding Method Bedside Commode Bedside Commode Bedside Commode # Voids 1 # Bowel Movements 3 - Exam GENERAL DESCRIPTION: Middle-age male lying in bed in no distress RESPIRATORY SYSTEM: Unlabored breathing , decreased breath sounds at bases HEART: S1 S2 regular rate and rhythm , ABDOMEN: Soft , mild right-sided tenderness EXTREMITIES: No edema feet - Labs CBC & Chem 7: 11/03/23 10:32 11/03/23 10:32 Labs: Abnormal Lab Results - Last 24 Hours (Table) 11/02/23 11/03/23 11/03/23 Range/Units 10:02 10:32 10:32 RBC 3.95 L (4.30-5.90) m/uL Hgb 10.9 L (13.0-17.5) gm/dL Hct 35.1 L (39.0-53.0) % Plt Count 89 L D (150-450) k/uL Sodium 136 L (137-145) mmol/L Calcium 7.7 L (8.4-10.2) mg/dL AST 62 H (17-59) U/L Alkaline Phosphatase 346 H (38-126) U/L Albumin 2.6 L (3.5-5.0) g/dL Triglycerides 548.00 H (0.00-149.00) mg/dL VLDL Cholesterol, Calc 109.60 H (5.00-40.00) mg/dL HDL Cholesterol 15.10 L (40.00-60.00) mg/dL Microbiology - Last 24 Hours (Table) 10/29/23 21:45 Blood Culture - Preliminary Blood 10/29/23 22:00 Blood Culture - Preliminary Blood Assessment and Plan (1) Cholecystitis Current Visit: Yes Status: Acute Code(s): K81.9 - CHOLECYSTITIS, UNSPECIFIED SNOMED Code(s): 02298155 (2) Allergy to fluoroquinolone Current Visit: Yes Status: Acute Code(s): Z88.1 - ALLERGY STATUS TO OTHER ANTIBIOTIC AGENTS SNOMED Code(s): 189749327 (3) Drug rash Current Visit: Yes Status: Acute Code(s): L27.0 - GEN SKIN ERUPTION DUE TO DRUGS AND MEDS TAKEN INTERNALLY SNOMED Code(s): 50233067 Plan: 1patient presented to hospital with fever and weakness in this patient who did have evidence of jaundice abdominal ultrasound concerning for possible cholecystitis and choledocholithiasis and we will need to cover for the enteric gram-negative with the likely pathogen 2-patient did have Cipro/moxifloxacin allergy and apparently seem to have some problem with the Rocephin and has developed a rash to the Unasyn that we will significantly limit the number of antibiotics that can be safely used 3-patient did have MRCP suspicious for cholecystitis, plan is for cholecystectomy scheduled for this afternoon 4-patient to continue with Azactam as he did have problem with both Unasyn and Rocephin and also allergic to fluoroquinolones Question concern answered Dictation was produced using [employer] dictation software. please excuse any grammatical, word or spelling errors. Time with Patient: Less than 30
[2023-11-03] MEDS: ONDANSETRON 4 MG/2 ML VIAL IVP ONE (15:20)
[2023-11-03] MEDS: HYDROCORTISONE SUCCINATE 100 MG/2 ML VIAL IVP ONE (15:20)
[2023-11-03] MEDS ORDERED: PROPOFOL 10 MG/ML 20 ML VIAL IV ONE (15:40)
[2023-11-03] MEDS ORDERED: ROCURONIUM 10 MG/ML (5 ML VIAL) IV ONE (15:40)
[2023-11-03] MEDS ORDERED: NEOSTIGMINE 1 MG/ML 10 ML VIAL ONE (15:40)
[2023-11-03] MEDS ORDERED: fentaNYL (PF) 50 MCG/ML 2 ML AMP ONE (15:40)
[2023-11-03] MEDS ORDERED: LIDOCAINE 1% INJ 10MG/ML (20 ML MDV) ONE (15:40)
[2023-11-03] MEDS ORDERED: GLYCOPYRROLATE 0.2 MG/ML 2 ML VIAL ONE (15:40)
[2023-11-03] MEDS ORDERED: SUCCINYLCHOLINE CHLORIDE 200 MG/10 ML VIAL IV ONE (15:40)
[2023-11-03] MEDS ORDERED: ceFAZolin 1 GM/50 ML BAG (PMX) ONE (15:40)
[2023-11-03] MEDS ORDERED: HYDROmorphone (PF) 1 MG/ML ONE (15:40)
[2023-11-03] MEDS: SODIUM CHLORIDE 0.9% 100 ML with ceFAZolin 2,000 MG IV ONE (15:42)
[2023-11-03] MEDS: LIDOCAINE 1%-EPI 1:100,000 20 ML VIAL SQ ONE (16:26)
--- NOTE | 2023-11-03 17:14 | P.OP ---
Date of Procedure: 11/03/23 Description of Procedure: SURGEON: JAMES VILLALBA MD PREOPERATIVE DIAGNOSES: 1. Acute cholecystitis 2. Abnormal CT scan for lymphoma 3. Generalized anxiety disorder 4. Tobacco abuse disorder 5. Marijuana use 6. Gastroesophageal reflux disease POSTOPERATIVE DIAGNOSES: 1. Acute cholecystitis 2. Abnormal CT scan for lymphoma 3. Generalized anxiety disorder 4. Tobacco abuse disorder 5. Marijuana use 6. Gastroesophageal reflux disease 7. Abdominal ascites 8. Hepatomegaly with fatty liver disease OPERATION: 1. Robotic-assisted da Myesha Xi laparoscopic lysis of adhesions over 50% of the case 2. Robotic-assisted da Myesha Xi laparoscopic cholecystectomy, multiport with FIREFLY ESTIMATED BLOOD LOSS: 10 mL. SPECIMENS REMOVED: Gallbladder. COMPLICATIONS: None. OPERATIVE FINDINGS: 1. Moderate scarring over entire gallbladder with peritoneal adhesions, pericholecystic with features of acute on chronic cholecystitis 2. Hepatomegaly with fatty liver disease 3. Abdominal ascites INDICATIONS: The patient is a 58-year-old male presents with right upper quadrant abdominal pain. Diagnostic studies demonstrated multiple lymphadenopathy concerning for lymphoma. Additional studies confirmed acute cholecystitis. Robotic assisted laparoscopic approach was described. Benefits and risks of the procedure including but not limited to bleeding, infection, injury to the biliary tree was described. Informed consent was obtained. DESCRIPTION OF PROCEDURE: Patient was brought to the operating room, placed in supine position. After general induction, the abdomen had been prepped and draped in standard sterile fashion. The robotic da Myesha XI system was primed. After a timeout protocol was performed, the patient had been prepped and draped in standard sterile fashion. The patient was injected with indocyanine green. A 5 mm 0 degrees laparoscopic trocar entry was performed along the left upper quadrant. The abdomen insufflated to 15 mmHg pressure which was tolerated well. Diagnostic laparoscopy demonstrated no injury to bowel viscera or mesentery. The liver surface was unremarkable. Next, two 8 mm robotic ports were placed along the right upper abdomen. The camera 8-mm port was maintained along the epigastrium. Another 8 mm port was placed along the left upper abdominal wall after exchanging the 5 mm port. Please note that the ports were placed at least 10 to 15 cm away from the target anatomy of the gallbladder. The robot was docked along the left lateral abdomen. The patient was repositioned in reverse Trendelenburg position. Using a grasper for arm 3, a grasper for arm 4, including hook cautery for arm 1, the robotic system was docked and primed as described. Instruments were interchanged by the photographer's assistant including hook cautery, Bovie cautery and clip appliers. I had sat at the console. The gallbladder was scarred with peritoneal adhesions. Lysis of adhesions was performed to free the gallbladder from the surrounding tissues for over 50% of the case. [place] technique with division of the gallbladder from the liver bed was performed to the level of the infundibulum. Next attention was brought to the infundibulum and cystic structures. The infundibulum and cystic duct were dissected free from surrounding tissues. The cystic duct was isolated. FIREFLY was used to identify the cystic artery and cystic structures. A critical view of safety was obtained. Large PLASTIC clips were used throughout the entire case. Using a clip analytical research chemist, 2 clips were placed at the junction of the infundibulum and cystic duct. The cystic duct was divided between clips. Next, the cystic artery was similarly clipped and cauterized. Electro-Bovie cautery was used to remove the gallbladder from the hepatic fossa. Hemostasis was checked and found to be adequate. The robot was undocked. I re-scrubbed into the case. Using a 10 mm Endo Catch bag via the left upper quadrant incision, the specimen was removed from the abdominal cavity. All pneumoperitoneum instruments were evacuated from the abdominal cavity. The incisions were reapproximated using 4-0 Monocryl in an interrupted subcuticular fashion. Fascial defects were less than 8 mm in size. Please note along the trocar sites, local anesthetic was placed as a field block prior to insertion of all instruments. Liquid glue was applied to the skin. At the end of the procedure needle, sponge, and instrument count had been verified correct by the surgical nurse practitioner. The patient was transferred to postanesthesia care unit in stable condition. Intraoperative films were shared with the patient's family.
[2023-11-03] MEDS: INDOCYANINE GREEN 25 MG VIAL IV ONE (18:32)
[2023-11-03 20:21] LABS: Glucose,Whole Blood 126 mg/dL (70-110)
[2023-11-03] MEDS: NYSTATIN 100,000 UNIT/ML SUSP 500,000 UNIT/5 ML CUP PO SCH (21:22)
[2023-11-03] MEDS: ALPRAZolam 0.5 MG TAB PO PRN (23:03)
[2023-11-04] MEDS: AZTREONAM 2 GM in SODIUM CHLORIDE 0.9% 100 ML IVPB SCH (02:47)
[2023-11-04 06:10] LABS: Glucose,Whole Blood 95 mg/dL (70-110)
[2023-11-04] MEDS: SODIUM CHLORIDE 0.9% 1,000 ML in EMPTY BAG 1 BAG IV SCH (06:18)
[2023-11-04] MEDS: ATORVASTATIN 80 MG TAB PO ONE (06:18)
[2023-11-04] MEDS: ASPIRIN 325 MG TAB PO ONE (06:18)
[2023-11-04] MEDS ORDERED: HEPARIN SODIUM,PORCINE (1 ML) 2,500 UNIT in SODIUM CHLORIDE 0.9% 250 ML IRRIGATION PRN (07:00)
[2023-11-04] MEDS ORDERED: HEPARIN SODIUM,PORCINE 10,000 UNIT in SODIUM CHLORIDE 0.9% 1,000 ML IRRIGATION PRN (07:00)
[2023-11-04] MEDS ORDERED: LIDOCAINE 1% INJ 10MG/ML (20 ML MDV) ONE ×2 (07:50→08:48)
[2023-11-04] MEDS ORDERED: VERAPAMIL 2.5 MG/ML 2 ML AMP ONE ×2 (07:50→08:48)
[2023-11-04] MEDS ORDERED: HEPARIN SODIUM 1,000 UN/ML (10ML VL) ONE ×3 (07:50→13:02)
[2023-11-04] MEDS ORDERED: fentaNYL (PF) 50 MCG/ML 2 ML AMP ONE ×2 (08:48→13:02)
--- NOTE | 2023-11-04 11:07 | P.PN ---
Subjective Progress Note Date: 11/04/23 CHIEF COMPLAINT: Fever and altered mental status HISTORY OF PRESENT ILLNESS: Patient postop day #1 status post robotic cholecystectomy. Patient sitting at bedside chair. He does report abdominal pain. Denies any nausea or vomiting. He is n.p.o. currently for heart catheterization today. Afebrile. No new labs. PHYSICAL EXAM: VITAL SIGNS: Reviewed GENERAL: Well-developed in no acute distress. HEENT: No sclera icterus. Extraocular movements grossly intact. Moist buccal mucosa. Head is atraumatic, normocephalic. Hears conversational speech. No nasal drainage. NECK: Supple without lymphadenopathy. CHEST: Non-labored respirations and equal bilateral excursions. CARDIOVASCULAR: Palpable 2+ radial pulses. ABDOMEN: Soft. Nondistended. Incision sites clean dry and intact MUSCULOSKELETAL: No clubbing or cyanosis. NEUROLOGIC: No focal or lateralizing signs. Cranial nerves II through XII grossly intact. PSYCH: confused SKIN: Well perfused. Good skin turgor. ASSESSMENT: 1. Acute cholecystitis 2. Abnormal CT scan for lymphoma 3. Generalized anxiety disorder 4. Tobacco abuse disorder 5. Marijuana use 6. Gastroesophageal reflux disease 7. Abdominal ascites 8. Hepatomegaly with fatty liver disease PLAN: -IV Tylenol added for pain control -Encourage patient to use incentive spirometer -Continue antibiotics -Continue low-fat diet once cleared by cardiology -Continue cardiac workup Physician Hydrostatic Tubing Tester note has been reviewed by physician. Signing provider agrees with the documented findings, assessment, and plan of care. Objective - Vital Signs Vital signs: Vital Signs Temp 98.1 F 11/04/23 08:00 Pulse 74 11/04/23 08:00 Resp 18 11/04/23 08:00 BP 134/80 11/04/23 08:00 Pulse Ox 98 11/04/23 08:00 FiO2 Intake & Output 11/03/23 11/04/23 11/04/23 18:59 06:59 18:59 Intake Total 650 Output Total 10 850 Balance 640 -850 Intake: IV 650 Output: Urine 850 Straight 850 Estimated Blood Loss 10 Other: Voiding Method Bedside Commode Bedside Commode # Voids 1 - Labs CBC & Chem 7: 11/03/23 10:32 11/03/23 10:32 Labs: Abnormal Lab Results - Last 24 Hours (Table) 11/03/23 11/03/23 11/03/23 Range/Units 10:32 10:32 20:19 RBC 3.95 L (4.30-5.90) m/uL Hgb 10.9 L (13.0-17.5) gm/dL Hct 35.1 L (39.0-53.0) % Plt Count 89 L D (150-450) k/uL Sodium 136 L (137-145) mmol/L POC Glucose (mg/dL) 126 H (70-110) mg/dL Calcium 7.7 L (8.4-10.2) mg/dL AST 62 H (17-59) U/L Alkaline Phosphatase 346 H (38-126) U/L Albumin 2.6 L (3.5-5.0) g/dL
[2023-11-04 11:58] LABS: ALT 41 U/L (4-49); AST 51 U/L (17-59); African American GFR (CKD) >90 (>60 ml/min/1.73 sqM); Albumin 2.6 g/dL (3.5-5.0); Alkaline Phosphatase 284 U/L (38-126); Anion Gap 3 mmol/L; Blood Urea Nitrogen 12 mg/dL (9-20); Calcium 7.5 mg/dL (8.4-10.2); Carbon Dioxide 26 mmol/L (22-30); Chloride 109 mmol/L (98-107); Glucose 82 mg/dL (74-99); Non-African American GFR(CKD) >90 (>60 ml/min/1.73 sqM); Potassium 3.5 mmol/L (3.5-5.1); Sodium 138 mmol/L (137-145); Total Protein 6.2 g/dL (6.3-8.2)
[2023-11-04 12:04] LABS: Basophils % (A) 1 %; Eosinophils # (A) 0.1 k/uL (0-0.7); Eosinophils % (A) 1 %; HCT 34.2 % (39.0-53.0); HGB 11.1 gm/dL (13.0-17.5); Lymphocytes # (A) 1.4 k/uL (1.0-4.8); Lymphocytes % (A) 24 %; MCH 28.8 pg (25.0-35.0); MCHC 32.4 g/dL (31.0-37.0); MCV 88.8 fL (80.0-100.0); Mean Platelet Volume 10.8; Monocytes # (A) 0.4 k/uL (0-1.0); Monocytes % (A) 8 %; Neutrophils # (A) 3.6 k/uL (1.3-7.7); Neutrophils % (A) 64 %; RBC 3.85 m/uL (4.30-5.90); RDW 14.9 % (11.5-15.5); WBC 5.6 k/uL (3.8-10.6)
[2023-11-04 12:09] LABS: Platelet Count 162 k/uL (150-450)
[2023-11-04] MEDS: LIDOCAINE 1% INJ 10MG/ML (20 ML MDV) SQ ONE (13:12)
[2023-11-04] MEDS: IV FLUID CONTINUATION 1,000 ML IV ONE (13:12)
[2023-11-04] MEDS: MIDAZOLAM 2 MG/2 ML VIAL IVP ONE (13:12)
[2023-11-04] MEDS: VERAPAMIL SYRINGE (5 MG/10 ML) INTRAARTER ONE (13:14)
--- NOTE | 2023-11-04 13:16 | P.PN ---
Subjective Progress Note Date: 11/04/23 Patient is a 58-year-old male with a past medical history of patient right total hip arthroplasty on 09/06/2023, chronic neck pain and back pain with prior history of multiple orthopedic procedures, osteoarthritis, currently everyday smoker and occasional marijuana use and prior history of renal stones presents to ER with complaints of fever. Patient has been having fever for the past 1 week as per his at bedside. Patient is somewhat poor historian. Patient was seen by his physician about 5 days ago and was started on antibiotics for possible right hip surgical wound infection due to redness and scab. No purulent drainage was noted. Patient continues to have fevers at home. Denies any cough or sputum production. No sore throat. No nausea or vomiting. Denies any abdominal pain otherwise. He has been having fevers went up to 102 F at home. He has been taking [place] 2 tablets 4 times daily and also Tylenol 650 mg every 6 hourly. Patient is also taking Motrin at home. Denies any dysuria or hematuria. X-ray of the hip showed hip arthroplasty with hardware intact and in appropriate alignment. No acute fracture. No osseous erosion noted. EKG showed sinus rhythm. CT of the abdomen pelvis was done due to fever and elevated liver enzymes. Showed new splenomegaly. New mild upper abdominal, periaortic, iliac chain and inguinal lymphadenopathy. Gallbladder and bile ducts unremarkable. No calcified stones. No ductal dilation. CT head showed negative study. Laboratory data showed WBC 5.0 hemoglobin 14.1 and platelets 85 Sodium 135 potassium 4.6 chloride 107 bicarb is 16 BUN 17 creatinine 2.9 and blood sugar 111 and calcium 7.0 total bili 4.2, AST 393, ALT 146, alk phos 563 and albumin 3.2 Urinalysis showed 1+ protein small blood negative nitrite negative leukocyte esterase and WBC 16. Influenza A, B, RSV and COVID-19 PCR not detected. Patient was given a dose of ceftriaxone in the ER. Patient developed a rash over his legs and lower abdomen today afternoon and was given a dose of IV dexamethasone and Benadryl. Patient also developed hypotension. He was transferred to telemetry unit. 10/30. Patient seen and examined. Blood work done this morning showed WBC 5.3, hemoglobin 11.7, platelet count 76, fibrinogen 192, sodium 136, potassium 4.1, BUN 34, creatinine 1.25, bilirubin is 2.1, AST 74, ALT 104. Still having abdominal pain. 10/31. Patient seen and examined.Blood work done this morning showed WBC 8.8, hemoglobin 4, sodium 130, potassium 3.5, BUN 18, creatinine 0.84, bilirubin 1.4, AST 183, ALT 88. MRCP ordered. Complaining of right upper quadrant abdominal pain. Also having diarrhea. Patient went into A-fib overnight, currently rate controlled. 11/01. Patient seen and examined. CT chest and neck done showed multiple enlarged mediastinal and hilar lymph nodes, supraclavicular lymphadenopathy present. CT abdominal pelvis done showed multiple lymph nodes including enlarged periaortic and inguinal lymph nodes. Complaining of rash over his lower extremities. 11/02. Patient seen and examined. Still having abdominal pain. Patient scheduled for laparoscopic cholecystectomy today 11/03. Patient seen and examined. S/p laparoscopic cholecystectomy and lysis of additions on 11/02. Currently n.p.o., going for cardiac cath today REVIEW OF SYSTEMS: CONSTITUTIONAL: No fever, no malaise,. CARDIOVASCULAR: No chest pain, no palpitations, no syncope. PULMONARY: No shortness of breath, no cough, GASTROINTESTINAL: no nausea, no vomiting NEUROLOGICAL: No headaches, no weakness, PHYSICAL EXAMINATION: GENERAL: The patient is alert and oriented x3, not in any acute distress. Ill looking HEENT: Pupils are round and equally reacting to light. EOMI. positive for scleral icterus. No conjunctival pallor. Normocephalic, atraumatic. No pharyngeal erythema. No thyromegaly. CARDIOVASCULAR: S1 and S2 present. No murmurs, rubs, or gallops. PULMONARY: Chest is clear to auscultation, no wheezing or crackles. ABDOMEN: Soft, tender in the right upper quadrant, nondistended, normoactive bowel sounds. Laparoscopic surgical incisions seen MUSCULOSKELETAL: No joint swelling or deformity. EXTREMITIES: No cyanosis, clubbing, or pedal edema. NEUROLOGICAL: Gross neurological examination did not reveal any focal deficits. SKIN: Maculopapular rash seen on lower extremities is improving Assessment and plan Acute cholecystitis Elevated LFTs New onset splenomegaly Atrial fibrillation Acute kidney injury secondary to ATN due to hypovolemia and NSAID use. Creatinine 2.9 on admission. Baseline 0.8 Upper abdominal, periaortic and iliac chain and inguinal lymphadenopathy as per CT abdomen pelvis. Likely reactive. Non-anion gap metabolic acidosis secondary to CANDE Hypocalcemia Metabolic encephalopathy History of recent right total hip arthroplasty on 09/06/2023 GERD History of renal stones Chronic back pain and neck pain with multiple orthopedic surgeries in the past Anxiety Currently everyday smoker Occasional marijuana use Monitor vital signs Monitor CBC Monitor CMP Continue telemetry monitoring Avoid nephrotoxic agent CT chest and neck done showed multiple enlarged mediastinal and hilar lymph nodes, supraclavicular lymphadenopathy present. CT abdominal pelvis done showed multiple lymph nodes including enlarged periaortic and inguinal lymph nodes. S/p laparoscopic cholecystectomy and lysis of additions on 11/02 Continue IV fluids Continue aztreonam Echo done showed mild to moderate LV systolic dysfunction with an EF of 45%. MRCP showed no evidence of biliary duct obstruction Nephrology following Hematology oncology following ID following Cardiology following, planning cardiac cath today Surgery following, Labs and medication were reviewed.. Continue same treatment. Continue with symptomatic treatment. Resume home medication. Monitor labs and vitals. DVT and GI prophylaxis. Further recommendations as per clinical course of the patient Dictation was produced using [employer] dictation software. please excuse any grammatical, word or spelling errors. Objective - Vital Signs Vital signs: Vital Signs Temp 98.1 F 11/04/23 08:00 Pulse 74 11/04/23 08:00 Resp 18 11/04/23 08:00 BP 134/80 11/04/23 08:00 Pulse Ox 98 11/04/23 08:00 FiO2 Intake & Output 11/03/23 11/04/23 11/04/23 18:59 06:59 18:59 Intake Total 650 Output Total 10 850 Balance 640 -850 Intake: IV 650 Output: Urine 850 Straight 850 Estimated Blood Loss 10 Other: Voiding Method Bedside Commode Bedside Commode # Voids 1 - Labs CBC & Chem 7: 11/04/23 11:14 11/04/23 11:14 Labs: Abnormal Lab Results - Last 24 Hours (Table) 11/03/23 11/03/23 11/03/23 Range/Units 10:32 10:32 20:19 RBC 3.95 L (4.30-5.90) m/uL Hgb 10.9 L (13.0-17.5) gm/dL Hct 35.1 L (39.0-53.0) % Plt Count 89 L D (150-450) k/uL Sodium 136 L (137-145) mmol/L POC Glucose (mg/dL) 126 H (70-110) mg/dL Calcium 7.7 L (8.4-10.2) mg/dL AST 62 H (17-59) U/L Alkaline Phosphatase 346 H (38-126) U/L Albumin 2.6 L (3.5-5.0) g/dL
[2023-11-04] MEDS: HEPARIN SODIUM 1,000 UN/ML (10ML VL) IV ONE (13:17)
[2023-11-04] MEDS: IOPAMIDOL-370 100ML BTL INJ ONE (13:25)
[2023-11-04] MEDS ORDERED: RX INFO: IV CONTRAST WAS GIVEN 1 EACH MISC MISCELLANE PRN (13:25)
--- NOTE | 2023-11-04 13:27 | P.PCN ---
Date of Procedure: 11/04/23 Operative Findings: CARDIAC CATHETERIZATION PERFORMING PHYSICIAN: Jareth Cullen MD, RPVI PROCEDURE PERFORMED: 1. Selective right and left coronary angiogram 2. Left heart catheterization 3. Ultrasound-guided access of the right radial artery INDICATION: Cardiomyopathy COMPLICATION: None APPROACH: Right radial artery LEVEL OF SEDATION: Moderate with a sedation length of 13 minutes PROCEDURE DESCRIPTION: After obtaining an informed consent, the patient was brought to cardiac stores laborer. Local anesthesia was performed using lidocaine subcutaneously. The right radial artery was cannulated using Seldinger technique, the guidewire passed easily, following that we advanced a 5-Polish sheath dilator assembly, the wire and dilator were removed and sheath was flushed. Following that, 2 mg of verapamil along with 5000 unit heparin were given. Selective right and left coronary angiogram using a 6-[place]ish JR4 and JL 3.5 catheters. Following that we did left heart catheterization using the JL 3.5 catheter The procedure was completed there was no complication. SELECTIVE CORONARY ANGIOGRAM: The right coronary artery: Large-caliber vessel and a dominant vessel appears to be angiographically normal Left main: Is angiographically normal The left circumflex: Is angiographically normal as well. It is a large-caliber vessel nondominant vessel. Gives rise into a large first and second obtuse marginal branch The left anterior descending artery: Large-caliber vessel. Is angiographically normal. Gives rise into multiple diagonal branches HEMODYNAMICS: LVEDP was 13 mmHg with no gradient was identified across aortic valve CONCLUSION: 1. Normal coronary angiogram 2. Normal left-sided filling pressure POSTPROCEDURE MANAGEMENT: Medical treatment
[2023-11-04] MEDS: SODIUM CHLORIDE 0.9% 1,000 ML IV SCH (14:30)
--- NOTE | 2023-11-04 15:36 | P.PN ---
Subjective Progress Note Date: 11/04/23 Principal diagnosis: Reason for follow-up is fever possible cholecystitis Patient is a 58-year-old male with multiple comorbidities presented to the hospital with weakness and fever did have elevated liver enzymes and concerning for possible cholecystitis.Patient is status post laparoscopic cholecystectomy and lysis of adhesion completed on 11/03/2023 On today's evaluation that is 11/04/2023,the patient denies any fever or any chills, patient is breathing comfortably on room air, the patient denies chest pain shortness of breath and no significant cough, patient epigastric right upper quadrant pain has decreased intensity no nausea no vomiting no diarrhea has decreased in intensity. Patient white count is 5.6, creatinine 0.86, blood culture has been negative Objective - Vital Signs Vital signs: Vital Signs Temp 98.2 F 11/04/23 00:00 Pulse 69 11/04/23 04:00 Resp 18 11/04/23 04:00 BP 144/81 11/04/23 04:00 Pulse Ox 95 11/04/23 04:00 FiO2 Intake & Output 11/03/23 11/04/23 11/04/23 18:59 06:59 18:59 Intake Total 650 Output Total 10 850 Balance 640 -850 Intake: IV 650 Output: Urine 850 Straight 850 Estimated Blood Loss 10 Other: Voiding Method Bedside Commode Bedside Commode # Voids 1 - Exam GENERAL DESCRIPTION: Middle-age male lying in bed in no distress RESPIRATORY SYSTEM: Unlabored breathing , decreased breath sounds at bases HEART: S1 S2 regular rate and rhythm , ABDOMEN: Soft , mild right-sided tenderness EXTREMITIES: No edema feet - Labs CBC & Chem 7: 11/04/23 11:14 11/04/23 11:14 Labs: Abnormal Lab Results - Last 24 Hours (Table) 11/03/23 11/03/23 11/03/23 Range/Units 10:32 10:32 20:19 RBC 3.95 L (4.30-5.90) m/uL Hgb 10.9 L (13.0-17.5) gm/dL Hct 35.1 L (39.0-53.0) % Plt Count 89 L D (150-450) k/uL Sodium 136 L (137-145) mmol/L POC Glucose (mg/dL) 126 H (70-110) mg/dL Calcium 7.7 L (8.4-10.2) mg/dL AST 62 H (17-59) U/L Alkaline Phosphatase 346 H (38-126) U/L Albumin 2.6 L (3.5-5.0) g/dL Assessment and Plan (1) Cholecystitis Current Visit: Yes Status: Acute Code(s): K81.9 - CHOLECYSTITIS, UNSPECIFIED SNOMED Code(s): 16061178 (2) Allergy to fluoroquinolone Current Visit: Yes Status: Acute Code(s): Z88.1 - ALLERGY STATUS TO OTHER ANTIBIOTIC AGENTS SNOMED Code(s): 856979547 (3) Drug rash Current Visit: Yes Status: Acute Code(s): L27.0 - GEN SKIN ERUPTION DUE TO DRUGS AND MEDS TAKEN INTERNALLY SNOMED Code(s): 69942340 Plan: 1patient presented to hospital with fever and weakness in this patient who did have evidence of jaundice abdominal ultrasound concerning for possible cholecystitis and choledocholithiasis and we will need to cover for the enteric gram-negative with the likely pathogen 2-patient did have Cipro/moxifloxacin allergy and apparently seem to have some problem with the Rocephin and has developed a rash to the Unasyn that we will significantly limit the number of antibiotics that can be safely used 3-patient did have MRCP suspicious for cholecystitis, patient is status post laparoscopic cholecystectomy and lysis of additions completed on 11/04/2023 4-patient to continue with Azactam and monitor clinical course closely Dictation was produced using [employer] dictation software. please excuse any grammatical, word or spelling errors. Time with Patient: Less than 30
[2023-11-04] MEDS: ACETAMINOPHEN IV (For NPO) 1,000 MG in EMPTY BAG 1 BAG IVPB SCH ×2 (16:07→17:27)
[2023-11-04 17:05] VITALS: BMI 29.8
[2023-11-04 18:31] LABS: Glucose,Whole Blood 130 mg/dL (70-110)
[2023-11-04 21:18] LABS: INR 1.2 (<1.2)
[2023-11-04 21:19] LABS: Partial Thromboplastin Time 27.5 sec (22.0-30.0); Prothrombin Time 12.6 sec (10.0-12.5)
[2023-11-04 23:06] LABS: Amorphous Sediment,Urine Rare /hpf; Appearance,Urine Clear (Clear); Bilirubin,Urine Negative (Negative); Blood,Urine Small (Negative); Color,Urine Yellow; Glucose,Urine (UA) Negative (Negative); Hyaline Casts,Urine 1 /lpf (0-2); Ketones,Urine Negative (Negative); Leukocyte Esterase,Urine Negative (Negative); Mucus,Urine Rare /hpf; Nitrite,Urine Negative (Negative); Protein,Urine Trace (Negative); RBC,Urine 8 /hpf (0-5); Specific Gravity,Urine 1.026 (1.001-1.035); Urobilinogen,Urine <2.0 mg/dL (<2.0); WBC,Urine 1 /hpf (0-5)
[2023-11-05] MEDS: HALOPERIDOL LACTATE 5 MG/ML 1 ML VIAL IM PRN (01:58)
[2023-11-05 07:01] LABS: HCT 35.9 % (39.0-53.0); HGB 11.4 gm/dL (13.0-17.5); MCHC 31.8 g/dL (31.0-37.0); MCV 87.9 fL (80.0-100.0); Mean Platelet Volume 10.7; Platelet Count 219 k/uL (150-450); RBC 4.08 m/uL (4.30-5.90); RDW 14.9 % (11.5-15.5)
[2023-11-05 07:11] LABS: ALT 37 U/L (4-49); AST 41 U/L (17-59); African American GFR (CKD) >90 (>60 ml/min/1.73 sqM); Albumin 2.7 g/dL (3.5-5.0); Alkaline Phosphatase 270 U/L (38-126); Anion Gap 2 mmol/L; Blood Urea Nitrogen 8 mg/dL (9-20); Calcium 7.5 mg/dL (8.4-10.2); Carbon Dioxide 24 mmol/L (22-30); Chloride 112 mmol/L (98-107); Glucose 103 mg/dL (74-99); Non-African American GFR(CKD) >90 (>60 ml/min/1.73 sqM); Potassium 3.8 mmol/L (3.5-5.1); Sodium 138 mmol/L (137-145); Total Bilirubin 0.9 mg/dL (0.2-1.3); Total Protein 6.3 g/dL (6.3-8.2)
--- NOTE | 2023-11-05 11:15 | P.PN ---
Subjective Progress Note Date: 11/05/23 Principal diagnosis: Cardiomyopathy The patient is a pleasant 58-year-old gentleman with a past medical history significant for recent diagnosis of cardiomyopathy with EF around 45% and paroxysmal atrial fibrillation who was admitted to the hospital with abdominal discomfort and was diagnosed with gallbladder disease and underwent cholecystectomy. He underwent a heart catheterization and that revealed normal coronaries. November 05, 2023 The patient was seen and evaluated this morning but he is asymptomatic from a cardiovascular standpoint of view. He does have some change in mental status and that to be addressed by the internal medicine team. He is on beta-griselda but he does not need oral anticoagulation because his [id number] score continues to be low and below 2. He reports no pain in the chest and no shortness of breath. No lower extremities edema. Examination reveals regular rhythm with a clear breathing sounds bilaterally and no edema was noted. Assessment Gallbladder disease status post surgery Paroxysmal atrial fibrillation he is maintaining normal sinus mechanism Cardiomyopathy with EF around 45% Multiple comorbid conditions Plan Continue the current medical regimen Follow-up with the patient Objective - Vital Signs Vital signs: Vital Signs Temp 98.1 F 11/04/23 08:00 Pulse 70 11/05/23 10:00 Resp 18 11/05/23 10:00 BP 117/57 11/05/23 00:00 Pulse Ox 96 11/05/23 10:00 FiO2 Intake & Output 11/04/23 11/05/23 11/05/23 18:59 06:59 18:59 Intake Total 286 118 Output Total 900 Balance 286 -900 118 Weight 99.79 kg Intake: IV 50 Oral 236 118 Output: Urine 900 Other: Voiding Method Bedside Commode Bedside Commode - Labs CBC & Chem 7: 11/05/23 06:35 11/05/23 06:35 Labs: Abnormal Lab Results - Last 24 Hours (Table) 11/04/23 11/04/23 11/04/23 Range/Units 11:14 11:14 18:30 RBC 3.85 L (4.30-5.90) m/uL Hgb 11.1 L (13.0-17.5) gm/dL Hct 34.2 L (39.0-53.0) % PT (10.0-12.5) sec INR (<1.2) Chloride 109 H (98-107) mmol/L BUN (9-20) mg/dL Glucose (74-99) mg/dL POC Glucose (mg/dL) 130 H (70-110) mg/dL Calcium 7.5 L (8.4-10.2) mg/dL Alkaline Phosphatase 284 H (38-126) U/L Total Protein 6.2 L (6.3-8.2) g/dL Albumin 2.6 L (3.5-5.0) g/dL Urine Protein (Negative) Urine Blood (Negative) Urine RBC (0-5) /hpf Amorphous Sediment (None) /hpf Urine Mucus (None) /hpf 11/04/23 11/04/23 11/05/23 Range/Units 19:21 22:20 06:35 RBC 4.08 L (4.30-5.90) m/uL Hgb 11.4 L (13.0-17.5) gm/dL Hct 35.9 L (39.0-53.0) % PT 12.6 H (10.0-12.5) sec INR 1.2 H (<1.2) Chloride (98-107) mmol/L BUN (9-20) mg/dL Glucose (74-99) mg/dL POC Glucose (mg/dL) (70-110) mg/dL Calcium (8.4-10.2) mg/dL Alkaline Phosphatase (38-126) U/L Total Protein (6.3-8.2) g/dL Albumin (3.5-5.0) g/dL Urine Protein Trace H (Negative) Urine Blood Small H (Negative) Urine RBC 8 H (0-5) /hpf Amorphous Sediment Rare H (None) /hpf Urine Mucus Rare H (None) /hpf 11/05/23 Range/Units 06:35 RBC (4.30-5.90) m/uL Hgb (13.0-17.5) gm/dL Hct (39.0-53.0) % PT (10.0-12.5) sec INR (<1.2) Chloride 112 H (98-107) mmol/L BUN 8 L (9-20) mg/dL Glucose 103 H (74-99) mg/dL POC Glucose (mg/dL) (70-110) mg/dL Calcium 7.5 L (8.4-10.2) mg/dL Alkaline Phosphatase 270 H (38-126) U/L Total Protein (6.3-8.2) g/dL Albumin 2.7 L (3.5-5.0) g/dL Urine Protein (Negative) Urine Blood (Negative) Urine RBC (0-5) /hpf Amorphous Sediment (None) /hpf Urine Mucus (None) /hpf Microbiology - Last 24 Hours (Table) 10/29/23 21:45 Blood Culture - Final Blood 10/29/23 22:00 Blood Culture - Final Blood
[2023-11-05] MEDS ORDERED: HYDROmorphone 0.5 MG/0.5 ML SYRINGE IVP PRN (12:20)
--- NOTE | 2023-11-05 14:25 | P.PN ---
Subjective Progress Note Date: 11/05/23 Patient is a 58-year-old male with a past medical history of patient right total hip arthroplasty on 09/06/2023, chronic neck pain and back pain with prior history of multiple orthopedic procedures, osteoarthritis, currently everyday smoker and occasional marijuana use and prior history of renal stones presents to ER with complaints of fever. Patient has been having fever for the past 1 week as per his at bedside. Patient is somewhat poor historian. Patient was seen by his physician about 5 days ago and was started on antibiotics for possible right hip surgical wound infection due to redness and scab. No purulent drainage was noted. Patient continues to have fevers at home. Denies any cough or sputum production. No sore throat. No nausea or vomiting. Denies any abdominal pain otherwise. He has been having fevers went up to 102 F at home. He has been taking [place] 2 tablets 4 times daily and also Tylenol 650 mg every 6 hourly. Patient is also taking Motrin at home. Denies any dysuria or hematuria. X-ray of the hip showed hip arthroplasty with hardware intact and in appropriate alignment. No acute fracture. No osseous erosion noted. EKG showed sinus rhythm. CT of the abdomen pelvis was done due to fever and elevated liver enzymes. Showed new splenomegaly. New mild upper abdominal, periaortic, iliac chain and inguinal lymphadenopathy. Gallbladder and bile ducts unremarkable. No calcified stones. No ductal dilation. CT head showed negative study. Laboratory data showed WBC 5.0 hemoglobin 14.1 and platelets 85 Sodium 135 potassium 4.6 chloride 107 bicarb is 16 BUN 17 creatinine 2.9 and blood sugar 111 and calcium 7.0 total bili 4.2, AST 393, ALT 146, alk phos 563 and albumin 3.2 Urinalysis showed 1+ protein small blood negative nitrite negative leukocyte esterase and WBC 16. Influenza A, B, RSV and COVID-19 PCR not detected. Patient was given a dose of ceftriaxone in the ER. Patient developed a rash over his legs and lower abdomen today afternoon and was given a dose of IV dexamethasone and Benadryl. Patient also developed hypotension. He was transferred to telemetry unit. 10/30. Patient seen and examined. Blood work done this morning showed WBC 5.3, hemoglobin 11.7, platelet count 76, fibrinogen 192, sodium 136, potassium 4.1, BUN 34, creatinine 1.25, bilirubin is 2.1, AST 74, ALT 104. Still having abdominal pain. 10/31. Patient seen and examined.Blood work done this morning showed WBC 8.8, hemoglobin 4, sodium 130, potassium 3.5, BUN 18, creatinine 0.84, bilirubin 1.4, AST 183, ALT 88. MRCP ordered. Complaining of right upper quadrant abdominal pain. Also having diarrhea. Patient went into A-fib overnight, currently rate controlled. 11/01. Patient seen and examined. CT chest and neck done showed multiple enlarged mediastinal and hilar lymph nodes, supraclavicular lymphadenopathy present. CT abdominal pelvis done showed multiple lymph nodes including enlarged periaortic and inguinal lymph nodes. Complaining of rash over his lower extremities. 11/02. Patient seen and examined. Still having abdominal pain. Patient scheduled for laparoscopic cholecystectomy today 11/03. Patient seen and examined. S/p laparoscopic cholecystectomy and lysis of additions on 11/02. Currently n.p.o., going for cardiac cath today 11/04. Patient seen and examined. Patient was delirious overnight, could be secondary to pain medications. this morning as well patient is slightly confused. status post cardiac cath on 11/04 which showed normal coronary angiogram. REVIEW OF SYSTEMS: CONSTITUTIONAL: No fever, no malaise,. CARDIOVASCULAR: No chest pain, no palpitations, no syncope. PULMONARY: No shortness of breath, no cough, GASTROINTESTINAL: no nausea, no vomiting NEUROLOGICAL: No headaches, no weakness, PHYSICAL EXAMINATION: GENERAL: The patient is alert and oriented x3, not in any acute distress. Ill looking HEENT: Pupils are round and equally reacting to light. EOMI. positive for scleral icterus. No conjunctival pallor. Normocephalic, atraumatic. No pharyngeal erythema. No thyromegaly. CARDIOVASCULAR: S1 and S2 present. No murmurs, rubs, or gallops. PULMONARY: Chest is clear to auscultation, no wheezing or crackles. ABDOMEN: Soft, tender in the right upper quadrant, nondistended, normoactive bowel sounds. Laparoscopic surgical incisions seen MUSCULOSKELETAL: No joint swelling or deformity. EXTREMITIES: No cyanosis, clubbing, or pedal edema. NEUROLOGICAL: Gross neurological examination did not reveal any focal deficits. SKIN: Maculopapular rash seen on lower extremities is improving Assessment and plan Acute cholecystitis Elevated LFTs New onset splenomegaly Atrial fibrillation Acute kidney injury secondary to ATN due to hypovolemia and NSAID use. Creatinine 2.9 on admission. Baseline 0.8 Upper abdominal, periaortic and iliac chain and inguinal lymphadenopathy as per CT abdomen pelvis. Likely reactive. Non-anion gap metabolic acidosis secondary to CANDE Hypocalcemia Metabolic encephalopathy History of recent right total hip arthroplasty on 09/06/2023 GERD History of renal stones Chronic back pain and neck pain with multiple orthopedic surgeries in the past Anxiety Currently everyday smoker Occasional marijuana use Monitor vital signs Monitor CBC Monitor CMP Continue telemetry monitoring Avoid nephrotoxic agent CT chest and neck done showed multiple enlarged mediastinal and hilar lymph nodes, supraclavicular lymphadenopathy present. CT abdominal pelvis done showed multiple lymph nodes including enlarged periaortic and inguinal lymph nodes. S/p laparoscopic cholecystectomy and lysis of additions on 11/02 status post cardiac cath on 11/04 which showed normal coronary angiogram. Continue aztreonam Echo done showed mild to moderate LV systolic dysfunction with an EF of 45%. MRCP showed no evidence of biliary duct obstruction Nephrology following Hematology oncology following ID following Cardiology following Surgery following, Labs and medication were reviewed.. Continue same treatment. Continue with symptomatic treatment. Resume home medication. Monitor labs and vitals. DVT and GI prophylaxis. Further recommendations as per clinical course of the patient Dictation was produced using [employer] dictation software. please excuse any grammatical, word or spelling errors. Objective - Vital Signs Vital signs: Vital Signs Temp 98.1 F 11/04/23 08:00 Pulse 70 11/05/23 10:00 Resp 18 11/05/23 10:00 BP 117/57 11/05/23 00:00 Pulse Ox 96 11/05/23 10:00 FiO2 Intake & Output 11/04/23 11/05/23 11/05/23 18:59 06:59 18:59 Intake Total 286 118 Output Total 900 Balance 286 -900 118 Weight 99.79 kg Intake: IV 50 Oral 236 118 Output: Urine 900 Other: Voiding Method Bedside Commode Bedside Commode - Labs CBC & Chem 7: 11/05/23 06:35 11/05/23 06:35 Labs: Abnormal Lab Results - Last 24 Hours (Table) 11/04/23 11/04/23 11/04/23 Range/Units 18:30 19:21 22:20 RBC (4.30-5.90) m/uL Hgb (13.0-17.5) gm/dL Hct (39.0-53.0) % PT 12.6 H (10.0-12.5) sec INR 1.2 H (<1.2) Chloride (98-107) mmol/L BUN (9-20) mg/dL Glucose (74-99) mg/dL POC Glucose (mg/dL) 130 H (70-110) mg/dL Calcium (8.4-10.2) mg/dL Alkaline Phosphatase (38-126) U/L Albumin (3.5-5.0) g/dL Urine Protein Trace H (Negative) Urine Blood Small H (Negative) Urine RBC 8 H (0-5) /hpf Amorphous Sediment Rare H (None) /hpf Urine Mucus Rare H (None) /hpf 11/05/23 11/05/23 Range/Units 06:35 06:35 RBC 4.08 L (4.30-5.90) m/uL Hgb 11.4 L (13.0-17.5) gm/dL Hct 35.9 L (39.0-53.0) % PT (10.0-12.5) sec INR (<1.2) Chloride 112 H (98-107) mmol/L BUN 8 L (9-20) mg/dL Glucose 103 H (74-99) mg/dL POC Glucose (mg/dL) (70-110) mg/dL Calcium 7.5 L (8.4-10.2) mg/dL Alkaline Phosphatase 270 H (38-126) U/L Albumin 2.7 L (3.5-5.0) g/dL Urine Protein (Negative) Urine Blood (Negative) Urine RBC (0-5) /hpf Amorphous Sediment (None) /hpf Urine Mucus (None) /hpf Microbiology - Last 24 Hours (Table) 10/29/23 21:45 Blood Culture - Final Blood 10/29/23 22:00 Blood Culture - Final Blood
--- NOTE | 2023-11-05 20:05 | P.PN ---
Subjective Progress Note Date: 11/05/23 Principal diagnosis: Reason for follow-up is fever possible cholecystitis Patient is a 58-year-old male with multiple comorbidities presented to the hospital with weakness and fever did have elevated liver enzymes and concerning for possible cholecystitis.Patient is status post laparoscopic cholecystectomy and lysis of adhesion completed on 11/03/2023 On today's evaluation that is 11/05/2023,the patient remains to be afebrile, patient is on room air not requiring supplemental oxygen and denies any shortness of breath no chest pain or cough.Patient denies having any nausea or vomiting, right-sided abdominal pain has decreased in intensity and no diarrhea. Patient white count 7.0, creatinine 0.80 blood and urine culture has been negative Objective - Vital Signs Vital signs: Vital Signs Temp 98.1 F 11/04/23 08:00 Pulse 70 11/05/23 10:00 Resp 18 11/05/23 10:00 BP 117/57 11/05/23 00:00 Pulse Ox 96 11/05/23 10:00 FiO2 Intake & Output 11/04/23 11/05/23 11/05/23 18:59 06:59 18:59 Intake Total 286 118 Output Total 900 Balance 286 -900 118 Weight 99.79 kg Intake: IV 50 Oral 236 118 Output: Urine 900 Other: Voiding Method Bedside Commode Bedside Commode - Exam GENERAL DESCRIPTION: Middle-age male lying in bed in no distress RESPIRATORY SYSTEM: Unlabored breathing , decreased breath sounds at bases HEART: S1 S2 regular rate and rhythm , ABDOMEN: Soft , mild right-sided tenderness EXTREMITIES: No edema feet Exam completed with the help of MUSEUM DIRECTOR - Labs CBC & Chem 7: 11/05/23 06:35 11/05/23 06:35 Labs: Abnormal Lab Results - Last 24 Hours (Table) 11/04/23 11/04/23 11/04/23 Range/Units 11:14 11:14 18:30 RBC 3.85 L (4.30-5.90) m/uL Hgb 11.1 L (13.0-17.5) gm/dL Hct 34.2 L (39.0-53.0) % PT (10.0-12.5) sec INR (<1.2) Chloride 109 H (98-107) mmol/L BUN (9-20) mg/dL Glucose (74-99) mg/dL POC Glucose (mg/dL) 130 H (70-110) mg/dL Calcium 7.5 L (8.4-10.2) mg/dL Alkaline Phosphatase 284 H (38-126) U/L Total Protein 6.2 L (6.3-8.2) g/dL Albumin 2.6 L (3.5-5.0) g/dL Urine Protein (Negative) Urine Blood (Negative) Urine RBC (0-5) /hpf Amorphous Sediment (None) /hpf Urine Mucus (None) /hpf 11/04/23 11/04/23 11/05/23 Range/Units 19:21 22:20 06:35 RBC 4.08 L (4.30-5.90) m/uL Hgb 11.4 L (13.0-17.5) gm/dL Hct 35.9 L (39.0-53.0) % PT 12.6 H (10.0-12.5) sec INR 1.2 H (<1.2) Chloride (98-107) mmol/L BUN (9-20) mg/dL Glucose (74-99) mg/dL POC Glucose (mg/dL) (70-110) mg/dL Calcium (8.4-10.2) mg/dL Alkaline Phosphatase (38-126) U/L Total Protein (6.3-8.2) g/dL Albumin (3.5-5.0) g/dL Urine Protein Trace H (Negative) Urine Blood Small H (Negative) Urine RBC 8 H (0-5) /hpf Amorphous Sediment Rare H (None) /hpf Urine Mucus Rare H (None) /hpf 11/05/23 Range/Units 06:35 RBC (4.30-5.90) m/uL Hgb (13.0-17.5) gm/dL Hct (39.0-53.0) % PT (10.0-12.5) sec INR (<1.2) Chloride 112 H (98-107) mmol/L BUN 8 L (9-20) mg/dL Glucose 103 H (74-99) mg/dL POC Glucose (mg/dL) (70-110) mg/dL Calcium 7.5 L (8.4-10.2) mg/dL Alkaline Phosphatase 270 H (38-126) U/L Total Protein (6.3-8.2) g/dL Albumin 2.7 L (3.5-5.0) g/dL Urine Protein (Negative) Urine Blood (Negative) Urine RBC (0-5) /hpf Amorphous Sediment (None) /hpf Urine Mucus (None) /hpf Microbiology - Last 24 Hours (Table) 10/29/23 21:45 Blood Culture - Final Blood 10/29/23 22:00 Blood Culture - Final Blood Assessment and Plan (1) Cholecystitis Current Visit: Yes Status: Acute Code(s): K81.9 - CHOLECYSTITIS, UNSPECIFIED SNOMED Code(s): 81171255 (2) Allergy to fluoroquinolone Current Visit: Yes Status: Acute Code(s): Z88.1 - ALLERGY STATUS TO OTHER ANTIBIOTIC AGENTS SNOMED Code(s): 895401372 (3) Drug rash Current Visit: Yes Status: Acute Code(s): L27.0 - GEN SKIN ERUPTION DUE TO DRUGS AND MEDS TAKEN INTERNALLY SNOMED Code(s): 77714789 Plan: 1patient presented to hospital with fever and weakness in this patient who did have evidence of jaundice abdominal ultrasound concerning for possible cholecystitis and choledocholithiasis and we will need to cover for the enteric gram-negative with the likely pathogen 2-patient did have Cipro/moxifloxacin allergy and apparently seem to have some problem with the Rocephin and has developed a rash to the Unasyn that we will significantly limit the number of antibiotics that can be safely used 3-patient did have MRCP suspicious for cholecystitis, patient is status post laparoscopic cholecystectomy and lysis of additions completed on 11/04/2023 4-patient to continue with Azactam because of multiple antibiotic allergies and continue with supportive care Dictation was produced using [employer] dictation software. please excuse any grammatical, word or spelling errors. Time with Patient: Less than 30
--- NOTE | 2023-11-05 20:33 | P.PN ---
Subjective Progress Note Date: 11/05/23 CHIEF COMPLAINT: Fever and altered mental status HISTORY OF PRESENT ILLNESS: Patient postop day #2 status post robotic cholecystectomy. Patient sitting at bedside chair. He does report abdominal pain. Denies any nausea or vomiting. He is n.p.o. currently for heart catheterization yesterday, awiting final cardiology input. PHYSICAL EXAM: VITAL SIGNS: Reviewed GENERAL: Well-developed in no acute distress. HEENT: No sclera icterus. Extraocular movements grossly intact. Moist buccal mucosa. Head is atraumatic, normocephalic. Hears conversational speech. No nasal drainage. NECK: Supple without lymphadenopathy. CHEST: Non-labored respirations and equal bilateral excursions. CARDIOVASCULAR: Palpable 2+ radial pulses. ABDOMEN: Soft. Nondistended. Incision sites clean dry and intact MUSCULOSKELETAL: No clubbing or cyanosis. NEUROLOGIC: No focal or lateralizing signs. Cranial nerves II through XII grossly intact. PSYCH: confused SKIN: Well perfused. Good skin turgor. ASSESSMENT: 1. Acute cholecystitis 2. Abnormal CT scan for lymphoma 3. Generalized anxiety disorder 4. Tobacco abuse disorder 5. Marijuana use 6. Gastroesophageal reflux disease 7. Abdominal ascites 8. Hepatomegaly with fatty liver disease PLAN: -IV Tylenol added for pain control -Encourage patient to use incentive spirometer -Continue antibiotics -Continue low-fat diet once cleared by cardiology -Continue cardiac workup Objective - Vital Signs Vital signs: Vital Signs Temp 98.1 F 11/05/23 16:00 Pulse 72 11/05/23 16:00 Resp 16 11/05/23 16:00 BP 139/74 11/05/23 16:00 Pulse Ox 98 11/05/23 16:00 FiO2 Intake & Output 11/05/23 11/05/23 11/06/23 06:59 18:59 06:59 Intake Total 118 Output Total 900 Balance -900 118 Intake: Oral 118 Output: Urine 900 Other: Voiding Method Bedside Commode Bedside Commode # Voids 2 - Labs CBC & Chem 7: 11/05/23 06:35 11/05/23 06:35 Labs: Abnormal Lab Results - Last 24 Hours (Table) 11/04/23 11/04/23 11/05/23 Range/Units 19:21 22:20 06:35 RBC 4.08 L (4.30-5.90) m/uL Hgb 11.4 L (13.0-17.5) gm/dL Hct 35.9 L (39.0-53.0) % PT 12.6 H (10.0-12.5) sec INR 1.2 H (<1.2) Chloride (98-107) mmol/L BUN (9-20) mg/dL Glucose (74-99) mg/dL Calcium (8.4-10.2) mg/dL Alkaline Phosphatase (38-126) U/L Albumin (3.5-5.0) g/dL Urine Protein Trace H (Negative) Urine Blood Small H (Negative) Urine RBC 8 H (0-5) /hpf Amorphous Sediment Rare H (None) /hpf Urine Mucus Rare H (None) /hpf 11/05/23 Range/Units 06:35 RBC (4.30-5.90) m/uL Hgb (13.0-17.5) gm/dL Hct (39.0-53.0) % PT (10.0-12.5) sec INR (<1.2) Chloride 112 H (98-107) mmol/L BUN 8 L (9-20) mg/dL Glucose 103 H (74-99) mg/dL Calcium 7.5 L (8.4-10.2) mg/dL Alkaline Phosphatase 270 H (38-126) U/L Albumin 2.7 L (3.5-5.0) g/dL Urine Protein (Negative) Urine Blood (Negative) Urine RBC (0-5) /hpf Amorphous Sediment (None) /hpf Urine Mucus (None) /hpf Microbiology - Last 24 Hours (Table) 10/29/23 21:45 Blood Culture - Final Blood
[2023-11-05] MEDS: MELATONIN 3 MG TABLET PO SCH (21:08)
[2023-11-05] MEDS: traZODone HCL 50 MG TAB PO SCH (21:08)
[2023-11-05 23:39] VITALS: RESP 18
[2023-11-06 09:06] VITALS: BP 142/70; PULSE 77; TEMP 97.7
--- NOTE | 2023-11-06 09:12 | P.PN ---
Subjective Progress Note Date: 11/06/23 The patient is doing well. He is status post laparoscopic cholecystectomy. Per the nursing staff he may be discharged home today. On exam vital signs appear stable. Abdomen soft. It. Patient is stable from general surgical standpoint. He was discharged home per the medical service. Objective - Vital Signs Vital signs: Vital Signs Temp 97.7 F 11/06/23 08:10 Pulse 77 11/06/23 08:10 Resp 18 11/06/23 08:10 BP 142/70 11/06/23 08:10 Pulse Ox 100 11/06/23 08:10 FiO2 Intake & Output 11/05/23 11/06/23 11/06/23 18:59 06:59 18:59 Intake Total 118 Balance 118 Intake: Oral 118 Other: Voiding Method Bedside Commode Bedside Commode # Voids 2 1 # Bowel Movements 1 - Labs CBC & Chem 7: 11/05/23 06:35 11/05/23 06:35
--- NOTE | 2023-11-06 12:09 | P.DS ---
Providers Date of admission: 10/30/23 00:30 Expected date of discharge: 11/06/23 Attending physician: Mahad Belle Consults: 10/30/23 00:30 Consult Physician Routine Consulting Provider: Freddy Helm Consult Reason/Comments: ren Do you want consulting provider notified?: Yes 10/30/23 00:32 Consult Physician Routine Consulting Provider: Garrison Garcia Consult Reason/Comments: new lymphadenopaty Do you want consulting provider notified?: Yes 10/30/23 16:39 Consult Physician Routine Consulting Provider: Olivia Maria Consult Reason/Comments: fever Do you want consulting provider notified?: Yes 10/31/23 15:02 Consult Physician Routine Consulting Provider: Rina Patel Consult Reason/Comments: acute cholecystitis Do you want consulting provider notified?: Already Contacted 10/31/23 18:02 Consult Physician Routine Consulting Provider: Jareth Cullen Consult Reason/Comments: atrial fibrillation Do you want consulting provider notified?: Yes 11/05/23 10:50 Consult Physician Routine Consulting Provider: Rina Patel Consult Reason/Comments: evaluation for excisional supraclavicular LN biopsy Do you want consulting provider notified?: Yes Primary care physician: Suzanne Go Hospital Course: Discharge diagnoses; Acute cholecystitis Elevated LFTs Paroxysmal atrial fibrillation he is maintaining normal sinus mechanism Cardiomyopathy with EF around 45% Acute kidney injury secondary to ATN due to hypovolemia and NSAID use. Creatinine 2.9 on admission. Baseline 0.8 Upper abdominal, periaortic and iliac chain and inguinal lymphadenopathy as per CT abdomen pelvis. Likely reactive. Non-anion gap metabolic acidosis secondary to REN Hypocalcemia Metabolic encephalopathy History of recent right total hip arthroplasty on 09/06/2023 GERD History of renal stones Chronic back pain and neck pain with multiple orthopedic surgeries in the past Anxiety Currently everyday smoker Occasional marijuana use Hospital course; Patient is a 58-year-old male with a past medical history of patient right total hip arthroplasty on 09/06/2023, chronic neck pain and back pain with prior history of multiple orthopedic procedures, osteoarthritis, currently everyday smoker and occasional marijuana use and prior history of renal stones presents to ER with complaints of fever. Patient has been having fever for the past 1 week as per his at bedside. Patient is somewhat poor historian. Patient was seen by his physician about 5 days ago and was started on antibiotics for possible right hip surgical wound infection due to redness and scab. No purulent drainage was noted. Patient continues to have fevers at home. Denies any cough or sputum production. No sore throat. No nausea or vomiting. Denies any abdominal pain otherwise. He has been having fevers went up to 102 F at home. He has been taking Eleroy 2 tablets 4 times daily and also Tylenol 650 mg every 6 hourly. Patient is also taking Motrin at home. Denies any dysuria or hematuria. X-ray of the hip showed hip arthroplasty with hardware intact and in appropriate alignment. No acute fracture. No osseous erosion noted. EKG showed sinus rhythm. CT of the abdomen pelvis was done due to fever and elevated liver enzymes. Showed new splenomegaly. New mild upper abdominal, periaortic, iliac chain and inguinal lymphadenopathy. Gallbladder and bile ducts unremarkable. No calcifie d stones. No ductal dilation. CT head showed negative study. Laboratory data showed WBC 5.0 hemoglobin 14.1 and platelets 85 Sodium 135 potassium 4.6 chloride 107 bicarb is 16 BUN 17 creatinine 2.9 and blood sugar 111 and calcium 7.0 total bili 4.2, AST 393, ALT 146, alk phos 563 and albumin 3.2 Urinalysis showed 1+ protein small blood negative nitrite negative leukocyte esterase and WBC 16. Influenza A, B, RSV and COVID-19 PCR not detected. Patient was given a dose of ceftriaxone in the ER. Patient developed a rash over his legs and lower abdomen today afternoon and was given a dose of IV dexamethasone and Benadryl. Patient also developed hypotension. He was transferred to telemetry unit. 10/30. Patient seen and examined. Blood work done this morning showed WBC 5.3, hemoglobin 11.7, platelet count 76, fibrinogen 192, sodium 136, potassium 4.1, BUN 34, creatinine 1.25, bilirubin is 2.1, AST 74, ALT 104. Still having abdominal pain. 10/31. Patient seen and examined.Blood work done this morning showed WBC 8.8, hemoglobin 4, sodium 130, potassium 3.5, BUN 18, creatinine 0.84, bilirubin 1.4, AST 183, ALT 88. MRCP ordered. Complaining of right upper quadrant abdominal pain. Also having diarrhea. Patient went into A-fib overnight, currently rate controlled. 11/01. Patient seen and examined. CT chest and neck done showed multiple enlarged mediastinal and hilar lymph nodes, supraclavicular lymphadenopathy present. CT abdominal pelvis done showed multiple lymph nodes including enlarged periaortic and inguinal lymph nodes. Complaining of rash over his lower extremities. 11/02. Patient seen and examined. Still having abdominal pain. Patient scheduled for laparoscopic cholecystectomy today 11/03. Patient seen and examined. S/p laparoscopic cholecystectomy and lysis of additions on 11/02. Currently n.p.o., going for cardiac cath today 11/04. Patient seen and examined. Patient was delirious overnight, could be secondary to pain medications. this morning as well patient is slightly confused. status post cardiac cath on 11/04 which showed normal coronary angiogram. 11/05. Patient seen and examined. States he feels much better. Discussed with ID, they recommended discontinuing all antibiotics as patient has completed 7 days of antibiotics. Cardiology recommended outpatient follow-up. Patient to follow-up outpatient with hematology oncology to follow-up on lymph node biopsy results. Surgery also cleared the patient for discharge PHYSICAL EXAMINATION: GENERAL: The patient is alert and oriented x3, not in any acute distress. Well developed, well nourished. HEENT: Pupils are round and equally reacting to light. EOMI. No scleral icterus. No conjunctival pallor. Normocephalic, atraumatic. No pharyngeal erythema. No thyromegaly. CARDIOVASCULAR: S1 and S2 present. No murmurs, rubs, or gallops. PULMONARY: Chest is clear to auscultation, no wheezing or crackles. ABDOMEN: Soft, nontender, nondistended, normoactive bowel sounds. No palpable organomegaly. MUSCULOSKELETAL: No joint swelling or deformity. EXTREMITIES: No cyanosis, clubbing, or pedal edema. NEUROLOGICAL: Gross neurological examination did not reveal any focal deficits. SKIN: No rashes. Dictation was produced using [employer] dictation software. please excuse any grammatical, word or spelling errors. Patient Condition at Discharge: Fair Plan - Discharge Summary Discharge Rx Participant: Yes New Discharge Prescriptions: New Aspirin 81 mg PO DAILY #30 tab Metoprolol Tartrate [Lopressor] 25 mg PO BID #60 tab Nitroglycerin Sl Tabs [Nitrostat] 0.4 mg SUBLINGUAL Q5M PRN #30 tab PRN Reason: Chest Pain Continue diazePAM [Valium] 10 mg PO HS Omeprazole [PriLOSEC] 40 mg PO DAILY Famotidine [Pepcid] 20 mg PO HS Ibuprofen [Motrin] 600 mg PO TID PRN PRN Reason: Pain Or Fever > 100.5 Cyclobenzaprine [Flexeril] 10 mg PO HS HYDROcodone/APAP 5-325MG [Eleroy 5-325] 2 tab PO QID Sennosides [Senokot] 17.2 tab PO BID Discontinued predniSONE See Taper PO DIRECTED Amoxic-Pot Clav 500-125 mg [Augmentin 500-125 mg] 1 tab PO Q12HR Discharge Medication List Cyclobenzaprine [Flexeril] 10 mg PO HS 01/19/23 [History] diazePAM [Valium] 10 mg PO HS 01/19/23 [History] Famotidine [Pepcid] 20 mg PO HS 05/24/23 [History] HYDROcodone/APAP 5-325MG [Eleroy 5-325] 2 tab PO QID 05/24/23 [History] Omeprazole [PriLOSEC] 40 mg PO DAILY 05/24/23 [History] Ibuprofen [Motrin] 600 mg PO TID PRN 10/30/23 [History] Sennosides [Senokot] 17.2 tab PO BID 10/30/23 [History] Aspirin 81 mg PO DAILY #30 tab 11/06/23 [Rx] Metoprolol Tartrate [Lopressor] 25 mg PO BID #60 tab 11/06/23 [Rx] Nitroglycerin Sl Tabs [Nitrostat] 0.4 mg SUBLINGUAL Q5M PRN #30 tab 11/06/23 [Rx] Follow up Appointment(s)/Referral(s): Garrison Garcia [STAFF PHYSICIAN] - 2 Weeks Jareth Cullen MD [STAFF PHYSICIAN] - 1 Week Suzanne Go MD [Primary Care Provider] - 1-2 days Rina Patel MD [STAFF PHYSICIAN] - 11/15/23 4:00 pm Discharge Disposition: HOME SELF-CARE
== END 2023-11-06 11:07 | disposition home or self-care (01) | DRG 417 ==
LOC: EC 20:15 → 5NMEDONC 10-30 00:30 → 6NMEDSUR 10-30 11:35 → 3SCARD 10-30 18:15
PROVIDERS: ADMIT Hospitalist; ATTEND Hospitalist
PROC: 8E0W4CZ Robotic Assisted Procedure of Trunk Region, Percutaneous Endoscopic Approach (ICD-10-PCS; principal; 2023-11-03 07:30)
PROC: BF50200 Other Imaging of Bile Ducts using Fluorescing Agent, Indocyanine Green Dye, Intraoperative (ICD-10-PCS; principal; 2023-11-03 07:30)
PROC: 0DNW4ZZ Release Peritoneum, Percutaneous Endoscopic Approach (ICD-10-PCS; principal; 2023-11-03 07:30)
PROC: 0FT44ZZ Resection of Gallbladder, Percutaneous Endoscopic Approach (ICD-10-PCS; principal; 2023-11-03 07:30)
PROC: B2111ZZ Fluoroscopy of Multiple Coronary Arteries using Low Osmolar Contrast (ICD-10-PCS; 2023-11-04 09:00)
PROC: 4A023N7 Measurement of Cardiac Sampling and Pressure, Left Heart, Percutaneous Approach (ICD-10-PCS; 2023-11-04 09:00)
DX: K81.2 Acute cholecystitis with chronic cholecystitis (principal); G93.41 Metabolic encephalopathy; N17.0 Acute kidney failure with tubular necrosis; T81.41XA Infection following a procedure, superficial incisional surgical site, initial encounter; I42.9 Cardiomyopathy, unspecified; R18.8 Other ascites; E87.20 Acidosis, unspecified; D69.6 Thrombocytopenia, unspecified; E83.51 Hypocalcemia; I95.9 Hypotension, unspecified; I48.0 Paroxysmal atrial fibrillation; K76.0 Fatty (change of) liver, not elsewhere classified; E66.9 Obesity, unspecified; Z68.29 Body mass index [BMI] 29.0-29.9, adult; E86.1 Hypovolemia; G62.9 Polyneuropathy, unspecified; D64.9 Anemia, unspecified; G89.29 Other chronic pain; M54.2 Cervicalgia; M54.50 Low back pain, unspecified; K21.9 Gastro-esophageal reflux disease without esophagitis; K66.0 Peritoneal adhesions (postprocedural) (postinfection); F41.1 Generalized anxiety disorder; L27.0 Generalized skin eruption due to drugs and medicaments taken internally; T36.1X5A Adverse effect of cephalosporins and other beta-lactam antibiotics, initial encounter; M19.90 Unspecified osteoarthritis, unspecified site; R74.01 Elevation of levels of liver transaminase levels; R16.1 Splenomegaly, not elsewhere classified; R59.0 Localized enlarged lymph nodes; F17.210 Nicotine dependence, cigarettes, uncomplicated; Z79.891 Long term (current) use of opiate analgesic; Z79.899 Other long term (current) drug therapy; Z96.641 Presence of right artificial hip joint; Z98.1 Arthrodesis status; Z71.3 Dietary counseling and surveillance; Z88.1 Allergy status to other antibiotic agents; Z88.8 Allergy status to other drugs, medicaments and biological substances
CPT/HCPCS: 36415; 70450; 70491; 71260; 73502; 74176; 74177; 74181; 76705; 76937; 80048; 80053; 80061; 80074; 80143; 80306; 81001; 82140; 82306; 82525; 82607; 82728; 82746; 83540; 83550; 83605; 83615; 83721; 83735; 83883; 83921; 83970; 84165; 84443; 84484; 85025; 85027; 85384; 85610; 85730; 86038; 86334; 86850; 86900; 86901; 87040; 87086; 87636; 88304; 88341; 88342; 93005; 93306; 93458; 96361; 96365; 96375; 99285

== ENCOUNTER 2023-11-17 08:01 | Day surgery (SDC) | payer BC ==
[2023-11-17 09:24] VITALS: TEMP 97.7
--- NOTE | 2023-11-17 10:19 | US ---
ULTRASOUND GUIDED CORE BIOPSY RIGHT SUPRACLAVICULAR LYMPH NODE: CLINICAL HISTORY: Right supraclavicular lymph node FINDINGS: The procedure was explained to the patient. The risks, complications, benefits and alternatives were discussed and any questions were answered. Informed consent was obtained. Patient was placed supin e on the ultrasound table and prepped and draped in the usual sterile fashion. Utilizing a 18 gauge needle, 4 passes were made into the requested right supraclavicular lymph node. Patient was stable throughout the procedure. Pathology is pending. All elements of maximal barrier technique were utilized. IMPRESSION: 1. Successful ultrasound guided core biopsy right supraclavicular lymph node.
[2023-11-17 10:52] VITALS: BP 111/56; PULSE 72; RESP 16
== END 2023-11-17 09:55 | disposition home or self-care (01) ==
LOC: RADPROMAIN 08:01
PROVIDERS: ATTEND Internal Medicine Hematology & Oncology
DX: R59.0 Localized enlarged lymph nodes (principal)
CPT/HCPCS: 38505; 76942; 88305

== ENCOUNTER 2023-11-20 14:35 | Emergency (ER) | payer BC ==
--- NOTE | 2023-11-20 14:52 | ED ---
General Adult HPI - General Source: patient, family, RN notes reviewed Mode of arrival: ambulatory Limitations: no limitations <Stephanie Bruno - Last Filed: 11/20/23 14:50> - General Source: patient, family, RN notes reviewed Limitations: no limitations <Arie Hernandez - Last Filed: 11/20/23 17:11> - General Chief complaint: Weakness Stated complaint: Swollen lymph nodes, eyes are yellow Time Seen by Provider: 11/20/23 14:50 - History of Present Illness Initial comments: Quick Note: This is a 58-year-old male who presents to the emergency department for eye discoloration and lymphadenopathy. Patient had his gallbladder removed here last month. At the time of removal his eyes were jaundice, but states that they improved after the gallbladder was removed. However, the eyes started turning yellow again over the last several days. He also developed lymphadenopathy in the neck following the gallbladder removal. He had a biopsy of this with Dr. Garcia which returned negative for lymphoma. Family is concerned that symptoms are not getting any better. Denies any abdominal pain, nausea, or vomiting. (Stephanie Bruno) Patient is a 58-year-old male presenting to the emergency department with co fran for jaundice and lymphadenopathy. states that lymph nodes have been present for the past week. She states the biopsy was done and came back negative. She has also noticed that her eyes appeared jaundiced to her over the past day or 2. Patient did have jaundice in the hospital a month ago and his gallbladder was removed. Patient complains of fatigue, especially in the afternoons (Arie Hernandez) - Related Data Home Medications Medication Instructions Recorded Confirmed Cyclobenzaprine [Flexeril] 10 mg PO TID PRN 01/19/23 11/17/23 diazePAM [Valium] 5 mg PO BID 01/19/23 11/17/23 Famotidine [Pepcid] 20 mg PO HS 05/24/23 11/17/23 HYDROcodone/APAP 5-325MG [[place] 2 tab PO BID 05/24/23 11/17/23 5-325] Omeprazole [PriLOSEC] 40 mg PO DAILY 05/24/23 11/17/23 Ibuprofen [Motrin] 600 mg PO TID PRN 10/30/23 11/17/23 Sennosides [Senokot] 17.2 tab PO BID 10/30/23 11/17/23 Melatonin 5 mg PO HS 11/17/23 11/17/23 Previous Rx's Medication Instructions Recorded Aspirin 81 mg PO DAILY #30 tab 11/06/23 Metoprolol Tartrate [Lopressor] 25 mg PO BID #60 tab 11/06/23 Nitroglycerin Sl Tabs [Nitrostat] 0.4 mg SUBLINGUAL Q5M PRN #30 tab 11/06/23 Amoxicillin 500 mg PO Q8H #30 capsule 11/20/23 Allergies Allergy/AdvReac Type Severity Reaction Status Date / Time ciprofloxacin [From Cipro] Allergy Severe BRAIN STEM Verified 11/17/23 09:03 SEIZURES Quinolones Allergy Severe Seizures Verified 11/17/23 09:03 moxifloxacin [From Avelox] AdvReac Severe Seizures Verified 11/17/23 09:03 Review of Systems ROS Other: All systems not noted in ROS Statement are negative. <Stephanie Bruno - Last Filed: 11/20/23 14:50> ROS Other: All systems not noted in ROS Statement are negative. Constitutional: Reports: chills Eyes: Denies: eye pain Respiratory: Denies: dyspnea Cardiovascular: Denies: chest pain Endocrine: Reports: fatigue Gastrointestinal: Denies: abdominal pain, nausea, vomiting Musculoskeletal: Denies: back pain Hematological/Lymphatic: Reports: swollen glands <Arie Hernandez - Last Filed: 11/20/23 17:11> ROS Statement: Those systems with pertinent positive or pertinent negative responses have been documented in the HPI. Past Medical History Past Medical History: GERD/Reflux, Pneumonia, Seizure Disorder Additional Past Medical History / Comment(s): HEART MURMUR. , SEIZURES R/T ABX- 2007. , HX KIDNEY STONES,. NUMBNESS/TINGLING ARMS, HANDS COLD., CONSTIPATION. , BACK & NECK PAIN, recently hospitalized (11/07/23) for organ failure per patient. History of Any Multi-Drug Resistant Organisms: None Reported Past Surgical History: Appendectomy, Back Surgery, Heart Catheterization, Orthopedic Surgery Additional Past Surgical History / Comment(s): Pain clinic procedures, pilonidal cyst, Laminectomy with decompression lumbar fusion with hardware (12/2021)., 2018 anterior cervical fusion with dissection., lithotripsy, total hip Past Anesthesia/Blood Transfusion Reactions: Previous Problems w/ Anesthesia Additional Past Anesthesia/Blood Transfusion Reaction / Comment(s): combative when he wakes up Past Psychological History: Anxiety Smoking Status: Former smoker Past Alcohol Use History: None Reported Past Drug Use History: Marijuana - Past Family History Father Family Medical History: Cancer, GERD/Reflux <Stephanie Bruno - Last Filed: 11/20/23 14:50> General Exam Limitations: no limitations <Stephanie Bruno - Last Filed: 11/20/23 14:50> Limitations: no limitations General appearance: alert, in no apparent distress Head exam: Present: normocephalic Eye exam: Present: normal appearance. Absent: scleral icterus ENT exam: Present: normal oropharynx Neck exam: Present: lymphadenopathy. Absent: tenderness, meningismus Respiratory exam: Present: normal lung sounds bilaterally Cardiovascular Exam: Present: regular rate, normal rhythm GI/Abdominal exam: Present: soft. Absent: tenderness Extremities exam: Present: normal inspection Neurological exam: Present: alert Psychiatric exam: Present: normal affect, normal mood Skin exam: Present: normal color <Arie Hernandez - Last Filed: 11/20/23 17:11> - General Exam Comments Initial Comments: Visual Physical Exam Vital signs reviewed General: Well-appearing, nontoxic, no acute distress. Head: Normocephalic, atraumatic Eyes: PERRLA, EOMI ENT: Airway patent Chest: Nonlabored breathing Skin: No visual rash, normal skin tone Neuro: Alert and oriented 3 Musculoskeletal: No gross abnormalities (Stephanie Bruno) Course Vital Signs 11/20/23 14:42 Temperature 97.7 F Pulse Rate 105 H Respiratory 20 Rate Blood Pressure 114/73 O2 Sat by Pulse 98 Oximetry Medical Decision Making <Stephanie Bruno - Last Filed: 11/20/23 14:50> - Lab Data Result diagrams: 11/20/23 14:49 11/20/23 14:49 <Arie Hernandez - Last Filed: 11/20/23 17:11> - Medical Decision Making I performed the QuickNote portion of this chart. Signed Stephanie Bruno PA-C. (Stephanie Bruno) Was pt. sent in by a medical professional or institution ([facility], [facility], urgent care, hospital, or [facility]...) When possible be specific @ -No Did you speak to anyone other than the patient for history (EMS, parent, family, police, friend...)? What history was obtained from this source @ - is present and helps provide history including previous hospitalization and her concern for scleral icterus Did you review nursing and triage notes (agree or disagree)? Why? @ -I reviewed and agree with nursing and triage notes Were old charts reviewed (outside hosp., previous admission, EMS record, old EKG, old radiological studies, urgent care reports/EKG's, [facility] records)? Report findings @ -Previous labs reviewed. Bilirubin has improved Differential Diagnosis (chest pain, altered mental status, abdominal pain women, abdominal pain men, vaginal bleeding, weakness, fever, dyspnea, syncope, headache, dizziness, GI bleed, back pain, seizure, CVA, palpatations, mental health, musculoskeletal)? @ -Differential Weakness: Hypoglycemia, shock, sepsis, hyponatremia, anemia, infection, [place], ETOH, adverse medicine reaction, overdose, stroke, this is not meant to be an all-inclusive list. EKG interpreted by me (3pts min.). @ -As above X-rays interpreted by me (1pt min.). @ -None done CT interpreted by me (1pt min.). @ -None done U/S interpreted by me (1pt. min.). @ -None done What testing was considered but not performed or refused? (CT, X-rays, U/S, labs)? Why? @ -None What meds were considered but not given or refused? Why? @ -None Did you discuss the management of the patient with other professionals (professionals i.e. , PA, [facility], lab, RT, psych nurse, high school social studies teacher, accounting file clerk, teacher, hearing officer, telephonic case manager)? Give summary @ -No Was smoking cessation discussed for >3mins.? @ -No Was critical care preformed (if so, how long)? @ -No Were there social determinants of health that impacted care today? How? (Homelessness, low income, unemployed, alcoholism, drug addiction, transport ation, low edu. Level, literacy, decrease access to med. care, detention, rehab)? @ -No Was there de-escalation of care discussed even if they declined (Discuss DNR or withdrawal of care, Hospice)? DNR status @ -No What co-morbidities impacted this encounter? (DM, HTN, Smoking, COPD, CAD, Cancer, CVA, ARF, Chemo, Hep., AIDS, mental health diagnosis, sleep apnea, morbid obesity)? @ -None Was patient admitted / discharged? Hospital course, mention meds given and route, prescriptions, significant lab abnormalities, going to OR and other pertinent info. @ -Patient presents with concern for jaundice however does not appear jaundiced on exam. Bilirubin within normal limits. Also concern for lymphadenopathy. Patient has already seen heme-onc for this. Patient has already had biopsy. states is longer present for the past week. Patient will be tried on course of antibiotics for this and recommended follow-up. They state they do have an appointment this week. Undiagnosed new problem with uncertain prognosis? @ -No Drug Therapy requiring intensive monitoring for toxicity (Heparin, Nitro, Insulin, Cardizem)? @ -No Were any procedures done? @ -No Diagnosis/symptom? @ -Lymphadenopathy Acute, or Chronic, or Acute on Chronic? @ -Acute Uncomplicated (without systemic symptoms) or Complicated (systemic symptoms)? @ -Default Side effects of treatment? @ -No Exacerbation, Progression, or Severe Exacerbation? @ -No Poses a threat to life or bodily function? How? (Chest pain, [place], [place], pneumonia, PE, COPD, DKA, ARF, appy, cholecystitis, CVA, Diverticulitis, Homicidal, Suicidal, threat to staff... and all critical care pts) @ -No (Arie Hernandez) - Lab Data Lab Results 11/20/23 11/20/23 11/20/23 Range/Units 14:49 14:49 14:49 WBC 8.2 (3.8-10.6) k/uL RBC 4.89 (4.30-5.90) m/uL Hgb 13.5 (13.0-17.5) gm/dL Hct 42.6 (39.0-53.0) % MCV 87.2 (80.0-100.0) fL MCH 27.7 (25.0-35.0) pg MCHC 31.8 (31.0-37.0) g/dL RDW 16.7 H (11.5-15.5) % Plt Count 187 (150-450) k/uL MPV 8.6 Neutrophils % (Manual) 74 % Band Neuts % (Manual) 2 % Lymphocytes % (Manual) 14 % Monocytes % (Manual) 8 % Eosinophils % (Manual) 1 % Metamyelocytes % 1 % Neutrophils # (Manual) 6.20 (1.3-7.7) k/uL Lymphocytes # (Manual) 1.15 (1.0-4.8) k/uL Monocytes # (Manual) 0.66 (0-1.0) k/uL Eosinophils # (Manual) 0.08 (0-0.7) k/uL Metamyelocytes # (Man) 0.08 H (0) k/uL Nucleated RBCs 0 (0-0) /100 WBC Manual Slide Review Performed Anisocytosis Slight PT 12.3 (10.0-12.5) sec INR 1.1 (<1.2) APTT 23.3 (22.0-30.0) sec Sodium 136 L (137-145) mmol/L Potassium 4.6 (3.5-5.1) mmol/L Chloride 106 (98-107) mmol/L Carbon Dioxide 23 (22-30) mmol/L Anion Gap 7 mmol/L BUN 10 (9-20) mg/dL Creatinine 1.32 H (0.66-1.25) mg/dL Est GFR (CKD-EPI)AfAm 69 (>60 ml/min/1.73 sqM) Est GFR (CKD-EPI)NonAf 59 (>60 ml/min/1.73 sqM) Glucose 88 (74-99) mg/dL Calcium 7.9 L (8.4-10.2) mg/dL Total Bilirubin 0.8 (0.2-1.3) mg/dL Conjugated Bilirubin 0.0 (0.0-0.3) mg/dL Unconjugated Bilirubin 0.3 (0.0-1.1) mg/dL Delta Bilirubin 0.5 H (0.0-0.2) mg/dL AST 44 (17-59) U/L ALT 16 (4-49) U/L Alkaline Phosphatase 188 H (38-126) U/L Total Protein 9.3 H (6.3-8.2) g/dL Albumin 3.1 L (3.5-5.0) g/dL Disposition <Stephanie Bruno - Last Filed: 11/20/23 14:50> Is patient prescribed a controlled substance at d/c from ED?: No Time of Disposition: 17:10 <Arie Hernandez - Last Filed: 11/20/23 17:11> Clinical Impression: Lymphadenopathy Disposition: HOME SELF-CARE Condition: Stable Instructions (If sedation given, give patient instructions): Lymphadenopathy (ED) Additional Instructions: Prescription sent to pharmacy. Please do follow-up with your primary care physician beginning the week. Please also follow-up with hematology/oncology Dr. Garcia this week as planned. Return for fevers, increased weakness, abdominal pain, color change, worsening or changing symptoms or any other concerns. Prescriptions: Amoxicillin 500 mg PO Q8H #30 capsule Referrals: Suzanne Go MD [Primary Care Provider] - 1-2 days
[2023-11-20 15:53] LABS: Anisocytosis Slight; HCT 42.6 % (39.0-53.0); HGB 13.5 gm/dL (13.0-17.5); MCH 27.7 pg (25.0-35.0); MCHC 31.8 g/dL (31.0-37.0); MCV 87.2 fL (80.0-100.0); Mean Platelet Volume 8.6; Platelet Count 187 k/uL (150-450); RBC 4.89 m/uL (4.30-5.90); RDW 16.7 % (11.5-15.5); WBC 8.2 k/uL (3.8-10.6)
[2023-11-20 15:55] LABS: INR 1.1 (<1.2); Partial Thromboplastin Time 23.3 sec (22.0-30.0); Prothrombin Time 12.3 sec (10.0-12.5)
[2023-11-20 16:05] LABS: ALT 16 U/L (4-49); AST 44 U/L (17-59); African American GFR (CKD) 69 (>60 ml/min/1.73 sqM); Albumin 3.1 g/dL (3.5-5.0); Alkaline Phosphatase 188 U/L (38-126); Anion Gap 7 mmol/L; Bilirubin, Delta 0.5 mg/dL (0.0-0.2); Bilirubin,Unconjugated 0.3 mg/dL (0.0-1.1); Blood Urea Nitrogen 10 mg/dL (9-20); Calcium 7.9 mg/dL (8.4-10.2); Carbon Dioxide 23 mmol/L (22-30); Chloride 106 mmol/L (98-107); Glucose 88 mg/dL (74-99); Non-African American GFR(CKD) 59 (>60 ml/min/1.73 sqM); Potassium 4.6 mmol/L (3.5-5.1); Sodium 136 mmol/L (137-145); Total Bilirubin 0.8 mg/dL (0.2-1.3); Total Protein 9.3 g/dL (6.3-8.2)
[2023-11-20 16:23] LABS: Band Neutrophils % 2 %; Eosinophils # (M) 0.08 k/uL (0-0.7); Lymphocytes # (M) 1.15 k/uL (1.0-4.8); Metamyelocytes # (M) 0.08 k/uL (0); Metamyelocytes % 1 %; Monocytes # (M) 0.66 k/uL (0-1.0); Neutrophils % (M) 74 %; Nucleated Red Blood Cells 0 /100 WBC (0-0); Total Cells Counted 200
[2023-11-20 17:48] VITALS: BP 127/78; PULSE 80; RESP 16; TEMP 97.6
== END 2023-11-20 17:27 | disposition home or self-care (01) ==
LOC: EC 14:35
DX: R59.1 Generalized enlarged lymph nodes (principal); Z87.891 Personal history of nicotine dependence; Z88.1 Allergy status to other antibiotic agents; Z88.8 Allergy status to other drugs, medicaments and biological substances
CPT/HCPCS: 36415; 80053; 82248; 85025; 85610; 85730; 99285

== ENCOUNTER → 2023-11-21 | Outpatient (CLI) | payer BC ==
[2023-11-21 19:16] LABS: HCT 39.3 % (39.6-50.0); HGB 12.6 g/dL (13.0-17.0); MCH 27.5 pg (27.0-32.0); MCHC 32.1 g/dL (32.0-37.0); MCV 85.8 FL (80.0-97.0); Mean Platelet Volume 11.1 FL (9.5-12.2); NRBC Per 100 WBC 0 X 10*3/uL (0.00-0.01); Platelet Count 152 X 10*3/uL (140-440); RBC 4.58 X 10*6/uL (4.40-5.60); RDW 17.5 % (11.5-14.5); WBC 8.36 X 10*3/uL (4.50-10.00)
[2023-11-21 20:46] LABS: Basophils # (A) 0.03 X 10*3/uL (0.00-0.10); Basophils % (A) 0.4 %; Eosinophils # (A) 0.03 X 10*3/uL (0.04-0.35); Eosinophils % (A) 0.4 %; Lymphocytes # (A) 2.52 X 10*3/uL (0.90-5.00); Lymphocytes % (A) 30.1 %; Monocytes % (A) 8.4 %; Neutrophils # (A) 5.04 X 10*3/uL (1.80-7.70); Neutrophils % (A) 60.2 %
[2023-11-22 00:18] LABS: NT-Pro-B-Type Natriuretic Pept 1042 pg/mL (0-125)
[2023-11-22 00:20] LABS: ALT 13 U/L (10-49); AST 41 U/L (14-35); Albumin 2.9 g/dL (3.8-4.9); Albumin/Globulin Ratio 0.48 Ratio (1.60-3.17); Alkaline Phosphatase 145 U/L (41-126); BUN/Creat Ratio 8.92 Ratio (12.00-20.00); Blood Urea Nitrogen 10.7 mg/dL (9.0-27.0); Calcium 8.2 mg/dL (8.7-10.3); Carbon Dioxide 19.5 mmol/L (21.6-31.8); Chloride 101 mmol/L (96-109); Globulin 6.1 g/dL (1.6-3.3); Glucose 84 mg/dL (70-110); Potassium 4.2 mmol/L (3.5-5.5); Sodium 134 mmol/L (135-145); Total Bilirubin 0.7 mg/dL (0.3-1.2)
== END | disposition home or self-care (01) ==
LOC: LABWHC1 16:17
PROVIDERS: ATTEND Family Medicine
DX: I48.0 Paroxysmal atrial fibrillation (principal); R60.0 Localized edema
CPT/HCPCS: 36415; 80053; 82140; 83880; 85025

== ENCOUNTER → 2023-12-13 | Outpatient (CLI) | payer BC ==
--- NOTE | 2023-12-14 10:07 | CA ---
Transthoracic Echo Report Name: Tate Ovalles Age: 58 Gender: M : 1965 Exam Date: 12/13/2023 16:16 Exam Location: [facility] Ht (in): 72 Wt (lb): 210 Ordering Physician: Garrison Garcia MD Attending/Referring Phys: Garrison Garcia MD Urban Designer Lola Bullock RDCS Procedure CPT: Indications: Z01.818 CHEMO/PRE OP Cardiac Hx: Technical Quality: Good Contrast 1: Total Dose (mL): Contrast 2: Total Dose (mL): MEASUREMENTS (Male / Female) Normal Values 2D ECHO LV Diastolic Diameter PLAX 5.0 cm 4.2 - 5.9 / 3.9 - 5.3 cm LV Systolic Diameter PLAX 3.4 cm IVS Diastolic Thickness 1.0 cm 0.6 - 1.0 / 0.6 - 0.9 cm LVPW Diastolic Thickness 1.1 cm 0.6 - 1.0 / 0.6 - 0.9 cm LV Relative Wall Thickness 0.4 RV Internal Dim ED PLAX 3.6 cm LA Systolic Diameter LX 3.2 cm 3.0 - 4.0 / 2.7 - 3.8 cm LV Diastolic Volume MOD 4C 107.0 cm??? LV Systolic Volume MOD 4C 56.5 cm??? LV Ejection Fraction MOD 4C 47.2 % LV Cardiac Index MOD 4C 1865.9 cm???/min???m??? LV Diastolic Length 4C 8.6 cm LV Systolic Length 4C 7.1 cm LA Volume 44.1 cm??? 18 - 58 / 22 - 52 cm??? LA Volume Index 19.9 cm???/m??? 16 - 28 cm???/m??? M-MODE Aortic Root Diameter MM 3.5 cm MV E Point Septal Separation 1.2 cm AV Cusp Separation MM 2.6 cm DOPPLER AV Peak Velocity 106.5 cm/s AV Peak Gradient 4.5 mmHg AI Peak Velocity 318.9 cm/s AI Peak Gradient 40.7 mmHg AI Pressure Half Time 856.0 ms MV Area PHT 3.0 cm??? Mitral E Point Velocity 62.1 cm/s Mitral A Point Velocity 74.5 cm/s Mitral E to A Ratio 0.8 MV Deceleration Time 252.4 ms LV E' Lateral Velocity 9.0 cm/s Mitral E to LV E' Lateral Ratio 6.9 LV E' Septal Velocity 8.2 cm/s Mitral E to LV E' Septal Ratio 7.6 FINDINGS Left Ventricle Left ventricular ejection fraction is estimated at 55-60 %. Left ventricular cavity size normal. Left ventricular wall thickness normal. Normal left ventricular wall motion. Average global longitudinal strain estimated at - 18.2% Right Ventricle . Unable to estimate the right ventricular systolic pressure. Normal right ventricular size and function. Right Atrium Normal right atrial size. No right atrial thrombus or mass seen. Left Atrium Normal left atrial size. No left atrial thrombus or mass present. Mitral Valve Structurally normal mitral valve. No mitral stenosis, regurgitation or prolapse. Aortic Valve Trileaflet aortic valve. Mild aortic regurgitation. Tricuspid Valve Structurally normal tricuspid valve. Mild tricuspid regurgitation. Pulmonic Valve Structurally normal pulmonic valve. Trace pulmonic regurgitation. Pericardium No pericardial effusion. No pleural effusion. Aorta Normal size aortic root and proximal ascending aorta. CONCLUSIONS Normal LV size and wall thickness. Normal LV systolic function LVEF 55 to 60% No regional wall motion abnormality Average global longitudinal strain estimated at -18.2% No significant valve dysfunction Normal right ventricular size and function. Previewed by: Dr Nick Wooten (Electronically Signed) Final Date: 14 Dec 2023 10:06
== END | disposition home or self-care (01) ==
LOC: RADECHMAIN 15:51
PROVIDERS: ATTEND Internal Medicine Hematology & Oncology
DX: Z01.818 Encounter for other preprocedural examination (principal)
CPT/HCPCS: 93306

== ENCOUNTER → 2023-12-18 | Outpatient (CLI) | payer BC ==
--- NOTE | 2023-12-18 16:20 | PE ---
EXAMINATION TYPE: PET CT fusion skull to thigh DATE OF EXAM: 12/18/2023 CLINICAL INDICATION:Male, 58 years old with history of C969; TECHNIQUE: Following the intravenous administration of 12.1 mCi of F-18 FDG, whole body images are performed from the skull base to the midthigh. Images are reviewed on the computer in the coronal, a xial, and sagittal planes. Reconstructed rotating images are created on independent workstation and reviewed on the computer. A non-contrast CT is performed in conjunction with the PET scan. Glucose level 100 mg/dL CT DLP: 646 mGycm, Automated exposure control for dose reduction was used. COMPARISON: CT 11/01/2023, PET/CT None, FINDINGS: Mediastinal SUV mean is 1.6. Hepatic parenchyma SUV mean is 2.2. SKULL BASE AND NECK: Scattered FDG avid lymph nodes throughout the neck. Example includes Right 9 mm Max SUV 5.7. Left 6 mm max SUV 6.0. Right posterior sternocleidomastoid muscle 6 mm Max SUV 10.0. CHEST, MEDIASTINUM, AND HILAR REGION: Abnormal lymph nodes within the thorax with elevated FDG activity. Examples include. T * Right axilla 11 mm Max SUV 9.7. * Right axilla 11 mm Max SUV 7.0. * Right pulmonary hilum max SUV 6.1 poorly measured due to lack of IV contrast. * Left pulmonary hilum max SUV 6.7 poorly measured due to lack of IV contrast. * Subcarinal max SUV 6.8 measuring 13 mm * Right low paratracheal max SUV 8.0. measuring 14 mm * AP window max SUV 6.7 measuring 11 mm * Lymph node anterior to the esophagus without FDG activity measuring 11 mm short axis max SUV 2.4. * soft tissue just anterior to the esophagus max SUV 3.5. ABDOMEN AND PELVIS: * Henrique hepatis lymph nodes which intermixed with soft tissues which limits evaluation for measureme nt max SUV 11.0. One lymph node measures at least 19 mm in short axis. * Retroperitoneal lymph nodes with FDG activity max SUV on the left 8.9 measuring up to 12 mm. * Left external iliac lymph node measuring 11 mm Max SUV 12.5. * r left 11 mm accessory 9.4. * Right inguinal 12 mm Max SUV 10.1 * Bilateral external iliac the pelvis bone measuring 15 mm on the left Max SUV 13.0 and measuring 13 mm in the right max SUV 9.6. MUSCULOSKELETAL STRUCTURES: No suspicious radiotracer activity. OTHER CT: Right hip arthroplasty with hardware intact. Atherosclerosis of the arterial vasculature. F ixation hardware in the lower lumbar spine appears intact. IMPRESSION: FDG avid lymph nodes in the neck, bilateral axillas, mediastinum, abdomen, bilateral inguinal regions concerning for lymphoma.
== END | disposition home or self-care (01) ==
LOC: RADPETMAIN 10:51
PROVIDERS: ATTEND Internal Medicine Hematology & Oncology
DX: C96.9 Malignant neoplasm of lymphoid, hematopoietic and related tissue, unspecified (principal); C85.88 Other specified types of non-Hodgkin lymphoma, lymph nodes of multiple sites
CPT/HCPCS: 78815; A9552

== ENCOUNTER 2024-01-09 08:21 | Day surgery (SDC) | payer BC ==
[2024-01-05 08:50] VITALS: BMI 27.3
[~2024-01-09 08:21] MED LIST changes: +Pre Op ABX Message 1 EACH MISC MISCELLANE ONE; -TRANEXAMIC 1,000 MG/100ML-NACL 1,000 MG in SALINE 1 100ML.BAG IVPB PRN
[2024-01-09] MEDS ORDERED: HYDROmorphone 0.5 MG/0.5 ML SYRINGE IVP PRN (08:31)
[2024-01-09] MEDS ORDERED: droPERidol 5 MG/2 ML VIAL IVP PRN (08:31)
[2024-01-09] MEDS ORDERED: LIDOCAINE 1% (10MG/ML) FOR IV START INTRADERMA PRN (08:31)
[2024-01-09] MEDS: IV FLUID CONTINUATION 1,000 ML IV ONE ×2 (08:35→11:53)
[2024-01-09] MEDS: LACTATED RINGERS 1,000 ML IV SCH (08:36)
[2024-01-09] MEDS: ACETAMINOPHEN TAB 500 MG TAB PO PRN (08:52)
[2024-01-09] MEDS: DEXAMETHASONE SOD PHOSPHATE 4 MG/ML 1 ML VIAL IV ONE (08:53)
[2024-01-09] MEDS: ONDANSETRON 4 MG/2 ML VIAL IVP ONE (08:53)
[2024-01-09] MEDS: HEPARIN SODIUM,PORCINE 5,000 UNIT/ML 1 ML VIAL SQ PRN (08:53)
--- NOTE | 2024-01-09 10:18 | P.GSHP ---
History of Present Illness H&P Date: 01/09/24 Chief Complaint: lymphoma this is a 58-year-old male who's recently diagnosed lymphoma. Patient presents today for Port-A-Cath placement. Past Medical History Past Medical History: GERD/Reflux, Hyperlipidemia, Seizure Disorder Additional Past Medical History / Comment(s): HEART MURMUR. , SEIZURES R/T ABX- 2007. , HX KIDNEY STONES,. NUMBNESS/TINGLING ARMS, HANDS COLD., CONSTIPATION. , BACK & NECK PAIN, recently hospitalized (11/07/23) for organ failure per patient. RECENT DX OF LYMPHOMA History of Any Multi-Drug Resistant Organisms: None Reported Past Surgical History: Appendectomy, Back Surgery, Cholecystectomy, Heart Catheterization, Joint Replacement, Orthopedic Surgery Additional Past Surgical History / Comment(s): Pain clinic procedures, pilonidal cyst, Laminectomy with decompression lumbar fusion with hardware (12/2021)., 2018 anterior cervical fusion with dissection., lithotripsy, RT CHANDAN, Past Anesthesia/Blood Transfusion Reactions: Previous Problems w/ Anesthesia Additional Past Anesthesia/Blood Transfusion Reaction / Comment(s): combative when he wakes up Smoking Status: Current every day smoker - Past Family History Father Family Medical History: Cancer, GERD/Reflux Brother(s) Family Medical History: Cancer Additional Family Medical History / Comment(s): 2 BROTHER'S WITH CANCER Medications and Allergies Home Medications Medication Instructions Recorded Confirmed Type Cyclobenzaprine [Flexeril] 10 mg PO TID PRN 01/19/23 01/09/24 History diazePAM [Valium] 5 mg PO BID 01/19/23 01/05/24 History Famotidine [Pepcid] 20 mg PO HS 05/24/23 01/05/24 History HYDROcodone/APAP 5-325MG [[place] 2 tab PO BID 05/24/23 01/05/24 History 5-325] Omeprazole [PriLOSEC] 40 mg PO DAILY 05/24/23 01/09/24 History Ibuprofen [Motrin] 600 mg PO TID PRN 10/30/23 01/09/24 History Sennosides [Senokot] 8.6 tab PO BID 10/30/23 01/09/24 History Metoprolol Tartrate [Lopressor] 25 mg PO BID #60 tab 11/06/23 01/09/24 Rx Nitroglycerin Sl Tabs [Nitrostat] 0.4 mg SUBLINGUAL Q5M PRN #30 tab 11/06/23 01/05/24 Rx Melatonin 5 mg PO HS 11/17/23 01/09/24 History Fenofibrate Nanocrystallized 48 mg PO DAILY 01/05/24 01/09/24 History [[place]] Furosemide [Lasix] 40 mg PO Q48H 01/05/24 01/09/24 History Aspirin 81 mg PO DAILY 01/09/24 01/09/24 History Allergies Allergy/AdvReac Type Severity Reaction Status Date / Time ciprofloxacin [From Cipro] Allergy Severe BRAIN STEM Verified 01/09/24 08:46 SEIZURES Quinolones Allergy Severe Seizures Verified 01/09/24 08:46 moxifloxacin [From Avelox] AdvReac Severe Seizures Verified 01/09/24 08:46 Surgical - Exam Vital Signs Temp Pulse Resp BP Pulse Ox 96.6 F L 64 16 116/62 96 01/09/24 08:49 01/09/24 08:49 01/09/24 08:49 01/09/24 08:49 01/09/24 08:49 - General well developed, well nourished - Eyes PERRL - ENT normal pinna - Neck no masses - Respiratory normal expansion - Cardiovascular Rhythm: regular - Abdomen Abdomen: soft, non tender Assessment and Plan Assessment: lymphoma. We'll place Port-A-Cath.
[2024-01-09] MEDS ORDERED: GLYCOPYRROLATE 0.2 MG/ML 2 ML VIAL ONE (10:34)
[2024-01-09] MEDS ORDERED: MIDAZOLAM 2 MG/2 ML VIAL ONE (10:34)
[2024-01-09] MEDS ORDERED: fentaNYL (PF) 50 MCG/ML 2 ML AMP ONE (10:34)
[2024-01-09] MEDS ORDERED: ePHEDrine 50 MG/ML 1 ML VIAL ONE (10:34)
[2024-01-09] MEDS ORDERED: PROPOFOL 10 MG/ML 20 ML VIAL IV ONE (10:34)
[2024-01-09] MEDS ORDERED: LIDOCAINE 1% INJ 10MG/ML (20 ML MDV) ONE (10:34)
[2024-01-09] MEDS: BUPIVACAINE (PF) 0.5% 30 ML VIAL SQ ONE (11:00)
[2024-01-09] MEDS: HEPARIN SODIUM,PORCINE 100 UNIT/ML 5 ML VIAL IV ONE (11:00)
--- NOTE | 2024-01-09 11:25 | P.OP ---
Date of Procedure: 01/09/24 Preoperative Diagnosis: lymphoma Postoperative Diagnosis: lymphoma Procedure(s) Performed: right subclavian Port-A-Cath Anesthesia: MARGOT QUIROZ Surgeon: Ye Whitney Estimated Blood Loss (ml): 5 Pathology: none sent Condition: stable Disposition: PACU Description of Procedure: The patient was placed on the operating table in the supine position. The patient received IV sedation. The patient's chest was prepped and draped in the usual sterile fashion. A roll had been placed between the shoulder blades in a longitudinal fashion. After prepping and draping the skin was anesthetized 1% local Xylocaine. And then using the Seldinger technique the subclavian vein was cannulated. A wire was placed into the vein and fluoroscopy position the wire at the atrial caval junction. Next the dilator sheath was placed over top the wire and the wire was withdrawn. The catheter was positioned at the atriocaval position. The catheter was placed through the sheath after the dilator was withdrawn. The sheath was then withdrawn. Position of the catheter was confirmed with fluoroscopy. The Port-A-Cath was connected to the catheter. The Port-A-Cath was flushed with saline and then heparinized saline. The skin was closed interrupted 3-0 Monocryl suture. Dermabond was applied. Patient tolerated procedure well and was sent to recovery room stable condition.
[2024-01-09 11:27] VITALS: TEMP 98
--- NOTE | 2024-01-09 12:12 | XR ---
EXAMINATION TYPE: XR chest 1V confirm line plcmt DATE OF EXAM: 01/09/2024 11:30 AM CLINICAL INDICATION:Male, 58 years old with history of portacath; [facility] COMPARISON: Chest radiographs from 12/22/2021. TECHNIQUE: XR chest 1V confirm line plcmt Frontal view of the chest. FINDINGS: Lungs/Pleura: Scattered increased density of the lungs compared to prior possibly due to low lung vol umes findings worse in the left midlung. There is no evidence of pleural effusion, focal consolidatio n, or pneumothorax. Pulmonary vascularity: Unremarkable. Heart/mediastinum: Cardiomediastinal silhouette is unremarkable. Musculoskeletal: No acute osseous pathology. There is fixation hardware in the lower cervical spine. Other findings: None Lines/Tubes: Kuclfi-s-Oegu projecting over the right hemithorax with distal tip at the cavoatrial junction. IMPRESSION: 1. Right chest wall [id number] with tip in appropriate position. No evidence for pneumothorax. 2. Scattered airspace opacities possibly due to underlying low lung volumes versus pulmonary edema v ersus developing airspace disease.
[2024-01-09 12:14] VITALS: RESP 18
--- NOTE | 2024-01-09 12:33 | FL ---
EXAMINATION TYPE: FL guided central line placemt Intraoperative/procedural fluoroscopic services were provided. Total fluoroscopy time is 10.5 seconds with a total of 2 submitted images to PACS. Please see the operative/procedural note for further details. DAP: 0.5685 Gycm2
[2024-01-09 12:38] VITALS: BP 139/79; PULSE 69
== END 2024-01-09 12:46 | disposition home or self-care (01) ==
LOC: OR 08:21
PROVIDERS: ATTEND Surgery
DX: C85.90 Non-Hodgkin lymphoma, unspecified, unspecified site (principal); K21.9 Gastro-esophageal reflux disease without esophagitis; E78.5 Hyperlipidemia, unspecified; F41.9 Anxiety disorder, unspecified; G40.909 Epilepsy, unspecified, not intractable, without status epilepticus; Z90.49 Acquired absence of other specified parts of digestive tract; Z79.899 Other long term (current) drug therapy; Z88.1 Allergy status to other antibiotic agents; Z88.8 Allergy status to other drugs, medicaments and biological substances; Z79.82 Long term (current) use of aspirin; Z87.891 Personal history of nicotine dependence; Z79.1 Long term (current) use of non-steroidal anti-inflammatories (NSAID); Z87.442 Personal history of urinary calculi
CPT/HCPCS: 77001; 36561; J2250; J1644; J1642; J1100; J2405; J2001; J3010; J2704; J0665

== ENCOUNTER → 2024-04-05 | Outpatient (CLI) | payer BC ==
--- NOTE | 2024-04-05 15:11 | PE ---
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 Images are reviewed on the computer in the coronal, axial, and sagittal planes. Reconstructed rotating images are created on independent workstation and reviewed on the computer. A non-contrast CT is performed in conjunction with the PET scan. Glucose level 103 mg/dL CT DLP: 945.73 mGycm, Automated exposure control for dose reduction was used. COMPARISON: CT 11/01/2023, 10/29/2023, PET/CT 12/18/23, MRI: None FINDINGS: Mediastinal SUV mean is 2.0. Hepatic parenchyma SUV mean is 2.6. SKULL BASE AND NECK: Previously seen FDG avid lymph nodes throughout the neck have all decreased in size and FDG activity. Examples include: Right submandibular 4 mm lymph node with a maximum SUV of 0.9, previously 9 mm with a maximum SUV of 5.7. Left submandibular 4 mm lymph node with a maximum SUV of 1.0, previously 6 mm with a maximum SUV of 6 .0. Right posterior SCM lymph node measuring 4 mm with a maximum SUV of 1.6, previously 6 mm with a maxim um SUV of 10. CHEST, MEDIASTINUM, AND HILAR REGION: Previously seen mediastinal, axillary, and hilar lymph nodes have all decreased in size and FDG activ ity. Examples include: Subcarinal lymph node measuring 5 mm short axis with maximum SUV of 2.4, previously 13 mm with a maxi mum SUV of 6.8. Right low paratracheal 6 mm lymph node with a maximum SUV of 2.7, previously 14 mm with a maximum SUV of 8.0. AP window 6 mm lymph node with a maximum SUV of 1.8, previously 11 mm with a maximum SUV of 6.7. Left pulmonary hilum maximum SUV 2.9, previously 6.7. Right pulmonary hilum maximum SUV 1.9, previously 6.1. Left axillary 5 mm lymph node with a maximum SUV of 0.9, previously 11 mm with a maximum SUV of 9.7. ABDOMEN AND PELVIS: Previously seen lymph nodes have all decreased in size and FDG activity. Examples include: Periaortic lymph nodes node measuring 6 mm with a maximum SUV of 1.3, previously 12 mm with a maximum SUV of 8.9. Left external iliac chain lymph node measuring 7 mm with a maximum SUV of 1.7, previously 11 mm with a maximum SUV of 12.5. Right external iliac chain lymph node measuring 6 mm with a maximum SUV of 1.0, previously 13 mm with a maximum SUV of 9.4. Right inguinal lymph node measuring 6 mm with a maximum SUV of 0.7, previously 12 mm with a maximum S UV of 10.1. Left inguinal lymph node measuring 6 mm with a maximum SUV of 0.9, previously 11 mm with a maximum DOBBINS V of 9.4. MUSCULOSKELETAL STRUCTURES: Diffuse osseous uptake related to posttreatment change. OTHER CT: Right hip arthroplasty with hardware intact. Atherosclerosis of the arterial vasculature. F ixation hardware in the lower lumbar spine appears intact. Left posterior shoulder subcutaneous 2.3 c m hyperdense lesion with extension to the skin surface redemonstrated. Probable benign epidermoid cys t. Right anterior chest wall Mediport catheter with distal tip terminating in the mid SVC. Bilateral gynecomastia. Small hiatal hernia. Gallbladder is surgically absent. IMPRESSION: 1. Positive response to therapy with all previously seen lymph nodes measuring less than 1 cm short axis with FDG activity below background. 2. Diffuse osseous uptake related to posttreatment change. [facility], , 04/05/2024 3:08 PM
== END | disposition home or self-care (01) ==
LOC: RADPETMAIN 09:01
PROVIDERS: ATTEND Internal Medicine Hematology & Oncology
DX: C96.9 Malignant neoplasm of lymphoid, hematopoietic and related tissue, unspecified (principal); C84.48 Peripheral T-cell lymphoma, not elsewhere classified, lymph nodes of multiple sites; I10 Essential (primary) hypertension; M85.9 Disorder of bone density and structure, unspecified; Z71.3 Dietary counseling and surveillance
CPT/HCPCS: 78815; A9552

== ENCOUNTER 2024-08-01 10:22 | Inpatient (IN) | payer BC, MEDICARE ==
--- NOTE | 2024-08-01 10:52 | ED ---
General Adult HPI - General Chief complaint: Chest Pain Stated complaint: chest pain Time Seen by Provider: 08/01/24 10:28 Source: patient, RN notes reviewed Mode of arrival: wheelchair Limitations: no limitations - History of Present Illness Initial comments: Patient is a 58-year-old male present to the emergency department with concerns with chest discomfort. Onset of symptoms was a couple days ago. Patient has heaviness in his chest with associated dyspnea. Discomfort sometimes increases with deep breaths. No history of previous heart attack. Patient does have history of previous T-cell lymphoma with stem cell transplant just a few weeks a go. Patient did have recent pneumonia as well. No fevers or cough. - Related Data Home Medications Medication Instructions Recorded Confirmed Cyclobenzaprine [Flexeril] 10 mg PO DIRECTED PRN 01/19/23 08/01/24 diazePAM [Valium] 5 mg PO BID 01/19/23 08/01/24 Famotidine [Pepcid] 20 mg PO HS 05/24/23 08/01/24 Omeprazole [PriLOSEC] 40 mg PO DAILY 05/24/23 08/01/24 Sennosides [Senokot] 8.6 tab PO DIRECTED PRN 10/30/23 08/01/24 Fenofibrate Nanocrystallized 48 mg PO DIRECTED 01/05/24 08/01/24 [Tricor] Acyclovir [Zovirax] 400 mg PO BID 08/01/24 08/01/24 Ergocalciferol [Vitamin D2 (1250 1,250 mcg PO WEEKLY 08/01/24 08/01/24 Mcg = 88344 Iu)] Hydrocortisone [Cortef] 25 mg PO BID 08/01/24 08/01/24 Loperamide HCl [Imodium A-D] 2 - 4 mg PO QID PRN 08/01/24 08/01/24 Metoprolol Tartrate [Lopressor] 12.5 mg PO BID 08/01/24 08/01/24 Prochlorperazine [Compazine] 10 mg PO Q6H PRN 08/01/24 08/01/24 ondansetron HCL [Zofran] 8 mg PO Q8H PRN 08/01/24 08/01/24 oxyCODONE HCL [OxyIR] 5 mg PO Q4H PRN 08/01/24 08/01/24 Allergies Allergy/AdvReac Type Severity Reaction Status Date / Time ciprofloxacin [From Cipro] AdvReac Severe BRAIN STEM Verified 08/01/24 12:45 SEIZURES moxifloxacin [From Avelox] AdvReac Severe Seizures Verified 08/01/24 12:45 Quinolones AdvReac Severe Seizures Verified 08/01/24 12:45 Review of Systems ROS Statement: Those systems with pertinent positive or pertinent negative responses have been documented in the HPI. ROS Other: All systems not noted in ROS Statement are negative. Constitutional: Denies: fever Eyes: Denies: eye pain ENT: Denies: ear pain Respiratory: Reports: as per HPI. Denies: cough Cardiovascular: Reports: as per HPI, chest pain Endocrine: Reports: fatigue Gastrointestinal: Denies: vomiting Genitourinary: Denies: dysuria Musculoskeletal: Denies: back pain Past Medical History Past Medical History: GERD/Reflux, Hyperlipidemia, Seizure Disorder Additional Past Medical History / Comment(s): HEART MURMUR. , SEIZURES R/T ABX- 2007. , HX KIDNEY STONES,. NUMBNESS/TINGLING ARMS, HANDS COLD., CONSTIPATION. , BACK & NECK PAIN, recently hospitalized (11/07/23) for organ failure per patient. RECENT DX OF LYMPHOMA, stem cell History of Any Multi-Drug Resistant Organisms: None Reported Past Surgical History: Appendectomy, Back Surgery, Cholecystectomy, Heart Catheterization, Joint Replacement, Orthopedic Surgery Additional Past Surgical History / Comment(s): Pain clinic procedures, pilonidal cyst, Laminectomy with decompression lumbar fusion with hardware (12/2021)., 2018 anterior cervical fusion with dissection., lithotripsy, RT CHANDAN, Past Anesthesia/Blood Transfusion Reactions: Previous Problems w/ Anesthesia Additional Past Anesthesia/Blood Transfusion Reaction / Comment(s): combative when he wakes up Past Psychological History: Anxiety Smoking Status: Current every day smoker Past Alcohol Use History: None Reported Past Drug Use History: None Reported - Past Family History Father Family Medical History: Cancer, GERD/Reflux Brother(s) Family Medical History: Cancer Additional Family Medical History / Comment(s): 2 BROTHER'S WITH CANCER General Exam Limitations: no limitations General appearance: alert, in no apparent distress Head exam: Present: normocephalic Eye exam: Present: normal appearance Neck exam: Present: normal inspection Respiratory exam: Present: normal lung sounds bilaterally Cardiovascular Exam: Present: regular rate, normal rhythm, normal heart sounds Expanded Peripheral pulses: 2+: Radial (R), Radial (L), Posterior Tibialis (R), Posterior Tibialis (L) GI/Abdominal exam: Present: soft. Absent: tenderness Extremities exam: Present: normal inspection. Absent: pedal edema, calf tenderness Neurological exam: Present: alert Psychiatric exam: Present: normal affect, normal mood Skin exam: Present: normal color Course Vital Signs 08/01/24 08/01/24 08/01/24 10:24 11:03 11:20 Temperature 98.1 F 100.0 F H Pulse Rate 99 89 Pulse Rate [ 90 Clinical Services Specialist ] Respiratory 18 16 Rate Blood Pressure 97/62 95/54 O2 Sat by Pulse 96 95 Oximetry 08/01/24 08/01/24 08/01/24 12:00 13:05 14:06 Temperature 98.7 F 98.0 F Pulse Rate 86 86 81 Pulse Rate [ Clinical Services Specialist ] Respiratory 16 18 14 Rate Blood Pressure 82/53 87/58 95/58 O2 Sat by Pulse 94 L 97 97 Oximetry EKG Findings - EKG Results: EKG: interpreted by ERMD, sinus rhythm, normal axis, normal QRS, normal ST/T Medical Decision Making - Medical Decision Making Was pt. sent in by a medical professional or institution ([facility], TUBE WORKER, urgent care, hospital, or custodial...) When possible be specific @ -[No] Did you speak to anyone other than the patient for history (EMS, parent, family, police, friend...)? What history was obtained from this source @ -Family is present and helps right history including patient's recent cell count that was lower than today Did you review nursing and triage notes (agree or disagree)? Why? @ -[I reviewed and agree with nursing and triage notes] Were old charts reviewed (outside hosp., previous admission, EMS record, old EKG, old radiological studies, urgent care reports/EKG's, custodial records)? Report findings @ -[No old charts were reviewed] Differential Diagnosis (chest pain, altered mental status, abdominal pain women, abdominal pain men, vaginal bleeding, weakness, fever, dyspnea, syncope, headache, dizziness, GI bleed, back pain, seizure, CVA, palpatations, mental health, musculoskeletal)? @ -Differential Chest Pain: Stable Angina, Unstable Angina, STEMI, NSTEMI Aortic Dissection, Pneumothorax, Musculoskeletal, Esophageal Spasm GERD, Cholecystitis, Pancreatitis, Zoster, this is not meant to be an all-inclusive list. EKG interpreted by me (3pts min.). @ -[As above] X-rays interpreted by me (1pt min.). @ -Chest x-ray shows no acute process CT interpreted by me (1pt min.). @ -CT scan of the chest without acute abnormality U/S interpreted by me (1pt. min.). @ -[None done] What testing was considered but not performed or refused? (CT, X-rays, U/S, labs)? Why? @ -[None] What meds were considered but not given or refused? Why? @ -[None] Did you discuss the management of the patient with other professionals (professionals i.e. , PA, TUBE WORKER, lab, RT, psych nurse, sr. social media & mobile manager, telecommunicator supervisor, teacher, commercial escrow officer, rn case management)? Give summary @ -Case discussed with Dr. Mondragon who will admit covering Suzanne Abdullahi Was smoking cessation discussed for >3mins.? @ -[No] Was critical care preformed (if so, how long)? @ -[No] Were there social determinants of health that impacted care today? How? (Homelessness, low income, unemployed, alcoholism, drug addiction, transportation, low edu. Level, literacy, decrease access to med. care, detention, rehab)? @ -[No] Was there de-escalation of care discussed even if they declined (Discuss DNR or withdrawal of care, Hospice)? DNR status @ -[No] What co-morbidities impacted this encounter? (DM, HTN, Smoking, COPD, CAD, Cancer, CVA, ARF, Chemo, Hep., AIDS, mental health diagnosis, sleep apnea, morbid obesity)? @ -Recent diagnosis T-cell with recent stem cell Was patient admitted / discharged? Hospital course, mention meds given and route, prescriptions, significant lab abnormalities, going to OR and other pertinent info. @ -[Patient presents with chest discomfort. Initial evaluation unremarkable. Patient reevaluated. Patient and family updated. Patient will be admitted, admission orders written.] Undiagnosed new problem with uncertain prognosis? @ -[No] Drug Therapy requiring intensive monitoring for toxicity (Heparin, Nitro, Insulin, Cardizem)? @ -[No] Were any procedures done? @ -[No] Diagnosis/symptom? @ -[Chest pain] Acute, or Chronic, or Acute on Chronic? @ -[Acute] Uncomplicated (without systemic symptoms) or Complicated (systemic symptoms)? @ -[default] Side effects of treatment? @ -[No] Exacerbation, Progression, or Severe Exacerbation? @ -[No] Poses a threat to life or bodily function? How? (Chest pain, [place], [place], pneumonia, PE, COPD, DKA, ARF, appy, cholecystitis, CVA, Diverticulitis, Homicidal, Suicidal, threat to staff... and all critical care pts) @ -[Threat to cardiac function - Lab Data Result diagrams: 08/01/24 11:18 08/01/24 11:18 Lab Results 08/01/24 08/01/24 08/01/24 Range/Units 11:18 11:18 11:18 WBC 5.6 (3.8-10.6) k/uL RBC 3.74 L (4.30-5.90) m/uL Hgb 10.9 L (13.0-17.5) gm/dL Hct 32.4 L (39.0-53.0) % MCV 86.6 (80.0-100.0) fL MCH 29.3 (25.0-35.0) pg MCHC 33.8 (31.0-37.0) g/dL RDW 16.3 H (11.5-15.5) % Plt Count 126 L (150-450) k/uL MPV 8.2 Neutrophils % 74 % Lymphocytes % 10 % Monocytes % 14 % Eosinophils % 0 % Basophils % 0 % Neutrophils # 4.2 (1.3-7.7) k/uL Lymphocytes # 0.5 L (1.0-4.8) k/uL Monocytes # 0.8 (0-1.0) k/uL Eosinophils # 0.0 (0-0.7) k/uL Basophils # 0.0 (0-0.2) k/uL Manual Slide Review Performed Anisocytosis Slight PT 11.8 (10.0-12.5) sec INR 1.1 (<1.2) APTT 21.4 L (22.0-30.0) sec D-Dimer 1.21 H (<0.60) mg/L FEU Sodium 135 L (137-145) mmol/L Potassium 4.0 (3.5-5.1) mmol/L Chloride 102 (98-107) mmol/L Carbon Dioxide 25 (22-30) mmol/L Anion Gap 8 mmol/L BUN 12 (9-20) mg/dL Creatinine 0.97 (0.66-1.25) mg/dL Est GFR (CKD-EPI)AfAm >90 (>60 ml/min/1.73 sqM) Est GFR (CKD-EPI)NonAf 86 (>60 ml/min/1.73 sqM) Glucose 140 H (74-99) mg/dL Calcium 9.3 (8.4-10.2) mg/dL Magnesium 1.3 L (1.6-2.3) mg/dL Total Bilirubin 0.6 (0.2-1.3) mg/dL AST 21 (17-59) U/L ALT 21 (4-49) U/L Alkaline Phosphatase 90 (38-126) U/L Lactate Dehydrogenase 182 (120-246) U/L Troponin I (0.000-0.034) ng/mL NT-Pro-B Natriuret Pep 2410 pg/mL Total Protein 7.7 (6.3-8.2) g/dL Albumin 3.7 (3.5-5.0) g/dL Lipase 42 (23-300) U/L Influenza Type A (PCR) (Not Detectd) Influenza Type B (PCR) (Not Detectd) RSV (PCR) (Not Detectd) SARS-CoV-2 (PCR) (Not Detectd) 08/01/24 08/01/24 Range/Units 11:18 11:30 WBC (3.8-10.6) k/uL RBC (4.30-5.90) m/uL Hgb (13.0-17.5) gm/dL Hct (39.0-53.0) % MCV (80.0-100.0) fL MCH (25.0-35.0) pg MCHC (31.0-37.0) g/dL RDW (11.5-15.5) % Plt Count (150-450) k/uL MPV Neutrophils % % Lymphocytes % % Monocytes % % Eosinophils % % Basophils % % Neutrophils # (1.3-7.7) k/uL Lymphocytes # (1.0-4.8) k/uL Monocytes # (0-1.0) k/uL Eosinophils # (0-0.7) k/uL Basophils # (0-0.2) k/uL Manual Slide Review Anisocytosis PT (10.0-12.5) sec INR (<1.2) APTT (22.0-30.0) sec D-Dimer (<0.60) mg/L FEU Sodium (137-145) mmol/L Potassium (3.5-5.1) mmol/L Chloride (98-107) mmol/L Carbon Dioxide (22-30) mmol/L Anion Gap mmol/L BUN (9-20) mg/dL Creatinine (0.66-1.25) mg/dL Est GFR (CKD-EPI)AfAm (>60 ml/min/1.73 sqM) Est GFR (CKD-EPI)NonAf (>60 ml/min/1.73 sqM) Glucose (74-99) mg/dL Calcium (8.4-10.2) mg/dL Magnesium (1.6-2.3) mg/dL Total Bilirubin (0.2-1.3) mg/dL AST (17-59) U/L ALT (4-49) U/L Alkaline Phosphatase (38-126) U/L Lactate Dehydrogenase (120-246) U/L Troponin I 0.026 (0.000-0.034) ng/mL NT-Pro-B Natriuret Pep pg/mL Total Protein (6.3-8.2) g/dL Albumin (3.5-5.0) g/dL Lipase (23-300) U/L Influenza Type A (PCR) Not Detected (Not Detectd) Influenza Type B (PCR) Not Detected (Not Detectd) RSV (PCR) Not Detected (Not Detectd) SARS-CoV-2 (PCR) Not Detected (Not Detectd) Disposition Clinical Impression: Chest pain Disposition: ADMITTED IP TO THIS HOSP Is patient prescribed a controlled substance at d/c from ED?: No Referrals: Suzanne Go MD [Primary Care Provider] - 1-2 days Time of Disposition: 14:32
[2024-08-01] MEDS: NITROGLYCERIN SL TABS 0.4 MG TAB SUBLINGUAL STA ×3 (11:36→11:37)
[2024-08-01] MEDS: ASPIRIN 81 MG PO STA (11:36)
[2024-08-01] MEDS: ACETAMINOPHEN IV (For NPO) 1,000 MG in EMPTY BAG 1 BAG IVPB STA (11:58)
[2024-08-01 12:16] LABS: ALT 21 U/L (4-49); AST 21 U/L (17-59); African American GFR (CKD) >90 (>60 ml/min/1.73 sqM); Albumin 3.7 g/dL (3.5-5.0); Alkaline Phosphatase 90 U/L (38-126); Anion Gap 8 mmol/L; Blood Urea Nitrogen 12 mg/dL (9-20); Calcium 9.3 mg/dL (8.4-10.2); Carbon Dioxide 25 mmol/L (22-30); Chloride 102 mmol/L (98-107); Glucose 140 mg/dL (74-99); LDH 182 U/L (120-246); Lipase 42 U/L (23-300); Magnesium 1.3 mg/dL (1.6-2.3); Non-African American GFR(CKD) 86 (>60 ml/min/1.73 sqM); Sodium 135 mmol/L (137-145); Total Bilirubin 0.6 mg/dL (0.2-1.3); Total Protein 7.7 g/dL (6.3-8.2)
[2024-08-01 12:17] LABS: Anisocytosis Slight; Basophils % (A) 0 %; Eosinophils % (A) 0 %; HCT 32.4 % (39.0-53.0); HGB 10.9 gm/dL (13.0-17.5); Lymphocytes # (A) 0.5 k/uL (1.0-4.8); Lymphocytes % (A) 10 %; MCH 29.3 pg (25.0-35.0); MCHC 33.8 g/dL (31.0-37.0); MCV 86.6 fL (80.0-100.0); Mean Platelet Volume 8.2; Monocytes # (A) 0.8 k/uL (0-1.0); Monocytes % (A) 14 %; Neutrophils # (A) 4.2 k/uL (1.3-7.7); Neutrophils % (A) 74 %; Platelet Count 126 k/uL (150-450); RBC 3.74 m/uL (4.30-5.90); RDW 16.3 % (11.5-15.5); WBC 5.6 k/uL (3.8-10.6)
[2024-08-01 12:27] LABS: INR 1.1 (<1.2); Partial Thromboplastin Time 21.4 sec (22.0-30.0); Prothrombin Time 11.8 sec (10.0-12.5)
--- NOTE | 2024-08-01 12:27 | XR ---
EXAMINATION TYPE: XR chest 2V DATE OF EXAM: 08/01/2024 12:16 PM COMPARISON: Chest radiographs from CLINICAL INDICATION: Male, 58 years old with history of Chest Pain; [facility] TECHNIQUE: XR chest 2V Frontal and lateral views of the chest. FINDINGS: Lungs/Pleura: There is no evidence of pleural effusion, focal consolidation, or pneumothorax. Pulmonary vascularity: Unremarkable. Heart/mediastinum: Cardiomediastinal silhouette is unremarkable. Musculoskeletal: No acute osseous pathology. There is fixation hardware in the lower cervical spine. Other findings: None Lines/Tubes: [id number] projecting over the right hemithorax with distal tip projecting over the superior vena cava. IMPRESSION: No acute cardiopulmonary disease/process. [facility], , 08/01/2024 12:25 PM
[2024-08-01 12:35] LABS: NT-Pro-B-Type Natriuretic Pept 2410 pg/mL
[2024-08-01 12:48] LABS: Influenza A Not Detected (Not Detectd); Influenza B Not Detected (Not Detectd); RSV Not Detected (Not Detectd)
[2024-08-01] MEDS: MAGNESIUM OXIDE 400 MG TAB PO STA (13:07)
[2024-08-01] MEDS: MAGNESIUM SULFATE-D5W PMX 1 GM in DEXTROSE/WATER 1 100ML.BAG IVPB ONE (13:10)
--- NOTE | 2024-08-01 14:11 | CT ---
EXAMINATION TYPE: CT angio chest DATE OF EXAM: 08/01/2024 COMPARISON: None CLINICAL INDICATION: Male, 58 years old with history of cp; [facility], selma TECHNIQUE: CTA scan of the thorax is performed with IV Contrast, patient injected with 100ml mL of Isovue 370, p ulmonary embolism protocol. MIP images are created and reviewed. 3-D post processing was performed CT DLP: 536.[address] CTDI: mGy Automated exposure control for dose reduction was used. FINDINGS: There is scattered areas of fine reticulation and groundglass density in the posterior lower lobes li eddie combination of chronic interstitial changes and possibly mild atelectasis. There is no airspace consolidation There is no pleural effusion or pneumothorax. The heart and great vessels just normal in size. There are no filling defects within the pulmonary arterial circulation to suggest pulmonary embolism. Limited scanning of the upper abdomen reveals no gross abnormality. No focal osseous lesions are seen . IMPRESSION: 1. No pulmonary embolism. 2. No acute cardiopulmonary disease. 3. Mild chronic changes in the lung bases posteriorly as described above. [facility], , 08/01/2024 2:08 PM
[2024-08-01] MEDS ORDERED: NITROGLYCERIN SL TABS 0.4 MG TAB SUBLINGUAL PRN (14:32)
[2024-08-01] MEDS ORDERED: PROCHLORPERAZINE 10 MG TAB PO PRN (14:34)
[2024-08-01] MEDS ORDERED: CYCLOBENZAPRINE 10 MG TAB PO PRN (14:34)
[2024-08-01] MEDS ORDERED: ONDANSETRON 4 MG TAB PO PRN (14:34)
[2024-08-01] MEDS ORDERED: SENNOSIDES 8.6 MG TAB PO PRN (14:34)
[2024-08-01] MEDS ORDERED: FENOFIBRATE NANOCRYSTALLIZED 48 MG PO SCH (14:45)
[2024-08-01] MEDS: SODIUM CHLORIDE 0.9% 1,000 ML IV SCH (16:49)
[2024-08-01 17:46] LABS: Appearance,Urine Clear (Clear); Bilirubin,Urine Negative (Negative); Blood,Urine Negative (Negative); Color,Urine Yellow; Glucose,Urine (UA) Negative (Negative); Ketones,Urine Negative (Negative); Leukocyte Esterase,Urine Negative (Negative); Nitrite,Urine Negative (Negative); Protein,Urine Trace (Negative); Specific Gravity,Urine >1.050 (1.001-1.035); Urobilinogen,Urine <2.0 mg/dL (<2.0)
[2024-08-01] MEDS: NITROGLYCERIN OINT 1 INCH/GM PACKET TOPICAL SCH (17:50)
[2024-08-01] MEDS: ACYCLOVIR 200 MG CAP PO SCH (21:31)
[2024-08-01] MEDS: FAMOTIDINE 20 MG TAB PO SCH (21:31)
[2024-08-01] MEDS: HYDROCORTISONE 10 MG TAB PO SCH (21:31)
[2024-08-01] MEDS: METOPROLOL TARTRATE 12.5 MG TAB PO SCH (21:31)
[2024-08-01] MEDS: diazePAM 5 MG TAB PO SCH (21:31)
[2024-08-02] MEDS: PANTOPRAZOLE 40 MG TABLET PO SCH (05:54)
[2024-08-02] MEDS: METOPROLOL TARTRATE 25 MG TAB PO SCH (08:26)
--- NOTE | 2024-08-02 08:55 | CA ---
Transthoracic Echo Report Name: Tate Ovalles Age: 58 Gender: M : 1965 Exam Date: 08/01/2024 15:59 Exam Location: [facility] Ht (in): 73 Wt (lb): 213 Ordering Physician: Arie Hernandez DO Attending/Referring Phys: Barrel Washer Lola Bullock RDCS Procedure CPT: Indications: CP Cardiac Hx: Technical Quality: Fair Contrast 1: Total Dose (mL): Contrast 2: Total Dose (mL): MEASUREMENTS (Male / Female) Normal Values 2D ECHO LV Diastolic Diameter PLAX 4.8 cm 4.2 - 5.9 / 3.9 - 5.3 cm LV Systolic Diameter PLAX 4.1 cm IVS Diastolic Thickness 0.9 cm 0.6 - 1.0 / 0.6 - 0.9 cm LVPW Diastolic Thickness 0.8 cm 0.6 - 1.0 / 0.6 - 0.9 cm LV Relative Wall Thickness 0.4 LVOT Diameter 2.4 cm Aortic Root Diameter 3.5 cm LV Diastolic Volume MOD BP 128.9 cm??? 67 - 155 / 56 - 104 cm??? LV Systolic Volume MOD BP 55.0 cm??? 22 - 58 / 19 - 49 cm??? LV Ejection Fraction MOD BP 57.4 % >= 55 % LV Cardiac Index MOD BP 2633.3 cm???/min???m??? LV Diastolic Volume MOD 4C 136.7 cm??? LV Systolic Volume MOD 4C 59.2 cm??? LV Ejection Fraction MOD 4C 56.7 % LV Cardiac Index MOD 4C 2760.3 cm???/min???m??? LV Diastolic Length 4C 8.7 cm LV Systolic Length 4C 7.3 cm LV Diastolic Volume MOD 2C 120.1 cm??? LV Systolic Volume MOD 2C 50.2 cm??? LV Ejection Fraction MOD 2C 58.2 % LV Cardiac Index MOD 2C 2490.5 cm???/min???m??? LV Diastolic Length 2C 8.8 cm LV Systolic Length 2C 7.5 cm RV Diastolic Basal Diameter 4.1 cm 2.0 - 2.8 cm Ascending Aorta Diameter 3.3 cm DOPPLER AV Peak Velocity 115.7 cm/s AV Peak Gradient 5.4 mmHg AV Mean Velocity 81.2 cm/s AV Mean Gradient 3.0 mmHg AV Velocity Time Integral 18.4 cm LVOT Peak Velocity 99.6 cm/s LVOT Peak Gradient 4.0 mmHg LVOT Velocity Time Integral 14.7 cm LVOT Stroke Volume 66.4 cm??? LVOT Stroke Volume Index 30.0 ml/m??? LVOT Cardiac Index 2364.3 cm???/min???m??? AV Area Cont Eq vti 3.6 cm??? AV Area Cont Eq pk 3.9 cm??? Mitral E Point Velocity 55.9 cm/s Mitral A Point Velocity 47.3 cm/s Mitral E to A Ratio 1.2 MV Deceleration Time 205.6 ms MV E' Velocity 6.7 cm/s Mitral E to MV E' Ratio 8.3 PV Peak Velocity 78.3 cm/s PV Peak Gradient 2.5 mmHg FINDINGS Left Ventricle Left ventricular ejection fraction is estimated at 50-55 %. Left ventricular cavity size normal. Left ventricular wall thickness normal. No obvious regional wall motion abnormalities. Right Ventricle Mild right ventricular dilatation. Unable to estimate the right ventricular systolic pressure. Right Atrium Right atrium not well visualized. Left Atrium Normal left atrial size. No left atrial thrombus or mass present. Mitral Valve Structurally normal mitral valve. No mitral stenosis, or prolapse.trace to mild mitral regurgitation. Aortic Valve Trileaflet aortic valve. Thickened aortic valve without stenosis. Mild to moderate aortic regurgitation. Tricuspid Valve Structurally normal tricuspid valve. No tricuspid stenosis, regurgitation or prolapse. Pulmonic Valve Pulmonic valve not well visualized. No pulmonic regurgitation. Pericardium No pericardial effusion. Aorta Normal size aortic root and proximal ascending aorta. CONCLUSIONS 1. Left ventricular systolic ejection from borderline normal 2. Mild to moderate aortic regurgitation 3. Trace to mild mitral regurgitation Previewed by: Dr. Rhett Carcamo MD (Electronically Signed) Final Date: 02 August 2024 08:54
[2024-08-02] MEDS ORDERED: ASPIRIN 81 MG PO SCH (09:00)
[2024-08-02] MEDS ORDERED: ASPIRIN 325 MG TAB PO SCH (09:00)
--- NOTE | 2024-08-02 09:46 | P.CRDCN ---
History of Present Illness History of present illness: HISTORY OF PRESENT ILLNESS: This is a 58-year-old male with a past medical history significant for paroxysmal atrial fibrillation, normal coronary arteries, hyperlipidemia, and lymphoma with recent stem cell transplant. Patient follows in the office with Dr. Cullen. We have been asked to see the patient in consultation for chest pain. Patient examined at the bedside. Patient presented to the hospital with a chief complaint of chest discomfort. Patient states 2 nights ago he began to have chest discomfort. Patient also reports having some shortness of breath. He states the pain is worse when he coughs or takes a deep breath. He also states that the right side of his chest was painful to touch yesterday but it is not today. The pain is not worse with exertion. He states that he uses a bed rail to pull himself up in bed and he thinks the pain may be due to a muscle strain. Patient is noted to be tachycardic at the time of examination. EKG completed revealing coarse atrial fibrillation versus atrial tachycardia. DIAGNOSTICS: - EKG reveals sinus mechanism. Repeat EKG this morning revealing coarse A-fib versus atrial tachycardia. - Chest xray negative for acute process - Laboratory data: WBC 5.6. Hemoglobin 10.9. Platelet count 126. D-dimer 1.21. Sodium 135. Potassium 4.0. BUN 12. Creatinine 0.97. Magnesium 1.3. Troponin negative x 3. proBNP 2410. - Current home cardiac medications include fenofibrate 48 mg daily and metoprolol tartrate 12.5 mg twice a day. - Most recent echocardiogram obtained this admission reveals EF 55-60, trace to mild MR and mild to moderate AR - Cardiac catheterization history: October 2023 revealing normal coronary arteries REVIEW OF SYSTEMS: At the time of my exam: CONSTITUTIONAL: Denies fever or chills. HEENT: Denies blurred vision, vision changes, or eye pain. Denies hemoptysis CARDIOVASCULAR: Denies chest pain. Denies orthopnea. Denies PND. Denies palpitations RESPIRATORY: Denies shortness of breath. GASTROINTESTINAL: Denies abdominal pain. Denies nausea or vomiting. HEMATOLOGIC: Denies bleeding disorders. GENITOURINARY: Denies any blood in urine. SKIN: Denies pruitis. Denies rash. PHYSICAL EXAM: VITAL SIGNS: Reviewed. GENERAL: Well-developed in no acute distress. HEENT: Head is normocephalic. Pupils are equal, round. Sclerae anicteric. Mucous membranes of the mouth are moist. Neck supple. No JVD or thyromegaly LUNGS: Respirations even and unlabored. Lungs essentially clear to auscultation bilaterally. HEART: Tachycardic. Regular rate and rhythm. S1 and S2 heard. ABDOMEN: Soft. Nondistended. Nontender. EXTREMITIES: Normal range of motion. No clubbing or cyanosis. Peripheral pulses intact. No lower extremity edema NEUROLOGIC: Awake and alert. Oriented x 3. ASSESSMENT: Chest pain, appears musculoskeletal, troponin negative x 3 Atrial tachycardia versus coarse A-fib with RVR Paroxysmal atrial fibrillation Normal coronary arteries, per cath for 2023 Hyperlipidemia Lymphoma with recent stem cell transplant PLAN: An acute coronary event has been ruled out 2D echo obtained and reviewed Increase metoprolol to 25 mg twice a day Discontinue aspirin Begin Eliquis 5 mg twice a day Continue telemetry monitoring Further recommendations pending patient course Nurse practitioner note has been reviewed by physician. Signing provider agrees with the documented findings, assessment, and plan of care documented by CORPORATE AUDITOR as a scribe. Past Medical History Past Medical History: GERD/Reflux, Hyperlipidemia, Seizure Disorder Additional Past Medical History / Comment(s): HEART MURMUR. , SEIZURES R/T ABX- 2007. , HX KIDNEY STONES,. NUMBNESS/TINGLING ARMS, HANDS COLD., CONSTIPATION. , BACK & NECK PAIN, recently hospitalized (11/07/23) for organ failure per patient. RECENT DX OF LYMPHOMA, stem cell History of Any Multi-Drug Resistant Organisms: None Reported Past Surgical History: Appendectomy, Back Surgery, Cholecystectomy, Heart Catheterization, Joint Replacement, Orthopedic Surgery Additional Past Surgical History / Comment(s): Pain clinic procedures, pilonidal cyst, Laminectomy with decompression lumbar fusion with hardware (12/2021)., 2018 anterior cervical fusion with dissection., lithotripsy, RT CHANDAN, Past Anesthesia/Blood Transfusion Reactions: Previous Problems w/ Anesthesia Additional Past Anesthesia/Blood Transfusion Reaction / Comment(s): combative when he wakes up Past Psychological History: Anxiety Additional Psychological History / Comment(s): valium is effective Smoking Status: Current every day smoker Past Alcohol Use History: None Reported Additional Past Alcohol Use History / Comment(s): smokes 1 ppd, started smoking age 19. Past Drug Use History: None Reported Additional Drug Use History / Comment(s): Occasional edible marijuana for sleep. - Past Family History Father Family Medical History: Cancer, GERD/Reflux Brother(s) Family Medical History: Cancer Additional Family Medical History / Comment(s): 2 BROTHER'S WITH CANCER Medications and Allergies Home Medications Medication Instructions Recorded Confirmed Type Cyclobenzaprine [Flexeril] 10 mg PO DIRECTED PRN 01/19/23 08/01/24 History diazePAM [Valium] 5 mg PO BID 01/19/23 08/01/24 History Famotidine [Pepcid] 20 mg PO HS 05/24/23 08/01/24 History Omeprazole [PriLOSEC] 40 mg PO DAILY 05/24/23 08/01/24 History Sennosides [Senokot] 8.6 tab PO DIRECTED PRN 10/30/23 08/01/24 History Fenofibrate Nanocrystallized 48 mg PO DIRECTED 01/05/24 08/01/24 History [Tricor] Acyclovir [Zovirax] 400 mg PO BID 08/01/24 08/01/24 History Ergocalciferol [Vitamin D2 (1250 1,250 mcg PO WEEKLY 08/01/24 08/01/24 History Mcg = 05567 Iu)] Hydrocortisone [Cortef] 25 mg PO BID 08/01/24 08/01/24 History Loperamide HCl [Imodium A-D] 2 - 4 mg PO QID PRN 08/01/24 08/01/24 History Metoprolol Tartrate [Lopressor] 12.5 mg PO BID 08/01/24 08/01/24 History Prochlorperazine [Compazine] 10 mg PO Q6H PRN 08/01/24 08/01/24 History ondansetron HCL [Zofran] 8 mg PO Q8H PRN 08/01/24 08/01/24 History oxyCODONE HCL [OxyIR] 5 mg PO Q4H PRN 08/01/24 08/01/24 History Allergies Allergy/AdvReac Type Severity Reaction Status Date / Time ciprofloxacin [From Cipro] AdvReac Severe BRAIN STEM Verified 08/01/24 12:45 SEIZURES moxifloxacin [From Avelox] AdvReac Severe Seizures Verified 08/01/24 12:45 Quinolones AdvReac Severe Seizures Verified 08/01/24 12:45 Physical Exam Vitals: Vital Signs Temp Pulse Pulse Resp BP BP Pulse Ox 08/02/24 08:00 97.8 F 89 14 97/67 92 L 08/02/24 00:00 99.1 F 103 H 18 132/71 94 L 08/01/24 21:27 98.3 F 83 17 122/76 96 08/01/24 18:23 98.5 F 75 16 107/68 95 08/01/24 16:56 97.8 F 76 14 101/59 95 08/01/24 15:08 80 16 90/58 99 08/01/24 14:06 98.0 F 81 14 95/58 97 08/01/24 13:05 86 18 87/58 97 08/01/24 12:00 98.7 F 86 16 82/53 94 L 08/01/24 11:20 100.0 F H 89 16 95/54 95 08/01/24 11:03 90 08/01/24 10:24 98.1 F 99 18 97/62 96 Intake and Output 08/01/24 08/02/24 08/02/24 22:59 06:59 14:59 Output Total 280 Balance -280 Output: Urine 280 Other: Voiding Method Toilet Toilet # Voids 1 2 # Bowel Movements 2 Weight 96.615 kg Results 08/01/24 11:18 08/01/24 11:18 Cardiac Enzymes 08/01/24 08/01/24 08/01/24 Range/Units 11:18 11:18 15:05 AST 21 (17-59) U/L Lactate Dehydrogenase 182 (120-246) U/L Troponin I 0.026 0.023 (0.000-0.034) ng/mL 08/01/24 Range/Units 17:49 AST (17-59) U/L Lactate Dehydrogenase (120-246) U/L Troponin I 0.024 (0.000-0.034) ng/mL Coagulation 08/01/24 Range/Units 11:18 PT 11.8 (10.0-12.5) sec APTT 21.4 L (22.0-30.0) sec CBC 08/01/24 Range/Units 11:18 WBC 5.6 (3.8-10.6) k/uL RBC 3.74 L (4.30-5.90) m/uL Hgb 10.9 L (13.0-17.5) gm/dL Hct 32.4 L (39.0-53.0) % Plt Count 126 L (150-450) k/uL Comprehensive Metabolic Panel 08/01/24 Range/Units 11:18 Sodium 135 L (137-145) mmol/L Potassium 4.0 (3.5-5.1) mmol/L Chloride 102 (98-107) mmol/L Carbon Dioxide 25 (22-30) mmol/L BUN 12 (9-20) mg/dL Creatinine 0.97 (0.66-1.25) mg/dL Glucose 140 H (74-99) mg/dL Calcium 9.3 (8.4-10.2) mg/dL AST 21 (17-59) U/L ALT 21 (4-49) U/L Alkaline Phosphatase 90 (38-126) U/L Total Protein 7.7 (6.3-8.2) g/dL Albumin 3.7 (3.5-5.0) g/dL Current Medications Generic Name Dose Route Start Last Admin Trade Name Freq PRN Reason Stop Dose Admin Acyclovir 400 mg 08/01/24 21:00 08/02/24 08:26 Acyclovir 200 Mg Cap PO 400 mg BID ADONIS Administration Apixaban 5 mg 08/02/24 09:00 Apixaban 5 Mg Tab PO BID ADONIS Protocol Diazepam 5 mg 08/01/24 21:00 08/02/24 08:26 Diazepam 5 Mg Tab PO 5 mg BID ADONIS Administration Ergocalciferol 1,250 mcg 08/08/24 09:00 Ergocalciferol 1,250 Mcg (50,000 Iu) Capsule PO WEEKLY ADONIS Famotidine 20 mg 08/01/24 21:00 08/01/24 21:31 Famotidine 20 Mg Tab PO 20 mg HS ADONIS Administration Hydrocortisone 25 mg 08/01/24 21:00 08/02/24 08:26 Hydrocortisone 10 Mg Tab PO 25 mg BID ADONIS Administration Sodium Chloride 1,000 mls @ 75 mls/hr 08/01/24 17:00 08/02/24 05:54 Saline 0.9% IV 75 mls/hr .[id number] ADONIS Administration Metoprolol Tartrate 25 mg 08/02/24 09:00 08/02/24 08:26 Metoprolol Tartrate 25 Mg Tab PO 25 mg BID ADONIS Administration Nitroglycerin 0.4 mg 08/01/24 14:32 Nitroglycerin Sl Tabs 0.4 Mg Tab SUBLINGUAL Q5M PRN Chest Pain Ondansetron HCl 8 mg 08/01/24 14:34 Ondansetron 4 Mg Tab PO Q8H PRN Nausea And Vomiting Oxycodone HCl 5 mg 08/01/24 14:34 08/01/24 21:31 Oxycodone Hcl 5 Mg Tab PO 5 mg Q4H PRN Administration Pain Pantoprazole Sodium 40 mg 08/02/24 07:30 08/02/24 05:54 Pantoprazole 40 Mg Tablet PO 40 mg [id number] ADONIS Administration Prochlorperazine Maleate 10 mg 08/01/24 14:34 Prochlorperazine 10 Mg Tab PO Q6H PRN Nausea Intake and Output 08/01/24 08/02/24 08/02/24 22:59 06:59 14:59 Output Total 280 Balance -280 Output: Urine 280 Other: Voiding Method Toilet Toilet # Voids 1 2 # Bowel Movements 2 Weight 96.615 kg 08/01/24 11:18 08/01/24 11:18
[2024-08-02 10:36] LABS: Chol/HDL Ratio 4.56 Ratio; LDL Cholesterol,Calculated 124.4 mg/dL (0.0-131.0)
[2024-08-02] MEDS: APIXABAN 5 MG TAB PO SCH (11:20)
--- NOTE | 2024-08-02 12:43 | P.HPIM ---
History of Present Illness H&P Date: 08/02/24 Chief Complaint: Chest pain Patient is a 58-year-old male with history of previous T-cell lymphoma with stem cell transplant just a few weeks ago, GERD, hyperlipidemia presented to the emergency department with chest discomfort. Patient reports that the chest pain started about 2 nights ago while he was pulling himself towards the bed railing. Afterwards he he started noticing a sharp stabbing pain in the center of his chest with some pressure sensation. He said the pain lasted the whole night with a severity of 10 out of 10 at times. He was seen at bedside today. His chest pain has resolved. Patient denies fever, chills, shortness of breath, nausea, vomiting, belly pain, dysuria, diarrhea or constipation. ED documentation reviewed. In the ED patient was treated with aspirin 324 mg p.o., nitroglycerin 0.4 mg x 3, acetaminophen IV 1000 mg x 1, magnesium oxide 400 mg x 1, magnesium sulfate 1 g IV x 1, metoprolol tartrate 12.5 mg x 1 Vitals on admission temperature 97.8, pulse rate 89, respiratory rate 14, blood pressure 97/67, O2 sat 92% on room air EKG independently interpreted as sinus rhythm with ventricular rate of 91 bpm, QTc interval 399 ms CXR shows no acute cardiopulmonary disease/process Echocardiogram shows left ventricular ejection fraction of 50 to 55%. Mild to moderate aortic regurgitation. Trace to mild mitral regurgitation. CT angiography of chest shows no pulmonary embolism. No acute cardiopulmonary disease. Mild chronic changes in the lung bases posteriorly as described above. Labs on admission show WBC 5.6, hemoglobin 10.9, hematocrit 32.4, platelet 126, PT 11.8, PTT 21.4, INR 1.1, D-dimer 1.21, sodium 135, potassium 4.0, chloride 102, carbon dioxide 25, BUN 12, creatinine 0.97, glucose 140, magnesium 1.3, troponin 0.026, BNP 2410 UA shows negative for nitrites and leukocyte esterase Respiratory panel negative for flu, RSV, COVID-19 Review of systems: Pertinent positives and negatives as discussed in HPI, a complete review of systems was performed and all other systems are negative. PMH:history of previous T-cell lymphoma with stem cell transplant just a few weeks ago, GERD, hyperlipidemia PSH: Appendectomy, cholecystectomy, left heart cath in October 2023 FMH: Father has a history of GERD and cancer, 2 brothers have history of cancer Allergies: Ciprofloxacin, moxifloxacin, quinolones Social history: Tobacco: Current everyday smoker Alcohol: None reported Recreational drugs: None reported Travel: No travel history Sick contacts: No sick contacts Physical examination: Vital signs reviewed General: nontoxic, no distress, appears at stated age Derm: warm, dry, intact Head: atraumatic, normocephalic, symmetric Eyes: EOMI, anicteric sclera Mouth: no lip lesion, mucus membranes moist Cardiovascular: S1 S2 reg, no murmur Lungs: CTA bilateral, no rhonchi, no rales, no accessory muscle use Abdominal: soft, non-tender to palpation Extremities: No cyanosis, clubbing, or pedal edema. Neuro: Alert, Oriented, Gross neurological examination did not reveal any focal deficits. Psych: well appearing, appropriate affect Assessment/Plan: Patient is a 58-year-old male with history of previous T-cell lymphoma with stem cell transplant just a few weeks ago, GERD, hyperlipidemia presented to the emergency department with chest discomfort. Patient will be admitted to internal medicine service. Active: #. Chest pain with atypical features, rule out ACS Continue cardiac monitoring Troponin 0.026, 0.023, 0.024 EKG showed sinus rhythm with ventricular rate of 91 bpm, QTc interval 399 ms Chest x-ray shows no acute cardiopulmonary disease/process Echo shows left ventricular ejection fraction of 50 to 55% Cardiology has been consulted #. Normocytic anemia Hemoglobin 10.9 MCV 86.6 Monitor morning CBC #. Thrombocytopenia Platelets 126 Monitor morning CBC #. Hypomagnesemia Magnesium 1.3 Magnesium oxide 400 mg p.o. x 1 given by the ED #. Mild hyponatremia Sodium 135 Monitor morning BMP Chronic: #. GERD #. Hypertension #. Vitamin D deficiency Restart Protonix 40 mg, metoprolol tartrate 25 mg twice daily, this morning vitamin D2 50 mcg weekly F: No restrictions E: Replete as needed N: Heart healthy diet A: Wheelchair DVT prophylaxis: Apixaban 5 mg twice daily The patient is admitted with an anticipated last than 2 midnight stay for evaluation of chest pain with atypical features CODE STATUS: Full code Discussed with: Patient Anticipated discharge place: Home Past Medical History Past Medical History: GERD/Reflux, Hyperlipidemia, Seizure Disorder Additional Past Medical History / Comment(s): HEART MURMUR. , SEIZURES R/T ABX- 2008. , HX KIDNEY STONES,. NUMBNESS/TINGLING ARMS, HANDS COLD., CONSTIPATION. , BACK & NECK PAIN, recently hospitalized (11/07/23) for organ failure per patient. RECENT DX OF LYMPHOMA, stem cell History of Any Multi-Drug Resistant Organisms: None Reported Past Surgical History: Appendectomy, Back Surgery, Cholecystectomy, Heart Catheterization, Joint Replacement, Orthopedic Surgery Additional Past Surgical History / Comment(s): Pain clinic procedures, pilonidal cyst, Laminectomy with decompression lumbar fusion with hardware (12/2021)., 2018 anterior cervical fusion with dissection., lithotripsy, RT CHANDAN, Past Anesthesia/Blood Transfusion Reactions: Previous Problems w/ Anesthesia Additional Past Anesthesia/Blood Transfusion Reaction / Comment(s): combative when he wakes up Past Psychological History: Anxiety Additional Psychological History / Comment(s): valium is effective Smoking Status: Current every day smoker Past Alcohol Use History: None Reported Additional Past Alcohol Use History / Comment(s): smokes 1 ppd, started smoking age 19. Past Drug Use History: None Reported Additional Drug Use History / Comment(s): Occasional edible marijuana for sleep. - Past Family History Father Family Medical History: Cancer, GERD/Reflux Brother(s) Family Medical History: Cancer Additional Family Medical History / Comment(s): 2 BROTHER'S WITH CANCER Medications and Allergies Home Medications Medication Instructions Recorded Confirmed Type Cyclobenzaprine [Flexeril] 10 mg PO DIRECTED PRN 01/19/23 08/01/24 History diazePAM [Valium] 5 mg PO BID 01/19/23 08/01/24 History Famotidine [Pepcid] 20 mg PO HS 05/24/23 08/01/24 History Omeprazole [PriLOSEC] 40 mg PO DAILY 05/24/23 08/01/24 History Sennosides [Senokot] 8.6 tab PO DIRECTED PRN 10/30/23 08/01/24 History Fenofibrate Nanocrystallized 48 mg PO DIRECTED 01/05/24 08/01/24 History [Tricor] Acyclovir [Zovirax] 400 mg PO BID 08/01/24 08/01/24 History Ergocalciferol [Vitamin D2 (1250 1,250 mcg PO WEEKLY 08/01/24 08/01/24 History Mcg = 05008 Iu)] Hydrocortisone [Cortef] 25 mg PO BID 08/01/24 08/01/24 History Loperamide HCl [Imodium A-D] 2 - 4 mg PO QID PRN 08/01/24 08/01/24 History Metoprolol Tartrate [Lopressor] 12.5 mg PO BID 08/01/24 08/01/24 History Prochlorperazine [Compazine] 10 mg PO Q6H PRN 08/01/24 08/01/24 History ondansetron HCL [Zofran] 8 mg PO Q8H PRN 08/01/24 08/01/24 History oxyCODONE HCL [OxyIR] 5 mg PO Q4H PRN 08/01/24 08/01/24 History Allergies Allergy/AdvReac Type Severity Reaction Status Date / Time ciprofloxacin [From Cipro] AdvReac Severe BRAIN STEM Verified 08/01/24 12:45 SEIZURES moxifloxacin [From Avelox] AdvReac Severe Seizures Verified 08/01/24 12:45 Quinolones AdvReac Severe Seizures Verified 08/01/24 12:45 Physical Exam Vitals: Vital Signs Temp Pulse Pulse Resp BP BP Pulse Ox 08/02/24 08:00 97.8 F 89 14 97/67 92 L 08/02/24 00:00 99.1 F 103 H 18 132/71 94 L 08/01/24 21:27 98.3 F 83 17 122/76 96 08/01/24 18:23 98.5 F 75 16 107/68 95 08/01/24 16:56 97.8 F 76 14 101/59 95 08/01/24 15:08 80 16 90/58 99 08/01/24 14:06 98.0 F 81 14 95/58 97 08/01/24 13:05 86 18 87/58 97 08/01/24 12:00 98.7 F 86 16 82/53 94 L 08/01/24 11:20 100.0 F H 89 16 95/54 95 08/01/24 11:03 90 08/01/24 10:24 98.1 F 99 18 97/62 96 Intake and Output 08/01/24 08/02/24 08/02/24 22:59 06:59 14:59 Output Total 280 Balance -280 Output: Urine 280 Other: Voiding Method Toilet Toilet # Voids 1 2 # Bowel Movements 2 Weight 96.615 kg Results CBC & Chem 7: 08/01/24 11:18 08/01/24 11:18 Labs: Abnormal Lab Results - Last 24 Hours (Table) 08/01/24 08/01/24 08/01/24 Range/Units 11:18 11:18 11:18 RBC 3.74 L (4.30-5.90) m/uL Hgb 10.9 L (13.0-17.5) gm/dL Hct 32.4 L (39.0-53.0) % RDW 16.3 H (11.5-15.5) % Plt Count 126 L (150-450) k/uL Lymphocytes # 0.5 L (1.0-4.8) k/uL APTT 21.4 L (22.0-30.0) sec D-Dimer 1.21 H (<0.60) mg/L FEU Sodium 135 L (137-145) mmol/L Glucose 140 H (74-99) mg/dL Magnesium 1.3 L (1.6-2.3) mg/dL Ur Specific [place] (1.001-1.035) Urine Protein (Negative) 08/01/24 Range/Units 11:33 RBC (4.30-5.90) m/uL Hgb (13.0-17.5) gm/dL Hct (39.0-53.0) % RDW (11.5-15.5) % Plt Count (150-450) k/uL Lymphocytes # (1.0-4.8) k/uL APTT (22.0-30.0) sec D-Dimer (<0.60) mg/L FEU Sodium (137-145) mmol/L Glucose (74-99) mg/dL Magnesium (1.6-2.3) mg/dL Ur Specific [place] >1.050 H (1.001-1.035) Urine Protein Trace H (Negative)
--- NOTE | 2024-08-02 13:03 | P.DS ---
Providers Date of admission: 08/01/24 14:32 Expected date of discharge: 08/02/24 Attending physician: Shakir Munguia MD Consults: 08/01/24 14:32 Consult Physician Routine Consulting Provider: Garrison Garcia Consult Reason/Comments: oncological care Do you want consulting provider notified?: Yes Consult Physician Urgent Consulting Provider: Alyssa Fan Consult Reason/Comments: cp Do you want consulting provider notified?: Yes Primary care [facility] Course: Hospital course: Patient is a 58-year-old male with history of previous T-cell lymphoma with stem cell transplant just a few weeks ago, GERD, hyperlipidemia presented to the emergency department with chest discomfort. Patient reports that the chest pain started about 2 nights ago while he was pulling himself towards the bed railing. Afterwards he he started noticing a sharp stabbing pain in the center of his chest with some pressure sensation. He said the pain lasted the whole night with a severity of 10 out of 10 at times. He was seen at bedside today. His chest pain has resolved. Patient denies fever, chills, shortness of breath, nausea, vomiting, belly pain, dysuria, diarrhea or constipation. Initial EKG showed sinus rhythm with ventricular rate of 91 bpm, QTc interval 399 ms. Chest x-ray shows no acute cardiopulmonary disease/process. Echocardiogram was ordered and showed left ventricular ejection fraction of 50 to 55%. Mild to moderate aortic regurgitation. Trace to mild mitral regurgitation. Patient's magnesium level was found to be slightly decreased at 1.3 and was given magnesium oxide 400 mg oral x 1. Patient developed atrial fibrillation with rapid ventricular response on 08/02/2024. Cardiology subsequently saw the patient and increased metoprolol tartrate to 25 mg twice daily and started apixaban 5 mg twice daily. Patient was seen at bedside on 08/02/2024. He reports chest pain has resolved. Patient is stable to be discharged back home. He is recommended to follow-up with his primary care physician in 1 to [address] Carcamo in 1 week after discharge. Metoprolol tartrate has been increased to 25 mg twice daily and Eliquis 5 mg twice daily were added to patient's home medication. Physical examination at discharge: GENERAL: This is a 58-year-old in no apparent distress at the time of examination. Pleasant and cooperative. HEENT: Head is atraumatic, normocephalic. Pupils are equal, round, and reactive to light. Sclerae anicteric. Conjunctivae are clear. Mucus membranes of the mouth are moist. Neck is supple. RESPIRATORY: Clear to auscultation. No wheezes, rales, or rhonchi. No use of accessory muscles. Patient maintaining oxygen saturation greater than 92%. No chest wall tenderness is noted on palpation or with deep breathing. CARDIOVASCULAR: Regular rate and rhythm. S1 and S2 noted. No systolic or diastolic murmur auscultated. No JVD noted. No S3 or S4 noted. GASTROINTESTINAL: No distention noted. Abdomen soft and round. Normal active bowel sounds auscultated x 4 quadrants. No pain or tenderness noted upon palpation. INTEGUMENTARY: No cyanosis. No jaundice. No rashes noted. No cellulitis noted. EXTREMITIES: 2+ peripheral pulses. No evidence of peripheral edema. No calf tenderness noted. NEUROLOGIC: Cranial nerves II-XII intact. PSYCHIATRIC: Awake, alert, and oriented X 3. Appropriate affect. Intact judgement and insight. Patient Condition at Discharge: Stable Plan - Discharge Summary New Discharge Prescriptions: New Metoprolol Tartrate [Lopressor] 25 mg PO BID 30 Days #60 tablet Apixaban [Eliquis] 5 mg PO BID 30 Days #60 tab Continue diazePAM [Valium] 5 mg PO BID Omeprazole [PriLOSEC] 40 mg PO DAILY Famotidine [Pepcid] 20 mg PO HS Fenofibrate Nanocrystallized [Tricor] 48 mg PO DIRECTED Hydrocortisone [Cortef] 25 mg PO BID oxyCODONE HCL [OxyIR] 5 mg PO Q4H PRN PRN Reason: Pain Cyclobenzaprine [Flexeril] 10 mg PO DIRECTED PRN PRN Reason: Muscle Spasm Sennosides [Senokot] 8.6 tab PO DIRECTED PRN PRN Reason: Constipation Acyclovir [Zovirax] 400 mg PO BID Ergocalciferol [Vitamin D2 (1250 Mcg = 17211 Iu)] 1,250 mcg PO WEEKLY Loperamide HCl [Imodium A-D] 2 - 4 mg PO QID PRN PRN Reason: Diarrhea ondansetron HCL [Zofran] 8 mg PO Q8H PRN PRN Reason: Nausea And Vomiting Prochlorperazine [Compazine] 10 mg PO Q6H PRN PRN Reason: Nausea Discontinued Metoprolol Tartrate [Lopressor] 12.5 mg PO BID Discharge Medication List Cyclobenzaprine [Flexeril] 10 mg PO DIRECTED PRN 01/19/23 [History] diazePAM [Valium] 5 mg PO BID 01/19/23 [History] Famotidine [Pepcid] 20 mg PO HS 05/24/23 [History] Omeprazole [PriLOSEC] 40 mg PO DAILY 05/24/23 [History] Sennosides [Senokot] 8.6 tab PO DIRECTED PRN 10/30/23 [History] Fenofibrate Nanocrystallized [Tricor] 48 mg PO DIRECTED 01/05/24 [History] Acyclovir [Zovirax] 400 mg PO BID 08/01/24 [History] Ergocalciferol [Vitamin D2 (1250 Mcg = 02533 Iu)] 1,250 mcg PO WEEKLY 08/01/24 [History] Hydrocortisone [Cortef] 25 mg PO BID 08/01/24 [History] Loperamide HCl [Imodium A-D] 2 - 4 mg PO QID PRN 08/01/24 [History] Prochlorperazine [Compazine] 10 mg PO Q6H PRN 08/01/24 [History] ondansetron HCL [Zofran] 8 mg PO Q8H PRN 08/01/24 [History] oxyCODONE HCL [OxyIR] 5 mg PO Q4H PRN 08/01/24 [History] Apixaban [Eliquis] 5 mg PO BID 30 Days #60 tab 08/02/24 [Rx] Metoprolol Tartrate [Lopressor] 25 mg PO BID 30 Days #60 tablet 08/02/24 [Rx] Follow up Appointment(s)/Referral(s): Suzanne Go MD [Primary Care Provider] - 1-2 days Rhett Carcamo MD [STAFF PHYSICIAN] - 1 Week Discharge Disposition: HOME SELF-CARE
[2024-08-02] MEDS: METOPROLOL TARTRATE 25 MG TAB PO STA (15:56)
[2024-08-02] MEDS: SODIUM CHLORIDE 0.9% 500 ML 250 ML IV ONE (15:58)
--- NOTE | 2024-08-02 18:23 | P.CONS ---
History of Present Illness - Reason for Consult Consult date: 08/02/24 S/P auto SCT Requesting physician: Arie Hernandez - Chief Complaint Chest pain - History of Present Illness Mr. Ovalles is a pleasant 58-year-old male patient of Dr. Lake initially seen in consult at [facility] . He was admitted with weakness, malaise and fevers. Workup showed CANDE with creatinine of 2.9, platelets 85,000. CTAP without contrast showed adenopathy and splenomegaly. Initially thought that cytopenias were secondary to consumption from acute illness as well as history of heavy alcohol use. CTAP with contrast was ordered after improvement in creatinine. A denopathy confirmed, inflammatory changes near cecum and the right paracolic gutter. CT neck and chest 1.1 cm left supraclavicular node, multiple small nodes and bilateral supraclavicular area. MRCP showed inflammation around the gallbladder. Patient had a cholecystectomy with pericystic lymph node sampling 11/03/2023, pathology was chronic cholecystitis with reactive lymph node. Core biopsy right supraclavicular node, that appeared to of enlarged in the interim, 11/17/2023, showed atypical lymphoreticular infiltrate positive for CD10, CD79a and BCL6. KIA67 was high at 80% There was a mixed T-cell population present. There was evidence of caseating granulomas, fungal and mycobacterial organism testing was negative. [place] findings consistent with a high-grade lymphoid neoplasm, further characterization not defined. Patient was referred to [facility] for additional workup. 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 He was started on CHO EP 01/23/2024 completing 6 cycles 05/09/2024. At that time he was referred to [facility] for stem cell transplant. Patient was in the hospital from 06/27-07/19 for marrow destroying chemotherapy, autologous stem cell transplant. He returned to the hospital 07/20 for suspected pneumonia, he was released a day later. Patient has done well since that time. Patient is currently admitted with complaints of chest pain. The pain appears to be on the lateral portion of the sternum, patient thinks it might be from pulling himself up. He had a temperature of 100.5 max on admission. He denies any other fever. No nausea, vomiting, oral irritation, sore throat, productive cough, hemoptysis, nausea or vomiting, he is tolerating oral intake pretty well, no abdominal bloating, distention, cramping, dysuria, hematuria, diarrhea, constipation, hematochezia or melena. Patient is currently ambulating with an assistive device. CTA was negative for PE, chest x-ray no acute process, troponins were negative. WBCs 5.6, platelets 126,000, hemoglobin 10.9 Review of Systems 14 point review of systems is negative except as stated in HPI Past Medical History Past Medical History: Cancer, GERD/Reflux, Hyperlipidemia, Seizure Disorder Additional Past Medical History / Comment(s): HEART MURMUR. , SEIZURES R/T ABX- 2007. , HX KIDNEY STONES,. NUMBNESS/TINGLING ARMS, HANDS COLD., CONSTIPATION. , BACK & NECK PAIN, recently hospitalized (11/07/23) for organ failure per patient. RECENT DX OF LYMPHOMA, autologous stem cell transplant June 2024 History of Any Multi-Drug Resistant Organisms: None Reported Past Surgical History: Appendectomy, Back Surgery, Cholecystectomy, Heart Catheterization, Joint Replacement, Orthopedic Surgery Additional Past Surgical History / Comment(s): Pain clinic procedures, pilonidal cyst, Laminectomy with decompression lumbar fusion with hardware (12/2021)., 2018 anterior cervical fusion with dissection., lithotripsy, RT CHANDAN, Past Anesthesia/Blood Transfusion Reactions: Previous Problems w/ Anesthesia Additional Past Anesthesia/Blood Transfusion Reaction / Comm: combative when he wakes up Past Psychological History: Anxiety Additional Psychological History / Comment(s): valium is effective Smoking Status: Current every day smoker Past Alcohol Use History: None Reported Additional Past Alcohol Use History / Comment(s): smokes 1 ppd, started smoking age 19. Past Drug Use History: None Reported Additional Drug Use History / Comment(s): Occasional edible marijuana for sleep. - Past Family History Father Family Medical History: Cancer, GERD/Reflux Brother(s) Family Medical History: Cancer Additional Family Medical History / Comment(s): 2 BROTHER'S WITH CANCER Medications and Allergies Home Medications Medication Instructions Recorded Confirmed Type Cyclobenzaprine [Flexeril] 10 mg PO DIRECTED PRN 01/19/23 08/01/24 History diazePAM [Valium] 5 mg PO BID 01/19/23 08/01/24 History Famotidine [Pepcid] 20 mg PO HS 05/24/23 08/01/24 History Omeprazole [PriLOSEC] 40 mg PO DAILY 05/24/23 08/01/24 History Sennosides [Senokot] 8.6 tab PO DIRECTED PRN 10/30/23 08/01/24 History Fenofibrate Nanocrystallized 48 mg PO DIRECTED 01/05/24 08/01/24 History [Tricor] Acyclovir [Zovirax] 400 mg PO BID 08/01/24 08/01/24 History Ergocalciferol [Vitamin D2 (1250 1,250 mcg PO WEEKLY 08/01/24 08/01/24 History Mcg = 56734 Iu)] Hydrocortisone [Cortef] 25 mg PO BID 08/01/24 08/01/24 History Loperamide HCl [Imodium A-D] 2 - 4 mg PO QID PRN 08/01/24 08/01/24 History Prochlorperazine [Compazine] 10 mg PO Q6H PRN 08/01/24 08/01/24 History ondansetron HCL [Zofran] 8 mg PO Q8H PRN 08/01/24 08/01/24 History oxyCODONE HCL [OxyIR] 5 mg PO Q4H PRN 08/01/24 08/01/24 History Apixaban [Eliquis] 5 mg PO BID 30 Days #60 tab 08/02/24 Rx Metoprolol Tartrate [Lopressor] 25 mg PO BID 30 Days #60 tablet 08/02/24 Rx Allergies Allergy/AdvReac Type Severity Reaction Status Date / Time ciprofloxacin [From Cipro] AdvReac Severe BRAIN STEM Verified 08/01/24 12:45 SEIZURES moxifloxacin [From Avelox] AdvReac Severe Seizures Verified 08/01/24 12:45 Quinolones AdvReac Severe Seizures Verified 08/01/24 12:45 Physical Exam Vitals: Vital Signs Temp Pulse Pulse Resp BP BP Pulse Ox 08/02/24 08:00 97.8 F 89 14 97/67 92 L 08/02/24 00:00 99.1 F 103 H 18 132/71 94 L 08/01/24 21:27 98.3 F 83 17 122/76 96 08/01/24 18:23 98.5 F 75 16 107/68 95 08/01/24 16:56 97.8 F 76 14 101/59 95 08/01/24 15:08 80 16 90/58 99 08/01/24 14:06 98.0 F 81 14 95/58 97 08/01/24 13:05 86 18 87/58 97 08/01/24 12:00 98.7 F 86 16 82/53 94 L 08/01/24 11:20 100.0 F H 89 16 95/54 95 08/01/24 11:03 90 08/01/24 10:24 98.1 F 99 18 97/62 96 Intake and Output 08/01/24 08/02/24 08/02/24 22:59 06:59 14:59 Output Total 280 Balance -280 Output: Urine 280 Other: Voiding Method Toilet Toilet # Voids 1 2 # Bowel Movements 2 Weight 96.615 kg - Constitutional General appearance: average body habitus, cooperative, no acute distress - EENT Eyes: anicteric sclerae, EOMI ENT: hearing grossly normal, normal oropharynx - Neck Neck: no lymphadenopathy - Respiratory Respiratory: bilateral: CTA - Cardiovascular Rhythm: regular Heart sounds: normal: S1, S2 Abnormal Heart Sounds: no systolic murmur, no diastolic murmur, no rub, no S3 Gallop, no S4 Gallop, no click, no other leg Peripheral Edema: bilateral: Trace - Gastrointestinal General gastrointestinal: no absent bowel sounds, no decreased bowel sounds, no distended, no hepatomegaly, no hyperactive bowel sounds, normal bowel sounds, no organomegaly, no rigid, no scaphoid, soft, no splenomegaly, no tenderness, no umbilical hernia, no ventral hernia - Integumentary Integumentary: pale - Neurologic Neurologic: CNII-XII intact - Musculoskeletal Musculoskeletal: generalized weakness - Psychiatric Psychiatric: A&O x's 3, appropriate affect, intact judgment & insight Results CBC & Chem 7: 08/01/24 11:18 08/01/24 11:18 Labs: Abnormal Lab Results - Last 24 Hours (Table) 08/01/24 08/01/24 08/01/24 Range/Units 11:18 11:18 11:18 RBC 3.74 L (4.30-5.90) m/uL Hgb 10.9 L (13.0-17.5) gm/dL Hct 32.4 L (39.0-53.0) % RDW 16.3 H (11.5-15.5) % Plt Count 126 L (150-450) k/uL Lymphocytes # 0.5 L (1.0-4.8) k/uL APTT 21.4 L (22.0-30.0) sec D-Dimer 1.21 H (<0.60) mg/L FEU Sodium 135 L (137-145) mmol/L Glucose 140 H (74-99) mg/dL Magnesium 1.3 L (1.6-2.3) mg/dL Ur Specific [place] (1.001-1.035) Urine Protein (Negative) 08/01/24 Range/Units 11:33 RBC (4.30-5.90) m/uL Hgb (13.0-17.5) gm/dL Hct (39.0-53.0) % RDW (11.5-15.5) % Plt Count (150-450) k/uL Lymphocytes # (1.0-4.8) k/uL APTT (22.0-30.0) sec D-Dimer (<0.60) mg/L FEU Sodium (137-145) mmol/L Glucose (74-99) mg/dL Magnesium (1.6-2.3) mg/dL Ur Specific [place] >1.050 H (1.001-1.035) Urine Protein Trace H (Negative) Comments: Echo report reviewed Chest x-ray: report reviewed CT scan - chest: report reviewed Assessment and Plan (1) T-cell lymphoma Current Visit: Yes Status: Acute Priority: Medium Code(s): C85.90 - NON- HODGKIN LYMPHOMA, UNSPECIFIED, UNSPECIFIED SITE SNOMED Code(s): 943504779 (2) Anemia Current Visit: Yes Status: Acute Priority: Medium Code(s): D64.9 - ANEMIA, UNSPECIFIED SNOMED Code(s): 307767358 (3) Thrombocytopenia Current Visit: Yes Status: Acute Priority: Medium Code(s): D69.6 - THROMBOCYTOPENIA, UNSPECIFIED SNOMED Code(s): 827096879 Plan: [place] T-cell lymphoma -Diagnosis and treatment as stated in HPI. -Had autologous stem cell transplant, was inpatient 06/27 through 07/19. He was b ack in the hospital the day after he was discharged for SOB, suspect pneumonia but, was discharged within 48 hours. ----- -Patient has done overall pretty well since July 21. -Cardiology following patient for complaints of chest pain. From a Hematology/Oncology/stem cell transplant standpoint patient is okay for cardiac procedures, anticoagulation or medications to control symptoms. Mild thrombocytopenia and anemia -Patient is just barely a month out from an autologous stem cell transplant. His counts look fantastic. No additional workup at this time. Doctor attests: I performed a history and physical examination of this patient, developed impression and plan of care. Discussed with dictator. I agree with dictators note, documented as a scribe.
[2024-08-02] MEDS: METOPROLOL TARTRATE 50 MG TAB PO SCH (20:21)
[2024-08-03 09:08] LABS: BUN/Creat Ratio 12.75 Ratio (12.00-20.00); Blood Urea Nitrogen 10.2 mg/dL (9.0-27.0); Calcium 8.7 mg/dL (8.7-10.3); Carbon Dioxide 21.2 mmol/L (21.6-31.8); Chloride 109 mmol/L (96-109); Glucose 114 mg/dL (70-110); Potassium 3.8 mmol/L (3.5-5.5); Sodium 141 mmol/L (135-145)
[2024-08-03 10:15] LABS: Basophils # (A) 0.03 X 10*3/uL (0.00-0.10); Basophils % (A) 0.7 %; Eosinophils # (A) 0.11 X 10*3/uL (0.04-0.35); Eosinophils % (A) 2.6 %; HCT 29.4 % (39.6-50.0); HGB 9.5 g/dL (13.0-17.0); Lymphocytes # (A) 0.95 X 10*3/uL (0.90-5.00); Lymphocytes % (A) 22.2 %; MCH 28.6 pg (27.0-32.0); MCHC 32.3 g/dL (32.0-37.0); MCV 88.6 FL (80.0-97.0); Mean Platelet Volume 11.1 FL (9.5-12.2); NRBC Per 100 WBC 0 X 10*3/uL (0.00-0.01); Neutrophils # (A) 2.28 X 10*3/uL (1.80-7.70); Neutrophils % (A) 53.3 %; Platelet Count 110 X 10*3/uL (140-440); RBC 3.32 X 10*6/uL (4.40-5.60); WBC 4.28 X 10*3/uL (4.50-10.00)
[2024-08-03 10:30] VITALS: BP 111/74; PULSE 133; RESP 14; TEMP 98.7
--- NOTE | 2024-08-03 11:06 | P.PN ---
Subjective HISTORY OF PRESENT ILLNESS: This is a 58-year-old male with a past medical history significant for paroxysmal atrial fibrillation, normal coronary arteries, hyperlipidemia, and lymphoma with recent stem cell transplant. Patient follows in the office with Dr. Cullen. We have been asked to see the patient in consultation for chest pain. Patient examined at the bedside. Patient presented to the hospital with a chief complaint of chest discomfort. Patient states 2 nights ago he began to have chest discomfort. Patient also reports having some shortness of breath. He states the pain is worse when he coughs or takes a deep breath. He also states that the right side of his chest was painful to touch yesterday but it is not today. The pain is not worse with exertion. He states that he uses a bed rail to pull himself up in bed and he thinks the pain may be due to a muscle strain. Patient is noted to be tachycardic at the time of examination. EKG completed revealing coarse atrial fibrillation versus atrial tachycardia. DIAGNOSTICS: - EKG reveals sinus mechanism. Repeat EKG this morning revealing coarse A-fib versus atrial tachycardia. - Chest xray negative for acute process - Laboratory data: WBC 5.6. Hemoglobin 10.9. Platelet count 126. D-dimer 1.21. Sodium 135. Potassium 4.0. BUN 12. Creatinine 0.97. Magnesium 1.3. Troponin negative x 3. proBNP 2410. - Current home cardiac medications include fenofibrate 48 mg daily and metoprolol tartrate 12.5 mg twice a day. - Most recent echocardiogram obtained this admission reveals EF 55-60, trace to mild MR and mild to moderate AR - Cardiac catheterization history: October 2023 revealing normal coronary arteries 08/03/2024 Patient examined this morning at the bedside. Patient went into A-fib with RVR yesterday and his metoprolol was increased. Patient was also hypotensive and received IV fluid bolus. He is maintaining sinus mechanism this morning. Patient states he is not comfortable taking metoprolol 50 mg twice a day and is requesting dose to be decreased back to 25 mg twice a day. He denies any chest pain or pressure. Denies any shortness of breath. Blood pressure stable this morning. PHYSICAL EXAM: VITAL SIGNS: Reviewed. GENERAL: Well-developed in no acute distress. HEENT: Head is normocephalic. Pupils are equal, round. Sclerae anicteric. Mucous membranes of the mouth are moist. Neck supple. No JVD or thyromegaly LUNGS: Respirations even and unlabored. Lungs essentially clear to auscultation bilaterally. HEART: Regular rate and rhythm. S1 and S2 heard. ABDOMEN: Soft. Nondistended. Nontender. EXTREMITIES: Normal range of motion. No clubbing or cyanosis. Peripheral pulses intact. No lower extremity edema NEUROLOGIC: Awake and alert. Oriented x 3. ASSESSMENT: Chest pain, appears musculoskeletal, troponin negative x 3 Atrial tachycardia versus coarse A-fib with RVR, currently maintaining sinus mechanism Paroxysmal atrial fibrillation Normal coronary arteries, per cath for 2023 Hyperlipidemia Lymphoma with recent stem cell transplant PLAN: Continue Eliquis 5 mg twice a day Decrease metoprolol to tartrate to 25 mg twice a day Continue telemetry monitoring Patient is stable for discharge home today from a cardiac standpoint Patient to follow-up postdischarge with Dr. Cullen Nurse practitioner note has been reviewed by physician. Signing provider agrees with the documented findings, assessment, and plan of care documented by MERCHANDISE CLERK as a scribe. Objective - Vital Signs Vital signs: Vital Signs Temp 98.7 F 08/03/24 08:00 Pulse 133 H 08/03/24 08:00 Resp 14 08/03/24 08:00 BP 111/74 08/03/24 08:00 Pulse Ox 95 08/03/24 08:00 FiO2 Intake & Output 08/02/24 08/03/24 08/03/24 18:59 06:59 18:59 Intake Total 118 500 Balance 118 500 Intake: Oral 118 500 Other: Voiding Method Toilet Toilet Toilet # Voids 1 2 # Bowel Movements 1 1 - Labs CBC & Chem 7: 08/03/24 06:09 08/03/24 06:09 Labs: Abnormal Lab Results - Last 24 Hours (Table) 08/03/24 08/03/24 Range/Units 06:09 06:09 WBC 4.28 L (4.50-10.00) X 10*3/uL RBC 3.32 L (4.40-5.60) X 10*6/uL Hgb 9.5 L (13.0-17.0) g/dL Hct 29.4 L (39.6-50.0) % RDW 16.0 H (11.5-14.5) % Plt Count 110 L (140-440) X 10*3/uL Carbon Dioxide 21.2 L (21.6-31.8) mmol/L Glucose 114 H (70-110) mg/dL Microbiology - Last 24 Hours (Table) 08/01/24 11:33 Urine Culture - Final Urine,Voided 08/01/24 11:30 Blood Culture - Preliminary Blood
[2024-08-03] MEDS ORDERED: METOPROLOL TARTRATE 25 MG TAB PO SCH (21:00)
[2024-08-08] MEDS ORDERED: ERGOCALCIFEROL 1,250 MCG (50,000 IU) CAPSULE PO SCH (09:00)
== END 2024-08-03 13:50 | disposition home or self-care (01) | DRG 313 ==
LOC: EC 10:22 → 3SCARD 14:32 → 6NMEDSUR 18:35 → OBSVTOIN 08-03 06:48
PROVIDERS: ADMIT Internal Medicine; ATTEND Internal Medicine
DX: R07.89 Other chest pain (principal); N17.9 Acute kidney failure, unspecified; Z94.84 Stem cells transplant status; I47.19 Other supraventricular tachycardia; C91.50 Adult T-cell lymphoma/leukemia (HTLV-1-associated) not having achieved remission; Z11.52 Encounter for screening for COVID-19; D64.9 Anemia, unspecified; G40.909 Epilepsy, unspecified, not intractable, without status epilepticus; I48.0 Paroxysmal atrial fibrillation; D69.6 Thrombocytopenia, unspecified; E78.5 Hyperlipidemia, unspecified; F41.9 Anxiety disorder, unspecified; I08.0 Rheumatic disorders of both mitral and aortic valves; Z79.01 Long term (current) use of anticoagulants; Z79.899 Other long term (current) drug therapy; Z87.01 Personal history of pneumonia (recurrent); Z87.442 Personal history of urinary calculi; Z90.49 Acquired absence of other specified parts of digestive tract; Z98.1 Arthrodesis status
CPT/HCPCS: 36415; 71046; 71275; 80048; 80053; 80061; 81003; 83615; 83690; 83735; 83880; 84484; 85025; 85379; 85610; 85730; 87040; 87086; 87636; 93005; 93306; 96360; 96361; 99285

== ENCOUNTER → 2024-08-08 | Outpatient (CLI) | payer MEDICARE ==
[2024-08-08 12:46] LABS: Anisocytosis Slight; Basophils % (A) 0 %; Eosinophils # (A) 0.1 k/uL (0-0.7); Eosinophils % (A) 1 %; HCT 30.5 % (39.0-53.0); HGB 10.2 gm/dL (13.0-17.5); Hypochromasia Slight; Lymphocytes # (A) 0.6 k/uL (1.0-4.8); Lymphocytes % (A) 7 %; MCHC 33.3 g/dL (31.0-37.0); MCV 87.2 fL (80.0-100.0); Mean Platelet Volume 7.8; Monocytes # (A) 0.4 k/uL (0-1.0); Monocytes % (A) 5 %; Neutrophils # (A) 7.5 k/uL (1.3-7.7); Neutrophils % (A) 86 %; Platelet Count 120 k/uL (150-450); RDW 16.5 % (11.5-15.5); WBC 8.7 k/uL (3.8-10.6)
[2024-08-08 12:57] LABS: ALT 16 U/L (4-49); AST 18 U/L (17-59); African American GFR (CKD) >90 (>60 ml/min/1.73 sqM); Albumin 3.2 g/dL (3.5-5.0); Albumin/Globulin Ratio 0.8; Alkaline Phosphatase 84 U/L (38-126); Anion Gap 10 mmol/L; Blood Urea Nitrogen 10 mg/dL (9-20); Calcium 8.9 mg/dL (8.4-10.2); Carbon Dioxide 23 mmol/L (22-30); Chloride 104 mmol/L (98-107); Glucose 133 mg/dL (74-99); LDH 176 U/L (120-246); Magnesium 1.5 mg/dL (1.6-2.3); Non-African American GFR(CKD) >90 (>60 ml/min/1.73 sqM); Potassium 3.8 mmol/L (3.5-5.1); Sodium 137 mmol/L (137-145); Total Bilirubin 0.5 mg/dL (0.2-1.3); Total Protein 7.2 g/dL (6.3-8.2)
== END | disposition home or self-care (01) ==
LOC: LABWHC1 11:13
PROVIDERS: ATTEND Physician Assistant
DX: C86.5 Angioimmunoblastic T-cell lymphoma (principal); Z48.290 Encounter for aftercare following bone marrow transplant
CPT/HCPCS: 36415; 80053; 83615; 83735; 85025

== ENCOUNTER → 2024-09-20 | Outpatient (CLI) | payer MEDICARE ==
--- NOTE | 2024-09-21 20:50 | PE ---
EXAMINATION TYPE: PET CT fusion skull to thigh DATE OF EXAM: 09/20/2024 CLINICAL INDICATION:Male, 59 years old with history of Lymphoma; TECHNIQUE: Following the intravenous administration of 12.56 mCi of F-18 FDG, whole body images are performed from the skull base to the midthigh. Images are reviewed on the computer in the coronal, axial, and sagittal planes. Reconstructed rotating images are created on independent workstation and reviewed on the computer. A non-contrast CT is performed in conjunction with the PET scan. Glucose level 110 mg/dL CT DLP: 886.17 mGycm, Automated exposure control for dose reduction was used. COMPARISON: CT 08/01/2024, 11/01/2023, PET/CT 04/05/2024, 12/18/2023, MRI: 11/01/2023 FINDINGS: Mediastinal SUV mean is 2.2. Hepatic parenchyma SUV mean is 2.7. SKULL BASE AND NECK: No pathologically enlarged adenopathy with previously seen FDG avid lymph nodes measuring at backgrou nd levels. CHEST, MEDIASTINUM, AND HILAR REGION: No pathologically enlarged adenopathy with previously seen FDG avid lymph nodes measuring at backgrou nd levels. ABDOMEN AND PELVIS: No pathologically enlarged adenopathy with previously seen FDG avid lymph nodes measuring at backgrou nd levels. MUSCULOSKELETAL STRUCTURES: No suspicious radiotracer uptake. OTHER CT: Right hip arthroplasty with hardware intact. Atherosclerosis of the arterial vasculature. F ixation hardware in the lower lumbar spine appears intact. Anterior cervical fusion hardware. Multile tone degenerative changes of the visualized spine. Degenerative changes of bilateral SI joints with an terior bridging. Left posterior shoulder subcutaneous 2.8 cm hyperdense lesion with extension to the skin surface redemonstrated. Previously 2.3 cm. Probable benign epidermoid cyst. Right anterior chest wall Mediport catheter with distal tip terminating in the mid SVC. Bilateral gynecomastia. Small hia sarita hernia. Gallbladder is surgically absent. IMPRESSION: Positive response to therapy with all previously seen lymph nodes measuring less than 1 cm short axis with FDG activity at background levels. No new suspicious radiotracer activity. [facility], , 09/21/2024 8:47 PM
== END | disposition home or self-care (01) ==
LOC: RADPETMAIN 13:16
PROVIDERS: ATTEND Internal Medicine Hematology & Oncology
DX: C84.48 Peripheral T-cell lymphoma, not elsewhere classified, lymph nodes of multiple sites (principal); K44.9 Diaphragmatic hernia without obstruction or gangrene
CPT/HCPCS: 78815; A9552